=== PATIENT | male | born 1985 | race African-American/Black ===

== ENCOUNTER 2016-09-11 05:10 | Inpatient (IN) | payer OTHER ==
[2016-09-11] VITALS (13 sets, daily range): BP systolic 94–131; BP diastolic 50–58; PULSE 49–78; RESP 14–21; TEMP 93.4–98.1; O2SAT 97–100
[~2016-09-11] VITALS: Ht 162.6 cm; Wt 58.1 kg
[~2016-09-11 05:10] MED LIST: CYCL-36 PO; IBUP-238 PO
[2016-09-11 05:33] LABS: I-STAT POTASSIUM 3.4 MMOL/L (3.5-4.9)
[2016-09-11 05:34] LABS: AUTOMATED NEUTROPHIL # 2.1 TH/MM3 (1.8-7.7); BASOPHIL % 0.4 % (0.0-2.0); EOSINOPHIL % 0.9 % (0.0-4.0); HEMATOCRIT 40.5 % (39.0-51.0); HEMO FLAGS DIFF FINAL; LYMPH % 35.8 % (9.0-44.0); LYMPHOCYTE # 1.4 TH/MM3 (1.0-4.8); MEAN CELL VOLUME 84.4 FL (80.0-100.0); MEAN CORPUSCULAR HGB CONC 33.2 % (32.0-36.0); MONO % 7.6 % (0.0-8.0); NEUT % 55.3 % (16.0-70.0); PLATELET COUNT 190 TH/MM3 (150-450); RED CELL DISTRIBUTION WIDTH 13.3 % (11.6-17.2); WHITE BLOOD COUNT 3.9 TH/MM3 (4.0-11.0)
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
[2016-09-11] MEDS ORDERED: IOHEXOL 350 MG/ML 10 ML VIAL (for RAD DIAG) IV ONE (05:47)
[2016-09-11 05:49] LABS: APTT (PATIENT) 27.4 SEC (24.3-30.1); INTERNATIONAL NORMALIZED RATIO 1.1 RATIO; PROTHROMBIN TIME - PATIENT 11.8 SEC (9.8-11.6)
[2016-09-11] MEDS ORDERED: SODIUM CHLOR 0.9% 1000 ML INJ 1,000 ML IV SCH (05:55)
[2016-09-11] MEDS ORDERED: Post-op Orders (for Pharmacy) MISC XX ONE (06:00)
[2016-09-11] MEDS ORDERED: SODIUM CHLORIDE 0.9% FLUSH 5 ML FLUSH IVF PRN ×2 (06:00→15:30)
[2016-09-11] MEDS ORDERED: ONDANSETRON HCL 4 MG/2 ML VIAL IV PRN ×2 (06:00→15:30)
[2016-09-11] MEDS ORDERED: NALOXONE HCL 0.4 MG/ML AMP IV PRN (06:00)
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
[2016-09-11 06:32] LABS: AMPHETAMINE, URINE NEG (NEG); BARBITURATES, URINE NEG (NEG); COCAINE, URINE POS (NEG)
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
[2016-09-11] MEDS: PANTOPRAZOLE SODIUM 40 MG VIAL IV SCH (06:48)
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
[2016-09-11] MEDS ORDERED: EPINEPHrine HCL (1:10,000) 1 MG/10 ML SYRINGE ONE ×2 (07:15→09:09)
[2016-09-11] MEDS ORDERED: LIDOCAINE HCL 2% 100 MG/5 ML SYRINGE ONE ×2 (07:15→09:09)
[2016-09-11] MEDS ORDERED: ATROPINE SULFATE 1 MG/10 ML SYRINGE ONE ×2 (07:15→09:09)
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
[2016-09-11] MEDS ORDERED: SODIUM CHLORIDE 0.9% FLUSH 5 ML FLUSH IVF SCH (09:00)
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
[2016-09-11] MEDS ORDERED: THROMBIN (TOPICAL) 5,000 UNIT VIAL ONE ×2 (09:40→13:13)
[2016-09-11] MEDS ORDERED: ceFAZolin 2 GM PREMIX 50 ML ONE (09:40)
[2016-09-11] MEDS ORDERED: GELFOAM SIZE 100 ONE (09:41)
[2016-09-11] MEDS ORDERED: GENTAMICIN SULFATE 80 MG/2 ML VIAL ONE (09:41)
[2016-09-11] MEDS ORDERED: DEXAMETHASONE SOD PHOS 20 MG/5 ML VIAL ONE (09:41)
[2016-09-11] MEDS ORDERED: VANCOMYCIN HCL 1000 MG VIAL ONE (09:41)
[2016-09-11] MEDS ORDERED: SODIUM CHLOR 0.9% 250 ML INJ 250 ML ONE ×2 (09:42→10:54)
[2016-09-11] MEDS ORDERED: SODIUM CHLOR 0.9% 1000 ML INJ 1,000 ML IV ONE (10:00)
[2016-09-11] MEDS ORDERED: FAMOTIDINE 20 MG/2 ML VIAL ONE (11:01)
[2016-09-11] MEDS ORDERED: KETAMINE HCL 500 MG/5 ML VIAL ONE (11:11)
[2016-09-11] MEDS ORDERED: MIDAZOLAM HCL 2 MG/2 ML VIAL ONE (11:13)
[2016-09-11] MEDS ORDERED: METOCLOPRAMIDE HCL 10 MG/2 ML VIAL ONE (11:13)
[2016-09-11] MEDS ORDERED: fentaNYL CITRATE 250 MCG/5 ML AMP ONE (11:20)
[2016-09-11] MEDS ORDERED: ARTIFICIAL TEARS OPTH OINT 3.5 APPLIC/3.5 GM TUBO ONE (11:20)
[2016-09-11] MEDS ORDERED: PROPOFOL 200 MG/20 ML AMP IV ONE (12:00)
[2016-09-11] MEDS ORDERED: PHENYLEPHRINE HCL 10 MG/ML VIAL IV ONE (12:00)
[2016-09-11] MEDS ORDERED: PHENYLEPH/NS 1000 MCG/10 ML SYR IV ONE (12:00)
[2016-09-11] MEDS ORDERED: SODIUM CHLOR 0.9% 250 ML INJ 250 ML IV ONE (12:00)
[2016-09-11] MEDS ORDERED: SODIUM CHLORID 0.9% 500 ML INJ 500 ML IV ONE (12:00)
[2016-09-11] MEDS ORDERED: ONDANSETRON HCL 4 MG/2 ML VIAL IV PUSH ONE (12:00)
[2016-09-11] MEDS ORDERED: LACTATED RINGER'S 1000 ML INJ 1,000 ML IV ONE (12:00)
[2016-09-11] MEDS ORDERED: GELATIN POWDER 1 GM PACKET ONE (13:13)
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
[2016-09-11] MEDS ORDERED: DO NOT ADM ANY ANTICOAGULANT DRUGS XX PRN (15:10)
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
[2016-09-11] MEDS ORDERED: MENTHOL LOZENGE SUCK-ON PRN (15:30)
[2016-09-11] MEDS ORDERED: BISACODYL 10 MG SUPP PR PRN (15:30)
[2016-09-11] MEDS ORDERED: PROPOFOL 1000 MG/100 ML INJ 100 ML ONE (15:40)
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
[2016-09-11] MEDS: DEXAMETHASONE SOD PHOS 4 MG/ML VIAL IV SCH ×2 (17:07→18:05)
[2016-09-11] MEDS: MORPHINE SULFATE 4 MG/ML INJ IV PUSH PRN (17:07)
--- NOTE | 2016-09-11 17:16 | RADRPT ---
EXAM DATE/TIME: 09/11/2016 16:58 [facility] COMPARISON: CHEST SINGLE AP, September 11, 2016, 5:04. INDICATIONS : Post intubation. Trauma patient with cervical spine fractures. MEDICAL HISTORY : Unobtainable. SURGICAL HISTORY : Unobtainable. ENCOUNTER: Initial ACUITY: 1 day PAIN SCORE: Non-responsive. LOCATION: Bilateral chest FINDINGS: A single view of the chest demonstrates the lungs to be symmetrically aerated without evidence of mas s, infiltrate or effusion. The cardiomediastinal contours are unremarkable. Osseous structures are intact. There is overlying artifact from a halo traction device. An endotracheal tube is in place wit h the tip at the level of thoracic inlet approximately 5 cm above the torsten. CONCLUSION: 1. Interval intubation. 2. No acute cardiopulmonary disease. Samson Pleitez MD on September 11, 2016 at 17:13 Board Certified Radiologist. This report was verified electronically.
[2016-09-11] MEDS ORDERED: LIDOCAINE HCL 1% 50 ML VIAL ONE (17:45)
[2016-09-11] MEDS ORDERED: LIDOCAINE HCL 1% 20 ML VIAL INFIL PRN (17:45)
[2016-09-11] MEDS ORDERED: TERBUTALINE INJ 1 MG/ML AMP SQ PRN (17:45)
[2016-09-11] MEDS: NS + KCL 20 MEQ INJ 1,000 ML IV SCH (17:51)
[2016-09-11] MEDS: DOPamine INJ PREMIX 500 ML IV SCH (17:52)
[2016-09-11] MEDS ORDERED: ATROPINE SULFATE 1 MG/ML VIAL ONE (18:00)
[2016-09-11] MEDS: fentaNYL DRIP 250 ML IV SCH (18:03)
[2016-09-11] MEDS: PROPOFOL 1000 MG/100 ML IV SCH (18:05)
[2016-09-11] MEDS ORDERED: ATROPINE SULFATE 1 MG/ML VIAL IV PUSH PRN (18:15)
[2016-09-11] MEDS ORDERED: ceFAZolin 2 GM PREMIX 50 ML IV SCH (20:00)
[2016-09-11] MEDS: SODIUM CHLORIDE 0.9% FLUSH 5 ML FLUSH IVF SCH (20:39)
[2016-09-11] MEDS: DOCUSATE SODIUM 50 MG/SENNA 8.6 MG TAB PO SCH (20:39)
[2016-09-11] MEDS: MAGNESIUM HYDROXIDE SUSP 30 ML CUP PO SCH (20:39)
--- NOTE | 2016-09-11 20:58 | RADRPT ---
EXAM DATE/TIME: 09/11/2016 14:49 [facility] COMPARISON: CT CERVICAL SPINE W/O CONTRAST, September 11, 2016, 5:25. MRI CERVICAL SPINE W/O CONTRAST, August 262016, 7:42. INDICATIONS : C5 corpectomy with fusion C4 to C6 and screw and plate, CODE STATU: Full code. MEDICAL HISTORY : Trauma. SURGICAL HISTORY : None. ENCOUNTER: Initial ACUITY: 2 days PAIN SCORE: Non-responsive. LOCATION: Cervical spine. FINDINGS: There is an anterior cervical fusion plate extending from C4 through C6. There is a me tallic strut seen between the C4 and C6 vertebral bodies following corpectomy of the C5 vertebral bod y. The hardware appears well placed. CONCLUSION: Status post stabilization as described above Lawrence Alamo MD on September 11, 2016 at 19:35 Board Certified Radiologist. This report was verified electronically.
[2016-09-11] MEDS ORDERED: DOCUSATE SODIUM 100 MG CAP PO SCH (21:00)
[2016-09-11] MEDS: METOCLOPRAMIDE HCL 10 MG/2 ML VIAL IV PUSH SCH (21:12)
[2016-09-12] VITALS (16 sets, daily range): BP systolic 120–137; BP diastolic 45–64; PULSE 49–73; RESP 13–25; TEMP 98.4–99.5; O2SAT 100
[2016-09-12] MEDS: PROPOFOL 1000 MG/100 ML IV SCH ×2 (01:22→08:38)
[2016-09-12 04:06] LABS: BLOOD GAS BASE EXCESS -0.4 mmol/L (-2-2); BLOOD GAS CARBOXYHEMOGLOBIN 0.8 % (0-4); BLOOD GAS HCO3 23 mmol/L (22-26); BLOOD GAS O2 HGB SATURATION 98 % (90-100); BLOOD GAS OXYGEN CONTENT 18.3 Vol % (12.0-20.0); BLOOD GAS PCO2 36 mmHg (38-42); BLOOD GAS PO2 357 mmHg (61-120); BLOOD GAS TOTAL HGB 12.6 G/DL (12.0-16.0); TEMP CORR TO 98.6
[2016-09-12 04:07] LABS: CRITICAL VALUE NO; DRAW SITE ART LINE; FIO2 80 %; OXYGEN DEVICE VENTILATOR; STAT NO; VENT SETTINGS PRVC/AC
[2016-09-12 05:11] LABS: AUTOMATED NEUTROPHIL # 11.4 TH/MM3 (1.8-7.7); BASOPHIL % 0.3 % (0.0-2.0); HEMATOCRIT 38.4 % (39.0-51.0); HEMO FLAGS DIFF FINAL; LYMPH % 10.1 % (9.0-44.0); LYMPHOCYTE # 1.4 TH/MM3 (1.0-4.8); MEAN CELL VOLUME 85.4 FL (80.0-100.0); MEAN CORPUSCULAR HEMOGLOBIN 27.7 PG (27.0-34.0); MEAN CORPUSCULAR HGB CONC 32.5 % (32.0-36.0); MONO % 6.7 % (0.0-8.0); NEUT % 82.9 % (16.0-70.0); PLATELET COUNT 195 TH/MM3 (150-450); RED BLOOD COUNT 4.49 MIL/MM3 (4.50-5.90); RED CELL DISTRIBUTION WIDTH 13.7 % (11.6-17.2); WHITE BLOOD COUNT 13.8 TH/MM3 (4.0-11.0)
[2016-09-12 05:38] LABS: ANION GAP 9 MEQ/L (5-15); AST (GOT) 20 U/L (15-37); BICARBONATE 25.4 MEQ/L (21.0-32.0); BLOOD UREA NITROGEN 10 MG/DL (7-18); CHLORIDE 108 MEQ/L (98-107); GLOMERULAR FILTRATION RATE 123 ML/MIN (>89); POTASSIUM 3.7 MEQ/L (3.5-5.1); SODIUM (NA) 142 MEQ/L (136-145)
[2016-09-12 05:42] LABS: ALKALINE PHOSPHATASE 55 U/L (45-117); ALT (GPT) 18 U/L (12-78); TOTAL BILIRUBIN ADULT 0.4 MG/DL (0.2-1.0)
[2016-09-12] MEDS: NS + KCL 20 MEQ INJ 1,000 ML IV SCH ×2 (05:50→16:16)
[2016-09-12] MEDS: PANTOPRAZOLE SODIUM 40 MG VIAL IV SCH (05:50)
[2016-09-12] MEDS: METOCLOPRAMIDE HCL 10 MG/2 ML VIAL IV PUSH SCH ×3 (05:50→22:00)
[2016-09-12] MEDS: DEXAMETHASONE SOD PHOS 4 MG/ML VIAL IV SCH ×4 (05:50→23:47)
--- NOTE | 2016-09-12 06:27 | RADRPT ---
EXAM DATE/TIME: 09/12/2016 04:31 [facility] COMPARISON: SPINE CERVICAL LTD (AP&LAT), September 11, 2016, 14:49. CHEST SINGLE AP, September 11, 2016, 16:58. M RI CERVICAL SPINE W/O CONTRAST, September 11, 2016, 7:42. INDICATIONS : Shortness of breath. MEDICAL HISTORY : Unobtainable. SURGICAL HISTORY : Unobtainable. ENCOUNTER: Subsequent ACUITY: 2 days PAIN SCORE: Non-responsive. LOCATION: Bilateral chest FINDINGS: A single view of the chest demonstrates the lungs to be symmetrically aerated without evidence of mas s, infiltrate or effusion. The cardiomediastinal contours are unremarkable. Osseous structures are intact. CONCLUSION: 1. No acute cardiopulmonary disease. Agustin Bhatia MD on September 12, 2016 at 6:24 Board Certified Radiologist. This report was verified electronically.
[2016-09-12] MEDS: fentaNYL DRIP 250 ML IV SCH (08:38)
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
[2016-09-12] MEDS: SODIUM CHLORIDE 0.9% FLUSH 5 ML FLUSH IVF SCH ×2 (08:39→20:30)
[2016-09-12] MEDS: BISACODYL 10 MG SUPP RECTAL SCH (09:00)
[2016-09-12] MEDS: DOCUSATE SODIUM 50 MG/SENNA 8.6 MG TAB PO SCH ×2 (09:00→20:30)
[2016-09-12] MEDS ORDERED: PANTOPRAZOLE SOD 40 MG DELAYED RELEASE TAB PO SCH (09:00)
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
[2016-09-12] MEDS ORDERED: RESP: RACEPINEPHRINE 2.25% 0.5 ML NEB NEB PRN (10:00)
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
--- NOTE | 2016-09-12 15:11 | EKG ---
Date Performed: 09/11/2016 Time Performed: 10:01:00 PTAGE: 31 years EKG: Sinus arrhythmia. Vertical QRS axis ST change compatible with early repolarization Tracing probably within normal limits for age Abnormal ECG NO PREVIOUS TRACING DOCTOR: Tera Rocha Interpretating Date/Time 09/12/2016 15:10:23
[2016-09-12] MEDS: DOPamine INJ PREMIX 500 ML IV SCH (16:13)
[2016-09-12] MEDS: MAGNESIUM HYDROXIDE SUSP 30 ML CUP PO SCH (20:30)
[2016-09-13] VITALS (14 sets, daily range): BP systolic 98–152; BP diastolic 42–71; PULSE 57–90; RESP 10–24; TEMP 97.5–100.2; O2SAT 99–100
[2016-09-13] MEDS: MORPHINE SULFATE 4 MG/ML INJ IV PUSH PRN ×6 (01:31→20:45)
[2016-09-13 04:52] LABS: AUTOMATED NEUTROPHIL # 16.3 TH/MM3 (1.8-7.7); BASOPHIL # 0.1 TH/MM3 (0-0.2); BASOPHIL % 0.3 % (0.0-2.0); HEMATOCRIT 38.6 % (39.0-51.0); HEMO FLAGS DIFF FINAL; LYMPHOCYTE # 0.4 TH/MM3 (1.0-4.8); MEAN CELL VOLUME 85.1 FL (80.0-100.0); MEAN CORPUSCULAR HGB CONC 32.9 % (32.0-36.0); MONO % 5.3 % (0.0-8.0); NEUT % 92.4 % (16.0-70.0); PLATELET COUNT 165 TH/MM3 (150-450); RED BLOOD COUNT 4.54 MIL/MM3 (4.50-5.90); RED CELL DISTRIBUTION WIDTH 13.5 % (11.6-17.2); WHITE BLOOD COUNT 17.6 TH/MM3 (4.0-11.0)
[2016-09-13 05:31] LABS: ALKALINE PHOSPHATASE 55 U/L (45-117); ALT (GPT) 33 U/L (12-78); ANION GAP 8 MEQ/L (5-15); AST (GOT) 98 U/L (15-37); BICARBONATE 27.3 MEQ/L (21.0-32.0); BLOOD UREA NITROGEN 13 MG/DL (7-18); CHLORIDE 106 MEQ/L (98-107); GLOMERULAR FILTRATION RATE 148 ML/MIN (>89); MAGNESIUM 2.1 MG/DL (1.5-2.5); POTASSIUM 4.2 MEQ/L (3.5-5.1); SODIUM (NA) 141 MEQ/L (136-145); TOTAL BILIRUBIN ADULT 0.8 MG/DL (0.2-1.0)
[2016-09-13] MEDS: PANTOPRAZOLE SODIUM 40 MG VIAL IV SCH (05:37)
[2016-09-13] MEDS: DEXAMETHASONE SOD PHOS 4 MG/ML VIAL IV SCH ×4 (05:37→23:57)
[2016-09-13] MEDS: METOCLOPRAMIDE HCL 10 MG/2 ML VIAL IV PUSH SCH ×3 (05:37→22:00)
[2016-09-13] MEDS: RESP: ALBUTEROL 2.5 MG/IPRATROPIUM 0.5 MG NEB (PRN) NEB (05:51)
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
[2016-09-13] MEDS: BISACODYL 10 MG SUPP RECTAL SCH (08:48)
[2016-09-13] MEDS: SODIUM CHLORIDE 0.9% FLUSH 5 ML FLUSH IVF SCH ×2 (08:49→21:00)
[2016-09-13] MEDS: DOCUSATE SODIUM 50 MG/SENNA 8.6 MG TAB PO SCH ×2 (09:00→21:00)
[2016-09-13] MEDS: fentaNYL DRIP 250 ML IV SCH (09:00)
[2016-09-13] MEDS: NS + KCL 20 MEQ INJ 1,000 ML IV SCH (09:01)
[2016-09-13] MEDS ORDERED: POTASSIUM CHLOR 20 MEQ PREMIX 100 ML IV PRN ×2 (09:30)
[2016-09-13] MEDS ORDERED: POTASSIUM PHOSPHATE MONOBASIC 500 MG TAB PO/TUBE PRN (09:30)
[2016-09-13] MEDS ORDERED: POTASSIUM PHOSPHATE MONOBASIC 500 MG TAB PO PRN (09:30)
[2016-09-13] MEDS ORDERED: SODIUM PHOSPHATE INJ 30 MMOL in SODIUM CHLOR 0.9% 250 ML INJ 240 ML IV PRN (09:30)
[2016-09-13] MEDS ORDERED: MAGNESIUM SULFATE INJ 2 GM in SODIUM CHLORIDE 0.9% INJ 96 ML IV PRN (09:30)
[2016-09-13] MEDS ORDERED: POTASSIUM CL 40 MEQ/30 ML LIQ UDC PO/TUBE PRN ×2 (09:30)
[2016-09-13] MEDS ORDERED: MAGNESIUM OXIDE 400 MG TAB PO PRN (09:30)
[2016-09-13] MEDS ORDERED: POTASSIUM CHLOR 40 MEQ PREMIX 100 ML IV PRN ×2 (09:30)
[2016-09-13] MEDS ORDERED: POTASSIUM PHOSPHATE INJ 30 MMOL in SODIUM CHLOR 0.9% 250 ML INJ 250 ML IV PRN (09:30)
[2016-09-13] MEDS ORDERED: MAGNESIUM SULFATE INJ 4 GM in SODIUM CHLORIDE 0.9% INJ 92 ML IV PRN (09:30)
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
[2016-09-13] MEDS: MAGNESIUM HYDROXIDE SUSP 30 ML CUP PO SCH (21:00)
[2016-09-14] VITALS (14 sets, daily range): BP systolic 106–154; BP diastolic 67–80; PULSE 51–70; RESP 11–21; TEMP 98.2–100.4; O2SAT 100
[2016-09-14] MEDS: NS + KCL 20 MEQ INJ 1,000 ML IV SCH ×2 (01:12→15:30)
[2016-09-14] MEDS: MORPHINE SULFATE 4 MG/ML INJ IV PUSH PRN ×3 (02:50→18:52)
[2016-09-14 04:57] LABS: AUTOMATED NEUTROPHIL # 11.1 TH/MM3 (1.8-7.7); HEMO FLAGS DIFF FINAL; LYMPH % 5.4 % (9.0-44.0); LYMPHOCYTE # 0.7 TH/MM3 (1.0-4.8); MEAN CELL VOLUME 84.2 FL (80.0-100.0); MEAN CORPUSCULAR HEMOGLOBIN 28.3 PG (27.0-34.0); MEAN CORPUSCULAR HGB CONC 33.7 % (32.0-36.0); MONO % 3.5 % (0.0-8.0); NEUT % 91.1 % (16.0-70.0); PLATELET COUNT 161 TH/MM3 (150-450); RED BLOOD COUNT 4.51 MIL/MM3 (4.50-5.90); RED CELL DISTRIBUTION WIDTH 13.5 % (11.6-17.2); WHITE BLOOD COUNT 12.2 TH/MM3 (4.0-11.0)
[2016-09-14 05:20] LABS: ALT (GPT) 34 U/L (12-78); ANION GAP 8 MEQ/L (5-15); AST (GOT) 69 U/L (15-37); BICARBONATE 26.3 MEQ/L (21.0-32.0); BLOOD UREA NITROGEN 16 MG/DL (7-18); CHLORIDE 104 MEQ/L (98-107); GLOMERULAR FILTRATION RATE 172 ML/MIN (>89); MAGNESIUM 2.1 MG/DL (1.5-2.5); POTASSIUM 4.1 MEQ/L (3.5-5.1); SODIUM (NA) 138 MEQ/L (136-145)
[2016-09-14 05:22] LABS: ALKALINE PHOSPHATASE 54 U/L (45-117); TOTAL BILIRUBIN ADULT 0.5 MG/DL (0.2-1.0)
[2016-09-14] MEDS: DEXAMETHASONE SOD PHOS 4 MG/ML VIAL IV SCH ×3 (05:33→18:00)
[2016-09-14] MEDS: PANTOPRAZOLE SODIUM 40 MG VIAL IV SCH (05:33)
[2016-09-14] MEDS: METOCLOPRAMIDE HCL 10 MG/2 ML VIAL IV PUSH SCH ×3 (05:33→21:06)
[2016-09-14] MEDS ORDERED: fentaNYL CITRATE 250 MCG/5 ML AMP ONE (06:51)
[2016-09-14] MEDS ORDERED: MIDAZOLAM HCL 2 MG/2 ML VIAL ONE (06:51)
[2016-09-14] MEDS ORDERED: FAMOTIDINE 20 MG/2 ML VIAL ONE (06:51)
[2016-09-14] MEDS ORDERED: ACETAMINOPHEN 1000 MG/100 ML VIAL IV ONE (06:51)
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
[2016-09-14] MEDS: DOPamine INJ PREMIX 500 ML IV SCH (08:02)
[2016-09-14] MEDS: BISACODYL 10 MG SUPP RECTAL SCH (08:02)
[2016-09-14] MEDS: SODIUM CHLORIDE 0.9% FLUSH 5 ML FLUSH IVF SCH ×2 (08:03→20:21)
[2016-09-14] MEDS: DOCUSATE SODIUM 50 MG/SENNA 8.6 MG TAB PO SCH ×2 (09:00→20:21)
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
[2016-09-14] MEDS ORDERED: ATROPINE SULFATE 1 MG/10 ML SYRINGE ONE (17:09)
[2016-09-14] MEDS ORDERED: EPINEPHrine HCL (1:10,000) 1 MG/10 ML SYRINGE ONE (17:09)
[2016-09-14] MEDS ORDERED: LIDOCAINE HCL 2% 100 MG/5 ML SYRINGE ONE (17:10)
--- NOTE | 2016-09-14 18:42 | RADRPT ---
EXAM DATE/TIME: 09/14/2016 17:46 [facility] COMPARISON: CT CERVICAL SPINE W/O CONTRAST, September 11, 2016, 5:25. INDICATIONS : Evaluate fracture post operative. RADIATION DOSE: 25.45 CTDIvol (mGy) MEDICAL HISTORY : C spine fracture SURGICAL HISTORY : surgery for fracture ENCOUNTER: Subsequent ACUITY: 4 - 6 days PAIN SCALE: 5/10 LOCATION: neck TECHNIQUE: Volumetric scanning of the cervical spine was performed. Multiplanar reconstructions in the sagittal, coronal and oblique axial planes were performed. Using automated exposure control and adjustment o f the mA and/or kV according to patient size, radiation dose was kept as low as reasonably achievable to obtain optimal diagnostic quality images. FINDINGS: In the interim, a C5 corpectomy and C4/C5, C5/C6 discectomy has taken place. There is anterior and in terbody instrumentation. Alignment is normal. No epidural hematoma or fluid collection. No evidence o f foraminal or spinal stenosis. Bilateral C5 laminar fractures are again noted without significant displacement. CONCLUSION: Discectomy/corpectomy from C4 through C6, normally aligned and without evidence of an acute complicat ion. Previously seen spinal stenosis has been alleviated. Lawrence Spivey MD on September 14, 2016 at 18:35 Board Certified Radiologist. This report was verified electronically.
[2016-09-14] MEDS: MAGNESIUM HYDROXIDE SUSP 30 ML CUP PO SCH (20:21)
[2016-09-15] VITALS (11 sets, daily range): BP systolic 111–155; BP diastolic 54–85; PULSE 51–82; RESP 16–22; TEMP 97.2–99; O2SAT 99–100
[2016-09-15] MEDS: DEXAMETHASONE SOD PHOS 4 MG/ML VIAL IV SCH ×5 (00:35→22:36)
[2016-09-15] MEDS: MORPHINE SULFATE 4 MG/ML INJ IV PUSH PRN ×5 (00:36→22:35)
[2016-09-15 04:30] LABS: HEMATOCRIT 37.8 % (39.0-51.0); MEAN CELL VOLUME 83.8 FL (80.0-100.0); MEAN CORPUSCULAR HEMOGLOBIN 27.7 PG (27.0-34.0); MEAN CORPUSCULAR HGB CONC 33.1 % (32.0-36.0); PLATELET COUNT 180 TH/MM3 (150-450); RED BLOOD COUNT 4.51 MIL/MM3 (4.50-5.90); RED CELL DISTRIBUTION WIDTH 13.4 % (11.6-17.2); REVIEW FLAG FINAL; WHITE BLOOD COUNT 12.3 TH/MM3 (4.0-11.0)
[2016-09-15 04:53] LABS: BICARBONATE 25.2 MEQ/L (21.0-32.0); POTASSIUM 4.2 MEQ/L (3.5-5.1)
[2016-09-15] MEDS: NS + KCL 20 MEQ INJ 1,000 ML IV SCH ×2 (04:53→20:06)
[2016-09-15] MEDS: METOCLOPRAMIDE HCL 10 MG/2 ML VIAL IV PUSH SCH (05:24)
[2016-09-15] MEDS: PANTOPRAZOLE SODIUM 40 MG VIAL IV SCH (05:24)
[2016-09-15] MEDS: BISACODYL 10 MG SUPP RECTAL SCH (09:00)
[2016-09-15] MEDS: DOCUSATE SODIUM 50 MG/SENNA 8.6 MG TAB PO SCH ×2 (09:00→21:00)
[2016-09-15] MEDS: SODIUM CHLORIDE 0.9% FLUSH 5 ML FLUSH IVF SCH ×2 (09:00→21:00)
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
[2016-09-15] MEDS: SERTRALINE HCL 50 MG TAB PO SCH (11:00)
--- NOTE | 2016-09-15 12:18 | HHI.PR ---
Neuropsych Emotional Emotional: Moderate: Emotional, Anxious/Fearful, Depressed/Sad Progress Notes/Response to Tx Contents of Sessions: Adjustment Time with Patient: 15 minutes Premorbid psychological status Premorbid Cognitive, Emotional and Behavioral Status: [Tenuous / Stable / Unstable / Deferred / Unable to Assess] The patient has [] years of education and a [solid / sporadic] work history prior to this injury. The patient has [ no / prior] psychiatric difficulties, as described above. Substance abuse history includes []. Behavioral Reactions of Patient and Family/Support System: [Tenuous / Stable / Unstable / Deferred / Unable to Assess] The patients family is experiencing ongoing issues of adjustment given the nature of the injury, and this aspect of recovery will require ongoing monitoring. Emotional/Behavioral Status of Patient and Family/Support System: [Tenuous / Stable / Unstable / Deferred / Unable to Assess] Pertinent issues, if appropriate to this patients clinical care, are described in detail above. Maximizing acute care outcome It is recommended that the patient be monitored for emergent behavioral impulsivity as the medical condition evolves. This patients neuropathological challenges may limit their rehabilitation potential going forward, and these challenges will require specialized therapeutic skills to maximize outcome. Additionally, the patients family is experiencing ongoing issues of adjustment given the traumatic nature of the injury, and they [will need / may benefit] from ongoing psychological assistance. Anticipated Problems Ongoing areas of concern will include behavioral impulsivity, lack of insight and judgment, which is expected to improve with time and treatment. Presently , the patient [is / is not] following greater than []-step commands. Treatment Plan This clinician will continue to follow with you throughout the course of this patients rehabilitation treatment, and I will be available to meet with the patients family/support system to facilitate their understanding and the ongoing care of their family member. The goals of neuropsychological intervention shall be both educational and supportive to the family/support system as is deemed clinically appropriate. Additionally, I would recommend a referral to Dr. Ac for ongoing patient and family adjustment issues if they are coming to [place]. Impression This patient sustained a spinal cord injury with expected paralysis, extent of which to be determined. There is evidence of an underlying depressive disorder in reaction to the severity of his injury. Diagnosis: (1) Major depressive disorder Status: Acute Progress Note Narrative Ongoing follow-up of patient both within context of daily trauma rounding and bedside. Discussed recovery issues with significant other, who was bedside. Patient is complaining of mood difficulties and problems with sleep. I provided information concerning recovery of functioning and processes to be expected in his treatment. I will continue to follow with you. Problem Qualifiers (1) Major depressive disorder: Basilio Barber PhD Sep 15, 2016 12:17 pm
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
[2016-09-15] MEDS: MAGNESIUM HYDROXIDE SUSP 30 ML CUP PO SCH ×2 (21:00→22:34)
[2016-09-16] VITALS (11 sets, daily range): BP systolic 110–135; BP diastolic 5–76; PULSE 60–76; RESP 16–28; TEMP 96.7–100.1; O2SAT 91–100
[2016-09-16] MEDS: MORPHINE SULFATE 4 MG/ML INJ IV PUSH PRN ×3 (01:36→17:21)
[2016-09-16] MEDS: DEXAMETHASONE SOD PHOS 4 MG/ML VIAL IV SCH ×3 (06:17→21:51)
[2016-09-16] MEDS: ACETAMINOPHEN/HYDROcodone 325 MG/10 MG TAB PO PRN (06:17)
[2016-09-16] MEDS: SODIUM CHLORIDE 0.9% FLUSH 5 ML FLUSH IVF SCH ×2 (09:36→23:05)
[2016-09-16] MEDS: SERTRALINE HCL 50 MG TAB PO SCH (09:37)
[2016-09-16] MEDS: FAMOTIDINE 20 MG TAB PO SCH ×2 (09:37→21:00)
[2016-09-16] MEDS: BISACODYL 10 MG SUPP RECTAL SCH (09:37)
[2016-09-16] MEDS: DOCUSATE SODIUM 50 MG/SENNA 8.6 MG TAB PO SCH ×2 (09:37→21:00)
[2016-09-16] MEDS: NS + KCL 20 MEQ INJ 1,000 ML IV SCH ×2 (09:38→21:52)
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
--- NOTE | 2016-09-16 15:08 | HHI.PR ---
Subjective Subjective Notes Being evaluated by ST during visit. Pain controlled. Awaiting reposition of halo position by ortho techs Objective Vitals/I&O Vital Signs Date Time Temp Pulse Resp B/P Pulse Ox O2 Delivery O2 Flow Rate FiO2 09/16/16 12:21 18 09/16/16 12:00 99.0 62 122/63 93 09/14/16 19:45 21 09/13/16 09:49 Nasal Cannula 2.00 Labs Laboratory Tests Test 09/12/16 09/14/16 09/14/16 09/15/16 03:56 03:31 12:15 03:06 Blood Gas Puncture Site ART LINE Blood Gas Patient Temperature 98.6 Blood Gas HCO3 23 mmol/L Blood Gas Base Excess -0.4 mmol/L Blood Gas Oxygen Saturation 98 % Arterial Blood pH 7.43 Arterial Blood Partial 36 mmHg Pressure CO2 Arterial Blood Partial 357 mmHg Pressure O2 Arterial Blood Oxygen Content 18.3 Vol % Arterial Blood 0.8 % Carboxyhemoglobin Arterial Blood Methemoglobin 1.0 % Blood Gas Hemoglobin 12.6 G/DL Oxygen Delivery Device VENTILATOR Blood Gas Ventilator Setting PRVC/AC Blood Gas Inspired Oxygen 80 % Neutrophils (%) (Auto) 91.1 % Lymphocytes (%) (Auto) 5.4 % Monocytes (%) (Auto) 3.5 % Eosinophils (%) (Auto) 0.0 % Basophils (%) (Auto) 0.0 % Neutrophils # (Auto) 11.1 TH/MM3 Lymphocytes # (Auto) 0.7 TH/MM3 Monocytes # (Auto) 0.4 TH/MM3 Eosinophils # (Auto) 0.0 TH/MM3 Basophils # (Auto) 0.0 TH/MM3 CBC Comment DIFF FINAL Differential Comment Phosphorus Level 2.3 MG/DL Magnesium Level 2.1 MG/DL Total Bilirubin 0.5 MG/DL Aspartate Amino Transf 69 U/L (AST/SGOT) Alanine Aminotransferase 34 U/L (ALT/SGPT) Alkaline Phosphatase 54 U/L Total Protein 6.5 GM/DL Albumin 2.9 GM/DL Nasal Screen MRSA (PCR) NEGATIVE White Blood Count 12.3 TH/MM3 Red Blood Count 4.51 MIL/MM3 Hemoglobin 12.5 GM/DL Hematocrit 37.8 % Mean Corpuscular Volume 83.8 FL Mean Corpuscular Hemoglobin 27.7 PG Mean Corpuscular Hemoglobin 33.1 % Concent Red Cell Distribution Width 13.4 % Platelet Count 180 TH/MM3 Mean Platelet Volume 8.3 FL Sodium Level 137 MEQ/L Potassium Level 4.2 MEQ/L Chloride Level 104 MEQ/L Carbon Dioxide Level 25.2 MEQ/L Anion Gap 8 MEQ/L Blood Urea Nitrogen 17 MG/DL Creatinine 0.61 MG/DL Estimat Glomerular Filtration 188 ML/MIN Rate Random Glucose 103 MG/DL Calcium Level 8.6 MG/DL Radiology Last Impressions Cervical Spine CT 09/14/16 0000 Signed Impressions: Service Date/Time: Wednesday, September 14, 2016 17:46 - CONCLUSION: Discectomy/corpectomy from C4 through C6, normally aligned and without evidence of an acute complication. Previously seen spinal stenosis has been alleviated. Lawrence Spivey MD Chest X-Ray 09/12/16 0600 Signed Impressions: Service Date/Time: Monday, September 12, 2016 04:31 - CONCLUSION: 1. No acute cardiopulmonary disease. Agustin Bhatia MD Head CT 09/11/16 0525 Signed Impressions: Service Date/Time: Sunday, September 11, 2016 05:25 - CONCLUSION: 1. No evidence of acute intracranial pathology. No masses are identified. 1. Agustin Bhatia MD Chest CT 09/11/1614 Signed Impressions: Service Date/Time: Sunday, September 11, 2016 05:31 - CONCLUSION: No evidence of acute thoracic abnormality. No masses are identified. Agustin Bhatia MD Abdomen/Pelvis CT 09/11/1614 Signed Impressions: Service Date/Time: Sunday, September 11, 2016 05:31 - CONCLUSION: 1. No evidence of acute abdominal or pelvic process. No masses are identified. Agustin Bhatia MD Pelvis X-Ray 09/11/16 0000 Signed Impressions: Service Date/Time: Sunday, September 11, 2016 05:04 - CONCLUSION: 1. There is no evidence of acute fracture. Agustin Bhatia MD Cervical Spine X-Ray 09/11/16 0000 Signed Impressions: Service Date/Time: Sunday, September 11, 2016 14:49 - CONCLUSION: Status post stabilization as described above Lawrence Alamo MD Cervical Spine MRI 09/11/16 0000 Signed Impressions: Service Date/Time: Sunday, September 11, 2016 07:42 - CONCLUSION: Bony impingement on the cord at the C5 level. Abel Brumfield MD FACR Narrative Exam GENERAL: 31 year old frail looking male lying in bed. SKIN: Warm and dry. HEAD: Normocephalic. Halo in place, pins clean. ENT: No nasal bleeding or discharge. Mucous membranes pink and moist. NECK: Trachea midline. No JVD. CARDIOVASCULAR: Regular rate and rhythm. RESPIRATORY: No accessory muscle use. Lungs clear to auscultation. Breath sounds equal bilaterally. GASTROINTESTINAL: Abdomen soft, non-tender, nondistended. + BS. MUSCULOSKELETAL: Extremities without cyanosis, or edema. Gross motor function BUE, BLE flaccid. NEUROLOGICAL: Awake and alert. Normal speech. A/P Assessment and Plan INJURIES: C5 fx - anterior/inferior aspect vertebral body with small avulsion fx on RIGHT w/ body protrusion into spinal canal (w/ spinal canal stenosis) C5-C6 epidural hematoma 09/11: C5 corpectomy with C4-C6 arthrodesis and halo placement. Diet: Pureed, honey thick. ST evaluating daily Pulm: IS, encouraged patient use Pain: Mehoopany, Morphine, Flexeril (Zoloft) Activity: BR. PT and OT evaluating. GI: Protonix IV Bowel: Valerie-colace. MOM. Bisacodyl OK daily. LBM 09/14 DVT: SCD's Decadron dose decreased to 4mg BID Dr Keene has tentative plan to complete posterior fusion on Wednesday. Plan of care discussed with patient and girlfriend at bedside. Case management consulted for discharge planning. Attending Statement The exam, history, and the medical decision-making described in the above note were completed with the assistance of the mid-level provider. I reviewed and agree with the findings presented. I attest that I had a [id number] encounter with the patient on the same day, and personally performed and documented my assessment and findings in the medical record. Sharan Roe Sep 16, 2016 15:08 Araceli Peacock MD Sep 19, 2016 16:38
--- NOTE | 2016-09-16 17:57 | RADRPT ---
EXAM DATE/TIME: 09/16/2016 17:18 [facility] COMPARISON: CHEST SINGLE AP, September 12, 2016, 4:31. INDICATIONS : Shortness of breath, decreased oxygen saturation MEDICAL HISTORY : None. SURGICAL HISTORY : None. ENCOUNTER: Initial ACUITY: 1 day PAIN SCORE: Non-responsive. LOCATION: Bilateral chest FINDINGS: 2 portable frontal views of the chest show halo device generating some limitations to the study. A ne w left lower lobe infiltrate is seen. Right lung is clear. No effusions. Heart is normal in size. CONCLUSION: New left lower lobe infiltrate. Del Hatfield Jr., MD on September 16, 2016 at 17:52 Board Certified Radiologist. This report was verified electronically.
[2016-09-16] MEDS: ALPRAZolam 0.5 MG TAB PO PRN (18:16)
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
--- NOTE | 2016-09-16 21:27 | RADRPT ---
EXAM DATE/TIME: 09/16/2016 21:16 [facility] COMPARISON: CHEST SINGLE AP, September 16, 2016, 17:18. INDICATIONS : Short of breath. MEDICAL HISTORY : None. SURGICAL HISTORY : None. ENCOUNTER: Subsequent ACUITY: 1 week PAIN SCORE: 0/10 LOCATION: Bilateral chest FINDINGS: A single view of the chest demonstrates the lungs to be symmetrically aerated without evidence of mas s, infiltrate or effusion. The cardiomediastinal contours are unremarkable.Patient remains in a halo . CONCLUSION: No definite acute cardiopulmonary disease demonstrated. No significant reproducible infiltrates seen of the left base. Lawrence Spivey MD on September 16, 2016 at 21:24 Board Certified Radiologist. This report was verified electronically.
[2016-09-16] MEDS: RESP: ALBUTEROL 2.5 MG/IPRATROPIUM 0.5 MG NEB (SCH) NEB (21:39)
[2016-09-16] MEDS ORDERED: PROPOFOL 1000 MG/100 ML INJ 100 ML ONE (22:07)
[2016-09-16] MEDS ORDERED: MIDAZOLAM HCL 5 MG/ML VIAL (1 ML) ONE ×2 (22:32→22:38)
[2016-09-16] MEDS ORDERED: MIDAZOLAM HCL 5 MG/ML VIAL (1 ML) IV ONE (23:00)
[2016-09-16] MEDS ORDERED: MIDAZOLAM HCL 2 MG/2 ML VIAL IV PUSH ONE (23:00)
[2016-09-16] MEDS: PROPOFOL 1000 MG/100 ML INJ 100 ML IV SCH (23:08)
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
--- NOTE | 2016-09-16 23:48 | RADRPT ---
EXAM DATE/TIME: 09/16/2016 23:17 [facility] COMPARISON: CHEST SINGLE AP, September 16, 2016, 21:16. INDICATIONS : E-T and orogastric tube placement. MEDICAL HISTORY : None. SURGICAL HISTORY : None. ENCOUNTER: Subsequent ACUITY: 1 week PAIN SCORE: Non-responsive. LOCATION: Bilateral chest FINDINGS: The ET tube and NG tube are well placed. The heart size is normal. The lungs are grossly clear. The p atient is in a halo. CONCLUSION: ET tube and NG tube are well placed. Lawrence Alamo MD on September 16, 2016 at 23:44 Board Certified Radiologist. This report was verified electronically.
[2016-09-17] VITALS (17 sets, daily range): BP systolic 99–116; BP diastolic 54–58; PULSE 52–65; RESP 16–18; TEMP 96.8–99.5; O2SAT 99–100
[2016-09-17] MEDS: fentaNYL DRIP 250 ML IV SCH ×2 (00:42→15:00)
--- NOTE | 2016-09-17 00:57 | PD.PROCEDR ---
Procedure Note Procedure Bronchoscopy The bronchoscope was advanced through the ETT into torsten, which was sharp. Then advanced into the left main stem and each segment, subsegement in the left upper lingula and lower lobe was visualized. There was mild tracheobronchitis with mild friability throughout. There was modest amounts of white secretion. There were no other findings including evidence of mass, anatomic distortions, or hemorrhage. The right upper lobe anatomy showed some segmental distortion with dilation and irregularities both at the apical region as well as in the subsegments of the anteroapical and posterior segments. No specific masses or other lesions were identified throughout the tracheobronchial tree on the right. There was mild tracheal bronchitis with friability. Upon coughing, there was punctate hemorrhage. The bronchoscope was then advanced through the bronchus intermedius and the right middle lobe and right lower lobe. These again had no other anatomic lesions identified. The bronchoscope was then wedged in the right middle lobe and bronchoalveolar samples were obtained. The bronchoscope was withdrawn and the area was suctioned clear. The bronchoscope was then advanced into the apical segment of the right upper lobe and the bronchioalveolar lavage again performed. Samples were taken and the bronchoscope was removed suctioned the area clear. The bronchoscope was then withdrawn. The patient tolerated the procedure well without evidence of desaturation or complications. Juaquin Lopez MD Sep 17, 2016 00:57
[2016-09-17 01:42] LABS: BLOOD GAS BASE EXCESS 0.8 mmol/L (-2-2); BLOOD GAS CARBOXYHEMOGLOBIN 0.9 % (0-4); BLOOD GAS HCO3 25 mmol/L (22-26); BLOOD GAS METHEMOGLOBIN 0.8 % (0-2); BLOOD GAS O2 HGB SATURATION 98 % (90-100); BLOOD GAS OXYGEN CONTENT 17.3 Vol % (12.0-20.0); BLOOD GAS PCO2 40 mmHg (38-42); BLOOD GAS PO2 258 mmHg (61-120); BLOOD GAS TOTAL HGB 12.1 G/DL (12.0-16.0); CRITICAL VALUE NO; FIO2 100 %; OXYGEN DEVICE VENTILATOR; TEMP CORR TO 98.6; VENT SETTINGS AC/16/450/PEEP5
[2016-09-17 01:43] LABS: DRAW SITE RT RADIAL; NUMBER OF ARTERIAL PUNCTURES 1; STAT NO; ULNAR PULSE PRESENT
[2016-09-17] MEDS: PROPOFOL 1000 MG/100 ML INJ 100 ML IV SCH ×3 (02:33→12:35)
[2016-09-17 04:47] LABS: AUTOMATED NEUTROPHIL # 9.2 TH/MM3 (1.8-7.7); BASOPHIL % 0.1 % (0.0-2.0); HEMATOCRIT 35.1 % (39.0-51.0); HEMO FLAGS DIFF FINAL; LYMPH % 4.7 % (9.0-44.0); LYMPHOCYTE # 0.5 TH/MM3 (1.0-4.8); MEAN CELL VOLUME 84.4 FL (80.0-100.0); MEAN CORPUSCULAR HEMOGLOBIN 28.2 PG (27.0-34.0); MEAN CORPUSCULAR HGB CONC 33.4 % (32.0-36.0); MONO % 8.4 % (0.0-8.0); NEUT % 86.8 % (16.0-70.0); PLATELET COUNT 173 TH/MM3 (150-450); RED BLOOD COUNT 4.16 MIL/MM3 (4.50-5.90); RED CELL DISTRIBUTION WIDTH 13.1 % (11.6-17.2); WHITE BLOOD COUNT 10.6 TH/MM3 (4.0-11.0)
[2016-09-17] MEDS: RESP: ALBUTEROL 2.5 MG/IPRATROPIUM 0.5 MG NEB (SCH) NEB ×4 (04:50→21:05)
[2016-09-17 05:07] LABS: ALKALINE PHOSPHATASE 51 U/L (45-117); ALT (GPT) 50 U/L (12-78); ANION GAP 7 MEQ/L (5-15); AST (GOT) 59 U/L (15-37); BICARBONATE 26.8 MEQ/L (21.0-32.0); BLOOD UREA NITROGEN 19 MG/DL (7-18); CHLORIDE 101 MEQ/L (98-107); GLOMERULAR FILTRATION RATE 212 ML/MIN (>89); MAGNESIUM 2.1 MG/DL (1.5-2.5); POTASSIUM 4.4 MEQ/L (3.5-5.1); SODIUM (NA) 135 MEQ/L (136-145); TOTAL BILIRUBIN ADULT 0.5 MG/DL (0.2-1.0)
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
--- NOTE | 2016-09-17 06:28 | RADRPT ---
EXAM DATE/TIME: 09/17/2016 05:19 [facility] COMPARISON: CHEST SINGLE AP, September 16, 2016, 23:17. INDICATIONS : Shortness of breath MEDICAL HISTORY : None. SURGICAL HISTORY : None. ENCOUNTER: Initial ACUITY: 1 week PAIN SCORE: Non-responsive. LOCATION: Bilateral chest FINDINGS: ET tube and NG tube are well placed. The heart size is normal. There is increased density at the left base. The right lung is clear. The patient is in a halo. CONCLUSION: Left lower lung atelectasis or consolidation. Lawrence Alamo MD on September 17, 2016 at 6:26 Board Certified Radiologist. This report was verified electronically.
[2016-09-17] MEDS: ENOXAPARIN SODIUM 40 MG/0.4 ML SYRINGE SQ SCH (09:03)
[2016-09-17] MEDS: BISACODYL 10 MG SUPP RECTAL SCH (09:03)
[2016-09-17] MEDS: DOCUSATE SODIUM 50 MG/SENNA 8.6 MG TAB PO SCH ×2 (09:06→21:04)
[2016-09-17] MEDS: FAMOTIDINE 20 MG TAB PO SCH ×2 (09:06→21:04)
[2016-09-17] MEDS: DEXAMETHASONE SOD PHOS 4 MG/ML VIAL IV SCH ×2 (09:07→21:04)
[2016-09-17] MEDS: SERTRALINE HCL 50 MG TAB PO SCH (09:07)
[2016-09-17] MEDS: SODIUM CHLORIDE 0.9% FLUSH 5 ML FLUSH IVF SCH ×2 (09:08→21:00)
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
--- NOTE | 2016-09-17 12:11 | HHI.PR ---
Neuropsych Progress Notes/Response to Tx Time with Patient: 15 minutes Premorbid psychological status Premorbid Cognitive, Emotional and Behavioral Status: Tenuous. The patient has premorbid coping issues, as well as issues with substance abuse and prior arrests. Behavioral Reactions of Patient and Family/Support System: Tenuous. The patients family is experiencing ongoing issues of adjustment given the nature of the injury, and this aspect of recovery will require ongoing monitoring. Emotional/Behavioral Status of Patient and Family/Support System: Tenuous. Pertinent issues, if appropriate to this patients clinical care, are described in detail above. Maximizing acute care outcome It is recommended that the patient be monitored for emergent depression issues and coping difficulties. This patients neuropathological challenges may limit their rehabilitation potential going forward, and these challenges will require specialized therapeutic skills to maximize outcome. Anticipated Problems Ongoing areas of concern will include depressive affect, behavioral impulsivity , and limitations of insight and judgment, which is expected to improve with time and treatment. Treatment Plan This clinician will continue to follow with you throughout the course of this patients rehabilitation treatment, and I will be available to meet with the patients family/support system to facilitate their understanding and the ongoing care of their family member. The goals of neuropsychological intervention shall be both educational and supportive to the family/support system as is deemed clinically appropriate. Impression This patient sustained a spinal cord injury with expected paralysis, extent of which to be determined. There is evidence of an underlying depressive disorder in reaction to the severity of his injury. Diagnosis: (1) Major depressive disorder Status: Acute Progress Note Narrative Ongoing follow-up of patient who was seen during trauma rounds. This patient is now back in ISC due to choking episode. He is to undergo a cervical spine level stabilization tomorrow. Patient was intubated and somewhat sedated, and unable to communicate his wishes. I will continue to follow with you. Problem Qualifiers (1) Major depressive disorder: Basilio Barber PhD Sep 17, 2016 12:11 pm
[2016-09-17] MEDS: NS + KCL 20 MEQ INJ 1,000 ML IV SCH (12:52)
[2016-09-17] MEDS: MAGNESIUM HYDROXIDE SUSP 30 ML CUP PO SCH (21:04)
[2016-09-18] VITALS (19 sets, daily range): BP systolic 109–131; BP diastolic 56–62; PULSE 53–81; RESP 13–17; TEMP 97.3–101.9; O2SAT 97–100
[2016-09-18] MEDS: PROPOFOL 1000 MG/100 ML INJ 100 ML IV SCH ×2 (01:17→07:04)
[2016-09-18] MEDS: fentaNYL DRIP 250 ML IV SCH ×2 (01:25→15:43)
[2016-09-18] MEDS: NS + KCL 20 MEQ INJ 1,000 ML IV SCH ×2 (01:27→18:25)
[2016-09-18] MEDS: RESP: ALBUTEROL 2.5 MG/IPRATROPIUM 0.5 MG NEB (SCH) NEB ×3 (03:16→20:43)
--- NOTE | 2016-09-18 04:16 | RADRPT ---
EXAM DATE/TIME: 09/18/2016 03:44 [facility] COMPARISON: CHEST SINGLE AP, September 17, 2016, 5:19. INDICATIONS : Shortness of breath. MEDICAL HISTORY : None. SURGICAL HISTORY : None. ENCOUNTER: Subsequent ACUITY: 1 week PAIN SCORE: Non-responsive. LOCATION: Bilateral chest FINDINGS: External fixation hardware, endotracheal tube, enteric tube and EKG leads are again seen. There is im proved aeration of the left lower lobe with patchy consolidation remaining. CONCLUSION: Improved aeration left lower lobe. Lang Cruz MD on September 18, 2016 at 4:14 Board Certified Radiologist. This report was verified electronically.
[2016-09-18 04:31] LABS: AUTOMATED NEUTROPHIL # 10.7 TH/MM3 (1.8-7.7); BASOPHIL % 0.1 % (0.0-2.0); EOSINOPHIL % 0.1 % (0.0-4.0); HEMATOCRIT 35.3 % (39.0-51.0); HEMO FLAGS DIFF FINAL; LYMPH % 5.5 % (9.0-44.0); LYMPHOCYTE # 0.7 TH/MM3 (1.0-4.8); MEAN CORPUSCULAR HEMOGLOBIN 27.8 PG (27.0-34.0); MEAN CORPUSCULAR HGB CONC 33.2 % (32.0-36.0); MONO % 6.1 % (0.0-8.0); NEUT % 88.2 % (16.0-70.0); PLATELET COUNT 181 TH/MM3 (150-450); RED BLOOD COUNT 4.21 MIL/MM3 (4.50-5.90); RED CELL DISTRIBUTION WIDTH 13.4 % (11.6-17.2); WHITE BLOOD COUNT 12.1 TH/MM3 (4.0-11.0)
[2016-09-18 04:56] LABS: ANION GAP 8 MEQ/L (5-15); AST (GOT) 36 U/L (15-37); BICARBONATE 29.6 MEQ/L (21.0-32.0); BLOOD UREA NITROGEN 20 MG/DL (7-18); CHLORIDE 97 MEQ/L (98-107); GLOMERULAR FILTRATION RATE 221 ML/MIN (>89); MAGNESIUM 2.2 MG/DL (1.5-2.5); POTASSIUM 4.5 MEQ/L (3.5-5.1); SODIUM (NA) 135 MEQ/L (136-145)
[2016-09-18 04:59] LABS: ALKALINE PHOSPHATASE 61 U/L (45-117); ALT (GPT) 39 U/L (12-78); TOTAL BILIRUBIN ADULT 0.4 MG/DL (0.2-1.0)
[2016-09-18 05:24] LABS: BLOOD GAS BASE EXCESS 6.3 mmol/L (-2-2); BLOOD GAS CARBOXYHEMOGLOBIN 1.1 % (0-4); BLOOD GAS HCO3 30 mmol/L (22-26); BLOOD GAS METHEMOGLOBIN 0.8 % (0-2); BLOOD GAS O2 HGB SATURATION 96 % (90-100); BLOOD GAS OXYGEN CONTENT 16.4 Vol % (12.0-20.0); BLOOD GAS PCO2 44 mmHg (38-42); BLOOD GAS PO2 114 mmHg (61-120); CRITICAL VALUE NO; DRAW SITE RT RADIAL; FIO2 40 %; NUMBER OF ARTERIAL PUNCTURES 1; OXYGEN DEVICE VENTILATOR; STAT NO; TEMP CORR TO 98.6; ULNAR PULSE PRESENT; VENT SETTINGS AC/16/450/PEEP5/40%
[2016-09-18] MEDS: SODIUM CHLORIDE 0.9% FLUSH 5 ML FLUSH IVF SCH ×2 (08:56→20:31)
[2016-09-18] MEDS: DEXAMETHASONE SOD PHOS 4 MG/ML VIAL IV SCH ×2 (08:56→20:31)
[2016-09-18] MEDS: ENOXAPARIN SODIUM 40 MG/0.4 ML SYRINGE SQ SCH (08:56)
[2016-09-18] MEDS: BISACODYL 10 MG SUPP RECTAL SCH (08:56)
[2016-09-18] MEDS: FAMOTIDINE 20 MG TAB PO SCH ×2 (08:56→20:31)
[2016-09-18] MEDS: DOCUSATE SODIUM 50 MG/SENNA 8.6 MG TAB PO SCH ×2 (08:56→20:30)
[2016-09-18] MEDS: SERTRALINE HCL 50 MG TAB PO SCH (08:56)
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
--- NOTE | 2016-09-18 10:48 | HHI.PR ---
Neuropsych Progress Notes/Response to Tx Contents of Sessions: Adjustment Time with Patient: 15 minutes Premorbid psychological status Premorbid Cognitive, Emotional and Behavioral Status: Tenuous. The patient has premorbid coping issues, as well as issues with substance abuse and prior arrests. Behavioral Reactions of Patient and Family/Support System: Tenuous. The patients family is experiencing ongoing issues of adjustment given the nature of the injury, and this aspect of recovery will require ongoing monitoring. Emotional/Behavioral Status of Patient and Family/Support System: Tenuous. Pertinent issues, if appropriate to this patients clinical care, are described in detail above. Maximizing acute care outcome It is recommended that the patient be monitored for emergent depression issues and coping difficulties. This patients neuropathological challenges may limit their rehabilitation potential going forward, and these challenges will require specialized therapeutic skills to maximize outcome. Anticipated Problems Ongoing areas of concern will include depressive affect, behavioral impulsivity , and limitations of insight and judgment, which is expected to improve with time and treatment. Treatment Plan This clinician will continue to follow with you throughout the course of this patients rehabilitation treatment, and I will be available to meet with the patients family/support system to facilitate their understanding and the ongoing care of their family member. The goals of neuropsychological intervention shall be both educational and supportive to the family/support system as is deemed clinically appropriate. Impression This patient sustained a spinal cord injury with expected paralysis, extent of which to be determined. There is evidence of an underlying depressive disorder in reaction to the severity of his injury. Diagnosis: (1) Major depressive disorder Status: Acute Progress Note Narrative Ongoing follow-up with patient who was seen bedside. Brief discussion of patient's neurobehavioral status with his . The patient was awake but sedated, appears dysphoric, which is expected given his awareness and understanding of his likely neurological impairment from his spinal cord injury. I will continue to follow with you for psycho supportive care. Problem Qualifiers (1) Major depressive disorder: Basilio Barber PhD Sep 18, 2016 10:48 am
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
--- NOTE | 2016-09-18 14:37 | RADRPT ---
EXAM DATE/TIME: 09/18/2016 14:16 [facility] COMPARISON: No previous studies available for comparison. INDICATIONS : Post Halo adjustment. MEDICAL HISTORY : None. SURGICAL HISTORY : None. ENCOUNTER: Subsequent ACUITY: 1 week PAIN SCORE: Non-responsive. LOCATION: Left Lateral c-spine. FINDINGS: A single lateral view of the cervical spine was performed. Status post surgery and fusion of the cerv ical spine from C4-C6. The hardware is grossly intact. There is good alignment of the cervical spine and fusion. No focal soft tissue swelling.. CONCLUSION: Good alignment of the cervical spine and fusion from C4-C6. Georges Lr MD on September 18, 2016 at 14:35 Board Certified Radiologist. This report was verified electronically.
[2016-09-18] MEDS: cefTRIAXone INJ 1,000 MG in SODIUM CHLORIDE 0.9% INJ 100 ML IV SCH (15:00)
[2016-09-18] MEDS ORDERED: PROPOFOL 200 MG/20 ML AMP IV ONE (15:10)
[2016-09-18] MEDS ORDERED: ceFAZolin INJ 1,000 MG VIAL IV ONE (15:13)
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
[2016-09-18] MEDS: MAGNESIUM HYDROXIDE SUSP 30 ML CUP PO SCH (20:30)
[2016-09-18] MEDS: ACETAMINOPHEN 325 MG TAB PO PRN (20:41)
[2016-09-19] VITALS (17 sets, daily range): BP systolic 124–136; BP diastolic 56–84; PULSE 65–88; RESP 16–20; TEMP 98–102; O2SAT 96–100
[2016-09-19] MEDS: RESP: ALBUTEROL 2.5 MG/IPRATROPIUM 0.5 MG NEB (SCH) NEB ×4 (03:31→20:17)
[2016-09-19 04:31] LABS: AUTOMATED NEUTROPHIL # 15.9 TH/MM3 (1.8-7.7); HEMO FLAGS DIFF FINAL; LYMPH % 3.8 % (9.0-44.0); LYMPHOCYTE # 0.7 TH/MM3 (1.0-4.8); MEAN CELL VOLUME 83.6 FL (80.0-100.0); MEAN CORPUSCULAR HEMOGLOBIN 28.2 PG (27.0-34.0); MEAN CORPUSCULAR HGB CONC 33.7 % (32.0-36.0); MONO % 3.5 % (0.0-8.0); NEUT % 92.7 % (16.0-70.0); PLATELET COUNT 204 TH/MM3 (150-450); RED BLOOD COUNT 3.94 MIL/MM3 (4.50-5.90); RED CELL DISTRIBUTION WIDTH 13.3 % (11.6-17.2); WHITE BLOOD COUNT 17.1 TH/MM3 (4.0-11.0)
[2016-09-19 04:57] LABS: ALKALINE PHOSPHATASE 76 U/L (45-117); ALT (GPT) 30 U/L (12-78); ANION GAP 6 MEQ/L (5-15); AST (GOT) 27 U/L (15-37); BICARBONATE 28.9 MEQ/L (21.0-32.0); BLOOD UREA NITROGEN 19 MG/DL (7-18); CHLORIDE 99 MEQ/L (98-107); GLOMERULAR FILTRATION RATE 203 ML/MIN (>89); MAGNESIUM 2.6 MG/DL (1.5-2.5); POTASSIUM 4.7 MEQ/L (3.5-5.1); SODIUM (NA) 134 MEQ/L (136-145); TOTAL BILIRUBIN ADULT 0.3 MG/DL (0.2-1.0)
[2016-09-19 05:02] LABS: BLOOD GAS BASE EXCESS 2.7 mmol/L (-2-2); BLOOD GAS CARBOXYHEMOGLOBIN 0.9 % (0-4); BLOOD GAS HCO3 27 mmol/L (22-26); BLOOD GAS METHEMOGLOBIN 0.7 % (0-2); BLOOD GAS O2 HGB SATURATION 97 % (90-100); BLOOD GAS PCO2 45 mmHg (38-42); BLOOD GAS PO2 123 mmHg (61-120); BLOOD GAS TOTAL HGB 12.4 G/DL (12.0-16.0); CRITICAL VALUE NO; DRAW SITE RT RADIAL; FIO2 40 %; NUMBER OF ARTERIAL PUNCTURES 1; OXYGEN DEVICE VENTILATOR; STAT NO; TEMP CORR TO 98.6; ULNAR PULSE PRESENT; VENT SETTINGS AC/12/450/+5
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
[2016-09-19] MEDS: NS + KCL 20 MEQ INJ 1,000 ML IV SCH (07:21)
[2016-09-19] MEDS: ENOXAPARIN SODIUM 40 MG/0.4 ML SYRINGE SQ SCH (08:58)
[2016-09-19] MEDS: DOCUSATE SODIUM 50 MG/SENNA 8.6 MG TAB PO SCH ×2 (08:58→20:16)
[2016-09-19] MEDS: BENEPROTEIN POWDER 1 PACK G-TUBE SCH ×3 (08:58→18:00)
[2016-09-19] MEDS: FAMOTIDINE 20 MG TAB PO SCH ×2 (08:59→20:16)
[2016-09-19] MEDS: DEXAMETHASONE SOD PHOS 4 MG/ML VIAL IV SCH ×2 (08:59→20:17)
[2016-09-19] MEDS: SERTRALINE HCL 50 MG TAB PO SCH (08:59)
[2016-09-19] MEDS: SODIUM CHLORIDE 0.9% FLUSH 5 ML FLUSH IVF SCH ×2 (08:59→20:18)
[2016-09-19] MEDS: BISACODYL 10 MG SUPP RECTAL SCH (08:59)
[2016-09-19] MEDS ORDERED: POTASSIUM PHOSPHATE MONOBASIC 500 MG TAB PO/TUBE PRN (09:30)
[2016-09-19] MEDS ORDERED: POTASSIUM CHLOR 40 MEQ PREMIX 100 ML IV PRN ×2 (09:30)
[2016-09-19] MEDS ORDERED: POTASSIUM PHOSPHATE INJ 30 MMOL in SODIUM CHLOR 0.9% 250 ML INJ 250 ML IV PRN (09:30)
[2016-09-19] MEDS ORDERED: SODIUM PHOSPHATE INJ 30 MMOL in SODIUM CHLOR 0.9% 250 ML INJ 240 ML IV PRN (09:30)
[2016-09-19] MEDS ORDERED: POTASSIUM CHLOR 20 MEQ PREMIX 100 ML IV PRN ×2 (09:30)
[2016-09-19] MEDS ORDERED: MAGNESIUM SULFATE INJ 4 GM in SODIUM CHLORIDE 0.9% INJ 92 ML IV PRN (09:30)
[2016-09-19] MEDS ORDERED: MAGNESIUM SULFATE INJ 2 GM in SODIUM CHLORIDE 0.9% INJ 96 ML IV PRN (09:30)
[2016-09-19] MEDS ORDERED: POTASSIUM CL 40 MEQ/30 ML LIQ UDC PO/TUBE PRN ×2 (09:30)
[2016-09-19] MEDS ORDERED: MAGNESIUM OXIDE 400 MG TAB PO PRN (09:30)
[2016-09-19] MEDS: fentaNYL DRIP 250 ML IV SCH (11:07)
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
[2016-09-19] MEDS: ACETAMINOPHEN 325 MG TAB PO PRN (13:01)
[2016-09-19] MEDS: cefTRIAXone INJ 1,000 MG in SODIUM CHLORIDE 0.9% INJ 100 ML IV SCH (13:02)
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
[2016-09-19] MEDS: LACTULOSE SYRUP 20 GM/30 ML CUP PO SCH (13:15)
[2016-09-19 13:31] LABS: BACTERIA, URINE RARE /hpf; BLOOD, URINE SMALL (NEG); COMMENT (UR) CATH-CULTURE IND; CULTURE IF INDICATED CATH CULTURE IND; GLUCOSE,URINE TRACE mg/dL (NEG); KETONE, URINE NEG (NEG); MUCUS URINE FEW /lpf (OCC); NITRITE,URINE NEG (NEG); URINE COLOR YELLOW (YELLW/STRAW)
[2016-09-19] MEDS ORDERED: ACETAMINOPHEN 1000 MG/100 ML VIAL IV PRN (18:45)
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
[2016-09-19] MEDS: CHLORHEXIDINE 0.12% (ORAL KIT) 15 ML CUP MT SCH (20:00)
[2016-09-19] MEDS: CYCLOBENZAPRINE HCL 10 MG TAB PO PRN (20:16)
[2016-09-19] MEDS: ACETAMINOPHEN/HYDROcodone 325 MG/10 MG TAB PO PRN (20:17)
[2016-09-19] MEDS: MAGNESIUM HYDROXIDE SUSP 30 ML CUP PO SCH (20:17)
[2016-09-20] VITALS (14 sets, daily range): BP systolic 135–147; BP diastolic 66–81; PULSE 70–104; RESP 16–28; TEMP 98.8–102; O2SAT 96–100
[2016-09-20] MEDS: RESP: ALBUTEROL 2.5 MG/IPRATROPIUM 0.5 MG NEB (SCH) NEB ×3 (03:48→16:07)
[2016-09-20] MEDS: CYCLOBENZAPRINE HCL 10 MG TAB PO PRN ×2 (04:27→23:43)
[2016-09-20 05:50] LABS: AUTOMATED NEUTROPHIL # 17.3 TH/MM3 (1.8-7.7); BASOPHIL % 0.1 % (0.0-2.0); HEMATOCRIT 32.9 % (39.0-51.0); HEMO FLAGS DIFF FINAL; LYMPH % 3.3 % (9.0-44.0); LYMPHOCYTE # 0.6 TH/MM3 (1.0-4.8); MEAN CELL VOLUME 83.2 FL (80.0-100.0); MEAN CORPUSCULAR HEMOGLOBIN 27.8 PG (27.0-34.0); MEAN CORPUSCULAR HGB CONC 33.4 % (32.0-36.0); MONO % 4.2 % (0.0-8.0); NEUT % 92.4 % (16.0-70.0); PLATELET COUNT 256 TH/MM3 (150-450); RED BLOOD COUNT 3.95 MIL/MM3 (4.50-5.90); RED CELL DISTRIBUTION WIDTH 13.5 % (11.6-17.2); WHITE BLOOD COUNT 18.7 TH/MM3 (4.0-11.0)
[2016-09-20 05:56] LABS: BICARBONATE 28.2 MEQ/L (21.0-32.0); POTASSIUM 4.5 MEQ/L (3.5-5.1)
[2016-09-20] MEDS: BENEPROTEIN POWDER 1 PACK G-TUBE SCH ×3 (09:00→18:00)
[2016-09-20] MEDS: DEXAMETHASONE SOD PHOS 4 MG/ML VIAL IV SCH ×2 (09:16→20:29)
[2016-09-20] MEDS: BISACODYL 10 MG SUPP RECTAL SCH (09:17)
[2016-09-20] MEDS: SERTRALINE HCL 50 MG TAB PO SCH (09:17)
[2016-09-20] MEDS: ENOXAPARIN SODIUM 40 MG/0.4 ML SYRINGE SQ SCH (09:17)
[2016-09-20] MEDS: LACTULOSE SYRUP 20 GM/30 ML CUP PO SCH (09:17)
[2016-09-20] MEDS: SODIUM CHLORIDE 0.9% FLUSH 5 ML FLUSH IVF SCH ×2 (09:18→20:29)
[2016-09-20] MEDS: CHLORHEXIDINE 0.12% (ORAL KIT) 15 ML CUP MT SCH ×2 (09:19→19:47)
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
[2016-09-20] MEDS: fentaNYL DRIP 250 ML IV SCH (10:39)
[2016-09-20] MEDS: ACETAMINOPHEN/HYDROcodone 325 MG/10 MG TAB PO PRN ×4 (10:40→23:43)
[2016-09-20] MEDS: FAMOTIDINE 20 MG TAB PO SCH ×2 (10:40→20:29)
[2016-09-20] MEDS: DOCUSATE SODIUM 50 MG/SENNA 8.6 MG TAB PO SCH ×2 (10:40→20:29)
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
[2016-09-20] MEDS ORDERED: Vancomycin Consult Pharmacy 1 EA OTHER SCH (11:30)
[2016-09-20] MEDS ORDERED: VANCOMYCIN INJ 1,000 MG in SODIUM CHLOR 0.9% 250 ML INJ 250 ML IV SCH (11:30)
[2016-09-20] MEDS: PIPERACIL-TAZO 3.375 GM PREMIX 50 ML IV SCH ×2 (13:41→19:47)
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
[2016-09-20] MEDS: VANCOMYCIN INJ 1,250 MG in SODIUM CHLOR 0.9% 250 ML INJ 250 ML IV SCH ×2 (13:44→21:58)
[2016-09-20] MEDS: MORPHINE SULFATE 4 MG/ML INJ IV PUSH PRN (15:37)
[2016-09-20] MEDS: MAGNESIUM HYDROXIDE SUSP 30 ML CUP PO SCH (20:29)
[2016-09-20] MEDS: RESP: ALBUTEROL 2.5 MG/IPRATROPIUM 0.5 MG NEB (PRN) NEB (20:42)
[2016-09-21] VITALS (14 sets, daily range): BP systolic 123–138; BP diastolic 61–85; PULSE 72–98; RESP 17–28; TEMP 97.9–100.8; O2SAT 96–100
[2016-09-21] MEDS: PIPERACIL-TAZO 3.375 GM PREMIX 50 ML IV SCH ×3 (03:06→19:42)
[2016-09-21] MEDS: RESP: ALBUTEROL 2.5 MG/IPRATROPIUM 0.5 MG NEB (SCH) NEB ×4 (03:45→20:33)
[2016-09-21 04:37] LABS: AUTOMATED NEUTROPHIL # 16.5 TH/MM3 (1.8-7.7); BASOPHIL % 0.1 % (0.0-2.0); HEMATOCRIT 33.1 % (39.0-51.0); HEMO FLAGS DIFF FINAL; LYMPH % 5.1 % (9.0-44.0); MEAN CELL VOLUME 83.6 FL (80.0-100.0); MEAN CORPUSCULAR HEMOGLOBIN 27.3 PG (27.0-34.0); MEAN CORPUSCULAR HGB CONC 32.7 % (32.0-36.0); MONO % 7.6 % (0.0-8.0); NEUT % 87.2 % (16.0-70.0); PLATELET COUNT 287 TH/MM3 (150-450); RED BLOOD COUNT 3.96 MIL/MM3 (4.50-5.90); RED CELL DISTRIBUTION WIDTH 13.2 % (11.6-17.2)
[2016-09-21 04:58] LABS: ALKALINE PHOSPHATASE 124 U/L (45-117); ALT (GPT) 293 U/L (12-78); ANION GAP 10 MEQ/L (5-15); AST (GOT) 130 U/L (15-37); BICARBONATE 29.2 MEQ/L (21.0-32.0); BLOOD UREA NITROGEN 17 MG/DL (7-18); CHLORIDE 97 MEQ/L (98-107); GLOMERULAR FILTRATION RATE 178 ML/MIN (>89); POTASSIUM 4.5 MEQ/L (3.5-5.1); SODIUM (NA) 136 MEQ/L (136-145); TOTAL BILIRUBIN ADULT 0.3 MG/DL (0.2-1.0)
[2016-09-21] MEDS: ACETAMINOPHEN/HYDROcodone 325 MG/10 MG TAB PO PRN (05:03)
[2016-09-21] MEDS: VANCOMYCIN INJ 1,250 MG in SODIUM CHLOR 0.9% 250 ML INJ 250 ML IV SCH (05:04)
[2016-09-21] MEDS ORDERED: diphenhydrAMINE HCL 50 MG/ML VIAL IV PUSH PRN (07:45)
--- NOTE | 2016-09-21 08:40 | RADRPT ---
EXAM DATE/TIME: 09/21/2016 08:12 [place] COMPARISON: No previous studies available for comparison. INDICATIONS : Abdomen distention. MEDICAL HISTORY : None. SURGICAL HISTORY : None. ENCOUNTER: Initial ACUITY: 1 week PAIN SCORE: 0/10 LOCATION: Abdomen. FINDINGS: Supine view of the abdomen was performed. Percutaneous gastrostomy tube. Gaseous distention of multi ple bowel loops seen. The abdominal bowel gas pattern is normal. No abnormal masses, calcifications, or organomegaly is seen. The osseous structures are unremarkable. CONCLUSION: 1. Gaseous distention of multiple bowel loops. No definite obstruction. 2. Percutaneous gastrostomy tube. Austin Kc MD on September 21, 2016 at 8:37 Board Certified Radiologist. This report was verified electronically.
[2016-09-21] MEDS: BENEPROTEIN POWDER 1 PACK G-TUBE SCH ×3 (09:00→18:00)
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
[2016-09-21] MEDS: DEXAMETHASONE SOD PHOS 4 MG/ML VIAL IV SCH ×2 (11:06→21:25)
[2016-09-21] MEDS: SODIUM CHLORIDE 0.9% FLUSH 5 ML FLUSH IVF SCH ×2 (11:06→21:26)
[2016-09-21] MEDS: FAMOTIDINE 20 MG TAB PO SCH ×2 (11:06→21:25)
[2016-09-21] MEDS: DOCUSATE SODIUM 50 MG/SENNA 8.6 MG TAB PO SCH ×2 (11:06→21:25)
[2016-09-21] MEDS: LACTULOSE SYRUP 20 GM/30 ML CUP PO SCH (11:06)
[2016-09-21] MEDS: BISACODYL 10 MG SUPP RECTAL SCH (11:06)
[2016-09-21] MEDS: ENOXAPARIN SODIUM 40 MG/0.4 ML SYRINGE SQ SCH (11:07)
[2016-09-21] MEDS: MORPHINE SULFATE 4 MG/ML INJ IV PUSH PRN ×2 (11:08→14:12)
[2016-09-21] MEDS: SERTRALINE HCL 50 MG TAB PO SCH (11:11)
[2016-09-21] MEDS: SODIUM CHLOR 0.9% 1000 ML INJ 1,000 ML IV SCH (11:11)
[2016-09-21] MEDS ORDERED: PHARMACY ORDERED LAB XX ONE (12:45)
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
[2016-09-21] MEDS ORDERED: VANCOMYCIN 1,000 MG/NS 250 ML IV SCH ×2 (17:00)
[2016-09-21] MEDS: fentaNYL 75 MCG/HR PATCH TD SCH (17:49)
[2016-09-21] MEDS: METHYLNALTREXONE BROMIDE 12 MG/0.6 ML VIAL SQ SCH (18:00)
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
[2016-09-21] MEDS: MAGNESIUM HYDROXIDE SUSP 30 ML CUP PO SCH (21:25)
--- NOTE | 2016-09-21 23:10 | RADRPT ---
EXAM DATE/TIME: 09/21/2016 21:49 [facility] COMPARISON: No previous studies available for comparison. INDICATIONS : Abnormal labs. MEDICAL HISTORY : Neck and back pain. Incontinence. Paresthesia. SURGICAL HISTORY : Peg tube placement. ENCOUNTER: Initial ACUITY: 1 day PAIN SCORE: Nonresponsive. LOCATION: Right upper quadrant MEASUREMENTS: LIVER: 17.0 cm length COMMON DUCT: 7 mm RIGHT KIDNEY: 10.4 x 5.0 x 5.2 cm FINDINGS: LIVER: Normal echotexture without focal lesion or ductal dilatation. Portal vein is patent COMMON DUCT: No intraluminal mass or stone visualized. GALLBLADDER: Contains no stones, demonstrates no wall thickening or pericholecystic fluid. PANCREAS: The visualized portions are within normal limits. RIGHT KIDNEY: No evidence of hydronephrosis, stone, or mass. CONCLUSION: Unremarkable evaluation. No evidence of cholelithiasis or obstructive biliary disease. Ted Burch MD on September 21, 2016 at 23:07 Board Certified Radiologist. This report was verified electronically.
[2016-09-22] VITALS (14 sets, daily range): BP systolic 117–131; BP diastolic 55–82; PULSE 64–100; RESP 19–30; TEMP 98.8–101.2; O2SAT 94–100
[2016-09-22] MEDS: VANCOMYCIN 1,000 MG/NS 250 ML IV SCH ×6 (01:03→12:39)
[2016-09-22] MEDS: RESP: ALBUTEROL 2.5 MG/IPRATROPIUM 0.5 MG NEB (SCH) NEB ×4 (03:08→20:19)
[2016-09-22] MEDS: PIPERACIL-TAZO 3.375 GM PREMIX 50 ML IV SCH ×3 (03:50→20:53)
[2016-09-22] MEDS: SODIUM CHLOR 0.9% 1000 ML INJ 1,000 ML IV SCH ×2 (03:50→18:10)
[2016-09-22 04:43] LABS: BASOPHIL # 0.1 TH/MM3 (0-0.2); BASOPHIL % 0.5 % (0.0-2.0); EOSINOPHIL % 0.1 % (0.0-4.0); HEMATOCRIT 33.2 % (39.0-51.0); HEMO FLAGS DIFF FINAL; LYMPH % 5.5 % (9.0-44.0); MEAN CELL VOLUME 83.2 FL (80.0-100.0); MEAN CORPUSCULAR HEMOGLOBIN 27.4 PG (27.0-34.0); MEAN CORPUSCULAR HGB CONC 32.9 % (32.0-36.0); MONO % 8.3 % (0.0-8.0); NEUT % 85.6 % (16.0-70.0); PLATELET COUNT 299 TH/MM3 (150-450); RED CELL DISTRIBUTION WIDTH 13.3 % (11.6-17.2); WHITE BLOOD COUNT 17.5 TH/MM3 (4.0-11.0)
[2016-09-22 05:12] LABS: ALT (GPT) 217 U/L (12-78); ANION GAP 9 MEQ/L (5-15); AST (GOT) 57 U/L (15-37); BICARBONATE 28.7 MEQ/L (21.0-32.0); BLOOD UREA NITROGEN 22 MG/DL (7-18); CHLORIDE 97 MEQ/L (98-107); GLOMERULAR FILTRATION RATE 163 ML/MIN (>89); POTASSIUM 4.5 MEQ/L (3.5-5.1); SODIUM (NA) 135 MEQ/L (136-145)
[2016-09-22 05:15] LABS: ALKALINE PHOSPHATASE 118 U/L (45-117); TOTAL BILIRUBIN ADULT 0.5 MG/DL (0.2-1.0)
[2016-09-22] MEDS: BISACODYL 10 MG SUPP RECTAL SCH (08:12)
[2016-09-22] MEDS: DOCUSATE SODIUM 50 MG/SENNA 8.6 MG TAB PO SCH ×2 (08:12→21:01)
[2016-09-22] MEDS: LACTULOSE SYRUP 20 GM/30 ML CUP PO SCH (08:12)
[2016-09-22] MEDS: BENEPROTEIN POWDER 1 PACK G-TUBE SCH ×3 (08:12→16:43)
[2016-09-22] MEDS: SODIUM CHLORIDE 0.9% FLUSH 5 ML FLUSH IVF SCH ×2 (08:13→21:00)
[2016-09-22] MEDS: METHYLNALTREXONE BROMIDE 12 MG/0.6 ML VIAL SQ SCH (08:13)
[2016-09-22] MEDS: FAMOTIDINE 20 MG TAB PO SCH ×2 (09:33→21:00)
[2016-09-22] MEDS: ENOXAPARIN SODIUM 40 MG/0.4 ML SYRINGE SQ SCH (09:33)
[2016-09-22] MEDS: DEXAMETHASONE SOD PHOS 4 MG/ML VIAL IV SCH ×2 (09:33→21:00)
[2016-09-22] MEDS: SERTRALINE HCL 50 MG TAB PO SCH (09:34)
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
[2016-09-22] MEDS ORDERED: PHARMACY ORDERED LAB XX ONE ×2 (11:45→23:45)
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
[2016-09-22] MEDS ORDERED: METHYLNALTREXONE BROMIDE 12 MG/0.6 ML VIAL SQ ONE (16:00)
[2016-09-22] MEDS: VANCOMYCIN INJ 1,250 MG in SODIUM CHLOR 0.9% 250 ML INJ 250 ML IV SCH (18:09)
[2016-09-22] MEDS: MAGNESIUM HYDROXIDE SUSP 30 ML CUP PO SCH (21:01)
[2016-09-23] VITALS (10 sets, daily range): BP systolic 116–127; BP diastolic 59–71; PULSE 65–87; RESP 18–33; TEMP 97.9–102.3; O2SAT 94–100
[2016-09-23] MEDS: VANCOMYCIN INJ 1,250 MG in SODIUM CHLOR 0.9% 250 ML INJ 250 ML IV SCH ×4 (00:11→16:50)
[2016-09-23] MEDS ORDERED: ACETAMINOPHEN 325 MG TAB PO PRN ×2 (01:15→10:15)
[2016-09-23] MEDS: RESP: ALBUTEROL 2.5 MG/IPRATROPIUM 0.5 MG NEB (SCH) NEB ×4 (03:33→20:58)
[2016-09-23] MEDS: PIPERACIL-TAZO 3.375 GM PREMIX 50 ML IV SCH (04:38)
[2016-09-23 04:51] LABS: AUTOMATED NEUTROPHIL # 14.5 TH/MM3 (1.8-7.7); BASOPHIL % 0.2 % (0.0-2.0); HEMATOCRIT 31.5 % (39.0-51.0); HEMO FLAGS DIFF FINAL; LYMPH % 5.9 % (9.0-44.0); MEAN CELL VOLUME 82.7 FL (80.0-100.0); MEAN CORPUSCULAR HEMOGLOBIN 27.4 PG (27.0-34.0); MEAN CORPUSCULAR HGB CONC 33.2 % (32.0-36.0); MONO % 7.8 % (0.0-8.0); NEUT % 86.1 % (16.0-70.0); PLATELET COUNT 307 TH/MM3 (150-450); RED BLOOD COUNT 3.81 MIL/MM3 (4.50-5.90); RED CELL DISTRIBUTION WIDTH 13.4 % (11.6-17.2); WHITE BLOOD COUNT 16.8 TH/MM3 (4.0-11.0)
[2016-09-23 05:10] LABS: ALKALINE PHOSPHATASE 126 U/L (45-117); ALT (GPT) 153 U/L (12-78); ANION GAP 8 MEQ/L (5-15); AST (GOT) 41 U/L (15-37); BICARBONATE 28.8 MEQ/L (21.0-32.0); BLOOD UREA NITROGEN 20 MG/DL (7-18); CHLORIDE 96 MEQ/L (98-107); GLOMERULAR FILTRATION RATE 163 ML/MIN (>89); POTASSIUM 4.6 MEQ/L (3.5-5.1); SODIUM (NA) 133 MEQ/L (136-145); TOTAL BILIRUBIN ADULT 0.5 MG/DL (0.2-1.0)
[2016-09-23] MEDS ORDERED: EPINEPHrine HCL (1:10,000) 1 MG/10 ML SYRINGE ONE (07:32)
[2016-09-23] MEDS ORDERED: LIDOCAINE HCL 2% 100 MG/5 ML SYRINGE ONE (07:33)
[2016-09-23] MEDS ORDERED: ceFAZolin 2 GM PREMIX 50 ML ONE (07:33)
[2016-09-23] MEDS ORDERED: ATROPINE SULFATE 1 MG/10 ML SYRINGE ONE (07:33)
[2016-09-23] MEDS ORDERED: THROMBIN (TOPICAL) 5,000 UNIT VIAL ONE (07:33)
[2016-09-23] MEDS ORDERED: VANCOMYCIN HCL 1000 MG VIAL ONE (07:33)
[2016-09-23] MEDS ORDERED: GENTAMICIN SULFATE 80 MG/2 ML VIAL ONE (07:34)
[2016-09-23] MEDS ORDERED: SODIUM CHLOR 0.9% 250 ML INJ 250 ML ONE (07:34)
[2016-09-23] MEDS ORDERED: GELFOAM SIZE 100 ONE (07:34)
[2016-09-23] MEDS ORDERED: FAMOTIDINE 20 MG/2 ML VIAL ONE (08:34)
[2016-09-23] MEDS ORDERED: fentaNYL CITRATE 250 MCG/5 ML AMP ONE ×2 (08:34→13:32)
[2016-09-23] MEDS ORDERED: ARTIFICIAL TEARS OPTH OINT 3.5 APPLIC/3.5 GM TUBO ONE (08:34)
[2016-09-23] MEDS ORDERED: MIDAZOLAM HCL 2 MG/2 ML VIAL ONE (08:34)
[2016-09-23] MEDS: FAMOTIDINE 20 MG TAB PO SCH ×2 (08:57→20:08)
[2016-09-23] MEDS: DEXAMETHASONE SOD PHOS 4 MG/ML VIAL IV SCH ×2 (08:57→20:07)
[2016-09-23] MEDS: DOCUSATE SODIUM 50 MG/SENNA 8.6 MG TAB PO SCH ×2 (08:57→20:08)
[2016-09-23] MEDS: LACTULOSE SYRUP 20 GM/30 ML CUP PO SCH (08:57)
[2016-09-23] MEDS: SODIUM CHLORIDE 0.9% FLUSH 5 ML FLUSH IVF SCH ×2 (08:57→20:28)
[2016-09-23] MEDS: BENEPROTEIN POWDER 1 PACK G-TUBE SCH ×3 (08:57→16:52)
[2016-09-23] MEDS: SERTRALINE HCL 50 MG TAB PO SCH (08:58)
[2016-09-23] MEDS: BISACODYL 10 MG SUPP RECTAL SCH (08:58)
[2016-09-23] MEDS: ENOXAPARIN SODIUM 40 MG/0.4 ML SYRINGE SQ SCH (08:58)
[2016-09-23] MEDS ORDERED: ONDANSETRON HCL 4 MG/2 ML VIAL IV PRN (10:15)
[2016-09-23] MEDS ORDERED: SODIUM CHLORIDE 0.9% FLUSH 5 ML FLUSH IVF PRN (10:15)
[2016-09-23] MEDS ORDERED: MENTHOL LOZENGE SUCK-ON PRN (10:15)
[2016-09-23] MEDS ORDERED: MORPHINE SULFATE 4 MG/ML INJ IV PUSH PRN (10:15)
[2016-09-23] MEDS ORDERED: BISACODYL 10 MG SUPP PR PRN (10:15)
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
[2016-09-23] MEDS ORDERED: ceFAZolin INJ 1,000 MG VIAL IV ONE (10:23)
[2016-09-23] MEDS ORDERED: PHENYLEPH/NS 1000 MCG/10 ML SYR IV ONE (10:26)
[2016-09-23] MEDS ORDERED: PROPOFOL 200 MG/20 ML AMP IV ONE (10:26)
[2016-09-23] MEDS ORDERED: ONDANSETRON HCL 4 MG/2 ML VIAL IV PUSH ONE (10:26)
[2016-09-23] MEDS ORDERED: ePHEDrine/NS 25 MG/5 ML SYR IV ONE (10:26)
[2016-09-23] MEDS ORDERED: LACTATED RINGER'S 1000 ML INJ 2,000 ML IV ONE (10:26)
[2016-09-23] MEDS ORDERED: PHARMACY ORDERED LAB XX ONE (11:45)
[2016-09-23] MEDS: SODIUM CHLOR 0.9% 1000 ML INJ 1,000 ML IV SCH (12:00)
[2016-09-23] MEDS ORDERED: DO NOT ADM ANY ANTICOAGULANT DRUGS XX PRN (13:45)
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
[2016-09-23] MEDS ORDERED: *morphine SULFATE 8 MG/ML PERIprocedure ONLY ONE (14:08)
[2016-09-23] MEDS: NS + KCL 20 MEQ INJ 1,000 ML IV SCH (14:10)
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
[2016-09-23] MEDS: FLUCONAZOLE 400 MG PREMIX BAG 200 ML IV SCH (15:04)
[2016-09-23 15:40] LABS: BLOOD, URINE SMALL (NEG); GLUCOSE,URINE NEG (NEG); KETONE, URINE NEG (NEG); MUCUS URINE FEW /lpf (OCC); NITRITE,URINE NEG (NEG); PH, URINE 6.5 (5.0-8.5); URINE COLOR LIGHT-YELLOW (YELLW/STRAW)
[2016-09-23 15:45] LABS: COMMENT (UR) CATH-CULTURE IND; CULTURE IF INDICATED CATH CULTURE IND
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
[2016-09-23] MEDS: CEFEPIME INJ 2,000 MG in SODIUM CHLORIDE 0.9% INJ 100 ML IV SCH (16:43)
[2016-09-23] MEDS: MORPHINE SULFATE 4 MG/ML INJ IV PUSH PRN (18:10)
[2016-09-23] MEDS: ceFAZolin 2 GM PREMIX 50 ML IV SCH (20:09)
[2016-09-23] MEDS: CYCLOBENZAPRINE HCL 10 MG TAB PO PRN (20:28)
[2016-09-23] MEDS: MAGNESIUM HYDROXIDE SUSP 30 ML CUP PO SCH (21:00)
[2016-09-23] MEDS ORDERED: DOCUSATE SODIUM 100 MG CAP PO SCH (21:00)
[2016-09-24] VITALS (12 sets, daily range): BP systolic 116–137; BP diastolic 60–76; PULSE 72–98; RESP 16–25; TEMP 99.4–102.3; O2SAT 96–100
[2016-09-24] MEDS: VANCOMYCIN INJ 1,250 MG in SODIUM CHLOR 0.9% 250 ML INJ 250 ML IV SCH ×2 (00:22→05:38)
[2016-09-24] MEDS: NS + KCL 20 MEQ INJ 1,000 ML IV SCH ×3 (00:23→22:26)
[2016-09-24] MEDS: MORPHINE SULFATE 4 MG/ML INJ IV PUSH PRN ×3 (00:23→08:33)
--- NOTE | 2016-09-24 03:29 | RADRPT ---
EXAM DATE/TIME: 09/24/2016 02:53 [facility] COMPARISON: CHEST SINGLE AP, September 21, 2016, 19:34. INDICATIONS : Short of breath. MEDICAL HISTORY : Cervical fracture. SURGICAL HISTORY : Cervical halo. ENCOUNTER: Subsequent ACUITY: 2 weeks PAIN SCORE: Non-responsive. LOCATION: Bilateral chest FINDINGS: A single view of the chest demonstrates mild basilar airspace disease. No significant effusion. No pn eumothorax. Halo apparatus noted. No significant change from September 21. CONCLUSION: 1. Mild basilar airspace disease. Scar Earl MD on September 24, 2016 at 3:25 Board Certified Radiologist. This report was verified electronically.
[2016-09-24] MEDS: RESP: ALBUTEROL 2.5 MG/IPRATROPIUM 0.5 MG NEB (SCH) NEB ×4 (03:38→19:38)
[2016-09-24] MEDS: CEFEPIME INJ 2,000 MG in SODIUM CHLORIDE 0.9% INJ 100 ML IV SCH ×2 (04:06→15:23)
[2016-09-24] MEDS: ceFAZolin 2 GM PREMIX 50 ML IV SCH ×2 (04:06→12:00)
[2016-09-24 04:49] LABS: AUTOMATED NEUTROPHIL # 12.1 TH/MM3 (1.8-7.7); BASOPHIL % 0.1 % (0.0-2.0); HEMATOCRIT 30.2 % (39.0-51.0); HEMO FLAGS DIFF FINAL; LYMPH % 5.6 % (9.0-44.0); LYMPHOCYTE # 0.8 TH/MM3 (1.0-4.8); MEAN CELL VOLUME 83.7 FL (80.0-100.0); MEAN CORPUSCULAR HEMOGLOBIN 28.9 PG (27.0-34.0); MEAN CORPUSCULAR HGB CONC 34.5 % (32.0-36.0); MONO % 4.6 % (0.0-8.0); NEUT % 89.7 % (16.0-70.0); PLATELET COUNT 311 TH/MM3 (150-450); WHITE BLOOD COUNT 13.5 TH/MM3 (4.0-11.0)
[2016-09-24 05:15] LABS: ALKALINE PHOSPHATASE 122 U/L (45-117); ALT (GPT) 133 U/L (12-78); ANION GAP 10 MEQ/L (5-15); AST (GOT) 56 U/L (15-37); BICARBONATE 25.1 MEQ/L (21.0-32.0); BLOOD UREA NITROGEN 17 MG/DL (7-18); CHLORIDE 97 MEQ/L (98-107); GLOMERULAR FILTRATION RATE 192 ML/MIN (>89); MAGNESIUM 2.2 MG/DL (1.5-2.5); POTASSIUM 4.6 MEQ/L (3.5-5.1); SODIUM (NA) 132 MEQ/L (136-145); TOTAL BILIRUBIN ADULT 0.3 MG/DL (0.2-1.0)
[2016-09-24] MEDS: CYCLOBENZAPRINE HCL 10 MG TAB PO PRN ×2 (05:37→15:23)
[2016-09-24] MEDS: DOCUSATE SODIUM 50 MG/SENNA 8.6 MG TAB PO SCH ×2 (09:00→22:13)
[2016-09-24] MEDS: BISACODYL 10 MG SUPP RECTAL SCH (09:00)
[2016-09-24] MEDS: LACTULOSE SYRUP 20 GM/30 ML CUP PO SCH (09:00)
[2016-09-24] MEDS ORDERED: PANTOPRAZOLE SOD 40 MG DELAYED RELEASE TAB PO SCH (09:00)
[2016-09-24] MEDS: SERTRALINE HCL 50 MG TAB PO SCH (09:49)
[2016-09-24] MEDS: FAMOTIDINE 20 MG TAB PO SCH ×2 (09:49→22:13)
[2016-09-24] MEDS: ENOXAPARIN SODIUM 40 MG/0.4 ML SYRINGE SQ SCH (09:50)
[2016-09-24] MEDS: DEXAMETHASONE SOD PHOS 4 MG/ML VIAL IV SCH ×2 (09:50→22:13)
[2016-09-24] MEDS: SODIUM CHLORIDE 0.9% FLUSH 5 ML FLUSH IVF SCH ×2 (09:51→22:13)
[2016-09-24] MEDS: BENEPROTEIN POWDER 1 PACK G-TUBE SCH ×3 (09:51→17:20)
[2016-09-24] MEDS ORDERED: diphenhydrAMINE HCL 50 MG CAP PO PRN (10:00)
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
[2016-09-24] MEDS: POTASSIUM PHOSPHATE MONOBASIC 500 MG TAB PO PRN ×2 (13:43→17:24)
[2016-09-24] MEDS: FLUCONAZOLE 400 MG PREMIX BAG 200 ML IV SCH (14:27)
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
[2016-09-24] MEDS ORDERED: REMOVE OLD PATCH T-DERMAL SCH (17:00)
[2016-09-24] MEDS: fentaNYL 75 MCG/HR PATCH TD SCH (17:21)
[2016-09-24] MEDS: MAGNESIUM HYDROXIDE SUSP 30 ML CUP PO SCH (22:12)
[2016-09-24] MEDS: ACETAMINOPHEN/HYDROcodone 325 MG/10 MG TAB PO PRN (22:25)
[2016-09-25] VITALS (9 sets, daily range): BP systolic 121–138; BP diastolic 61–84; PULSE 72–95; RESP 15–20; TEMP 98.6–100; O2SAT 94–100
[2016-09-25] MEDS: RESP: ALBUTEROL 2.5 MG/IPRATROPIUM 0.5 MG NEB (SCH) NEB ×3 (04:07→16:10)
[2016-09-25] MEDS: CEFEPIME INJ 2,000 MG in SODIUM CHLORIDE 0.9% INJ 100 ML IV SCH (04:40)
[2016-09-25] MEDS ORDERED: PHARMACY ORDERED LAB XX ONE (05:45)
[2016-09-25] MEDS: BENEPROTEIN POWDER 1 PACK G-TUBE SCH ×3 (09:00→18:00)
[2016-09-25] MEDS: DOCUSATE SODIUM 50 MG/SENNA 8.6 MG TAB PO SCH ×2 (09:00→21:00)
[2016-09-25] MEDS: LACTULOSE SYRUP 20 GM/30 ML CUP PO SCH (09:00)
[2016-09-25] MEDS: BISACODYL 10 MG SUPP RECTAL SCH (09:00)
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
[2016-09-25] MEDS: LEVOFLOXACIN 750 MG TAB PO SCH (09:31)
[2016-09-25] MEDS: SERTRALINE HCL 50 MG TAB PO SCH (09:31)
[2016-09-25] MEDS: FAMOTIDINE 20 MG TAB PO SCH ×2 (09:31→23:31)
[2016-09-25] MEDS: CYCLOBENZAPRINE HCL 10 MG TAB PO PRN (09:31)
[2016-09-25] MEDS: SODIUM CHLORIDE 0.9% FLUSH 5 ML FLUSH IVF SCH ×2 (09:32→23:40)
[2016-09-25] MEDS: ENOXAPARIN SODIUM 40 MG/0.4 ML SYRINGE SQ SCH (09:32)
[2016-09-25] MEDS: DEXAMETHASONE SOD PHOS 4 MG/ML VIAL IV SCH ×2 (09:32→23:31)
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
[2016-09-25] MEDS: NS + KCL 20 MEQ INJ 1,000 ML IV SCH ×2 (13:03→18:21)
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
[2016-09-25] MEDS: MAGNESIUM HYDROXIDE SUSP 30 ML CUP PO SCH (21:00)
[2016-09-25] MEDS: ACETAMINOPHEN/HYDROcodone 325 MG/10 MG TAB PO PRN (23:30)
[2016-09-25] MEDS: traZODone HCL 50 MG TAB PO SCH (23:31)
[2016-09-26] VITALS (11 sets, daily range): BP systolic 110–137; BP diastolic 55–85; PULSE 73–95; RESP 16–22; TEMP 96.2–99; O2SAT 96–100
[2016-09-26] MEDS: RESP: ALBUTEROL 2.5 MG/IPRATROPIUM 0.5 MG NEB (PRN) NEB ×2 (05:48→19:35)
[2016-09-26] MEDS: CYCLOBENZAPRINE HCL 10 MG TAB PO PRN (06:34)
[2016-09-26] MEDS: ACETAMINOPHEN/HYDROcodone 325 MG/10 MG TAB PO PRN (06:35)
[2016-09-26 07:57] LABS: AUTOMATED NEUTROPHIL # 13.2 TH/MM3 (1.8-7.7); BASOPHIL % 0.2 % (0.0-2.0); HEMATOCRIT 27.8 % (39.0-51.0); HEMO FLAGS DIFF FINAL; LYMPHOCYTE # 0.7 TH/MM3 (1.0-4.8); MEAN CELL VOLUME 82.9 FL (80.0-100.0); MEAN CORPUSCULAR HEMOGLOBIN 27.6 PG (27.0-34.0); MEAN CORPUSCULAR HGB CONC 33.3 % (32.0-36.0); MONO % 3.5 % (0.0-8.0); NEUT % 91.3 % (16.0-70.0); PLATELET COUNT 368 TH/MM3 (150-450); RED BLOOD COUNT 3.36 MIL/MM3 (4.50-5.90); RED CELL DISTRIBUTION WIDTH 13.2 % (11.6-17.2); WHITE BLOOD COUNT 14.5 TH/MM3 (4.0-11.0)
[2016-09-26 08:23] LABS: ANION GAP 8 MEQ/L (5-15); AST (GOT) 194 U/L (15-37); BICARBONATE 26.7 MEQ/L (21.0-32.0); BLOOD UREA NITROGEN 16 MG/DL (7-18); CHLORIDE 97 MEQ/L (98-107); GLOMERULAR FILTRATION RATE 289 ML/MIN (>89); MAGNESIUM 1.9 MG/DL (1.5-2.5); POTASSIUM 4.5 MEQ/L (3.5-5.1); SODIUM (NA) 132 MEQ/L (136-145)
[2016-09-26 08:25] LABS: ALKALINE PHOSPHATASE 137 U/L (45-117); ALT (GPT) 503 U/L (12-78); TOTAL BILIRUBIN ADULT 0.3 MG/DL (0.2-1.0)
[2016-09-26] MEDS: SODIUM CHLORIDE 0.9% FLUSH 5 ML FLUSH IVF SCH ×2 (09:00→21:50)
[2016-09-26] MEDS: BISACODYL 10 MG SUPP RECTAL SCH (09:00)
[2016-09-26] MEDS: BENEPROTEIN POWDER 1 PACK G-TUBE SCH ×3 (09:00→18:00)
[2016-09-26] MEDS: LEVOFLOXACIN 750 MG TAB PO SCH (09:34)
[2016-09-26] MEDS: DEXAMETHASONE SOD PHOS 4 MG/ML VIAL IV SCH ×2 (09:34→21:50)
[2016-09-26] MEDS: DOCUSATE SODIUM 50 MG/SENNA 8.6 MG TAB PO SCH ×2 (09:34→21:00)
[2016-09-26] MEDS: FAMOTIDINE 20 MG TAB PO SCH ×2 (09:34→21:51)
[2016-09-26] MEDS: ENOXAPARIN SODIUM 40 MG/0.4 ML SYRINGE SQ SCH (09:35)
[2016-09-26] MEDS: SERTRALINE HCL 50 MG TAB PO SCH (09:35)
[2016-09-26] MEDS: NS + KCL 20 MEQ INJ 1,000 ML IV SCH ×2 (09:52→21:52)
[2016-09-26] MEDS: LACTULOSE SYRUP 20 GM/30 ML CUP PO SCH (09:53)
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
[2016-09-26] MEDS: ALPRAZolam 0.5 MG TAB PO PRN (14:06)
[2016-09-26 15:03] LABS: BLOOD GAS BASE EXCESS 2.5 mmol/L (-2-2); BLOOD GAS CARBOXYHEMOGLOBIN 1.1 % (0-4); BLOOD GAS HCO3 28 mmol/L (22-26); BLOOD GAS METHEMOGLOBIN 0.6 % (0-2); BLOOD GAS O2 HGB SATURATION 87 % (90-100); BLOOD GAS OXYGEN CONTENT 11.9 Vol % (12.0-20.0); BLOOD GAS PCO2 56 mmHg (38-42); BLOOD GAS PO2 65 mmHg (61-120); BLOOD GAS TOTAL HGB 9.6 G/DL (12.0-16.0); CRITICAL VALUE YES; TEMP CORR TO 98.6
[2016-09-26 15:04] LABS: DRAW SITE LT RADIAL; FIO2 100 %; LITER FLOW 15 L/M; NUMBER OF ARTERIAL PUNCTURES 1; STAT YES; ULNAR PULSE PRESENT
--- NOTE | 2016-09-26 15:37 | RADRPT ---
EXAM DATE/TIME: 09/26/2016 15:16 [facility] COMPARISON: CHEST SINGLE AP, September 24, 2016, 2:53. INDICATIONS : Short of breath. Low sats. MEDICAL HISTORY : None. SURGICAL HISTORY : None. ENCOUNTER: Subsequent ACUITY: 4 - 6 days PAIN SCORE: 6/10 LOCATION: Bilateral chest FINDINGS: External fixation hardware is noted overlying the chest. No significant consolidation or effusion jania ntified. Heart size normal. Osseous structures are intact. CONCLUSION: No definite consolidation. Lang Cruz MD on September 26, 2016 at 15:35 Board Certified Radiologist. This report was verified electronically.
[2016-09-26] MEDS: traZODone HCL 50 MG TAB PO SCH (21:50)
[2016-09-26] MEDS: MAGNESIUM HYDROXIDE SUSP 30 ML CUP PO SCH (21:51)
[2016-09-27] VITALS (9 sets, daily range): BP systolic 111–125; BP diastolic 58–77; PULSE 62–103; RESP 16–30; TEMP 98.7–99; O2SAT 95–100
[2016-09-27] MEDS: RESP: ALBUTEROL 2.5 MG/IPRATROPIUM 0.5 MG NEB (PRN) NEB (00:44)
[2016-09-27] MEDS: RESP: ALBUTEROL 2.5 MG/IPRATROPIUM 0.5 MG NEB (SCH) NEB ×4 (03:54→21:27)
[2016-09-27] MEDS: ALPRAZolam 0.5 MG TAB PO PRN ×2 (04:06→21:10)
[2016-09-27] MEDS: CYCLOBENZAPRINE HCL 10 MG TAB PO PRN (04:06)
[2016-09-27] MEDS: ACETAMINOPHEN/HYDROcodone 325 MG/10 MG TAB PO PRN ×2 (04:06→23:41)
[2016-09-27] MEDS: BISACODYL 10 MG SUPP RECTAL SCH (09:37)
[2016-09-27] MEDS: FAMOTIDINE 20 MG TAB PO SCH ×2 (09:37→21:09)
[2016-09-27] MEDS: DOCUSATE SODIUM 50 MG/SENNA 8.6 MG TAB PO SCH ×2 (09:37→21:09)
[2016-09-27] MEDS: ENOXAPARIN SODIUM 40 MG/0.4 ML SYRINGE SQ SCH (09:37)
[2016-09-27] MEDS: SERTRALINE HCL 50 MG TAB PO SCH (09:37)
[2016-09-27] MEDS: LACTULOSE SYRUP 20 GM/30 ML CUP PO SCH (09:37)
[2016-09-27] MEDS: LEVOFLOXACIN 750 MG TAB PO SCH (09:37)
[2016-09-27] MEDS: BENEPROTEIN POWDER 1 PACK G-TUBE SCH ×3 (09:38→17:23)
[2016-09-27] MEDS: DEXAMETHASONE SOD PHOS 4 MG/ML VIAL IV SCH ×2 (09:38→21:08)
[2016-09-27] MEDS: SODIUM CHLORIDE 0.9% FLUSH 5 ML FLUSH IVF SCH ×2 (09:38→21:09)
[2016-09-27] MEDS: NS + KCL 20 MEQ INJ 1,000 ML IV SCH (11:50)
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
[2016-09-27] MEDS: traZODone HCL 50 MG TAB PO SCH (21:08)
[2016-09-27] MEDS: MAGNESIUM HYDROXIDE SUSP 30 ML CUP PO SCH (21:09)
[2016-09-28] VITALS (8 sets, daily range): BP systolic 100–126; BP diastolic 56–72; PULSE 75–98; RESP 14–28; TEMP 98.4–98.8; O2SAT 92–100
[2016-09-28] MEDS: ACETAMINOPHEN/HYDROcodone 325 MG/10 MG TAB PO PRN ×2 (04:01→09:12)
[2016-09-28] MEDS: RESP: ALBUTEROL 2.5 MG/IPRATROPIUM 0.5 MG NEB (SCH) NEB ×4 (04:11→20:03)
--- NOTE | 2016-09-28 04:17 | RADRPT ---
EXAM DATE/TIME: 09/28/2016 02:59 [facility] COMPARISON: CHEST SINGLE AP, September 26, 2016, 15:16. INDICATIONS : Shortness of breath. MEDICAL HISTORY : None. SURGICAL HISTORY : None. ENCOUNTER: Subsequent ACUITY: 2 weeks PAIN SCORE: 0/10 LOCATION: Bilateral chest FINDINGS: Anatomic detail is limited due to be extensive metallic hardware from the patient's halo overlying th e chest. Visualized portions of the lungs remain clear, however. Heart size is normal.. CONCLUSION: Limited exam with no identifiable infiltrate. Hugo Mariee MD on September 28, 2016 at 4:14 Board Certified Radiologist. This report was verified electronically.
[2016-09-28 04:23] LABS: AUTOMATED NEUTROPHIL # 11.1 TH/MM3 (1.8-7.7); BASOPHIL % 0.1 % (0.0-2.0); EOSINOPHIL % 0.1 % (0.0-4.0); HEMATOCRIT 28.7 % (39.0-51.0); HEMO FLAGS DIFF FINAL; LYMPH % 7.9 % (9.0-44.0); MEAN CELL VOLUME 82.4 FL (80.0-100.0); MEAN CORPUSCULAR HEMOGLOBIN 27.8 PG (27.0-34.0); MEAN CORPUSCULAR HGB CONC 33.8 % (32.0-36.0); MONO % 4.6 % (0.0-8.0); NEUT % 87.3 % (16.0-70.0); PLATELET COUNT 480 TH/MM3 (150-450); RED BLOOD COUNT 3.48 MIL/MM3 (4.50-5.90); RED CELL DISTRIBUTION WIDTH 13.3 % (11.6-17.2); WHITE BLOOD COUNT 12.7 TH/MM3 (4.0-11.0)
[2016-09-28 04:41] LABS: MAGNESIUM 2.1 MG/DL (1.5-2.5)
[2016-09-28] MEDS: SODIUM CHLORIDE 0.9% FLUSH 5 ML FLUSH IVF SCH ×2 (09:00→20:37)
[2016-09-28] MEDS: BENEPROTEIN POWDER 1 PACK G-TUBE SCH ×3 (09:00→17:49)
[2016-09-28] MEDS: BISACODYL 10 MG SUPP RECTAL SCH (09:00)
[2016-09-28] MEDS: SERTRALINE HCL 50 MG TAB PO SCH (09:12)
[2016-09-28] MEDS: ENOXAPARIN SODIUM 40 MG/0.4 ML SYRINGE SQ SCH (09:12)
[2016-09-28] MEDS: DOCUSATE SODIUM 50 MG/SENNA 8.6 MG TAB PO SCH ×2 (09:12→20:36)
[2016-09-28] MEDS: LACTULOSE SYRUP 20 GM/30 ML CUP PO SCH (09:12)
[2016-09-28] MEDS: LEVOFLOXACIN 750 MG TAB PO SCH (09:12)
[2016-09-28] MEDS: FAMOTIDINE 20 MG TAB PO SCH ×2 (09:12→20:37)
[2016-09-28] MEDS: DEXAMETHASONE SOD PHOS 4 MG/ML VIAL IV SCH (09:13)
--- NOTE | 2016-09-28 10:28 | RADRPT ---
EXAM DATE/TIME: 09/28/2016 00:00 [facility] COMPARISON: No previous studies available for comparison. INDICATIONS : Dysphagia, evaluate aspiration FLUORO TIME: 1.8 minutes IMAGE COUNT: 0 CONTRAST: Dose as prescribed by speech pathologist. MEDICAL HISTORY : C-spine fracture SURGICAL HISTORY : anterior and posterior cervical fusion ENCOUNTER: Subsequent ACUITY: 3 weeks PAIN SCORE: 0/10 LOCATION: Bilateral throat FINDINGS: A modified barium swallow was performed with speech pathology. Patient was given a variety of liquids to swallow. No aspiration or laryngeal penetration occurred with thin liquids or with thicker consistencies. For a full detailed report, see report by the speech pathologist. CONCLUSION: No aspiration occurred. Lawrence Perez MD on September 28, 2016 at 10:25 Board Certified Radiologist. This report was verified electronically.
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
[2016-09-28] MEDS ORDERED: fentaNYL 75 MCG/HR PATCH TD SCH (12:00)
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
[2016-09-28] MEDS: ALPRAZolam 0.5 MG TAB PO PRN (15:00)
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
[2016-09-28] MEDS ORDERED: ZOLO50TA PO (17:09)
[2016-09-28] MEDS ORDERED: DEXA4TAB PO (17:09)
[2016-09-28] MEDS ORDERED: FENT75T TD (17:09)
[2016-09-28] MEDS ORDERED: TRAZ50TA12 PO (17:09)
[2016-09-28] MEDS ORDERED: LACT10SO PO (17:09)
[2016-09-28] MEDS ORDERED: ENOX40P SQ (17:09)
[2016-09-28] MEDS ORDERED: BISA10R RECTAL (17:09)
[2016-09-28] MEDS ORDERED: SENN1TAB PO (17:09)
[2016-09-28] MEDS ORDERED: PROT6POW G-TUBE (17:09)
[2016-09-28] MEDS ORDERED: HALLLOZ2 SUCK-ON (17:09)
[2016-09-28] MEDS ORDERED: DIPH50CA PO (17:09)
[2016-09-28] MEDS ORDERED: CYCL1TAB29 PO (17:09)
[2016-09-28] MEDS ORDERED: ALPR.5 PO (17:09)
[2016-09-28] MEDS ORDERED: LEVA750T PO (17:10)
--- NOTE | 2016-09-28 17:41 | RADRPT ---
EXAM DATE/TIME: 09/28/2016 16:41 [facility] COMPARISON: CT ABDOMEN & PELVIS W CONTRAST, September 11, 2016, 5:31. CT THORAX W CONTRAST, September 11, 2016, 5: 31. CHEST SINGLE AP, September 28, 2016, 2:59. INDICATIONS : Shortness of breath. MEDICAL HISTORY : None. SURGICAL HISTORY : None. ENCOUNTER: Subsequent ACUITY: 2 weeks PAIN SCORE: Non-responsive. LOCATION: Bilateral chest FINDINGS: Portable AP view of the chest demonstrates a normal size cardiac silhouette. Halo device is present a nd partially obscures the lungs. There is atelectasis versus consolidation in the lung bases bilatera lly. No pneumothorax is identified. There is slight blunting of the right costophrenic sulcus. Bones and soft tissues demonstrate no acute finding. CONCLUSION: Mild atelectasis versus consolidation at the lung bases. There is a possible small right pleural effu ciaran. Lawrence Perez MD on September 28, 2016 at 17:38 Board Certified Radiologist. This report was verified electronically.
[2016-09-28 17:54] LABS: BLOOD GAS BASE EXCESS 2.1 mmol/L (-2-2); BLOOD GAS CARBOXYHEMOGLOBIN 1.1 % (0-4); BLOOD GAS HCO3 27 mmol/L (22-26); BLOOD GAS METHEMOGLOBIN 0.6 % (0-2); BLOOD GAS O2 HGB SATURATION 97 % (90-100); BLOOD GAS PCO2 47 mmHg (38-42); BLOOD GAS PO2 120 mmHg (61-120); BLOOD GAS TOTAL HGB 10.1 G/DL (12.0-16.0); TEMP CORR TO 98.6
[2016-09-28 17:55] LABS: CRITICAL VALUE NO; DRAW SITE RT RADIAL; LITER FLOW 15 L/M; NUMBER OF ARTERIAL PUNCTURES 1; OXYGEN DEVICE PRB; STAT YES; ULNAR PULSE PRESENT
[2016-09-28] MEDS: LORazepam 0.5 MG TAB PO PRN (18:47)
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
[2016-09-28] MEDS: traZODone HCL 50 MG TAB PO SCH (20:36)
[2016-09-28] MEDS: MAGNESIUM HYDROXIDE SUSP 30 ML CUP PO SCH (20:37)
[2016-09-29] VITALS (11 sets, daily range): BP systolic 103–106; BP diastolic 53–60; PULSE 72–96; RESP 20–28; TEMP 98.4–98.7; O2SAT 96–100
[2016-09-29] MEDS: LORazepam 0.5 MG TAB PO PRN ×2 (03:16→20:04)
[2016-09-29] MEDS: RESP: ALBUTEROL 2.5 MG/IPRATROPIUM 0.5 MG NEB (SCH) NEB ×6 (04:14→19:34)
[2016-09-29] MEDS: SODIUM CHLORIDE 0.9% FLUSH 5 ML FLUSH IVF SCH ×2 (09:00→20:29)
[2016-09-29] MEDS: BENEPROTEIN POWDER 1 PACK G-TUBE SCH ×3 (09:00→18:00)
[2016-09-29] MEDS: BISACODYL 10 MG SUPP RECTAL SCH (09:20)
[2016-09-29] MEDS: DEXAMETHASONE 4 MG TAB PO SCH (09:20)
[2016-09-29] MEDS: SERTRALINE HCL 50 MG TAB PO SCH (09:20)
[2016-09-29] MEDS: DOCUSATE SODIUM 50 MG/SENNA 8.6 MG TAB PO SCH ×2 (09:20→20:29)
[2016-09-29] MEDS: ENOXAPARIN SODIUM 40 MG/0.4 ML SYRINGE SQ SCH (09:21)
[2016-09-29] MEDS: LEVOFLOXACIN 750 MG TAB PO SCH (09:21)
[2016-09-29] MEDS: LACTULOSE SYRUP 20 GM/30 ML CUP PO SCH (09:21)
[2016-09-29] MEDS: FAMOTIDINE 20 MG TAB PO SCH ×2 (09:21→20:29)
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
[2016-09-29] MEDS: CYCLOBENZAPRINE HCL 10 MG TAB PO PRN (20:05)
[2016-09-29] MEDS: traZODone HCL 50 MG TAB PO SCH (20:29)
[2016-09-29] MEDS: MAGNESIUM HYDROXIDE SUSP 30 ML CUP PO SCH (20:30)
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
[2016-09-30] VITALS: BP 109/69; PULSE 107; RESP 28; TEMP 98.7; O2SAT 92
[2016-09-30 01:27] VITALS: O2SAT 94
[2016-09-30] MEDS: RESP: ALBUTEROL 2.5 MG/IPRATROPIUM 0.5 MG NEB (SCH) NEB ×2 (01:38→11:40)
[2016-09-30] MEDS: LORazepam 0.5 MG TAB PO PRN (03:59)
[2016-09-30 04:00] VITALS: BP 114/65; PULSE 95; RESP 24; TEMP 100; O2SAT 98
--- NOTE | 2016-09-30 04:45 | RADRPT ---
EXAM DATE/TIME: 09/30/2016 03:42 [facility] COMPARISON: CHEST SINGLE AP, September 28, 2016, 16:41. INDICATIONS : Shortness of breath. MEDICAL HISTORY : None. SURGICAL HISTORY : None. ENCOUNTER: Subsequent ACUITY: 2 weeks PAIN SCORE: Non-responsive. LOCATION: Bilateral chest FINDINGS: A single view of the chest demonstrates brackets from the patient's halo partially obscuring the lung s. Lungs are otherwise clear. Heart size is normal. Osseous structures are intact. CONCLUSION: No acute infiltrate.. Hugo Mariee MD on September 30, 2016 at 4:41 Board Certified Radiologist. This report was verified electronically.
[2016-09-30 05:31] LABS: AUTOMATED NEUTROPHIL # 5.3 TH/MM3 (1.8-7.7); BASOPHIL % 0.4 % (0.0-2.0); EOSINOPHIL % 0.7 % (0.0-4.0); HEMATOCRIT 28.1 % (39.0-51.0); HEMO FLAGS DIFF FINAL; LYMPH % 21.2 % (9.0-44.0); LYMPHOCYTE # 1.6 TH/MM3 (1.0-4.8); MEAN CELL VOLUME 83.3 FL (80.0-100.0); MEAN CORPUSCULAR HGB CONC 33.7 % (32.0-36.0); NEUT % 70.7 % (16.0-70.0); PLATELET COUNT 433 TH/MM3 (150-450); RED BLOOD COUNT 3.37 MIL/MM3 (4.50-5.90); RED CELL DISTRIBUTION WIDTH 13.4 % (11.6-17.2); WHITE BLOOD COUNT 7.5 TH/MM3 (4.0-11.0)
[2016-09-30 05:46] LABS: POTASSIUM 3.8 MEQ/L (3.5-5.1)
[2016-09-30 08:00] VITALS: BP 113/60; PULSE 107; PULSE 99; RESP 31; TEMP 100.2; O2SAT 95
[2016-09-30] MEDS: BENEPROTEIN POWDER 1 PACK G-TUBE SCH (09:00)
[2016-09-30] MEDS: SODIUM CHLORIDE 0.9% FLUSH 5 ML FLUSH IVF SCH (09:00)
[2016-09-30] MEDS: DOCUSATE SODIUM 50 MG/SENNA 8.6 MG TAB PO SCH (09:14)
[2016-09-30] MEDS: SERTRALINE HCL 50 MG TAB PO SCH (09:14)
[2016-09-30] MEDS: BISACODYL 10 MG SUPP RECTAL SCH (09:14)
[2016-09-30] MEDS: FAMOTIDINE 20 MG TAB PO SCH (09:14)
[2016-09-30] MEDS: DEXAMETHASONE 4 MG TAB PO SCH (09:14)
[2016-09-30] MEDS: LACTULOSE SYRUP 20 GM/30 ML CUP PO SCH (09:14)
[2016-09-30] MEDS: LEVOFLOXACIN 750 MG TAB PO SCH (09:14)
[2016-09-30] MEDS: ALPRAZolam 0.5 MG TAB PO PRN (09:15)
[2016-09-30] MEDS: ENOXAPARIN SODIUM 40 MG/0.4 ML SYRINGE SQ SCH (09:15)
[2016-09-30] MEDS ORDERED: MILKSUS PO (09:19)
[2016-09-30] MEDS ORDERED: FAMO20TA2 PO (09:19)
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
[2016-09-30 11:53] VITALS: O2SAT 97
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
[2016-10-01] MEDS ORDERED: REMOVE OLD DURAGESIC (FENTANYL) PATCH TD SCH (12:00)
[2016-10-15] MEDS ORDERED: [UNRECOGNIZED DRUG - SUPPLY] (11:46)
[2016-10-15] MEDS ORDERED: COMMODE PAIL WI1 MIS (11:46)
[2016-10-15] MEDS ORDERED: HOSP BED1 (11:46)
[2016-10-15] MEDS ORDERED: [UNRECOGNIZED DRUG - SUPPLY] (11:46)
[2016-10-22] MEDS ORDERED: [UNRECOGNIZED DRUG - SUPPLY] (11:02)
[2016-10-22] MEDS ORDERED: [UNRECOGNIZED DRUG - OTHER] (11:02)
[2016-10-23] MEDS ORDERED: ZOLO50TA PO (14:27)
[2016-10-23] MEDS ORDERED: AQUAOIN2 TOP (14:27)
[2016-10-23] MEDS ORDERED: MIDO5TAB PO (14:27)
[2016-10-23] MEDS ORDERED: OXYB5TAB10 PO (14:27)
[2016-10-23] MEDS ORDERED: COLL30T TOP (14:27)
[2016-10-23] MEDS ORDERED: DEXA0.5T PO (14:27)
[2016-10-23] MEDS ORDERED: VANC1000P IV (14:27)
[2016-10-23] MEDS ORDERED: ONDA4TAB7 PO (14:27)
[2016-10-23] MEDS ORDERED: LEVO1INJ3 IV (14:32)
[2017-01-22] MEDS ORDERED: roho cushion (16:18)
== END 2016-09-30 12:21 | DRG 453 ==
LOC: NEPI 05:10 → NEDA 05:48 → MERGE 05:48 → EDBD 05:48 → N03A 05:55 → N05B 09-15 22:14 → N03B 09-16 20:39 → N05A 09-25 17:50 → N03A 09-26 16:46
PROVIDERS: ADMIT Surgery; ATTEND Surgery
PROC: 0RB30ZZ Excision of Cervical Vertebral Disc, Open Approach (ICD-10-PCS; 2016-09-11)
PROC: 2W60X0Z Traction of Head using Traction Apparatus (ICD-10-PCS; 2016-09-11)
PROC: 0RG10A0 Fusion of Cervical Vertebral Joint with Interbody Fusion Device, Anterior Approach, Anterior Column, Open Approach (ICD-10-PCS; principal; 2016-09-11 11:22)
PROC: 0BJ08ZZ Inspection of Tracheobronchial Tree, Via Natural or Artificial Opening Endoscopic (ICD-10-PCS; 2016-09-16)
PROC: 0BH17EZ Insertion of Endotracheal Airway into Trachea, Via Natural or Artificial Opening (ICD-10-PCS; 2016-09-16)
PROC: 5A1945Z Respiratory Ventilation, 24-96 Consecutive Hours (ICD-10-PCS; 2016-09-16)
PROC: 0DH63UZ Insertion of Feeding Device into Stomach, Percutaneous Approach (ICD-10-PCS; 2016-09-18)
PROC: 0DJ08ZZ Inspection of Upper Intestinal Tract, Via Natural or Artificial Opening Endoscopic (ICD-10-PCS; 2016-09-18)
PROC: 0RG2071 Fusion of 2 or more Cervical Vertebral Joints with Autologous Tissue Substitute, Posterior Approach, Posterior Column, Open Approach (ICD-10-PCS; 2016-09-23)
PROC: 0QB20ZZ Excision of Right Pelvic Bone, Open Approach (ICD-10-PCS; 2016-09-23)
DX: S12.400A Unspecified displaced fracture of fifth cervical vertebra, initial encounter for closed fracture (principal); G82.54 Quadriplegia, C5-C7 incomplete; R57.9 Shock, unspecified; J96.01 Acute respiratory failure with hypoxia; J69.0 Pneumonitis due to inhalation of food and vomit; A41.9 Sepsis, unspecified organism; J15.6 Pneumonia due to other Gram-negative bacteria; K56.7 Ileus, unspecified; N48.30 Priapism, unspecified; N39.0 Urinary tract infection, site not specified; R13.10 Dysphagia, unspecified; S14.0XXA Concussion and edema of cervical spinal cord, initial encounter; R00.1 Bradycardia, unspecified; K29.70 Gastritis, unspecified, without bleeding; S13.4XXA Sprain of ligaments of cervical spine, initial encounter; J98.6 Disorders of diaphragm; L98.419 Non-pressure chronic ulcer of buttock with unspecified severity; B96.20 Unspecified Escherichia coli [E. coli] as the cause of diseases classified elsewhere; V89.2XXA Person injured in unspecified motor-vehicle accident, traffic, initial encounter; F12.90 Cannabis use, unspecified, uncomplicated; F14.90 Cocaine use, unspecified, uncomplicated; F17.210 Nicotine dependence, cigarettes, uncomplicated; F32.9 Major depressive disorder, single episode, unspecified; F41.9 Anxiety disorder, unspecified
CPT/HCPCS: 31500; 31624; 36600; 70450; 71010; 71260; 72020; 72040; 72125; 72141; 72170; 74000; 74177; 74230; 76000; 76705; 80048; 80053; 80074; 80202; 80307; 80320; 81001; 82435; 82565; 82805; 82947; 83735; 84100; 84132; 84295; 84520; 85025; 85027; 85610; 85730; 86850; 86900; 86901; 87040; 87071; 87077; 87086; 87186; 87641; 88305; 88312; 93005; 94002; 94003; 94150; 94640; 94664; 94667; 94668; 99291; C1713; C9113; G0390; J0131; J0171; J0461; J0690; J0692; J0696; J1100; J1200; J1265; J1450; J1580; J1650; J2212; J2250; J2270; J2370; J2405; J2543; J2765; J3010; J3370; J3480; J7030; J7040; J7050; J7120; J8540; L0150; L0172; L0810; Q9967

== ENCOUNTER 2016-10-23 16:04 | Inpatient (IN) | payer OTHER ==
[~2016-10-23] VITALS: Ht 162.6 cm; Wt 64.0 kg
[~2016-10-23 16:04] MED LIST changes: +ALPR.5 PO; +AQUAOIN2 TOP; +BISA10R RECTAL; +COLL30T TOP; +COMMODE PAIL WI1 MIS; +CYCL1TAB29 PO; +DEXA0.5T PO; +DEXA4TAB PO; +DIPH50CA PO; +ENOX40P SQ; +FAMO20TA2 PO; +FENT75T TD; +HALLLOZ2 SUCK-ON; +HOSP BED1; +LACT10SO PO; +LEVA750T PO; +LEVO1INJ3 IV; +MIDO5TAB PO; +MILKSUS PO; +ONDA4TAB7 PO; +OXYB5TAB10 PO; +PROT6POW G-TUBE; +SENN1TAB PO; +TRAZ50TA12 PO; +VANC1000P IV; +ZOLO50TA PO; +[UNRECOGNIZED DRUG - OTHER]; +[UNRECOGNIZED DRUG - SUPPLY]; +[UNRECOGNIZED DRUG - SUPPLY]; +[UNRECOGNIZED DRUG - SUPPLY]
[2016-10-23 17:02] VITALS: BP 125/66; PULSE 96; RESP 20; TEMP 98.9; O2SAT 96
[2016-10-23 20:00] VITALS: BP 127/75; PULSE 112; RESP 14; TEMP 98.7; O2SAT 96
[2016-10-23] MEDS: ACETAMINOPHEN/HYDROcodone 325 MG/10 MG TAB PO PRN (20:19)
[2016-10-24] VITALS: BP 129/76; PULSE 111; PULSE 129; RESP 18; TEMP 98.1; O2SAT 96
[2016-10-24] MEDS: REMOVE OLD PATCH T-DERMAL SCH (01:23)
[2016-10-24] MEDS: ACETAMINOPHEN/HYDROcodone 325 MG/5 MG TAB PO PRN ×2 (01:23→14:13)
[2016-10-24] MEDS ORDERED: CYCLOBENZAPRINE HCL 10 MG TAB PO ONE (02:15)
[2016-10-24] MEDS: fentaNYL 75 MCG/HR PATCH T-DERMAL SCH (02:37)
[2016-10-24 07:28] LABS: BICARBONATE 26.5 MEQ/L (21.0-32.0)
[2016-10-24 07:29] LABS: AUTOMATED NEUTROPHIL # 6.5 TH/MM3 (1.8-7.7); BASOPHIL % 0.4 % (0.0-2.0); EOSINOPHIL # 0.1 TH/MM3 (0-0.4); EOSINOPHIL % 1.1 % (0.0-4.0); HEMATOCRIT 34.4 % (39.0-51.0); HEMO FLAGS DIFF FINAL; LYMPH % 20.3 % (9.0-44.0); LYMPHOCYTE # 1.9 TH/MM3 (1.0-4.8); MEAN CELL VOLUME 82.1 FL (80.0-100.0); MEAN CORPUSCULAR HEMOGLOBIN 27.4 PG (27.0-34.0); MEAN CORPUSCULAR HGB CONC 33.3 % (32.0-36.0); MONO % 10.2 % (0.0-8.0); PLATELET COUNT 259 TH/MM3 (150-450); RED BLOOD COUNT 4.19 MIL/MM3 (4.50-5.90); RED CELL DISTRIBUTION WIDTH 14.3 % (11.6-17.2); WHITE BLOOD COUNT 9.6 TH/MM3 (4.0-11.0)
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
[2016-10-24] MEDS ORDERED: ONDANSETRON HCL 4 MG/2 ML VIAL IV PUSH PRN (08:45)
[2016-10-24] MEDS ORDERED: Vancomycin Consult Pharmacy 1 EA OTHER SCH (08:45)
[2016-10-24] MEDS: SODIUM CHLOR 0.9% 1000 ML INJ 1,000 ML IV SCH ×2 (08:45→19:03)
[2016-10-24] MEDS ORDERED: MENTHOL LOZENGE BUCCAL PRN (08:45)
[2016-10-24] MEDS ORDERED: ACETAMINOPHEN 325 MG TAB PO PRN (08:45)
[2016-10-24] MEDS ORDERED: VANCOMYCIN 1,000 MG/NS 250 ML IV ONE ×2 (09:00)
[2016-10-24] MEDS: BENEPROTEIN POWDER 1 PACK G-TUBE SCH ×3 (09:00→17:45)
[2016-10-24] MEDS ORDERED: PILL SPLITTER OTHER PRN (09:00)
[2016-10-24 09:12] VITALS: BP 94/52; PULSE 81; RESP 16; TEMP 97.1; O2SAT 96
[2016-10-24] MEDS ORDERED: fentaNYL 75 MCG/HR PATCH T-DERMAL SCH (10:00)
[2016-10-24] MEDS: ACETAMINOPHEN/HYDROcodone 325 MG/10 MG TAB PO PRN ×3 (10:07→23:29)
[2016-10-24] MEDS: SERTRALINE HCL 50 MG TAB PO SCH (10:18)
[2016-10-24] MEDS: LEVOFLOXACIN 500 MG PREMIX INJ 100 ML IV SCH (10:18)
[2016-10-24] MEDS: ENOXAPARIN SODIUM 40 MG/0.4 ML SYRINGE SQ SCH (10:21)
[2016-10-24] MEDS: DOCUSATE SODIUM 50 MG/SENNA 8.6 MG TAB PO SCH ×2 (10:21→22:00)
[2016-10-24] MEDS: OXYBUTYNIN CHLORIDE 5 MG TAB PO SCH ×2 (10:21→22:00)
[2016-10-24] MEDS: FAMOTIDINE 20 MG TAB PO SCH ×2 (10:21→22:00)
[2016-10-24] MEDS: MIDODRINE 5 MG TAB PO SCH ×3 (10:22→19:04)
[2016-10-24] MEDS: BISACODYL 10 MG SUPP RECTAL SCH (10:22)
[2016-10-24] MEDS: LACTULOSE SYRUP 20 GM/30 ML CUP PO SCH (10:22)
[2016-10-24 12:28] VITALS: O2SAT 97
[2016-10-24] MEDS: DEXAMETHASONE 0.5 MG TAB PO SCH (12:36)
[2016-10-24] MEDS: AQUAPHOR OINT 50 APPLIC/50 GM TUBE TOPICAL SCH ×2 (12:36→22:02)
[2016-10-24 13:34] VITALS: BP 104/58; PULSE 103; RESP 16; TEMP 96.8; O2SAT 98
[2016-10-24] MEDS: COLLAGENASE OINT 30 GM TUBE TOPICAL SCH (16:07)
[2016-10-24 17:55] VITALS: BP 88/44; PULSE 87; RESP 16; TEMP 96.9; O2SAT 98
[2016-10-24] MEDS: VANCOMYCIN 1,000 MG/NS 250 ML IV SCH ×2 (19:04)
[2016-10-24] MEDS: CYCLOBENZAPRINE HCL 10 MG TAB PO PRN (19:05)
[2016-10-24 20:00] VITALS: BP 127/72; PULSE 76; RESP 18; TEMP 97.3; O2SAT 99
[2016-10-24] MEDS: MAGNESIUM HYDROXIDE SUSP 30 ML CUP PO SCH (22:00)
[2016-10-24] MEDS: traZODone HCL 50 MG TAB PO SCH (22:01)
[2016-10-24] MEDS: ALPRAZolam 0.5 MG TAB PO PRN (23:29)
[2016-10-25] VITALS: BP 121/67; PULSE 84; RESP 18; TEMP 97.3; O2SAT 99
[2016-10-25] MEDS: VANCOMYCIN 1,000 MG/NS 250 ML IV SCH ×4 (01:33→11:59)
[2016-10-25] MEDS: CYCLOBENZAPRINE HCL 10 MG TAB PO PRN ×2 (03:47→20:38)
[2016-10-25] MEDS: ACETAMINOPHEN/HYDROcodone 325 MG/10 MG TAB PO PRN ×5 (03:48→23:23)
[2016-10-25] MEDS ORDERED: PHARMACY ORDERED LAB ONE (08:45)
[2016-10-25 08:49] VITALS: BP 92/51; PULSE 100; RESP 17; TEMP 95.8; O2SAT 97
[2016-10-25] MEDS: OXYBUTYNIN CHLORIDE 5 MG TAB PO SCH ×2 (08:49→20:37)
[2016-10-25] MEDS: DEXAMETHASONE 0.5 MG TAB PO SCH (08:49)
[2016-10-25] MEDS: FAMOTIDINE 20 MG TAB PO SCH ×2 (08:49→20:37)
[2016-10-25] MEDS: LACTULOSE SYRUP 20 GM/30 ML CUP PO SCH (08:49)
[2016-10-25] MEDS: SERTRALINE HCL 50 MG TAB PO SCH (08:50)
[2016-10-25] MEDS: DOCUSATE SODIUM 50 MG/SENNA 8.6 MG TAB PO SCH ×2 (08:50→20:38)
[2016-10-25] MEDS: MIDODRINE 5 MG TAB PO SCH ×3 (08:51→18:05)
[2016-10-25] MEDS: BISACODYL 10 MG SUPP RECTAL SCH (08:52)
[2016-10-25] MEDS: BENEPROTEIN POWDER 1 PACK G-TUBE SCH ×3 (08:52→18:00)
[2016-10-25] MEDS: LEVOFLOXACIN 500 MG PREMIX INJ 100 ML IV SCH (08:52)
[2016-10-25] MEDS: ENOXAPARIN SODIUM 40 MG/0.4 ML SYRINGE SQ SCH (08:54)
[2016-10-25] MEDS: AQUAPHOR OINT 50 APPLIC/50 GM TUBE TOPICAL SCH ×2 (10:30→20:38)
[2016-10-25] MEDS: COLLAGENASE OINT 30 GM TUBE TOPICAL SCH (10:30)
--- NOTE | 2016-10-25 10:39 | HHI.PR ---
Subjective Remarks remains afebrile. pain seems to be fairly controlled. no new complaints. d/w the RN. Objective Vitals Vital Signs Date Time Temp Pulse Resp B/P Pulse Ox O2 Delivery O2 Flow Rate FiO2 10/25/16 08:49 95.8 100 17 92/51 97 10/25/16 04:48 18 10/25/16 00:00 97.3 84 18 121/67 99 10/24/16 20:00 97.3 76 18 127/72 99 10/24/16 17:55 96.9 87 16 88/44 98 10/24/16 13:34 96.8 103 16 104/58 98 10/24/16 12:28 97 I/O 10/24/16 10/24/16 10/24/16 10/25/16 10/25/16 10/25/16 07:00 15:00 23:00 07:00 15:00 23:00 Intake Total 240 ml 240 ml Output Total 800 ml 500 ml 1000 ml Balance -800 ml -260 ml -760 ml Intake Oral 240 ml 240 ml Output Urine Total 800 ml 500 ml 1000 ml # Bowel Movements 1 Result Diagram: 10/24/16 0643 10/24/16 0643 Objective Remarks GENERAL: This is a well-nourished, well-developed patient, in no apparent distress.Halo in place. CARDIOVASCULAR: Regular rate and regular rhythm without murmurs, gallops, or rubs. RESPIRATORY: Clear to auscultation. Breath sounds equal bilaterally. No wheezes , rales, or rhonchi. GASTROINTESTINAL: Abdomen soft, non-tender, nondistended. Normal, active bowel sounds MUSCULOSKELETAL: Extremities without clubbing, cyanosis, or edema. NEURO: Alert & Oriented x4 to person, place, time, situation. Procedures none Medications and IVs Current Medications Fentanyl (Duragesic 75 Mcg Patch.72 Hr) 1 patch Q3D T-DERMAL Last administered on 10/24/16 02:37; Start 10/23/16 at 20:00 Acetaminophen/ Hydrocodone Bitart ([place] 10-325 Mg) 1 tab Q4H PRN PO PAIN 3-5 Last administered on 10/25/16 08:51; Start 10/23/16 at 20:00 Acetaminophen/ Hydrocodone Bitart ([place] 5-325 Mg) 1 tab Q4H PRN PO PAIN 6-10 Last administered on 10/24/16 14:13; Start 10/23/16 at 20:00 Miscellaneous Information 1 Q72H T-DERMAL Last administered on 10/24/16 01:23; Start 10/23/16 at 20:00 Cyclobenzaprine HCl (Flexeril) 10 mg ONCE ONCE PO Last administered on 02:35; Start 10/24/16 at 02:15; Stop 10/24/16 at 02:16; Status DC Alprazolam (Xanax) 0.5 mg TID PRN PO ANXIETY Last administered on 10/24/16 23: 29; Start 10/24/16 at 08:45 Bisacodyl (Dulcolax Supp) 10 mg DAILY RECTAL Last administered on 10/25/16 08: 52; Start 10/24/16 at 09:00 Collagenase (Santyl Oint) 1 applic DAILY TOPICAL Last administered on 10/24/16 16:07; Start 10/24/16 at 09:00 Cyclobenzaprine HCl (Flexeril) 10 mg Q8H PRN PO MUSCLE SPASM Last administered on 10/25/16 03:47; Start 10/24/16 at 08:45 Dexamethasone (Decadron) 1 mg DAILY PO Last administered on 10/25/16 08:49; Start 10/24/16 at 09:00 Emollient Ointment (Aquaphor Oint) 1 applic Q12HR TOPICAL Last administered on 10/24/16 22:02; Start 10/24/16 at 09:00 Enoxaparin Sodium (Lovenox Inj) 40 mg Q24H SQ Last administered on 10/25/16 08: 54; Start 10/24/16 at 09:00 Famotidine (Pepcid) 20 mg BID PO Last administered on 10/25/16 08:49; Start 10/24/16 at 09:00 Fentanyl (Duragesic 75 Mcg Patch.72 Hr) 1 patch Q3D T-DERMAL ; Start 10/24/16 at 10:00; Stop 10/24/16 at 10:00; Status DC Lactulose (Lactulose Liq) 30 ml DAILY PO Last administered on 10/25/16 08:49; Start 10/24/16 at 09:00 Magnesium Hydroxide (Milk Of Magnesia Liq) 30 ml HS PO Last administered on 10/24 22:00; Start 10/24/16 at 21:00 Menthol ([place] Sushila) 1 lozenge UNSCH PRN BUCCAL SORE THROAT; Start 10/24/16 at 08 :45 Midodrine (Proamatine) 5 mg TID PO Last administered on 10/25/16 08:51; Start 10/24/16 at 09:00 Oxybutynin Chloride (Ditropan) 5 mg Q12HR PO Last administered on 10/25/16 08: 49; Start 10/24/16 at 09:00 Protein (Beneprotein Powder) 1 pack TID G-TUBE ; Start 10/24/16 at 09:00 Senna/Docusate Sodium (Valerie-Colace) 2 tab BID PO Last administered on 10/25/16 08:50; Start 10/24/16 at 09:00 Sertraline HCl (Zoloft) 75 mg DAILY PO Last administered on 10/25/16 08:50; Start 10/24/16 at 09:00 Trazodone HCl 50 mg 50 mg HS PO Last administered on 10/24/16 22:01; Start 10/24 at 21:00 Levofloxacin/ Dextrose 100 ml @ 100 mls/hr Q24H IV Last administered on 08:52; Start 10/24/16 at 09:00 Pharmacy Profile Note (Vancomycin Consult Pharmacy) 0 ml @ 0 mls/hr UNSCH OTHER ; Start 10/24/16 at 08:45 Ondansetron HCl (Zofran Inj) 4 mg Q8HR PRN IV PUSH NAUSEA; Start 10/24/16 at 08: 45 Acetaminophen (Tylenol) 650 mg Q4H PRN PO FEVER; Start 10/24/16 at 08:45 Miscellaneous Information 1 1 Q3D T-DERMAL ; Start 10/27/16 at 10:00; Stop at 10:00; Status DC Sodium Chloride (NS 1000 ml Inj) 1,000 ml @ 75 mls/hr [id number] IV Last administered on 10/24/16 19:03; Start 10/24/16 at 08:45 Miscellaneous 1 ea 1 ea UNSCH PRN OTHER SEE LABEL COMMENTS; Start 10/24/16 at 09 :00 Vancomycin HCl 1000 mg/Sodium Chloride 250 ml @ 250 mls/hr ONCE ONCE IV Last administered on 10/24/16 12:35; Start 10/24/16 at 09:00; Stop 10/24/16 at 09:59; Status DC Vancomycin HCl/ Sodium Chloride (Vancomycin Inj/ NS 250 ml Inj) 250 ml @ 250 mls/hr Q8H IV Last administered on 10/25/16 01:33; Start 10/24/16 at 17:00 Miscellaneous Information SPECIFIC LAB TO BE DRAWN:VANCO CONSULT DATE TO... ONCE ONCE .XX Last administered on 10/25/16 08:53; Start 10/25/16 at 08:45; Stop 10/25/16 at 08:46; Status DC A/P Assessment and Plan A/P -SIRS wound culture with normal skin juliana UC with mixed gram positive juliana one bottle of blood culture positive for gram positive cocci - likely contamination continue with the IV antibiotics till cultures finalized Stage IV pressure ulcers Air mattress status post debridement 10/22/16. 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 - patient also on Decadron taper - No antihypertensives at this time - continue to monitor - Monitor BP trend. Spinal CORD injury cervical region Cervical spinal fracture Paraplegia Impaired mobility and activities of daily living continue pain control continue PT/OT Neurogenic bladder - Freeman catheter in place - Followed by urology- placement of Freeman catheter prior to DC, Freeman will need to be changes once a month - Patient will also need to follow up with urology as an outpatient for Freeman care changes and possible suprapubic cath in the future Protein calorie malnutrition- PEG DC'd 10/15/16 by GI continue with protein supplementation Depression continue Zoloft and trazodone Constipation continue bowel regimen DVT prophylaxis with lovenox Discharge Planning case management for dc planning. Suresh Mejia MD Oct 25, 2016 10:39
[2016-10-25 12:57] VITALS: BP 100/55; PULSE 98; RESP 16; TEMP 96; O2SAT 98
[2016-10-25] MEDS: SODIUM CHLOR 0.9% 1000 ML INJ 1,000 ML IV SCH ×2 (14:04→23:24)
[2016-10-25 18:04] VITALS: BP 130/69; PULSE 100; RESP 18; TEMP 97; O2SAT 100
[2016-10-25] MEDS: BACITRACIN TOP OINT 15 GM TUBE TOPICAL SCH (18:05)
[2016-10-25 18:06] VITALS: O2SAT 99
[2016-10-25 20:33] VITALS: BP 136/77; PULSE 89; RESP 20; TEMP 97.9; O2SAT 98
[2016-10-25] MEDS: traZODone HCL 50 MG TAB PO SCH (20:37)
[2016-10-25] MEDS: VANCOMYCIN INJ 1,200 MG in SODIUM CHLOR 0.9% 250 ML INJ 250 ML IV SCH (20:37)
[2016-10-25] MEDS: ALPRAZolam 0.5 MG TAB PO PRN (20:37)
[2016-10-25] MEDS: MAGNESIUM HYDROXIDE SUSP 30 ML CUP PO SCH (20:38)
[2016-10-26] VITALS: BP 138/82; PULSE 80; RESP 20; TEMP 97.3; O2SAT 99
[2016-10-26] MEDS: VANCOMYCIN INJ 1,200 MG in SODIUM CHLOR 0.9% 250 ML INJ 250 ML IV SCH (03:24)
[2016-10-26 04:55] VITALS: BP 118/83; PULSE 81; RESP 20; TEMP 97; O2SAT 100
[2016-10-26] MEDS: ACETAMINOPHEN/HYDROcodone 325 MG/10 MG TAB PO PRN ×4 (04:57→22:46)
[2016-10-26 08:00] VITALS: BP 116/72; PULSE 86; RESP 17; TEMP 98; O2SAT 98
[2016-10-26] MEDS: LACTULOSE SYRUP 20 GM/30 ML CUP PO SCH (08:51)
[2016-10-26] MEDS: DOCUSATE SODIUM 50 MG/SENNA 8.6 MG TAB PO SCH ×2 (08:51→22:45)
[2016-10-26] MEDS: OXYBUTYNIN CHLORIDE 5 MG TAB PO SCH ×2 (08:51→22:44)
[2016-10-26] MEDS: FAMOTIDINE 20 MG TAB PO SCH ×2 (08:51→22:45)
[2016-10-26] MEDS: BISACODYL 10 MG SUPP RECTAL SCH (08:52)
[2016-10-26] MEDS: SERTRALINE HCL 50 MG TAB PO SCH (08:52)
[2016-10-26] MEDS: ENOXAPARIN SODIUM 40 MG/0.4 ML SYRINGE SQ SCH (08:53)
[2016-10-26] MEDS: DEXAMETHASONE 0.5 MG TAB PO SCH (08:53)
[2016-10-26] MEDS: MIDODRINE 5 MG TAB PO SCH ×3 (08:53→18:46)
[2016-10-26] MEDS: BENEPROTEIN POWDER 1 PACK G-TUBE SCH ×3 (09:00→18:00)
[2016-10-26] MEDS: COLLAGENASE OINT 30 GM TUBE TOPICAL SCH (09:00)
[2016-10-26] MEDS: LEVOFLOXACIN 500 MG PREMIX INJ 100 ML IV SCH (09:16)
[2016-10-26] MEDS: CYCLOBENZAPRINE HCL 10 MG TAB PO PRN ×2 (09:25→22:43)
[2016-10-26] MEDS: AQUAPHOR OINT 50 APPLIC/50 GM TUBE TOPICAL SCH (09:28)
--- NOTE | 2016-10-26 09:51 | HHI.PR ---
Subjective Remarks resting comfortably with no distress. pain is fairly controlled. no fever. d/w the RN and no acute issues over night. Objective Vitals Vital Signs Date Time Temp Pulse Resp B/P Pulse Ox O2 Delivery O2 Flow Rate FiO2 10/26/16 08:00 98.0 86 17 116/72 98 10/26/16 04:55 97.0 81 20 118/83 100 10/26/16 00:23 18 10/26/16 00:00 97.3 80 20 138/82 99 10/25/16 20:33 97.9 89 20 136/77 98 10/25/16 18:06 99 21 10/25/16 18:04 97.0 100 18 130/69 100 10/25/16 12:57 96.0 98 16 100/55 98 I/O 10/25/16 10/25/16 10/25/16 10/26/16 10/26/16 10/26/16 07:00 15:00 23:00 07:00 15:00 23:00 Intake Total 368 ml 240 ml 1794 ml Output Total 300 ml 1500 ml 400 ml Balance 68 ml -1260 ml 1394 ml Intake Oral 240 ml IV Total 368 ml 1794 ml Output Urine Total 300 ml 1500 ml 400 ml Result Diagram: 10/24/16 0643 10/24/16 0643 Objective Remarks GENERAL: This is a well-nourished, well-developed patient, in no apparent distress.Halo in place. CARDIOVASCULAR: Regular rate and regular rhythm without murmurs, gallops, or rubs. RESPIRATORY: Clear to auscultation. Breath sounds equal bilaterally. No wheezes , rales, or rhonchi. GASTROINTESTINAL: Abdomen soft, non-tender, nondistended. Normal, active bowel sounds MUSCULOSKELETAL: Extremities without clubbing, cyanosis, or edema. NEURO: Alert & Oriented x4 to person, place, time, situation. Procedures none Medications and IVs Current Medications Fentanyl (Duragesic 75 Mcg Patch.72 Hr) 1 patch Q3D T-DERMAL Last administered on 10/24/16 02:37; Start 10/23/16 at 20:00 Acetaminophen/ Hydrocodone Bitart ([place] 10-325 Mg) 1 tab Q4H PRN PO PAIN 3-5 Last administered on 10/26/16 04:57; Start 10/23/16 at 20:00 Acetaminophen/ Hydrocodone Bitart ([place] 5-325 Mg) 1 tab Q4H PRN PO PAIN 6-10 Last administered on 10/24/16 14:13; Start 10/23/16 at 20:00 Miscellaneous Information 1 Q72H T-DERMAL Last administered on 10/24/16 01:23; Start 10/23/16 at 20:00 Cyclobenzaprine HCl (Flexeril) 10 mg ONCE ONCE PO Last administered on 02:35; Start 10/24/16 at 02:15; Stop 10/24/16 at 02:16; Status DC Alprazolam (Xanax) 0.5 mg TID PRN PO ANXIETY Last administered on 10/25/16 20: 37; Start 10/24/16 at 08:45 Bisacodyl (Dulcolax Supp) 10 mg DAILY RECTAL Last administered on 10/26/16 08: 52; Start 10/24/16 at 09:00 Collagenase (Santyl Oint) 1 applic DAILY TOPICAL Last administered on 10/25/16 10:30; Start 10/24/16 at 09:00 Cyclobenzaprine HCl (Flexeril) 10 mg Q8H PRN PO MUSCLE SPASM Last administered on 10/26/16 09:25; Start 10/24/16 at 08:45 Dexamethasone (Decadron) 1 mg DAILY PO Last administered on 10/26/16 08:53; Start 10/24/16 at 09:00 Emollient Ointment (Aquaphor Oint) 1 applic Q12HR TOPICAL Last administered on 10/26/16 09:28; Start 10/24/16 at 09:00 Enoxaparin Sodium (Lovenox Inj) 40 mg Q24H SQ Last administered on 10/26/16 08: 53; Start 10/24/16 at 09:00 Famotidine (Pepcid) 20 mg BID PO Last administered on 10/26/16 08:51; Start 10/24/16 at 09:00 Fentanyl (Duragesic 75 Mcg Patch.72 Hr) 1 patch Q3D T-DERMAL ; Start 10/24/16 at 10:00; Stop 10/24/16 at 10:00; Status DC Lactulose (Lactulose Liq) 30 ml DAILY PO Last administered on 10/26/16 08:51; Start 10/24/16 at 09:00 Magnesium Hydroxide (Milk Of Magnesia Liq) 30 ml HS PO Last administered on 10/25 20:38; Start 10/24/16 at 21:00 Menthol ([place] Sushila) 1 lozenge UNSCH PRN BUCCAL SORE THROAT; Start 10/24/16 at 08 :45 Midodrine (Proamatine) 5 mg TID PO Last administered on 10/26/16 08:53; Start 10/24/16 at 09:00 Oxybutynin Chloride (Ditropan) 5 mg Q12HR PO Last administered on 10/26/16 08: 51; Start 10/24/16 at 09:00 Protein (Beneprotein Powder) 1 pack TID G-TUBE ; Start 10/24/16 at 09:00 Senna/Docusate Sodium ([place]erie-Colace) 2 tab BID PO Last administered on 10/26/16 08:51; Start 10/24/16 at 09:00 Sertraline HCl (Zoloft) 75 mg DAILY PO Last administered on 10/26/16 08:52; Start 10/24/16 at 09:00 Trazodone HCl 50 mg 50 mg HS PO Last administered on 10/25/16 20:37; Start 10/24 at 21:00 Levofloxacin/ Dextrose 100 ml @ 100 mls/hr Q24H IV Last administered on 09:16; Start 10/24/16 at 09:00 Pharmacy Profile Note (Vancomycin Consult Pharmacy) 0 ml @ 0 mls/hr UNSCH OTHER ; Start 10/24/16 at 08:45 Ondansetron HCl (Zofran Inj) 4 mg Q8HR PRN IV PUSH NAUSEA; Start 10/24/16 at 08: 45 Acetaminophen (Tylenol) 650 mg Q4H PRN PO FEVER; Start 10/24/16 at 08:45 Miscellaneous Information 1 1 Q3D T-DERMAL ; Start 10/27/16 at 10:00; Stop at 10:00; Status DC Sodium Chloride (NS 1000 ml Inj) 1,000 ml @ 75 mls/hr [id number] IV Last administered on 10/25/16 23:24; Start 10/24/16 at 08:45 Miscellaneous 1 ea 1 ea UNSCH PRN OTHER SEE LABEL COMMENTS; Start 10/24/16 at 09 :00 Vancomycin HCl 1000 mg/Sodium Chloride 250 ml @ 250 mls/hr ONCE ONCE IV Last administered on 10/24/16 12:35; Start 10/24/16 at 09:00; Stop 10/24/16 at 09:59; Status DC Vancomycin HCl/ Sodium Chloride (Vancomycin Inj/ NS 250 ml Inj) 250 ml @ 250 mls/hr Q8H IV Last administered on 10/25/16 11:59; Start 10/24/16 at 17:00; Stop 10/25/16 at 14:00; Status DC Miscellaneous Information SPECIFIC LAB TO BE DRAWN:VANCO CONSULT DATE TO... ONCE ONCE .XX Last administered on 10/25/16 08:53; Start 10/25/16 at 08:45; Stop 10/25/16 at 08:46; Status DC Vancomycin HCl/ Sodium Chloride (Vancomycin Inj/ NS 250 ml Inj) 262 ml @ 250 mls/hr Q8H IV Last administered on 10/26/16 03:24; Start 10/25/16 at 20:00 Miscellaneous Information SPECIFIC LAB TO BE DRAWN:VANCOMY... ONCE ONCE .XX ; Start 10/26/16 at 20:45; Stop 10/26/16 at 20:46 Bacitracin (Baciguent Oint) 1 applic Q12HR TOPICAL Last administered on 18:05; Start 10/25/16 at 21:00 A/P Assessment and Plan A/P -SIRS- remains afebrile wound culture with normal skin juliana UC with mixed gram positive juliana one bottle of blood culture positive for staph epidermidis - likely contamination stop antibiotics Stage IV pressure ulcers Air mattress status post debridement 10/22/16. 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 history Orthostatic hypotension- - Midodrine 5 mg TID- would like to taper off if possible. - patient also on Decadron taper - No antihypertensives at this time - continue to monitor - Monitor BP trend. Spinal CORD injury cervical region Cervical spinal fracture Paraplegia Impaired mobility and activities of daily living continue pain control continue PT/OT Neurogenic bladder - Freeman catheter in place - Followed by urology- placement of Freeman catheter prior to DC, Freeman will need to be changes once a month - Patient will also need to follow up with urology as an outpatient for Freeman care changes and possible suprapubic cath in the future Protein calorie malnutrition- PEG DC'd 10/15/16 by GI continue with protein supplementation Depression continue Zoloft and trazodone Constipation continue bowel regimen DVT prophylaxis with lovenox Discharge Planning patient was transferred from [place]. d/w the case management today for discharge planning. Suresh Mejia MD Oct 26, 2016 09:51
[2016-10-26 12:00] VITALS: BP 124/80; PULSE 84; RESP 19; TEMP 98.3; O2SAT 100
[2016-10-26] MEDS: BACITRACIN TOP OINT 15 GM TUBE TOPICAL SCH (13:37)
--- NOTE | 2016-10-26 13:58 | PD.PLAS.PN ---
Subjective Remarks Patient is lying comfortably in bed. Objective Vital Signs Date Time Temp Pulse Resp B/P Pulse Ox O2 Delivery O2 Flow Rate FiO2 10/26/16 12:00 98.3 84 19 124/80 100 10/26/16 08:00 98.0 86 17 116/72 98 10/26/16 04:55 97.0 81 20 118/83 100 10/26/16 00:23 18 10/26/16 00:00 97.3 80 20 138/82 99 10/25/16 20:33 97.9 89 20 136/77 98 10/25/16 18:06 99 21 10/25/16 18:04 97.0 100 18 130/69 100 I/O 10/25/16 10/25/16 10/25/16 10/26/16 10/26/16 10/26/16 07:00 15:00 23:00 07:00 15:00 23:00 Intake Total 368 ml 240 ml 1794 ml Output Total 300 ml 1500 ml 400 ml Balance 68 ml -1260 ml 1394 ml Intake Oral 240 ml IV Total 368 ml 1794 ml Output Urine Total 300 ml 1500 ml 400 ml Result Diagram: 10/24/16 0643 10/24/16 0643 Exam Findings Wound is progressing well. Wound bed with significantly less necrotic tissue. See WOCN notes for measurements. Serous drainage, no odor. No evidence of infection. Assessment and Plan Diagnosis: (1) Stage II pressure ulcer Plan: WOCN was present for exam. After discussion, we decided that best course of action for this patient would be a combination of Santyl and Wound Vac. This is discussed with the patient as well as RN. Vac is ordered. Continue with prior Santyl orders. GREG betadine wet to dry. Demetra Tian Oct 26, 2016 13:58
[2016-10-26] MEDS: SODIUM CHLOR 0.9% 1000 ML INJ 1,000 ML IV SCH (14:05)
[2016-10-26 16:00] VITALS: BP 122/62; PULSE 72; RESP 17; TEMP 97; O2SAT 95
[2016-10-26 20:00] VITALS: BP 123/72; PULSE 83; RESP 20; TEMP 99.7; O2SAT 100
[2016-10-26] MEDS: REMOVE OLD PATCH T-DERMAL SCH (20:00)
[2016-10-26] MEDS ORDERED: PHARMACY ORDERED LAB ONE (20:45)
[2016-10-26] MEDS: traZODone HCL 50 MG TAB PO SCH (22:44)
[2016-10-26] MEDS: ALPRAZolam 0.5 MG TAB PO PRN (22:44)
[2016-10-26] MEDS: MAGNESIUM HYDROXIDE SUSP 30 ML CUP PO SCH (22:47)
[2016-10-26] MEDS: fentaNYL 75 MCG/HR PATCH T-DERMAL SCH (23:00)
[2016-10-27] VITALS: BP 127/88; PULSE 101; RESP 20; TEMP 99.4; O2SAT 97
[2016-10-27] MEDS: AQUAPHOR OINT 50 APPLIC/50 GM TUBE TOPICAL SCH ×3 (00:52→21:00)
[2016-10-27] MEDS: BACITRACIN TOP OINT 15 GM TUBE TOPICAL SCH ×3 (00:53→21:00)
[2016-10-27] MEDS: SODIUM CHLOR 0.9% 1000 ML INJ 1,000 ML IV SCH ×2 (03:25→16:45)
[2016-10-27 04:00] VITALS: BP 112/70; PULSE 91; RESP 20; TEMP 98.2; O2SAT 100
[2016-10-27] MEDS: CYCLOBENZAPRINE HCL 10 MG TAB PO PRN ×2 (06:43→22:23)
[2016-10-27] MEDS: ACETAMINOPHEN/HYDROcodone 325 MG/10 MG TAB PO PRN ×2 (06:43→19:51)
[2016-10-27 08:00] VITALS: BP 121/61; PULSE 88; RESP 20; TEMP 97.8; O2SAT 100
[2016-10-27] MEDS: COLLAGENASE OINT 30 GM TUBE TOPICAL SCH (09:00)
[2016-10-27] MEDS: BENEPROTEIN POWDER 1 PACK G-TUBE SCH ×3 (09:00→18:00)
[2016-10-27] MEDS: MIDODRINE 5 MG TAB PO SCH ×3 (09:00→19:52)
[2016-10-27] MEDS: OXYBUTYNIN CHLORIDE 5 MG TAB PO SCH ×2 (09:14→22:23)
[2016-10-27] MEDS: DEXAMETHASONE 0.5 MG TAB PO SCH (09:14)
[2016-10-27] MEDS: LACTULOSE SYRUP 20 GM/30 ML CUP PO SCH (09:14)
[2016-10-27] MEDS: ENOXAPARIN SODIUM 40 MG/0.4 ML SYRINGE SQ SCH (09:14)
[2016-10-27] MEDS: BISACODYL 10 MG SUPP RECTAL SCH (09:15)
[2016-10-27] MEDS: FAMOTIDINE 20 MG TAB PO SCH ×2 (09:15→22:23)
[2016-10-27] MEDS: DOCUSATE SODIUM 50 MG/SENNA 8.6 MG TAB PO SCH ×2 (09:15→22:23)
[2016-10-27] MEDS: SERTRALINE HCL 50 MG TAB PO SCH (09:15)
[2016-10-27] MEDS ORDERED: REMOVE OLD DURAGESIC (FENTANYL) PATCH T-DERMAL SCH (10:00)
[2016-10-27 12:19] VITALS: BP 129/84; PULSE 71; RESP 20; TEMP 96.3; O2SAT 100
--- NOTE | 2016-10-27 17:09 | HHI.PR ---
Progress Notes/Response to Tx Progress Note Narrative Patient processed thoughts and feelings regarding upcoming discharge. Provided support and encouragement. Carlee Ac PhD Oct 27, 2016 17:09
--- NOTE | 2016-10-27 18:07 | HHI.PR ---
Subjective Remarks Follow-up for stage IV decubitus ulcer. Patient is currently doing well. No fever or chills. Tolerating diet well. Objective Vitals Vital Signs Date Time Temp Pulse Resp B/P Pulse Ox O2 Delivery O2 Flow Rate FiO2 10/27/16 12:19 96.3 71 20 129/84 100 10/27/16 08:00 97.8 88 20 121/61 100 10/27/16 04:00 98.2 91 20 112/70 100 10/27/16 00:00 99.4 101 20 127/88 97 10/26/16 20:00 99.7 83 20 123/72 100 I/O 10/26/16 10/26/16 10/26/16 10/27/16 10/27/16 10/27/16 07:00 15:00 23:00 07:00 15:00 23:00 Intake Total 1794 ml 700 ml 250 ml Output Total 400 ml 1700 ml 1200 ml Balance 1394 ml -1000 ml -950 ml Intake Oral 700 ml 250 ml IV Total 1794 ml Output Urine Total 400 ml 1700 ml 1200 ml # Bowel Movements 2 Result Diagram: 10/24/16 0643 10/24/16 0643 Objective Remarks GENERAL: Alert, oriented 3, NAD. SKIN: Warm and dry. HEAD: Normocephalic. EYES: No scleral icterus. No injection or drainage. NECK: Supple, trachea midline. No JVD or lymphadenopathy. CARDIOVASCULAR: Regular rate and rhythm without murmurs, gallops, or rubs. RESPIRATORY: Breath sounds equal bilaterally. No accessory muscle use. GASTROINTESTINAL: Abdomen soft, non-tender, nondistended. MUSCULOSKELETAL: No cyanosis, or edema. BACK: Nontender without obvious deformity. No CVA tenderness. Procedures none A/P Problem List: (1) Sepsis ICD Code: A41.9 Status: Acute (2) UTI (urinary tract infection) ICD Code: N39.0 Status: Acute Assessment and Plan SIRS- remains afebrile wound culture with normal skin juliana UC with mixed gram positive juliana one bottle of blood culture positive for staph epidermidis - likely contamination Stage IV pressure ulcers Air mattress status post debridement 10/22/16. 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 - patient also on Decadron taper. We can likely discontinue Spinal CORD injury cervical region Cervical spinal fracture Paraplegia Impaired mobility and activities of daily living continue pain control continue PT/OT Neurogenic bladder - Freeman catheter in place - Followed by urology- placement of Freeman catheter prior to DC, Freeman will need to be changes once a month - Patient will also need to follow up with urology as an outpatient for Freeman care changes and possible suprapubic cath in the future Protein calorie malnutrition PEG DC'd 10/15/16 by GI continue with protein supplementation Depression continue Zoloft and trazodone Constipation continue bowel regimen DVT prophylaxis with lovenox Discharge plan: Will discuss with CM on 10/28/2016 regarding potential discharge options. Problem Qualifiers (1) Sepsis: Qualified Code: A41.9 - Sepsis, due to unspecified organism (2) UTI (urinary tract infection): Robinson Carlson DO Oct 27, 2016 18:07 (2) UTI (urinary tract infection): Robinson Carlson DO Oct 27, 2016 6:07 pm
[2016-10-27 20:32] VITALS: BP 137/67; PULSE 90; RESP 17; TEMP 97.2; O2SAT 97
[2016-10-27] MEDS: MAGNESIUM HYDROXIDE SUSP 30 ML CUP PO SCH (22:23)
[2016-10-27] MEDS: traZODone HCL 50 MG TAB PO SCH (22:23)
[2016-10-28 01:13] VITALS: BP 117/61; PULSE 83; RESP 17; TEMP 97.2; O2SAT 99
[2016-10-28] MEDS: ACETAMINOPHEN/HYDROcodone 325 MG/10 MG TAB PO PRN ×3 (04:25→23:42)
[2016-10-28] MEDS: CYCLOBENZAPRINE HCL 10 MG TAB PO PRN ×2 (04:25→23:42)
[2016-10-28] MEDS: SODIUM CHLOR 0.9% 1000 ML INJ 1,000 ML IV SCH ×2 (05:39→19:25)
[2016-10-28 05:56] VITALS: BP 96/50; PULSE 107; RESP 17; TEMP 96.7; O2SAT 99
[2016-10-28 08:00] VITALS: BP 110/65; PULSE 88; RESP 18; TEMP 98.9; O2SAT 100
[2016-10-28] MEDS: BENEPROTEIN POWDER 1 PACK G-TUBE SCH ×3 (09:00→14:18)
[2016-10-28] MEDS: COLLAGENASE OINT 30 GM TUBE TOPICAL SCH (09:00)
[2016-10-28] MEDS: BACITRACIN TOP OINT 15 GM TUBE TOPICAL SCH ×2 (09:00→20:18)
[2016-10-28] MEDS: AQUAPHOR OINT 50 APPLIC/50 GM TUBE TOPICAL SCH ×2 (09:00→20:17)
[2016-10-28] MEDS: LACTULOSE SYRUP 20 GM/30 ML CUP PO SCH (09:29)
[2016-10-28] MEDS: MIDODRINE 5 MG TAB PO SCH ×3 (09:30→18:27)
[2016-10-28] MEDS: SERTRALINE HCL 50 MG TAB PO SCH (09:30)
[2016-10-28] MEDS: FAMOTIDINE 20 MG TAB PO SCH ×2 (09:30→20:11)
[2016-10-28] MEDS: DEXAMETHASONE 0.5 MG TAB PO SCH (09:30)
[2016-10-28] MEDS: OXYBUTYNIN CHLORIDE 5 MG TAB PO SCH ×2 (09:30→20:11)
[2016-10-28] MEDS: DOCUSATE SODIUM 50 MG/SENNA 8.6 MG TAB PO SCH ×2 (09:30→20:11)
[2016-10-28] MEDS: BISACODYL 10 MG SUPP RECTAL SCH (09:30)
[2016-10-28] MEDS: ENOXAPARIN SODIUM 40 MG/0.4 ML SYRINGE SQ SCH (09:31)
[2016-10-28 12:00] VITALS: BP 115/72; PULSE 76; RESP 20; TEMP 98.2; O2SAT 95
[2016-10-28] MEDS: traZODone HCL 50 MG TAB PO SCH (20:11)
[2016-10-28] MEDS: MAGNESIUM HYDROXIDE SUSP 30 ML CUP PO SCH (20:11)
--- NOTE | 2016-10-28 22:37 | HHI.PR ---
Subjective Remarks Follow-up for stage IV decubitus ulcer. Patient has no acute concerns. He wants to go home. However, arrangement of home health that can provide wound vac support is not possible per case management. Objective Vitals Vital Signs Date Time Temp Pulse Resp B/P Pulse Ox O2 Delivery O2 Flow Rate FiO2 10/28/16 12:00 98.2 76 20 115/72 95 10/28/16 08:00 98.9 88 18 110/65 100 10/28/16 05:56 96.7 107 17 96/50 99 10/28/16 01:13 97.2 83 17 117/61 99 I/O 10/27/16 10/27/16 10/27/16 10/28/16 10/28/16 10/28/16 07:00 15:00 23:00 07:00 15:00 23:00 Intake Total 810 ml 360 ml 500 ml Output Total 2100 ml 1650 ml 1600 ml Balance -1290 ml -1290 ml -1100 ml Intake Oral 810 ml 360 ml 500 ml Output Urine Total 2100 ml 1650 ml 1600 ml # Bowel Movements 2 1 Result Diagram: 10/24/16 0643 10/24/16 0643 Objective Remarks GENERAL: Alert, oriented 3, NAD. SKIN: Warm and dry. HEAD: Normocephalic. EYES: No scleral icterus. No injection or drainage. NECK: Supple, trachea midline. No JVD or lymphadenopathy. CARDIOVASCULAR: Regular rate and rhythm without murmurs, gallops, or rubs. RESPIRATORY: Breath sounds equal bilaterally. No accessory muscle use. GASTROINTESTINAL: Abdomen soft, non-tender, nondistended. MUSCULOSKELETAL: No cyanosis, or edema. BACK: Nontender without obvious deformity. No CVA tenderness. Procedures none A/P Problem List: (1) Sepsis ICD Code: A41.9 Status: Acute (2) UTI (urinary tract infection) ICD Code: N39.0 Status: Acute Assessment and Plan SIRS- remains afebrile wound culture with normal skin juliana UC with mixed gram positive juliana one bottle of blood culture positive for staph epidermidis - likely contamination Stage IV pressure ulcers Air mattress status post debridement 10/22/16. 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 - patient also on Decadron taper. We can likely discontinue Spinal CORD injury cervical region Cervical spinal fracture Paraplegia Impaired mobility and activities of daily living continue pain control continue PT/OT Neurogenic bladder - Freeman catheter in place - Followed by urology- placement of Freeman catheter prior to DC, Freeman will need to be changes once a month - Patient will also need to follow up with urology as an outpatient for Freeman care changes and possible suprapubic cath in the future Protein calorie malnutrition PEG DC'd 10/15/16 by GI continue with protein supplementation Depression continue Zoloft and trazodone Constipation continue bowel regimen DVT prophylaxis with lovenox Discharge plan: Medicaid pending. Patient needs Wound vac support and this cannot be arranged at this point per CM. Problem Qualifiers (1) Sepsis: Qualified Code: A41.9 - Sepsis, due to unspecified organism (2) UTI (urinary tract infection): Robinson Carlson DO Oct 28, 2016 22:36
[2016-10-28] MEDS: ALPRAZolam 0.5 MG TAB PO PRN (23:44)
[2016-10-29 01:45] VITALS: BP 120/67; PULSE 75; RESP 19; TEMP 98.8; O2SAT 96
[2016-10-29] MEDS: ACETAMINOPHEN/HYDROcodone 325 MG/10 MG TAB PO PRN ×4 (06:40→23:26)
[2016-10-29 06:45] VITALS: BP 125/72; PULSE 80; RESP 19; TEMP 98.4; O2SAT 97
[2016-10-29] MEDS: BENEPROTEIN POWDER 1 PACK G-TUBE SCH ×3 (09:00→18:00)
[2016-10-29] MEDS: COLLAGENASE OINT 30 GM TUBE TOPICAL SCH (09:00)
[2016-10-29] MEDS: SODIUM CHLOR 0.9% 1000 ML INJ 1,000 ML IV SCH ×2 (09:32→22:05)
[2016-10-29] MEDS: OXYBUTYNIN CHLORIDE 5 MG TAB PO SCH ×2 (09:32→20:47)
[2016-10-29] MEDS: DEXAMETHASONE 0.5 MG TAB PO SCH (09:33)
[2016-10-29] MEDS: SERTRALINE HCL 50 MG TAB PO SCH (09:33)
[2016-10-29] MEDS: DOCUSATE SODIUM 50 MG/SENNA 8.6 MG TAB PO SCH ×2 (09:33→20:47)
[2016-10-29] MEDS: MIDODRINE 5 MG TAB PO SCH ×3 (09:33→18:04)
[2016-10-29] MEDS: FAMOTIDINE 20 MG TAB PO SCH ×2 (09:33→20:47)
[2016-10-29] MEDS: LACTULOSE SYRUP 20 GM/30 ML CUP PO SCH (09:34)
[2016-10-29] MEDS: BISACODYL 10 MG SUPP RECTAL SCH (09:34)
[2016-10-29] MEDS: ENOXAPARIN SODIUM 40 MG/0.4 ML SYRINGE SQ SCH (09:34)
[2016-10-29 12:00] VITALS: BP 91/54; PULSE 117; RESP 20; TEMP 96.8; O2SAT 100
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
[2016-10-29 16:00] VITALS: BP 103/70; PULSE 102; RESP 20; TEMP 96.7; O2SAT 97
[2016-10-29] MEDS: CYCLOBENZAPRINE HCL 10 MG TAB PO PRN (16:22)
[2016-10-29] MEDS: BACITRACIN TOP OINT 15 GM TUBE TOPICAL SCH ×2 (18:08→21:00)
[2016-10-29] MEDS: AQUAPHOR OINT 50 APPLIC/50 GM TUBE TOPICAL SCH ×2 (18:09→21:00)
[2016-10-29 20:00] VITALS: BP 117/75; PULSE 116; RESP 18; TEMP 97.3; O2SAT 99
[2016-10-29] MEDS: REMOVE OLD PATCH T-DERMAL SCH (20:00)
[2016-10-29] MEDS: traZODone HCL 50 MG TAB PO SCH (20:47)
[2016-10-29] MEDS: MAGNESIUM HYDROXIDE SUSP 30 ML CUP PO SCH (20:47)
[2016-10-29] MEDS: fentaNYL 75 MCG/HR PATCH T-DERMAL SCH (20:49)
[2016-10-30] VITALS: BP 127/72; PULSE 115; RESP 18; TEMP 99.5; O2SAT 96
[2016-10-30] MEDS: CYCLOBENZAPRINE HCL 10 MG TAB PO PRN ×2 (05:22→20:58)
[2016-10-30] MEDS: ACETAMINOPHEN/HYDROcodone 325 MG/10 MG TAB PO PRN ×3 (05:23→20:57)
[2016-10-30 08:00] VITALS: BP 89/55; PULSE 96; RESP 18; TEMP 97.4; O2SAT 100
[2016-10-30] MEDS: BENEPROTEIN POWDER 1 PACK G-TUBE SCH ×3 (09:00→17:44)
[2016-10-30] MEDS: BISACODYL 10 MG SUPP RECTAL SCH (10:46)
[2016-10-30] MEDS: LACTULOSE SYRUP 20 GM/30 ML CUP PO SCH (10:46)
[2016-10-30] MEDS: FAMOTIDINE 20 MG TAB PO SCH ×2 (10:47→20:58)
[2016-10-30] MEDS: MIDODRINE 5 MG TAB PO SCH ×3 (10:47→17:44)
[2016-10-30] MEDS: OXYBUTYNIN CHLORIDE 5 MG TAB PO SCH ×2 (10:47→20:58)
[2016-10-30] MEDS: DEXAMETHASONE 0.5 MG TAB PO SCH (10:47)
[2016-10-30] MEDS: DOCUSATE SODIUM 50 MG/SENNA 8.6 MG TAB PO SCH ×2 (10:47→20:58)
[2016-10-30] MEDS: SERTRALINE HCL 50 MG TAB PO SCH (10:48)
[2016-10-30] MEDS: ENOXAPARIN SODIUM 40 MG/0.4 ML SYRINGE SQ SCH (10:48)
[2016-10-30] MEDS: COLLAGENASE OINT 30 GM TUBE TOPICAL SCH (10:49)
[2016-10-30] MEDS: AQUAPHOR OINT 50 APPLIC/50 GM TUBE TOPICAL SCH ×2 (10:49→20:58)
[2016-10-30] MEDS: BACITRACIN TOP OINT 15 GM TUBE TOPICAL SCH ×2 (10:49→20:58)
[2016-10-30 12:00] VITALS: PULSE 121; RESP 18; O2SAT 94
[2016-10-30 12:53] VITALS: BP 105/55
[2016-10-30 16:00] VITALS: BP 106/62; PULSE 69; RESP 20; TEMP 98.2; O2SAT 95
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
[2016-10-30 20:00] VITALS: BP 106/55; PULSE 110; RESP 18; TEMP 97.9; O2SAT 99
[2016-10-30] MEDS: MAGNESIUM HYDROXIDE SUSP 30 ML CUP PO SCH (20:58)
[2016-10-30] MEDS: traZODone HCL 50 MG TAB PO SCH (20:58)
[2016-10-30] MEDS: ALPRAZolam 0.5 MG TAB PO PRN (23:33)
[2016-10-31] VITALS: BP 112/56; PULSE 82; RESP 18; TEMP 95.7; O2SAT 96
[2016-10-31] MEDS: ACETAMINOPHEN/HYDROcodone 325 MG/10 MG TAB PO PRN ×5 (03:20→21:40)
[2016-10-31 08:00] VITALS: BP 109/69; PULSE 111; RESP 18; TEMP 98.8; O2SAT 96
[2016-10-31] MEDS: AQUAPHOR OINT 50 APPLIC/50 GM TUBE TOPICAL SCH ×2 (09:00→21:00)
[2016-10-31] MEDS: BENEPROTEIN POWDER 1 PACK G-TUBE SCH ×3 (09:00→17:51)
[2016-10-31] MEDS: BISACODYL 10 MG SUPP RECTAL SCH (09:00)
[2016-10-31] MEDS: BACITRACIN TOP OINT 15 GM TUBE TOPICAL SCH ×2 (09:00→21:00)
[2016-10-31] MEDS: DOCUSATE SODIUM 50 MG/SENNA 8.6 MG TAB PO SCH ×2 (09:29→21:40)
[2016-10-31] MEDS: LACTULOSE SYRUP 20 GM/30 ML CUP PO SCH (09:29)
[2016-10-31] MEDS: ENOXAPARIN SODIUM 40 MG/0.4 ML SYRINGE SQ SCH (09:29)
[2016-10-31] MEDS: SERTRALINE HCL 50 MG TAB PO SCH (09:30)
[2016-10-31] MEDS: FAMOTIDINE 20 MG TAB PO SCH ×2 (09:30→21:40)
[2016-10-31] MEDS: MIDODRINE 5 MG TAB PO SCH ×3 (09:30→17:51)
[2016-10-31] MEDS: OXYBUTYNIN CHLORIDE 5 MG TAB PO SCH ×2 (09:30→21:40)
[2016-10-31] MEDS: DEXAMETHASONE 0.5 MG TAB PO SCH (09:30)
[2016-10-31] MEDS: COLLAGENASE OINT 30 GM TUBE TOPICAL SCH (09:31)
[2016-10-31 12:00] VITALS: BP 119/82; PULSE 108; RESP 18; TEMP 97.7; O2SAT 97
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
[2016-10-31 16:00] VITALS: BP 77/45; PULSE 123; RESP 18; TEMP 98.4; O2SAT 99
[2016-10-31] MEDS: CYCLOBENZAPRINE HCL 10 MG TAB PO PRN (18:00)
[2016-10-31 20:00] VITALS: BP 138/92; PULSE 93; RESP 18; TEMP 98.2; O2SAT 97
[2016-10-31] MEDS: MAGNESIUM HYDROXIDE SUSP 30 ML CUP PO SCH (21:00)
[2016-10-31] MEDS: traZODone HCL 50 MG TAB PO SCH (21:00)
[2016-11-01] VITALS: BP 120/79; PULSE 77; RESP 18; TEMP 97.9; O2SAT 96
[2016-11-01] MEDS: ALPRAZolam 0.5 MG TAB PO PRN ×2 (00:18→22:51)
[2016-11-01] MEDS: ACETAMINOPHEN/HYDROcodone 325 MG/10 MG TAB PO PRN ×5 (03:13→22:50)
[2016-11-01] MEDS: CYCLOBENZAPRINE HCL 10 MG TAB PO PRN ×3 (03:13→22:50)
[2016-11-01 04:00] VITALS: BP 124/84; PULSE 82; RESP 18; TEMP 97.5; O2SAT 97
[2016-11-01 08:00] VITALS: BP 118/66; PULSE 84; RESP 18; TEMP 95.8; O2SAT 99
[2016-11-01] MEDS: LACTULOSE SYRUP 20 GM/30 ML CUP PO SCH (08:46)
[2016-11-01] MEDS: DEXAMETHASONE 0.5 MG TAB PO SCH (08:46)
[2016-11-01] MEDS: BISACODYL 10 MG SUPP RECTAL SCH (08:47)
[2016-11-01] MEDS: OXYBUTYNIN CHLORIDE 5 MG TAB PO SCH ×2 (08:47→22:51)
[2016-11-01] MEDS: DOCUSATE SODIUM 50 MG/SENNA 8.6 MG TAB PO SCH ×2 (08:47→23:06)
[2016-11-01] MEDS: FAMOTIDINE 20 MG TAB PO SCH ×2 (08:47→22:51)
[2016-11-01] MEDS: MIDODRINE 5 MG TAB PO SCH ×3 (08:47→18:42)
[2016-11-01] MEDS: ENOXAPARIN SODIUM 40 MG/0.4 ML SYRINGE SQ SCH (08:48)
[2016-11-01] MEDS: BENEPROTEIN POWDER 1 PACK G-TUBE SCH ×3 (08:48→18:00)
[2016-11-01] MEDS: SERTRALINE HCL 50 MG TAB PO SCH (08:48)
[2016-11-01] MEDS: AQUAPHOR OINT 50 APPLIC/50 GM TUBE TOPICAL SCH ×2 (08:49→23:06)
[2016-11-01] MEDS: BACITRACIN TOP OINT 15 GM TUBE TOPICAL SCH ×2 (08:49→23:07)
[2016-11-01] MEDS: COLLAGENASE OINT 30 GM TUBE TOPICAL SCH (08:49)
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
[2016-11-01] MEDS ORDERED: diphenhydrAMINE HCL 25 MG CAP PO PRN (11:15)
[2016-11-01 12:00] VITALS: BP 104/55; PULSE 96; RESP 20; TEMP 96.9; O2SAT 98
[2016-11-01 16:00] VITALS: BP 109/60; PULSE 90; RESP 20; TEMP 97; O2SAT 97
[2016-11-01] MEDS: MAGNESIUM HYDROXIDE SUSP 30 ML CUP PO SCH (21:00)
[2016-11-01 21:02] VITALS: BP 116/64; PULSE 110; RESP 18; TEMP 98.5; O2SAT 99
[2016-11-01] MEDS: traZODone HCL 50 MG TAB PO SCH (22:51)
[2016-11-01] MEDS: REMOVE OLD PATCH T-DERMAL SCH (22:53)
[2016-11-01] MEDS: fentaNYL 75 MCG/HR PATCH T-DERMAL SCH (22:53)
[2016-11-02 04:00] VITALS: BP 124/58; PULSE 95; RESP 20; TEMP 97; O2SAT 94
[2016-11-02] MEDS: ACETAMINOPHEN/HYDROcodone 325 MG/10 MG TAB PO PRN ×4 (04:22→20:56)
[2016-11-02 08:30] VITALS: BP 114/70; PULSE 96; RESP 16; TEMP 96.7; O2SAT 97
[2016-11-02] MEDS: BENEPROTEIN POWDER 1 PACK G-TUBE SCH ×3 (09:00→16:30)
[2016-11-02] MEDS: COLLAGENASE OINT 30 GM TUBE TOPICAL SCH (09:00)
[2016-11-02] MEDS: LACTULOSE SYRUP 20 GM/30 ML CUP PO SCH (09:26)
[2016-11-02] MEDS: SERTRALINE HCL 50 MG TAB PO SCH (09:26)
[2016-11-02] MEDS: OXYBUTYNIN CHLORIDE 5 MG TAB PO SCH ×2 (09:26→20:55)
[2016-11-02] MEDS: DOCUSATE SODIUM 50 MG/SENNA 8.6 MG TAB PO SCH ×2 (09:27→20:56)
[2016-11-02] MEDS: DEXAMETHASONE 0.5 MG TAB PO SCH (09:27)
[2016-11-02] MEDS: MIDODRINE 5 MG TAB PO SCH ×3 (09:27→17:12)
[2016-11-02] MEDS: FAMOTIDINE 20 MG TAB PO SCH ×2 (09:27→20:56)
[2016-11-02] MEDS: ENOXAPARIN SODIUM 40 MG/0.4 ML SYRINGE SQ SCH (09:27)
[2016-11-02] MEDS: BACITRACIN TOP OINT 15 GM TUBE TOPICAL SCH ×2 (09:29→20:59)
[2016-11-02] MEDS: AQUAPHOR OINT 50 APPLIC/50 GM TUBE TOPICAL SCH ×2 (09:29→20:59)
[2016-11-02] MEDS: BISACODYL 10 MG SUPP RECTAL SCH (09:32)
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
[2016-11-02 11:30] VITALS: BP 136/72; PULSE 102; RESP 16; TEMP 96.8; O2SAT 98
[2016-11-02 16:32] VITALS: BP 123/70; PULSE 105; RESP 20; TEMP 97.2; O2SAT 99
[2016-11-02 20:00] VITALS: BP 123/71; PULSE 93; RESP 18; TEMP 96.3; O2SAT 97
[2016-11-02] MEDS: MAGNESIUM HYDROXIDE SUSP 30 ML CUP PO SCH (20:57)
[2016-11-02] MEDS: ALPRAZolam 0.5 MG TAB PO PRN (23:32)
[2016-11-02] MEDS: traZODone HCL 50 MG TAB PO SCH (23:32)
[2016-11-03] VITALS (7 sets, daily range): BP systolic 100–148; BP diastolic 64–89; PULSE 77–123; RESP 16–20; TEMP 96.5–98.5; O2SAT 97–100
[2016-11-03] MEDS: ACETAMINOPHEN/HYDROcodone 325 MG/10 MG TAB PO PRN ×5 (05:04→20:47)
[2016-11-03] MEDS: DOCUSATE SODIUM 50 MG/SENNA 8.6 MG TAB PO SCH ×2 (08:00→20:46)
[2016-11-03] MEDS: LACTULOSE SYRUP 20 GM/30 ML CUP PO SCH (08:00)
[2016-11-03] MEDS: SERTRALINE HCL 50 MG TAB PO SCH (08:00)
[2016-11-03] MEDS: BISACODYL 10 MG SUPP RECTAL SCH (08:00)
[2016-11-03] MEDS: ENOXAPARIN SODIUM 40 MG/0.4 ML SYRINGE SQ SCH (08:00)
[2016-11-03] MEDS: DEXAMETHASONE 0.5 MG TAB PO SCH (08:00)
[2016-11-03] MEDS: MIDODRINE 5 MG TAB PO SCH ×3 (08:01→17:28)
[2016-11-03] MEDS: BENEPROTEIN POWDER 1 PACK G-TUBE SCH ×3 (08:01→17:26)
[2016-11-03] MEDS: FAMOTIDINE 20 MG TAB PO SCH ×2 (08:01→20:46)
[2016-11-03] MEDS: OXYBUTYNIN CHLORIDE 5 MG TAB PO SCH ×2 (08:01→20:46)
[2016-11-03] MEDS: COLLAGENASE OINT 30 GM TUBE TOPICAL SCH (08:02)
[2016-11-03] MEDS: AQUAPHOR OINT 50 APPLIC/50 GM TUBE TOPICAL SCH ×2 (08:02→21:50)
[2016-11-03] MEDS: BACITRACIN TOP OINT 15 GM TUBE TOPICAL SCH ×2 (08:02→21:50)
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
[2016-11-03] MEDS: traZODone HCL 50 MG TAB PO SCH (20:46)
[2016-11-03] MEDS: CYCLOBENZAPRINE HCL 10 MG TAB PO PRN (20:47)
[2016-11-04 04:20] VITALS: BP 96/63; PULSE 106; RESP 16; TEMP 97.4; O2SAT 100
[2016-11-04] MEDS: ACETAMINOPHEN/HYDROcodone 325 MG/10 MG TAB PO PRN ×4 (06:12→22:14)
[2016-11-04 07:10] VITALS: BP 107/67; PULSE 67; RESP 19; TEMP 96; O2SAT 100
[2016-11-04] MEDS ORDERED: MAGNESIUM HYDROXIDE SUSP 30 ML CUP PO PRN (09:00)
[2016-11-04] MEDS: MIDODRINE 5 MG TAB PO SCH ×3 (09:48→18:27)
[2016-11-04] MEDS: POLYETHYLENE GLYCOL 17 GM PKG PO SCH (09:48)
[2016-11-04] MEDS: DEXAMETHASONE 0.5 MG TAB PO SCH (09:49)
[2016-11-04] MEDS: ENOXAPARIN SODIUM 40 MG/0.4 ML SYRINGE SQ SCH (09:50)
[2016-11-04] MEDS: SERTRALINE HCL 50 MG TAB PO SCH (09:50)
[2016-11-04] MEDS: BISACODYL 10 MG SUPP RECTAL SCH (09:50)
[2016-11-04] MEDS: FAMOTIDINE 20 MG TAB PO SCH ×2 (09:51→20:21)
[2016-11-04] MEDS: OXYBUTYNIN CHLORIDE 5 MG TAB PO SCH ×2 (09:51→20:21)
[2016-11-04] MEDS: CYCLOBENZAPRINE HCL 10 MG TAB PO PRN ×2 (09:51→18:36)
[2016-11-04] MEDS: DOCUSATE SODIUM 50 MG/SENNA 8.6 MG TAB PO SCH ×2 (09:51→20:21)
[2016-11-04] MEDS: LACTULOSE SYRUP 20 GM/30 ML CUP PO SCH (09:51)
[2016-11-04] MEDS: BENEPROTEIN POWDER 1 PACK G-TUBE SCH ×3 (09:51→18:00)
[2016-11-04] MEDS: AQUAPHOR OINT 50 APPLIC/50 GM TUBE TOPICAL SCH ×2 (11:54→20:23)
[2016-11-04] MEDS: BACITRACIN TOP OINT 15 GM TUBE TOPICAL SCH ×2 (11:54→21:00)
[2016-11-04] MEDS: COLLAGENASE OINT 30 GM TUBE TOPICAL SCH (11:54)
[2016-11-04] MEDS ORDERED: IBUP800T23 PO (13:46)
[2016-11-04] MEDS ORDERED: CYCL1TAB29 PO (13:46)
[2016-11-04 15:00] VITALS: BP 116/66; PULSE 115; RESP 19; TEMP 97.7; O2SAT 100
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
--- NOTE | 2016-11-04 15:51 | HHI.FF ---
Face to Face Verification Diagnosis: (1) Stage II pressure ulcer of buttock (2) Spinal cord injury, cervical region Home Health Nursing Order: Signs/symptoms of disease process Medication education-adverse effect Wound care and dressing changes Nursing assessment with vital signs I have seen patient Anthony Chowdhury on 11/04/16. My clinical findings support the need for the requested home health care services because: Ltd mobility - disease progression Patient has SOB Deconditioned w/ increased weakness Limited ability to care for self Need for psychosocial assistance Impaired cognition/judgement High risk of falls Infection w/ risk of complications I certify that my clinical findings support that this patient is homebound because: Unsteady gait/balance Unsafe to leave home unassisted Need for psychosocial assistance Unable to use public transportation Robinson Carlson DO Nov 04, 2016 3:50 pm
[2016-11-04] MEDS: REMOVE OLD PATCH T-DERMAL SCH (20:00)
[2016-11-04] MEDS: traZODone HCL 50 MG TAB PO SCH (20:21)
[2016-11-04] MEDS: fentaNYL 75 MCG/HR PATCH T-DERMAL SCH (20:22)
[2016-11-04 20:45] VITALS: BP 116/70; PULSE 96; RESP 17; TEMP 97.1; O2SAT 99
[2016-11-04] MEDS: ALPRAZolam 0.5 MG TAB PO PRN (23:35)
[2016-11-05] VITALS: BP 115/75; PULSE 95; RESP 18; TEMP 98.1; O2SAT 98
[2016-11-05] MEDS: ACETAMINOPHEN/HYDROcodone 325 MG/10 MG TAB PO PRN ×3 (03:49→14:18)
[2016-11-05] MEDS: CYCLOBENZAPRINE HCL 10 MG TAB PO PRN (03:49)
[2016-11-05 07:42] VITALS: BP 93/50; PULSE 93; RESP 18; TEMP 97.3; O2SAT 98
[2016-11-05] MEDS: COLLAGENASE OINT 30 GM TUBE TOPICAL SCH (09:00)
[2016-11-05] MEDS: BENEPROTEIN POWDER 1 PACK G-TUBE SCH ×2 (09:00→13:00)
[2016-11-05] MEDS: DEXAMETHASONE 0.5 MG TAB PO SCH (09:16)
[2016-11-05] MEDS: LACTULOSE SYRUP 20 GM/30 ML CUP PO SCH (09:17)
[2016-11-05] MEDS: ENOXAPARIN SODIUM 40 MG/0.4 ML SYRINGE SQ SCH (09:17)
[2016-11-05] MEDS: OXYBUTYNIN CHLORIDE 5 MG TAB PO SCH (09:18)
[2016-11-05] MEDS: FAMOTIDINE 20 MG TAB PO SCH (09:18)
[2016-11-05] MEDS: MIDODRINE 5 MG TAB PO SCH ×3 (09:18→14:18)
[2016-11-05] MEDS: SERTRALINE HCL 50 MG TAB PO SCH (09:18)
[2016-11-05] MEDS: DOCUSATE SODIUM 50 MG/SENNA 8.6 MG TAB PO SCH (09:19)
[2016-11-05] MEDS: POLYETHYLENE GLYCOL 17 GM PKG PO SCH (09:19)
[2016-11-05] MEDS: BISACODYL 10 MG SUPP RECTAL SCH (09:19)
[2016-11-05] MEDS: BACITRACIN TOP OINT 15 GM TUBE TOPICAL SCH (09:34)
[2016-11-05] MEDS: AQUAPHOR OINT 50 APPLIC/50 GM TUBE TOPICAL SCH (09:37)
[2016-11-05] MEDS ORDERED: TRAZ50TA12 PO (11:12)
[2016-11-05] MEDS ORDERED: FENT75T TD (11:12)
[2016-11-05] MEDS ORDERED: HYDR-3583 PO (11:12)
[2016-11-05] MEDS ORDERED: COLL30T TOP (11:12)
[2016-11-05] MEDS ORDERED: CYCL1TAB29 PO (11:12)
[2016-11-05] MEDS ORDERED: OXYB5TAB10 PO (11:12)
[2016-11-05] MEDS ORDERED: ZOLO50TA PO (11:12)
[2016-11-05] MEDS ORDERED: DEXA0.5T PO (11:12)
[2016-11-05] MEDS ORDERED: ALPR.5 PO (11:12)
[2016-11-05] MEDS ORDERED: MIDO5TAB PO (11:12)
[2016-11-05 11:56] VITALS: BP 157/90; PULSE 97; RESP 18; TEMP 96.8; O2SAT 92
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
[2016-11-05 16:09] VITALS: BP 113/76; PULSE 132; RESP 18; TEMP 97.2; O2SAT 97
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
[2017-01-22] MEDS ORDERED: roho cushion (16:18)
== END 2016-11-05 18:57 | disposition home health service (06) | DRG 871 ==
LOC: N05B 16:04 → MERGE 16:04 → N05A 11-03 14:49
PROVIDERS: ADMIT Hospitalist; ATTEND Hospitalist
DX: A41.9 Sepsis, unspecified organism (principal); L89.154 Pressure ulcer of sacral region, stage 4; E46 Unspecified protein-calorie malnutrition; G82.20 Paraplegia, unspecified; N39.0 Urinary tract infection, site not specified; Z87.828 Personal history of other (healed) physical injury and trauma; Z98.1 Arthrodesis status; N31.9 Neuromuscular dysfunction of bladder, unspecified; I95.1 Orthostatic hypotension; R26.9 Unspecified abnormalities of gait and mobility; Z68.24 Body mass index [BMI] 24.0-24.9, adult; F32.9 Major depressive disorder, single episode, unspecified; K59.00 Constipation, unspecified
CPT/HCPCS: 80048; 80202; 85025; J1650; J1956; J3370; J7030; J7050; J8540

== ENCOUNTER 2016-11-18 16:21 | Inpatient (IN) | payer OTHER ==
[~2016-11-18] VITALS: Ht 162.6 cm; Wt 63.4 kg
[~2016-11-18 16:21] MED LIST changes: -AQUAOIN2 TOP; -BISA10R RECTAL; -CYCL-36 PO; -DEXA4TAB PO; -DIPH50CA PO; -ENOX40P SQ; -FAMO20TA2 PO; -HALLLOZ2 SUCK-ON; +HYDR-3583 PO; -IBUP-238 PO; -LACT10SO PO; -LEVA750T PO; -LEVO1INJ3 IV; -MILKSUS PO; -ONDA4TAB7 PO; +PIPERACIL-TAZO 4.5 GM PREMIX 100 ML IV SCH; -PROT6POW G-TUBE; -SENN1TAB PO; -VANC1000P IV
[2016-11-18 16:45] VITALS: BP 102/62; PULSE 138; RESP 16; TEMP 100.6; O2SAT 97
[2016-11-18] MEDS ORDERED: SODIUM CHLOR 0.9% 1000 ML INJ 1,000 ML IV ONE ×2 (16:45→17:00)
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
[2016-11-18 17:25] LABS: AUTOMATED NEUTROPHIL # 6.1 TH/MM3 (1.8-7.7); BASOPHIL % 0.2 % (0.0-2.0); EOSINOPHIL # 0.1 TH/MM3 (0-0.4); EOSINOPHIL % 1.3 % (0.0-4.0); HEMATOCRIT 37.2 % (39.0-51.0); HEMO FLAGS DIFF FINAL; LYMPH % 21.9 % (9.0-44.0); LYMPHOCYTE # 1.9 TH/MM3 (1.0-4.8); MEAN CORPUSCULAR HEMOGLOBIN 26.5 PG (27.0-34.0); MEAN CORPUSCULAR HGB CONC 33.2 % (32.0-36.0); MONO % 8.5 % (0.0-8.0); NEUT % 68.1 % (16.0-70.0); PLATELET COUNT 337 TH/MM3 (150-450); RED BLOOD COUNT 4.65 MIL/MM3 (4.50-5.90); RED CELL DISTRIBUTION WIDTH 14.6 % (11.6-17.2); WHITE BLOOD COUNT 8.9 TH/MM3 (4.0-11.0)
--- NOTE | 2016-11-18 17:34 | RADRPT ---
EXAM DATE/TIME: 11/18/2016 17:14 [place] COMPARISON: No previous studies available for comparison. INDICATIONS : Fever. MEDICAL HISTORY : None. SURGICAL HISTORY : Halo. ENCOUNTER: Initial ACUITY: 1 day PAIN SCORE: 0/10 LOCATION: Bilateral chest FINDINGS: A single view of the chest demonstrates the lungs to be symmetrically aerated without evidence of mas s, infiltrate or effusion. The cardiomediastinal contours are unremarkable. Osseous structures are intact. There is overlying artifact from a halo traction device securing portions of the upper lobes. There are overlying electrocardiogram leads. CONCLUSION: No acute disease. There is no evidence of pneumonia. Samson Pleitez MD on November 18, 2016 at 17:32 Board Certified Radiologist. This report was verified electronically.
[2016-11-18 17:38] LABS: BLOOD, URINE SMALL (NEG); GLUCOSE,URINE NEG (NEG); KETONE, URINE NEG (NEG); NITRITE,URINE NEG (NEG); URINE COLOR YELLOW (YELLW/STRAW)
[2016-11-18 17:39] LABS: BACTERIA, URINE MANY /hpf; SQUAMOUS EPITHELIAL CELL URINE 6 /hpf (0-5)
[2016-11-18 17:40] LABS: COMMENT (UR) CATH-CULTURE IND; CULTURE IF INDICATED CATH CULTURE IND
[2016-11-18 17:45] LABS: ALT (GPT) 42 U/L (12-78); ANION GAP 9 MEQ/L (5-15); AST (GOT) 36 U/L (15-37); BICARBONATE 25.6 MEQ/L (21.0-32.0); BLOOD UREA NITROGEN 17 MG/DL (7-18); CHLORIDE 103 MEQ/L (98-107); GLOMERULAR FILTRATION RATE 188 ML/MIN (>89); MAGNESIUM 1.8 MG/DL (1.5-2.5); POTASSIUM 4.1 MEQ/L (3.5-5.1); SODIUM (NA) 138 MEQ/L (136-145)
[2016-11-18] MEDS ORDERED: PIPERACIL-TAZO 4.5 GM PREMIX 100 ML IV ONE (17:45)
[2016-11-18] MEDS ORDERED: VANCOMYCIN INJ 1,000 MG in SODIUM CHLOR 0.9% 250 ML INJ 250 ML IV ONE (17:45)
[2016-11-18 17:47] LABS: ALKALINE PHOSPHATASE 104 U/L (45-117); TOTAL BILIRUBIN ADULT 0.3 MG/DL (0.2-1.0)
[2016-11-18 17:56] VITALS: BP 108/64; PULSE 129; RESP 18; TEMP 98.4; O2SAT 98
--- NOTE | 2016-11-18 18:17 | PD ---
Data Data Last Documented VS Vital Signs Date Time Temp Pulse Resp B/P Pulse Ox O2 Delivery O2 Flow Rate FiO2 11/18/16 17:56 98.4 129 18 108/64 98 Room Air 11/18/16 17:56 2 Orders Complete Blood Count With Diff (11/18/16 16:42) Comprehensive Metabolic Panel (11/18/16 16:42) Lactic Acid Sepsis Protocol (11/18/16 16:42) Magnesium (Mg) (11/18/16 16:42) Urinalysis - C+S If Indicated (11/18/16 16:42) Blood Culture (11/18/16 16:42) Wound Culture And Gram Stain (11/18/16 16:42) Chest, Single Ap (11/18/16 16:42) Blood Glucose (11/18/16 16:42) Ecg Monitoring (11/18/16 16:42) Iv Access Insert/Monitor (11/18/16 16:42) Oximetry (11/18/16 16:42) Oxygen Administration (11/18/16 16:42) Urinary Catheter Insert/Apply (11/18/16 16:42) Sodium Chlor 0.9% 1000 Ml Inj (Ns 1000 M (11/18/16 16:45) Sodium Chlor 0.9% 1000 Ml Inj (Ns 1000 M (11/18/16 17:00) Urine Culture (11/18/16 17:00) Vancomycin Inj (Vancomycin Inj) (11/18/16 17:45) Piperacil-Tazo 4.5 Gm Premix (Zosyn 4.5 (11/18/16 17:45) Labs Laboratory Tests Test 11/18/16 11/18/16 16:45 17:00 White Blood Count 8.9 TH/MM3 Red Blood Count 4.65 MIL/MM3 Hemoglobin 12.3 GM/DL Hematocrit 37.2 % Mean Corpuscular Volume 80.0 FL Mean Corpuscular Hemoglobin 26.5 PG Mean Corpuscular Hemoglobin 33.2 % Concent Red Cell Distribution Width 14.6 % Platelet Count 337 TH/MM3 Mean Platelet Volume 7.1 FL Neutrophils (%) (Auto) 68.1 % Lymphocytes (%) (Auto) 21.9 % Monocytes (%) (Auto) 8.5 % Eosinophils (%) (Auto) 1.3 % Basophils (%) (Auto) 0.2 % Neutrophils # (Auto) 6.1 TH/MM3 Lymphocytes # (Auto) 1.9 TH/MM3 Monocytes # (Auto) 0.8 TH/MM3 Eosinophils # (Auto) 0.1 TH/MM3 Basophils # (Auto) 0.0 TH/MM3 CBC Comment DIFF FINAL Differential Comment Sodium Level 138 MEQ/L Potassium Level 4.1 MEQ/L Chloride Level 103 MEQ/L Carbon Dioxide Level 25.6 MEQ/L Anion Gap 9 MEQ/L Blood Urea Nitrogen 17 MG/DL Creatinine 0.61 MG/DL Estimat Glomerular Filtration 188 ML/MIN Rate Random Glucose 87 MG/DL Lactic Acid Level 1.6 mmol/L Calcium Level 9.4 MG/DL Magnesium Level 1.8 MG/DL Total Bilirubin 0.3 MG/DL Aspartate Amino Transf 36 U/L (AST/SGOT) Alanine Aminotransferase 42 U/L (ALT/SGPT) Alkaline Phosphatase 104 U/L Total Protein 7.5 GM/DL Albumin 3.2 GM/DL Urine Color YELLOW Urine Turbidity CLOUDY Urine pH 6.0 Urine Specific [place] 1.027 Urine Protein TRACE mg/dL Urine Glucose (UA) NEG mg/dL Urine Ketones NEG mg/dL Urine Occult Blood SMALL Urine Nitrite NEG Urine Bilirubin NEG Urine Urobilinogen LESS THAN 2.0 MG/DL Urine Leukocyte Esterase LARGE Urine WBC 8 /hpf Urine Squamous Epithelial 6 /hpf Cells Urine Bacteria MANY /hpf Microscopic Urinalysis Comment CATH-CULTURE IND MDM Supervised Visit with DELL: Yes Narrative Course The history, exam, and medical decision-making in the associated midlevel provider note were completed with my assistance. I reviewed and agree with the findings presented. I attest that I had a [id number] encounter with the patient on the same day, and personally performed and documented my assessment and findings in the medical record. *My assessment and Findings: This is a 31-year-old male who is a quadriplegic who presents to the emergency department with fever of 100.6 and tachycardia to the 130s consistent with sepsis. He has a wound VAC on a decubitus ulcer, has an indwelling Freeman catheter, and has drainage around his halo pin site concerning for infection. Patient was upfront covered with broad-spectrum antibiotics and given 2 L of IV fluid. Labs are reassuring. He does have a mild urinary tract infection. His Freeman catheter was changed. Patient will be admitted for continued antibiotics and neurology consultation for concern for possible underlying osteomyelitis of the halo pin site. Deanna Aguirre MD Nov 18, 2016 18:16
[2016-11-18] MEDS ORDERED: ONDANSETRON HCL 4 MG/2 ML VIAL IVP PRN (19:00)
[2016-11-18] MEDS ORDERED: SODIUM CHLORIDE 0.9% FLUSH 10 ML FLUSH IV FLUSH PRN (19:00)
[2016-11-18] MEDS ORDERED: Vancomycin Consult Pharmacy 1 EA OTHER SCH (19:00)
[2016-11-18] MEDS ORDERED: ACETAMINOPHEN 325 MG TAB PO PRN (19:00)
[2016-11-18 19:05] VITALS: BP 108/59; PULSE 111; RESP 22; O2SAT 100
[2016-11-18] MEDS ORDERED: HYDR-3535 PO (19:29)
[2016-11-18] MEDS ORDERED: OXYB5TAB10 PO ×2 (19:29→20:13)
[2016-11-18] MEDS ORDERED: CYCL1TAB29 PO ×2 (19:29→20:13)
[2016-11-18] MEDS ORDERED: SERT25TA83 PO (19:29)
[2016-11-18] MEDS ORDERED: MIDO5TAB PO (19:29)
[2016-11-18] MEDS ORDERED: DEXA1TAB PO (19:29)
[2016-11-18] MEDS ORDERED: ALPR0.5T3 PO (19:29)
[2016-11-18] MEDS ORDERED: TRAZ50TA12 PO (19:29)
[2016-11-18] MEDS: SODIUM CHLOR 0.9% 1000 ML INJ 1,000 ML IV SCH (19:52)
[2016-11-18 20:00] VITALS: BP 123/64; PULSE 98; RESP 18; TEMP 98.2; O2SAT 99
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
--- NOTE | 2016-11-18 20:49 | RADRPT ---
EXAM DATE/TIME: 11/18/2016 19:18 [place] COMPARISON: No previous studies available for comparison. INDICATIONS : Evaluate neck post op. RADIATION DOSE: 32.23 CTDIvol (mGy) MEDICAL HISTORY : C4-C6 compression fracture 09/11/16. SURGICAL HISTORY : C4-C6 fusion. ENCOUNTER: Initial ACUITY: 1 day PAIN SCALE: 0/10 LOCATION: neck TECHNIQUE: Volumetric scanning of the cervical spine was performed. Multiplanar reconstructions in the sagittal, coronal and oblique axial planes were performed. Using automated exposure control and adjustment o f the mA and/or kV according to patient size, radiation dose was kept as low as reasonably achievable to obtain optimal diagnostic quality images. FINDINGS: Study is obtained with the patient in a halo. Surgical changes of recent discectomy/corpectomy from C 4-C7 with interbody, anterior and posterior instrumentation noted. Alignment is normal. No evidence o f foraminal or spinal stenosis in the fused region. There is bone graft material around the posterior elements from C3-C7. Minimally displaced fractures are seen of the left lamina of C4 and C5. Lowermost lateral mass screw on the right appears to extend into the right C6/C7 facet joint space, s eries 200 image 13. The middle screw on the right is close to the joint space. CONCLUSION: C4-C6 discectomy/corpectomy/fusion procedure as above. Normal alignment. No evidence of stenosis. Non displaced left laminar fractures of C4 and C5. Lawrence Spivey MD on November 18, 2016 at 20:41 Board Certified Radiologist. This report was verified electronically.
[2016-11-18 20:54] VITALS: BP 101/68
[2016-11-18] MEDS ORDERED: FENT75DI T-DERMAL (20:57)
[2016-11-18] MEDS: SODIUM CHLORIDE 0.9% FLUSH 10 ML FLUSH IV FLUSH SCH (21:00)
[2016-11-19] VITALS: BP 126/56; PULSE 89; RESP 18; TEMP 98.6; O2SAT 99
[2016-11-19] MEDS: ALPRAZolam 0.5 MG TAB PO PRN (00:51)
[2016-11-19] MEDS: HEPARIN SODIUM - SQ 10,000 UNITS/ML VIAL SQ SCH ×4 (00:51→22:00)
[2016-11-19] MEDS: CYCLOBENZAPRINE HCL 10 MG TAB PO PRN ×2 (00:52→10:57)
[2016-11-19] MEDS: ACETAMINOPHEN/HYDROcodone 325 MG/10 MG TAB PO PRN ×6 (00:52→23:00)
[2016-11-19] MEDS: traZODone HCL 50 MG TAB PO PRN (00:52)
[2016-11-19] MEDS: OXYBUTYNIN CHLORIDE 5 MG TAB PO SCH ×3 (00:52→22:49)
[2016-11-19] MEDS: fentaNYL 75 MCG/HR PATCH T-DERMAL SCH (01:04)
[2016-11-19] MEDS: PIPERACIL-TAZO 4.5 GM PREMIX 100 ML IV SCH ×3 (01:28→18:05)
[2016-11-19] MEDS: VANCOMYCIN INJ 1,000 MG in SODIUM CHLOR 0.9% 250 ML INJ 250 ML IV SCH ×3 (03:35→22:49)
[2016-11-19 04:00] VITALS: BP 131/80; PULSE 78; RESP 18; TEMP 98.1; O2SAT 96
[2016-11-19] MEDS: SODIUM CHLOR 0.9% 1000 ML INJ 1,000 ML IV SCH ×2 (05:15→17:10)
[2016-11-19 07:50] LABS: ALKALINE PHOSPHATASE 80 U/L (45-117); ALT (GPT) 33 U/L (12-78); ANION GAP 9 MEQ/L (5-15); AST (GOT) 39 U/L (15-37); BICARBONATE 26.1 MEQ/L (21.0-32.0); BLOOD UREA NITROGEN 9 MG/DL (7-18); CHLORIDE 104 MEQ/L (98-107); GLOMERULAR FILTRATION RATE 298 ML/MIN (>89); POTASSIUM 3.8 MEQ/L (3.5-5.1); SODIUM (NA) 139 MEQ/L (136-145); TOTAL BILIRUBIN ADULT 0.3 MG/DL (0.2-1.0)
[2016-11-19 08:46] VITALS: BP 113/74; PULSE 105; RESP 20; TEMP 97.9; O2SAT 100
[2016-11-19] MEDS ORDERED: SERTRALINE HCL 50 MG TAB PO SCH (09:00)
[2016-11-19] MEDS ORDERED: PILL SPLITTER OTHER PRN (09:00)
[2016-11-19] MEDS: MIDODRINE 5 MG TAB PO SCH ×3 (09:05→18:05)
[2016-11-19] MEDS: SODIUM CHLORIDE 0.9% FLUSH 10 ML FLUSH IV FLUSH SCH ×2 (09:17→21:00)
[2016-11-19 12:15] VITALS: BP 129/77; PULSE 77; RESP 20; TEMP 95.4; O2SAT 100
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
[2016-11-19] MEDS: clonazePAM 0.5 MG TAB PO SCH ×2 (16:35→22:49)
[2016-11-19 17:22] VITALS: BP 134/80; PULSE 91; RESP 20; TEMP 97.2; O2SAT 99
[2016-11-19] MEDS ORDERED: PHARMACY ORDERED LAB ONE (19:45)
[2016-11-19 20:00] VITALS: BP 161/92; PULSE 81; RESP 18; TEMP 97.8; O2SAT 100
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
[2016-11-19] MEDS: FLUCONAZOLE 100 MG TAB PO SCH (20:45)
[2016-11-19] MEDS: traZODone HCL 100 MG TAB PO SCH (22:49)
[2016-11-20] VITALS (8 sets, daily range): BP systolic 121–147; BP diastolic 69–103; PULSE 98–126; RESP 16–18; TEMP 97.7–99.1; O2SAT 91–100
[2016-11-20] MEDS: PIPERACIL-TAZO 4.5 GM PREMIX 100 ML IV SCH ×3 (02:35→17:57)
[2016-11-20] MEDS: SODIUM CHLOR 0.9% 1000 ML INJ 1,000 ML IV SCH ×3 (02:35→21:28)
[2016-11-20] MEDS: ALPRAZolam 0.5 MG TAB PO PRN ×2 (05:39→14:05)
[2016-11-20] MEDS: HEPARIN SODIUM - SQ 10,000 UNITS/ML VIAL SQ SCH ×3 (05:42→21:31)
[2016-11-20] MEDS: VANCOMYCIN INJ 1,000 MG in SODIUM CHLOR 0.9% 250 ML INJ 250 ML IV SCH (06:06)
[2016-11-20 07:49] LABS: AUTOMATED NEUTROPHIL # 2.9 TH/MM3 (1.8-7.7); BASOPHIL % 0.3 % (0.0-2.0); EOSINOPHIL # 0.1 TH/MM3 (0-0.4); EOSINOPHIL % 2.1 % (0.0-4.0); HEMATOCRIT 33.2 % (39.0-51.0); HEMO FLAGS DIFF FINAL; LYMPH % 36.6 % (9.0-44.0); LYMPHOCYTE # 2.1 TH/MM3 (1.0-4.8); MEAN CELL VOLUME 79.8 FL (80.0-100.0); MEAN CORPUSCULAR HEMOGLOBIN 26.5 PG (27.0-34.0); MEAN CORPUSCULAR HGB CONC 33.2 % (32.0-36.0); MONO % 9.6 % (0.0-8.0); NEUT % 51.4 % (16.0-70.0); PLATELET COUNT 284 TH/MM3 (150-450); RED BLOOD COUNT 4.16 MIL/MM3 (4.50-5.90); RED CELL DISTRIBUTION WIDTH 14.2 % (11.6-17.2); WHITE BLOOD COUNT 5.7 TH/MM3 (4.0-11.0)
[2016-11-20 08:11] LABS: ALKALINE PHOSPHATASE 89 U/L (45-117); ALT (GPT) 33 U/L (12-78); ANION GAP 8 MEQ/L (5-15); AST (GOT) 31 U/L (15-37); BICARBONATE 28.5 MEQ/L (21.0-32.0); BLOOD UREA NITROGEN 7 MG/DL (7-18); CHLORIDE 103 MEQ/L (98-107); GLOMERULAR FILTRATION RATE 208 ML/MIN (>89); MAGNESIUM 1.9 MG/DL (1.5-2.5); POTASSIUM 3.7 MEQ/L (3.5-5.1); SODIUM (NA) 139 MEQ/L (136-145); TOTAL BILIRUBIN ADULT 0.2 MG/DL (0.2-1.0)
[2016-11-20] MEDS: clonazePAM 0.5 MG TAB PO SCH ×2 (08:47→21:29)
[2016-11-20] MEDS: SERTRALINE HCL 100 MG TAB PO SCH (08:47)
[2016-11-20] MEDS: FLUCONAZOLE 100 MG TAB PO SCH (08:47)
[2016-11-20] MEDS: ACETAMINOPHEN/HYDROcodone 325 MG/10 MG TAB PO PRN ×3 (08:47→21:29)
[2016-11-20] MEDS: OXYBUTYNIN CHLORIDE 5 MG TAB PO SCH ×2 (08:47→21:29)
[2016-11-20] MEDS: MIDODRINE 5 MG TAB PO SCH ×3 (08:47→17:57)
[2016-11-20] MEDS: SODIUM CHLORIDE 0.9% FLUSH 10 ML FLUSH IV FLUSH SCH ×2 (08:49→21:30)
[2016-11-20] MEDS ORDERED: VANCOMYCIN INJ 1,000 MG in SODIUM CHLOR 0.9% 250 ML INJ 250 ML IV SCH (14:00)
[2016-11-20] MEDS ORDERED: BISACODYL 10 MG SUPP RECTAL ONE (15:00)
[2016-11-20] MEDS: LACTULOSE SYRUP 20 GM/30 ML CUP PO SCH (16:14)
[2016-11-20] MEDS: diphenhydrAMINE HCL 25 MG CAP PO PRN (16:15)
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
[2016-11-20] MEDS: traZODone HCL 100 MG TAB PO SCH (21:30)
[2016-11-21] VITALS (7 sets, daily range): BP systolic 108–133; BP diastolic 66–85; PULSE 98–135; RESP 18–19; TEMP 97.1–99.5; O2SAT 93–100
[2016-11-21] MEDS: PIPERACIL-TAZO 4.5 GM PREMIX 100 ML IV SCH ×2 (02:22→09:06)
[2016-11-21] MEDS: ACETAMINOPHEN/HYDROcodone 325 MG/10 MG TAB PO PRN ×3 (05:28→18:02)
[2016-11-21] MEDS: HEPARIN SODIUM - SQ 10,000 UNITS/ML VIAL SQ SCH ×3 (05:29→21:35)
[2016-11-21] MEDS ORDERED: PHARMACY ORDERED LAB ONE (05:45)
[2016-11-21] MEDS: diphenhydrAMINE HCL 25 MG CAP PO PRN ×2 (09:06→18:02)
[2016-11-21] MEDS: OXYBUTYNIN CHLORIDE 5 MG TAB PO SCH ×2 (09:07→21:35)
[2016-11-21] MEDS: MIDODRINE 5 MG TAB PO SCH ×3 (09:07→18:02)
[2016-11-21] MEDS: clonazePAM 0.5 MG TAB PO SCH ×2 (09:07→21:35)
[2016-11-21] MEDS: ALPRAZolam 0.5 MG TAB PO PRN ×2 (09:07→21:35)
[2016-11-21] MEDS: SERTRALINE HCL 100 MG TAB PO SCH (09:07)
[2016-11-21] MEDS: LACTULOSE SYRUP 20 GM/30 ML CUP PO SCH (09:07)
[2016-11-21] MEDS: SODIUM CHLORIDE 0.9% FLUSH 10 ML FLUSH IV FLUSH SCH ×2 (09:08→21:35)
[2016-11-21] MEDS: FLUCONAZOLE 100 MG TAB PO SCH (09:08)
[2016-11-21] MEDS: SODIUM CHLOR 0.9% 1000 ML INJ 1,000 ML IV SCH (09:08)
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
[2016-11-21] MEDS ORDERED: LACT10SO PO (15:11)
[2016-11-21] MEDS ORDERED: FLUC100T2 PO (15:11)
[2016-11-21] MEDS ORDERED: TRAZ50TA12 PO (15:11)
--- NOTE | 2016-11-21 15:12 | HHI.DCPOC ---
Discharge Care Plan Diagnosis: (1) Adjustment disorder with mixed anxiety and depressed mood (2) Infection at site of external fixator pin (3) Sacral wound (4) UTI (urinary tract infection) (5) Sepsis (6) C5 spinal cord injury (7) Impaired mobility and activities of daily living (8) Stage II pressure ulcer of buttock (9) Spinal cord injury, cervical region Goals to Promote Your Health * To prevent worsening of your condition and complications * To maintain your health at the optimal level Directions to Meet Your Goals Take your medications as prescribed Follow your dietary instruction Follow activity as directed Keep your appointments as scheduled Take your immunizations and boosters as scheduled If your symptoms worsen call your PCP, if no PCP go to Urgent Care Center or Emergency Room Smoking is Dangerous to Your Health. Avoid second hand smoke Call the 24-hour hour crisis hotline for domestic abuse at Jhonathan Cody MD Nov 21, 2016 15:12
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
[2016-11-21] MEDS ORDERED: CIPR750T2 PO (18:27)
[2016-11-21] MEDS ORDERED: CIPROFLOXACIN 400 MG PREMIX 200 ML IV SCH (18:30)
[2016-11-21] MEDS ORDERED: cefTRIAXone INJ 1,000 MG in SODIUM CHLORIDE 0.9% INJ 100 ML IV SCH (20:00)
[2016-11-21] MEDS: traZODone HCL 100 MG TAB PO SCH (21:35)
[2016-11-21] MEDS: REMOVE OLD DURAGESIC (FENTANYL) PATCH T-DERMAL SCH (21:35)
[2016-11-21] MEDS: fentaNYL 75 MCG/HR PATCH T-DERMAL SCH (23:10)
[2016-11-22] VITALS (8 sets, daily range): BP systolic 105–150; BP diastolic 58–168; PULSE 74–117; RESP 18; TEMP 95.9–97.4; O2SAT 95–100
[2016-11-22] MEDS: ACETAMINOPHEN/HYDROcodone 325 MG/10 MG TAB PO PRN ×5 (00:07→22:37)
[2016-11-22] MEDS: diphenhydrAMINE HCL 25 MG CAP PO PRN ×2 (02:01→23:03)
[2016-11-22] MEDS: CYCLOBENZAPRINE HCL 10 MG TAB PO PRN ×2 (04:31→18:24)
[2016-11-22] MEDS: HEPARIN SODIUM - SQ 10,000 UNITS/ML VIAL SQ SCH ×3 (04:32→22:37)
[2016-11-22] MEDS: clonazePAM 0.5 MG TAB PO SCH ×2 (09:43→22:38)
[2016-11-22] MEDS: LACTULOSE SYRUP 20 GM/30 ML CUP PO SCH (09:43)
[2016-11-22] MEDS: OXYBUTYNIN CHLORIDE 5 MG TAB PO SCH ×2 (09:46→22:37)
[2016-11-22] MEDS: MIDODRINE 5 MG TAB PO SCH ×3 (09:47→18:25)
[2016-11-22] MEDS: FLUCONAZOLE 100 MG TAB PO SCH (09:47)
[2016-11-22] MEDS: SERTRALINE HCL 100 MG TAB PO SCH (09:47)
[2016-11-22] MEDS: SODIUM CHLORIDE 0.9% FLUSH 10 ML FLUSH IV FLUSH SCH ×2 (09:49→22:38)
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
[2016-11-22] MEDS: cefTRIAXone INJ 2,000 MG in SODIUM CHLORIDE 0.9% INJ 100 ML IV SCH (22:36)
[2016-11-22] MEDS: traZODone HCL 100 MG TAB PO SCH (22:37)
[2016-11-22] MEDS: ALPRAZolam 0.5 MG TAB PO PRN (23:03)
[2016-11-23] VITALS (7 sets, daily range): BP systolic 103–130; BP diastolic 59–71; PULSE 85–123; RESP 16–20; TEMP 96.5–99.9; O2SAT 97–100
[2016-11-23] MEDS: ACETAMINOPHEN/HYDROcodone 325 MG/10 MG TAB PO PRN ×4 (05:19→21:08)
[2016-11-23] MEDS: CYCLOBENZAPRINE HCL 10 MG TAB PO PRN ×2 (05:19→21:09)
[2016-11-23] MEDS: HEPARIN SODIUM - SQ 10,000 UNITS/ML VIAL SQ SCH ×3 (05:23→21:09)
[2016-11-23] MEDS: BISACODYL 10 MG SUPP RECTAL SCH (08:59)
[2016-11-23] MEDS: LACTULOSE SYRUP 20 GM/30 ML CUP PO SCH (08:59)
[2016-11-23] MEDS: OXYBUTYNIN CHLORIDE 5 MG TAB PO SCH ×2 (09:00→21:09)
[2016-11-23] MEDS: clonazePAM 0.5 MG TAB PO SCH ×2 (09:00→21:09)
[2016-11-23] MEDS: MIDODRINE 5 MG TAB PO SCH ×3 (09:00→17:22)
[2016-11-23] MEDS: FLUCONAZOLE 100 MG TAB PO SCH (09:00)
[2016-11-23] MEDS: ALPRAZolam 0.5 MG TAB PO PRN (09:00)
[2016-11-23] MEDS: SERTRALINE HCL 100 MG TAB PO SCH (09:00)
[2016-11-23] MEDS: SODIUM CHLORIDE 0.9% FLUSH 10 ML FLUSH IV FLUSH SCH ×2 (09:01→21:00)
[2016-11-23] MEDS: diphenhydrAMINE HCL 25 MG CAP PO PRN (10:48)
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
[2016-11-23 12:03] LABS: AUTOMATED NEUTROPHIL # 3.8 TH/MM3 (1.8-7.7); BASOPHIL % 0.4 % (0.0-2.0); EOSINOPHIL # 0.2 TH/MM3 (0-0.4); EOSINOPHIL % 3.6 % (0.0-4.0); HEMATOCRIT 39.8 % (39.0-51.0); LYMPH % 30.8 % (9.0-44.0); LYMPHOCYTE # 2.1 TH/MM3 (1.0-4.8); MEAN CELL VOLUME 80.9 FL (80.0-100.0); MEAN CORPUSCULAR HEMOGLOBIN 25.6 PG (27.0-34.0); MEAN CORPUSCULAR HGB CONC 31.7 % (32.0-36.0); MONO % 8.5 % (0.0-8.0); NEUT % 56.7 % (16.0-70.0); PLATELET COUNT 300 TH/MM3 (150-450); RED BLOOD COUNT 4.92 MIL/MM3 (4.50-5.90); RED CELL DISTRIBUTION WIDTH 14.4 % (11.6-17.2); WHITE BLOOD COUNT 6.7 TH/MM3 (4.0-11.0)
[2016-11-23 12:05] LABS: HEMO FLAGS AUTO DIFF
[2016-11-23 12:49] LABS: SCAN/DIFF AUTO DIFF CONFIRMED
[2016-11-23] MEDS: traZODone HCL 100 MG TAB PO SCH (21:09)
[2016-11-23] MEDS: cefTRIAXone INJ 2,000 MG in SODIUM CHLORIDE 0.9% INJ 100 ML IV SCH (21:10)
[2016-11-24] MEDS: ALPRAZolam 0.5 MG TAB PO PRN ×2 (00:20→23:12)
[2016-11-24 00:30] VITALS: BP 125/75; PULSE 110; RESP 18; TEMP 99.7; O2SAT 100
[2016-11-24] MEDS: ACETAMINOPHEN/HYDROcodone 325 MG/10 MG TAB PO PRN ×4 (02:36→20:46)
[2016-11-24 05:20] VITALS: BP 120/65; PULSE 125; RESP 19; TEMP 97.6; O2SAT 100
[2016-11-24] MEDS: CYCLOBENZAPRINE HCL 10 MG TAB PO PRN ×2 (05:50→23:12)
[2016-11-24] MEDS: HEPARIN SODIUM - SQ 10,000 UNITS/ML VIAL SQ SCH ×3 (05:50→22:53)
[2016-11-24 08:00] VITALS: BP 110/70; PULSE 122; RESP 16; TEMP 99.6; O2SAT 99
[2016-11-24] MEDS: diphenhydrAMINE HCL 25 MG CAP PO PRN (08:16)
[2016-11-24] MEDS: SERTRALINE HCL 100 MG TAB PO SCH (08:16)
[2016-11-24] MEDS: FLUCONAZOLE 100 MG TAB PO SCH (08:16)
[2016-11-24] MEDS: LACTULOSE SYRUP 20 GM/30 ML CUP PO SCH (08:16)
[2016-11-24] MEDS: MIDODRINE 5 MG TAB PO SCH ×3 (08:16→17:51)
[2016-11-24] MEDS: BISACODYL 10 MG SUPP RECTAL SCH (08:16)
[2016-11-24] MEDS: clonazePAM 0.5 MG TAB PO SCH ×2 (08:17→20:46)
[2016-11-24] MEDS: OXYBUTYNIN CHLORIDE 5 MG TAB PO SCH ×2 (08:17→20:46)
[2016-11-24] MEDS: SODIUM CHLORIDE 0.9% FLUSH 10 ML FLUSH IV FLUSH SCH ×2 (08:18→20:38)
[2016-11-24 12:00] VITALS: BP 126/73; PULSE 111; RESP 16; TEMP 96.6; O2SAT 97
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
[2016-11-24 16:00] VITALS: BP 115/73; PULSE 122; RESP 17; TEMP 99.1; O2SAT 100
[2016-11-24 20:00] VITALS: BP 94/58; PULSE 128; RESP 18; TEMP 99.9; O2SAT 99
[2016-11-24] MEDS: cefTRIAXone INJ 2,000 MG in SODIUM CHLORIDE 0.9% INJ 100 ML IV SCH (20:37)
[2016-11-24] MEDS: traZODone HCL 100 MG TAB PO SCH (20:46)
[2016-11-24] MEDS: REMOVE OLD DURAGESIC (FENTANYL) PATCH T-DERMAL SCH (22:00)
[2016-11-24] MEDS: fentaNYL 75 MCG/HR PATCH T-DERMAL SCH (22:53)
[2016-11-25] VITALS: BP 114/72; PULSE 130; RESP 18; TEMP 99.9; O2SAT 100
[2016-11-25] MEDS: HEPARIN SODIUM - SQ 10,000 UNITS/ML VIAL SQ SCH ×3 (06:31→20:56)
[2016-11-25 08:20] VITALS: PULSE 122
[2016-11-25 08:36] VITALS: BP 97/57; PULSE 115; RESP 18; TEMP 98.9; O2SAT 98
[2016-11-25] MEDS: SODIUM CHLORIDE 0.9% FLUSH 10 ML FLUSH IV FLUSH SCH ×2 (09:27→20:57)
[2016-11-25] MEDS: clonazePAM 0.5 MG TAB PO SCH ×2 (09:28→20:56)
[2016-11-25] MEDS: OXYBUTYNIN CHLORIDE 5 MG TAB PO SCH ×2 (09:28→20:56)
[2016-11-25] MEDS: MIDODRINE 5 MG TAB PO SCH ×3 (09:28→18:30)
[2016-11-25] MEDS: FLUCONAZOLE 100 MG TAB PO SCH (09:28)
[2016-11-25] MEDS: SERTRALINE HCL 100 MG TAB PO SCH (09:28)
[2016-11-25] MEDS: LACTULOSE SYRUP 20 GM/30 ML CUP PO SCH (09:28)
[2016-11-25] MEDS: BISACODYL 10 MG SUPP RECTAL SCH (09:28)
[2016-11-25 12:34] VITALS: BP 111/74; PULSE 102; RESP 18; TEMP 97.2; O2SAT 99
[2016-11-25] MEDS: ACETAMINOPHEN/HYDROcodone 325 MG/10 MG TAB PO PRN ×2 (13:38→22:34)
[2016-11-25 16:19] VITALS: BP 112/80; PULSE 121; RESP 19; TEMP 98.7; O2SAT 99
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
[2016-11-25 20:00] VITALS: BP 109/66; PULSE 109; PULSE 140; RESP 18; TEMP 99.4; O2SAT 98
[2016-11-25] MEDS: traZODone HCL 100 MG TAB PO SCH (20:56)
[2016-11-25] MEDS: cefTRIAXone INJ 2,000 MG in SODIUM CHLORIDE 0.9% INJ 100 ML IV SCH (20:57)
[2016-11-25] MEDS: CYCLOBENZAPRINE HCL 10 MG TAB PO PRN (22:34)
[2016-11-26] VITALS (8 sets, daily range): BP systolic 103–117; BP diastolic 59–76; PULSE 100–130; RESP 14–20; TEMP 97.8–100.4; O2SAT 95–100
[2016-11-26 01:14] LABS: AUTOMATED NEUTROPHIL # 4.4 TH/MM3 (1.8-7.7); BASOPHIL # 0.2 TH/MM3 (0-0.2); EOSINOPHIL # 0.2 TH/MM3 (0-0.4); EOSINOPHIL % 2.9 % (0.0-4.0); HEMATOCRIT 36.1 % (39.0-51.0); LYMPH % 26.9 % (9.0-44.0); MEAN CELL VOLUME 78.2 FL (80.0-100.0); MEAN CORPUSCULAR HEMOGLOBIN 26.6 PG (27.0-34.0); MEAN CORPUSCULAR HGB CONC 34.1 % (32.0-36.0); MONO % 8.7 % (0.0-8.0); NEUT % 59.5 % (16.0-70.0); PLATELET COUNT 274 TH/MM3 (150-450); RED BLOOD COUNT 4.61 MIL/MM3 (4.50-5.90); RED CELL DISTRIBUTION WIDTH 14.4 % (11.6-17.2); WHITE BLOOD COUNT 7.4 TH/MM3 (4.0-11.0)
[2016-11-26 01:17] LABS: HEMO FLAGS AUTO DIFF
[2016-11-26 01:40] LABS: BICARBONATE 29.3 MEQ/L (21.0-32.0); MAGNESIUM 1.7 MG/DL (1.5-2.5); POTASSIUM 3.8 MEQ/L (3.5-5.1)
[2016-11-26 02:07] LABS: BANDS 1 % (0-6); EOSINOPHILS 1 % (0-4); NEUTROPHIL # MANUAL DIFF 4.1 TH/MM3 (1.8-7.7); POLYS (SEG NEUTROPHILS) 55 % (16-70); WBC DIFF SAMPLE 100
[2016-11-26 02:08] LABS: PLATELET ESTIMATE SMEAR NORMAL (NORMAL); PLATELET MORPHOLOGY NORMAL (NORMAL); SCAN/DIFF FINAL DIFF MANUAL
[2016-11-26] MEDS: ACETAMINOPHEN/HYDROcodone 325 MG/10 MG TAB PO PRN ×4 (02:42→21:01)
[2016-11-26] MEDS ORDERED: SODIUM CHLOR 0.9% 1000 ML INJ 1,000 ML IV ONE (02:45)
[2016-11-26] MEDS: HEPARIN SODIUM - SQ 10,000 UNITS/ML VIAL SQ SCH ×3 (05:44→21:00)
[2016-11-26] MEDS: SERTRALINE HCL 100 MG TAB PO SCH (09:00)
[2016-11-26] MEDS: clonazePAM 0.5 MG TAB PO SCH ×2 (10:21→21:00)
[2016-11-26] MEDS: ALPRAZolam 0.5 MG TAB PO PRN ×2 (10:21→22:51)
[2016-11-26] MEDS: FLUCONAZOLE 100 MG TAB PO SCH (10:21)
[2016-11-26] MEDS: LACTULOSE SYRUP 20 GM/30 ML CUP PO SCH (10:21)
[2016-11-26] MEDS: OXYBUTYNIN CHLORIDE 5 MG TAB PO SCH ×2 (10:21→21:00)
[2016-11-26] MEDS: MIDODRINE 5 MG TAB PO SCH ×3 (10:22→17:26)
[2016-11-26] MEDS: SODIUM CHLORIDE 0.9% FLUSH 10 ML FLUSH IV FLUSH SCH ×2 (10:22→21:00)
[2016-11-26] MEDS: BISACODYL 10 MG SUPP RECTAL SCH (10:22)
[2016-11-26] MEDS: CYCLOBENZAPRINE HCL 10 MG TAB PO PRN ×2 (10:32→22:51)
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
--- NOTE | 2016-11-26 17:29 | EKG ---
Date Performed: 11/26/2016 Time Performed: 00:31:38 PTAGE: 31 years EKG: Sinus tachycardia Rightward axis Possible left ventricular hypertrophy Extensive T wave josefa nges may be due to hypertrophy and/or ischemia Abnormal ECG Compared to prior study of 05/27/03, the rate is faster. Nonspecific T-wave changes are now present. PREVIOUS TRACING on 05/27/03. DOCTOR: Agustin Palafox Interpretating Date/Time 11/26/2016 17:30:34
[2016-11-26] MEDS: cefTRIAXone INJ 2,000 MG in SODIUM CHLORIDE 0.9% INJ 100 ML IV SCH (20:59)
[2016-11-26] MEDS: traZODone HCL 100 MG TAB PO SCH (21:00)
[2016-11-27] VITALS (8 sets, daily range): BP systolic 96–125; BP diastolic 56–81; PULSE 91–116; RESP 16–18; TEMP 97.4–98.3; O2SAT 98–100
[2016-11-27] MEDS: ACETAMINOPHEN/HYDROcodone 325 MG/10 MG TAB PO PRN ×5 (01:12→22:46)
[2016-11-27] MEDS: HEPARIN SODIUM - SQ 10,000 UNITS/ML VIAL SQ SCH ×3 (05:21→21:37)
[2016-11-27] MEDS: clonazePAM 0.5 MG TAB PO SCH ×2 (09:13→21:37)
[2016-11-27] MEDS: BISACODYL 10 MG SUPP RECTAL SCH (09:14)
[2016-11-27] MEDS: LACTULOSE SYRUP 20 GM/30 ML CUP PO SCH (09:14)
[2016-11-27] MEDS: SERTRALINE HCL 100 MG TAB PO SCH (09:14)
[2016-11-27] MEDS: FLUCONAZOLE 100 MG TAB PO SCH (09:14)
[2016-11-27] MEDS: MIDODRINE 5 MG TAB PO SCH ×3 (09:14→17:22)
[2016-11-27] MEDS: OXYBUTYNIN CHLORIDE 5 MG TAB PO SCH ×2 (09:14→21:37)
[2016-11-27] MEDS: SODIUM CHLORIDE 0.9% FLUSH 10 ML FLUSH IV FLUSH SCH ×2 (09:15→21:43)
[2016-11-27] MEDS: CYCLOBENZAPRINE HCL 10 MG TAB PO PRN ×3 (09:22→22:45)
[2016-11-27] MEDS: diphenhydrAMINE HCL 25 MG CAP PO PRN ×3 (11:42→22:45)
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
[2016-11-27] MEDS: cefTRIAXone INJ 2,000 MG in SODIUM CHLORIDE 0.9% INJ 100 ML IV SCH (21:36)
[2016-11-27] MEDS: fentaNYL 75 MCG/HR PATCH T-DERMAL SCH (21:40)
[2016-11-27] MEDS: traZODone HCL 100 MG TAB PO SCH (21:41)
[2016-11-27] MEDS: REMOVE OLD DURAGESIC (FENTANYL) PATCH T-DERMAL SCH (21:49)
[2016-11-27] MEDS: ALPRAZolam 0.5 MG TAB PO PRN (22:45)
[2016-11-28] VITALS (7 sets, daily range): BP systolic 108–136; BP diastolic 17–90; PULSE 96–120; RESP 16–18; TEMP 98–99.3; O2SAT 98–100
[2016-11-28] MEDS: HEPARIN SODIUM - SQ 10,000 UNITS/ML VIAL SQ SCH ×3 (04:22→21:15)
[2016-11-28] MEDS: ACETAMINOPHEN/HYDROcodone 325 MG/10 MG TAB PO PRN ×4 (04:22→21:15)
[2016-11-28] MEDS: CYCLOBENZAPRINE HCL 10 MG TAB PO PRN ×2 (06:27→13:44)
[2016-11-28] MEDS: SODIUM CHLORIDE 0.9% FLUSH 10 ML FLUSH IV FLUSH SCH ×2 (09:00→21:16)
[2016-11-28] MEDS: clonazePAM 0.5 MG TAB PO SCH ×2 (09:59→21:15)
[2016-11-28] MEDS: SERTRALINE HCL 100 MG TAB PO SCH (09:59)
[2016-11-28] MEDS: FLUCONAZOLE 100 MG TAB PO SCH (09:59)
[2016-11-28] MEDS: OXYBUTYNIN CHLORIDE 5 MG TAB PO SCH ×2 (09:59→21:15)
[2016-11-28] MEDS: LACTULOSE SYRUP 20 GM/30 ML CUP PO SCH (09:59)
[2016-11-28] MEDS: BISACODYL 10 MG SUPP RECTAL SCH (09:59)
[2016-11-28] MEDS: MIDODRINE 5 MG TAB PO SCH ×3 (09:59→17:33)
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
[2016-11-28] MEDS: traZODone HCL 100 MG TAB PO SCH (21:15)
[2016-11-28] MEDS: cefTRIAXone INJ 2,000 MG in SODIUM CHLORIDE 0.9% INJ 100 ML IV SCH (21:16)
[2016-11-29] VITALS (8 sets, daily range): BP systolic 114–140; BP diastolic 58–81; PULSE 86–111; RESP 16–20; TEMP 96.3–97.6; O2SAT 95–99
[2016-11-29] MEDS: ACETAMINOPHEN/HYDROcodone 325 MG/10 MG TAB PO PRN ×3 (03:49→17:30)
[2016-11-29] MEDS: HEPARIN SODIUM - SQ 10,000 UNITS/ML VIAL SQ SCH ×2 (05:24→13:01)
[2016-11-29] MEDS: SODIUM CHLORIDE 0.9% FLUSH 10 ML FLUSH IV FLUSH SCH (09:00)
[2016-11-29] MEDS: MIDODRINE 5 MG TAB PO SCH ×3 (10:24→17:02)
[2016-11-29] MEDS: clonazePAM 0.5 MG TAB PO SCH ×2 (10:24→21:00)
[2016-11-29] MEDS: SERTRALINE HCL 100 MG TAB PO SCH (10:24)
[2016-11-29] MEDS: FLUCONAZOLE 100 MG TAB PO SCH (10:24)
[2016-11-29] MEDS: OXYBUTYNIN CHLORIDE 5 MG TAB PO SCH (10:25)
[2016-11-29] MEDS: LACTULOSE SYRUP 20 GM/30 ML CUP PO SCH (10:25)
[2016-11-29] MEDS: BISACODYL 10 MG SUPP RECTAL SCH (10:25)
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
[2016-11-29] MEDS: CYCLOBENZAPRINE HCL 10 MG TAB PO PRN (19:47)
[2016-11-30] VITALS (8 sets, daily range): BP systolic 101–126; BP diastolic 59–76; PULSE 87–116; RESP 18–20; TEMP 95.5–98.1; O2SAT 97–100
[2016-11-30] MEDS: cefTRIAXone INJ 2,000 MG in SODIUM CHLORIDE 0.9% INJ 100 ML IV SCH (00:21)
[2016-11-30] MEDS: traZODone HCL 100 MG TAB PO SCH ×2 (00:21→21:53)
[2016-11-30] MEDS: OXYBUTYNIN CHLORIDE 5 MG TAB PO SCH ×3 (00:21→21:53)
[2016-11-30] MEDS: HEPARIN SODIUM - SQ 10,000 UNITS/ML VIAL SQ SCH ×4 (00:21→21:56)
[2016-11-30] MEDS: SODIUM CHLORIDE 0.9% FLUSH 10 ML FLUSH IV FLUSH SCH ×3 (00:22→21:54)
[2016-11-30] MEDS: ALPRAZolam 1 MG TAB PO PRN ×3 (00:29→18:46)
[2016-11-30] MEDS: ACETAMINOPHEN/HYDROcodone 325 MG/10 MG TAB PO PRN ×5 (00:32→22:06)
[2016-11-30] MEDS: CYCLOBENZAPRINE HCL 10 MG TAB PO PRN ×2 (06:22→16:24)
[2016-11-30] MEDS: MIDODRINE 5 MG TAB PO SCH ×3 (08:43→18:31)
[2016-11-30] MEDS: clonazePAM 0.5 MG TAB PO SCH (08:43)
[2016-11-30] MEDS: FLUCONAZOLE 100 MG TAB PO SCH (08:43)
[2016-11-30] MEDS: SERTRALINE HCL 100 MG TAB PO SCH (08:43)
[2016-11-30] MEDS: LACTULOSE SYRUP 20 GM/30 ML CUP PO SCH (08:43)
[2016-11-30] MEDS: BISACODYL 10 MG SUPP RECTAL SCH (08:43)
[2016-11-30] MEDS: diphenhydrAMINE HCL 25 MG CAP PO PRN (11:44)
[2016-11-30] MEDS ORDERED: DIPH25CA PO (13:27)
[2016-11-30] MEDS ORDERED: ACET325T PO (13:27)
[2016-11-30] MEDS ORDERED: HYDR-3535 PO (13:27)
[2016-11-30] MEDS ORDERED: XANA1TAB2 PO (13:27)
[2016-11-30] MEDS ORDERED: FENT75DI T-DERMAL (13:27)
[2016-11-30] MEDS ORDERED: BISA10R RECTAL (13:27)
[2016-11-30] MEDS ORDERED: ZOLO100T PO (13:27)
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
[2016-11-30] MEDS ORDERED: FLUC100T2 PO (13:33)
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
[2016-11-30] MEDS: REMOVE OLD DURAGESIC (FENTANYL) PATCH T-DERMAL SCH (22:00)
[2016-11-30] MEDS: fentaNYL 75 MCG/HR PATCH T-DERMAL SCH (22:02)
[2016-12-01] VITALS (7 sets, daily range): BP systolic 97–124; BP diastolic 54–80; PULSE 96–126; RESP 18–20; TEMP 95.5–97.9; O2SAT 96–100
[2016-12-01] MEDS: HEPARIN SODIUM - SQ 10,000 UNITS/ML VIAL SQ SCH ×3 (06:04→22:31)
[2016-12-01] MEDS: MIDODRINE 5 MG TAB PO SCH ×3 (08:19→17:26)
[2016-12-01] MEDS: CYCLOBENZAPRINE HCL 10 MG TAB PO PRN ×2 (08:20→22:31)
[2016-12-01] MEDS: FLUCONAZOLE 100 MG TAB PO SCH (08:20)
[2016-12-01] MEDS: BISACODYL 10 MG SUPP RECTAL SCH (08:20)
[2016-12-01] MEDS: SERTRALINE HCL 100 MG TAB PO SCH (08:20)
[2016-12-01] MEDS: OXYBUTYNIN CHLORIDE 5 MG TAB PO SCH ×2 (08:20→20:03)
[2016-12-01] MEDS: ACETAMINOPHEN/HYDROcodone 325 MG/10 MG TAB PO PRN ×3 (08:20→20:03)
[2016-12-01] MEDS: LACTULOSE SYRUP 20 GM/30 ML CUP PO SCH (08:20)
[2016-12-01] MEDS: SODIUM CHLORIDE 0.9% FLUSH 10 ML FLUSH IV FLUSH SCH ×2 (08:20→22:30)
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
[2016-12-01] MEDS: ALPRAZolam 1 MG TAB PO PRN (13:24)
[2016-12-01] MEDS: traZODone HCL 100 MG TAB PO SCH (20:05)
[2016-12-02] VITALS (7 sets, daily range): BP systolic 96–143; BP diastolic 57–83; PULSE 111–126; RESP 18–20; TEMP 95.9–99.5; O2SAT 94–100
[2016-12-02] MEDS: ACETAMINOPHEN/HYDROcodone 325 MG/10 MG TAB PO PRN ×3 (03:31→19:40)
[2016-12-02] MEDS: ALPRAZolam 1 MG TAB PO PRN ×2 (03:36→20:54)
[2016-12-02] MEDS: HEPARIN SODIUM - SQ 10,000 UNITS/ML VIAL SQ SCH ×3 (06:15→20:47)
[2016-12-02] MEDS: SODIUM CHLORIDE 0.9% FLUSH 10 ML FLUSH IV FLUSH SCH ×2 (09:00→20:47)
[2016-12-02] MEDS: BISACODYL 10 MG SUPP RECTAL SCH (09:36)
[2016-12-02] MEDS: OXYBUTYNIN CHLORIDE 5 MG TAB PO SCH ×2 (09:36→20:46)
[2016-12-02] MEDS: FLUCONAZOLE 100 MG TAB PO SCH (09:36)
[2016-12-02] MEDS: MIDODRINE 5 MG TAB PO SCH ×3 (09:36→19:31)
[2016-12-02] MEDS: LACTULOSE SYRUP 20 GM/30 ML CUP PO SCH (09:36)
[2016-12-02] MEDS: SERTRALINE HCL 100 MG TAB PO SCH (09:36)
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
[2016-12-02] MEDS: traZODone HCL 100 MG TAB PO SCH (20:46)
[2016-12-03] VITALS (8 sets, daily range): BP systolic 103–130; BP diastolic 62–87; PULSE 95–131; RESP 19–28; TEMP 96.9–98.7; O2SAT 98–100
[2016-12-03] MEDS: HEPARIN SODIUM - SQ 10,000 UNITS/ML VIAL SQ SCH ×3 (06:08→22:36)
[2016-12-03] MEDS: OXYBUTYNIN CHLORIDE 5 MG TAB PO SCH ×2 (08:49→22:34)
[2016-12-03] MEDS: SERTRALINE HCL 100 MG TAB PO SCH (08:49)
[2016-12-03] MEDS: BISACODYL 10 MG SUPP RECTAL SCH (08:49)
[2016-12-03] MEDS: MIDODRINE 5 MG TAB PO SCH ×3 (08:49→18:27)
[2016-12-03] MEDS: FLUCONAZOLE 100 MG TAB PO SCH (08:49)
[2016-12-03] MEDS: SODIUM CHLORIDE 0.9% FLUSH 10 ML FLUSH IV FLUSH SCH ×2 (09:00→21:00)
[2016-12-03] MEDS: LACTULOSE SYRUP 20 GM/30 ML CUP PO SCH (09:00)
[2016-12-03] MEDS: ACETAMINOPHEN/HYDROcodone 325 MG/10 MG TAB PO PRN ×3 (12:56→22:34)
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
[2016-12-03] MEDS: REMOVE OLD DURAGESIC (FENTANYL) PATCH T-DERMAL SCH (22:00)
[2016-12-03] MEDS: ALPRAZolam 1 MG TAB PO PRN (22:34)
[2016-12-03] MEDS: fentaNYL 75 MCG/HR PATCH T-DERMAL SCH (22:34)
[2016-12-03] MEDS: traZODone HCL 100 MG TAB PO SCH (22:34)
[2016-12-04] MEDS: ACETAMINOPHEN/HYDROcodone 325 MG/10 MG TAB PO PRN ×4 (03:04→21:38)
[2016-12-04] MEDS: HEPARIN SODIUM - SQ 10,000 UNITS/ML VIAL SQ SCH ×3 (06:00→21:38)
[2016-12-04 08:45] VITALS: BP 111/70; PULSE 104; RESP 20; TEMP 96.7; O2SAT 100
[2016-12-04] MEDS: SERTRALINE HCL 100 MG TAB PO SCH (09:42)
[2016-12-04] MEDS: MIDODRINE 5 MG TAB PO SCH ×3 (09:43→18:18)
[2016-12-04] MEDS: LACTULOSE SYRUP 20 GM/30 ML CUP PO SCH (09:43)
[2016-12-04] MEDS: SODIUM CHLORIDE 0.9% FLUSH 10 ML FLUSH IV FLUSH SCH ×2 (09:43→21:00)
[2016-12-04] MEDS: BISACODYL 10 MG SUPP RECTAL SCH (09:43)
[2016-12-04] MEDS: OXYBUTYNIN CHLORIDE 5 MG TAB PO SCH ×2 (09:43→21:37)
[2016-12-04 12:00] VITALS: BP 112/69; PULSE 113; RESP 20; TEMP 96.9; O2SAT 98
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
[2016-12-04 13:40] VITALS: PULSE 106
[2016-12-04 16:00] VITALS: BP 100/59; PULSE 99; RESP 20; TEMP 96.8; O2SAT 99
[2016-12-04] MEDS: CYCLOBENZAPRINE HCL 10 MG TAB PO PRN (18:19)
[2016-12-04 19:00] VITALS: PULSE 81
[2016-12-04 20:00] VITALS: BP 120/74; PULSE 93; RESP 20; TEMP 96.5; O2SAT 97
[2016-12-04] MEDS: traZODone HCL 100 MG TAB PO SCH (21:38)
[2016-12-04] MEDS: ALPRAZolam 1 MG TAB PO PRN (21:38)
[2016-12-05] VITALS (7 sets, daily range): BP systolic 95–114; BP diastolic 62–77; PULSE 82–128; RESP 18–20; TEMP 96.1–99.2; O2SAT 96–100
[2016-12-05] MEDS: HEPARIN SODIUM - SQ 10,000 UNITS/ML VIAL SQ SCH ×2 (05:17→14:07)
[2016-12-05] MEDS: LACTULOSE SYRUP 20 GM/30 ML CUP PO SCH (09:20)
[2016-12-05] MEDS: MIDODRINE 5 MG TAB PO SCH ×3 (09:20→17:46)
[2016-12-05] MEDS: OXYBUTYNIN CHLORIDE 5 MG TAB PO SCH (09:20)
[2016-12-05] MEDS: SODIUM CHLORIDE 0.9% FLUSH 10 ML FLUSH IV FLUSH SCH ×2 (09:21→21:00)
[2016-12-05] MEDS: SERTRALINE HCL 100 MG TAB PO SCH (09:21)
[2016-12-05] MEDS: BISACODYL 10 MG SUPP RECTAL SCH (09:21)
[2016-12-05] MEDS: ACETAMINOPHEN/HYDROcodone 325 MG/10 MG TAB PO PRN ×2 (10:25→17:46)
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
[2016-12-05] MEDS: CYCLOBENZAPRINE HCL 10 MG TAB PO PRN (17:46)
[2016-12-06] MEDS: OXYBUTYNIN CHLORIDE 5 MG TAB PO SCH ×3 (00:02→22:29)
[2016-12-06] MEDS: traZODone HCL 100 MG TAB PO SCH ×2 (00:02→22:29)
[2016-12-06] MEDS: traZODone HCL 50 MG TAB PO PRN (00:02)
[2016-12-06] MEDS: HEPARIN SODIUM - SQ 10,000 UNITS/ML VIAL SQ SCH ×4 (00:03→22:30)
[2016-12-06] MEDS: ACETAMINOPHEN/HYDROcodone 325 MG/10 MG TAB PO PRN ×3 (00:03→17:59)
[2016-12-06] MEDS: ALPRAZolam 1 MG TAB PO PRN (00:04)
[2016-12-06 00:46] VITALS: BP 115/84; PULSE 95; RESP 16; TEMP 98.4; O2SAT 100
[2016-12-06 05:33] VITALS: BP 101/61; PULSE 97; RESP 18; TEMP 97.4; O2SAT 100
[2016-12-06 08:00] VITALS: BP 104/66; PULSE 90; RESP 18; TEMP 96.9; O2SAT 98
[2016-12-06] MEDS: SODIUM CHLORIDE 0.9% FLUSH 10 ML FLUSH IV FLUSH SCH ×2 (09:00→21:00)
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
[2016-12-06] MEDS: MIDODRINE 5 MG TAB PO SCH ×3 (10:25→17:40)
[2016-12-06] MEDS: LACTULOSE SYRUP 20 GM/30 ML CUP PO SCH (10:25)
[2016-12-06] MEDS: SERTRALINE HCL 100 MG TAB PO SCH (10:25)
[2016-12-06] MEDS: BISACODYL 10 MG SUPP RECTAL SCH (10:25)
[2016-12-06 12:24] VITALS: BP 176/96; PULSE 66; RESP 18; TEMP 97; O2SAT 100
[2016-12-06 16:00] VITALS: BP 110/72; PULSE 88; RESP 18; TEMP 97; O2SAT 99
[2016-12-06 20:00] VITALS: BP 123/81; PULSE 94; RESP 18; TEMP 95.8; O2SAT 93
[2016-12-06] MEDS: REMOVE OLD DURAGESIC (FENTANYL) PATCH T-DERMAL SCH (22:00)
[2016-12-06] MEDS: fentaNYL 75 MCG/HR PATCH T-DERMAL SCH (22:30)
[2016-12-07] VITALS (7 sets, daily range): BP systolic 97–145; BP diastolic 57–90; PULSE 71–124; RESP 18–20; TEMP 95.7–98.3; O2SAT 96–100
[2016-12-07] MEDS: HEPARIN SODIUM - SQ 10,000 UNITS/ML VIAL SQ SCH ×3 (05:26→22:17)
[2016-12-07] MEDS: ACETAMINOPHEN/HYDROcodone 325 MG/10 MG TAB PO PRN ×2 (06:45→22:16)
[2016-12-07] MEDS: SODIUM CHLORIDE 0.9% FLUSH 10 ML FLUSH IV FLUSH SCH ×2 (09:00→21:00)
[2016-12-07] MEDS: LACTULOSE SYRUP 20 GM/30 ML CUP PO SCH (10:23)
[2016-12-07] MEDS: OXYBUTYNIN CHLORIDE 5 MG TAB PO SCH ×2 (10:23→22:17)
[2016-12-07] MEDS: MIDODRINE 5 MG TAB PO SCH ×3 (10:24→18:00)
[2016-12-07] MEDS: SERTRALINE HCL 100 MG TAB PO SCH (10:24)
[2016-12-07] MEDS: BISACODYL 10 MG SUPP RECTAL SCH (10:24)
[2016-12-07] MEDS: diphenhydrAMINE HCL 25 MG CAP PO PRN (11:26)
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
[2016-12-07] MEDS: traZODone HCL 100 MG TAB PO SCH (22:17)
[2016-12-08] VITALS (7 sets, daily range): BP systolic 103–153; BP diastolic 58–83; PULSE 91–106; RESP 16–21; TEMP 95.2–99; O2SAT 93–98
[2016-12-08] MEDS: HEPARIN SODIUM - SQ 10,000 UNITS/ML VIAL SQ SCH ×3 (06:13→21:48)
[2016-12-08] MEDS: ALPRAZolam 1 MG TAB PO PRN (06:13)
[2016-12-08] MEDS: MIDODRINE 5 MG TAB PO SCH ×3 (09:17→17:32)
[2016-12-08] MEDS: SERTRALINE HCL 100 MG TAB PO SCH (09:17)
[2016-12-08] MEDS: OXYBUTYNIN CHLORIDE 5 MG TAB PO SCH ×2 (09:17→21:48)
[2016-12-08] MEDS: LACTULOSE SYRUP 20 GM/30 ML CUP PO SCH (09:17)
[2016-12-08] MEDS: BISACODYL 10 MG SUPP RECTAL SCH (09:17)
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
--- NOTE | 2016-12-08 13:06 | RADRPT ---
EXAM DATE/TIME: 12/08/2016 12:41 [place] COMPARISON: CHEST SINGLE AP, November 18, 2016, 17:14. INDICATIONS : Cough. MEDICAL HISTORY : None. SURGICAL HISTORY : None. ENCOUNTER: Subsequent ACUITY: 1 day PAIN SCORE: 0/10 LOCATION: Bilateral chest FINDINGS: A single view of the chest demonstrates the lungs to be symmetrically aerated without evidence of mas s, infiltrate or effusion. The cardiomediastinal contours are unremarkable. Osseous structures are intact. CONCLUSION: Normal examination. Del Hatfield Jr., MD on December 08, 2016 at 13:02 Board Certified Radiologist. This report was verified electronically.
[2016-12-08] MEDS: ACETAMINOPHEN/HYDROcodone 325 MG/10 MG TAB PO PRN ×2 (14:39→19:38)
[2016-12-08] MEDS: diphenhydrAMINE HCL 25 MG CAP PO PRN ×2 (17:33→21:50)
[2016-12-08] MEDS: SODIUM CHLORIDE 0.9% FLUSH 10 ML FLUSH IV FLUSH SCH (21:00)
[2016-12-08] MEDS: traZODone HCL 100 MG TAB PO SCH (21:48)
[2016-12-09 00:42] VITALS: BP 117/64; PULSE 100; RESP 16; TEMP 98.1; O2SAT 99
[2016-12-09 05:36] VITALS: BP 120/70; PULSE 116; RESP 16; TEMP 99; O2SAT 99
[2016-12-09] MEDS: HEPARIN SODIUM - SQ 10,000 UNITS/ML VIAL SQ SCH ×3 (06:00→20:44)
[2016-12-09 08:00] VITALS: BP 122/72; PULSE 96; RESP 18; TEMP 98.3; O2SAT 95
[2016-12-09] MEDS: SERTRALINE HCL 100 MG TAB PO SCH (08:47)
[2016-12-09] MEDS: LACTULOSE SYRUP 20 GM/30 ML CUP PO SCH (08:47)
[2016-12-09] MEDS: MIDODRINE 5 MG TAB PO SCH ×3 (08:47→18:10)
[2016-12-09] MEDS: OXYBUTYNIN CHLORIDE 5 MG TAB PO SCH ×2 (08:48→20:43)
[2016-12-09] MEDS: BISACODYL 10 MG SUPP RECTAL SCH (08:48)
[2016-12-09] MEDS: ACETAMINOPHEN/HYDROcodone 325 MG/10 MG TAB PO PRN ×4 (08:48→23:16)
[2016-12-09] MEDS: SODIUM CHLORIDE 0.9% FLUSH 10 ML FLUSH IV FLUSH SCH ×2 (08:48→20:46)
[2016-12-09 09:09] LABS: BASOPHIL % 0.5 % (0.0-2.0); EOSINOPHIL # 0.2 TH/MM3 (0-0.4); EOSINOPHIL % 2.5 % (0.0-4.0); HEMATOCRIT 35.9 % (39.0-51.0); HEMO FLAGS DIFF FINAL; LYMPHOCYTE # 1.1 TH/MM3 (1.0-4.8); MEAN CELL VOLUME 79.4 FL (80.0-100.0); MEAN CORPUSCULAR HEMOGLOBIN 25.6 PG (27.0-34.0); MEAN CORPUSCULAR HGB CONC 32.3 % (32.0-36.0); MONO % 10.5 % (0.0-8.0); NEUT % 70.5 % (16.0-70.0); PLATELET COUNT 345 TH/MM3 (150-450); RED BLOOD COUNT 4.52 MIL/MM3 (4.50-5.90); RED CELL DISTRIBUTION WIDTH 14.5 % (11.6-17.2)
[2016-12-09 09:38] LABS: ALKALINE PHOSPHATASE 101 U/L (45-117); ALT (GPT) 35 U/L (12-78); ANION GAP 9 MEQ/L (5-15); AST (GOT) 17 U/L (15-37); BICARBONATE 29.8 MEQ/L (21.0-32.0); BLOOD UREA NITROGEN 14 MG/DL (7-18); CHLORIDE 98 MEQ/L (98-107); GLOMERULAR FILTRATION RATE 188 ML/MIN (>89); POTASSIUM 3.9 MEQ/L (3.5-5.1); SODIUM (NA) 137 MEQ/L (136-145); TOTAL BILIRUBIN ADULT 0.2 MG/DL (0.2-1.0)
[2016-12-09] MEDS: diphenhydrAMINE HCL 25 MG CAP PO PRN ×2 (10:12→20:43)
[2016-12-09 12:00] VITALS: BP 129/72; PULSE 106; RESP 19; TEMP 99.5; O2SAT 98
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
[2016-12-09 16:00] VITALS: BP 110/70; PULSE 116; RESP 18; TEMP 100.3; O2SAT 98
[2016-12-09 20:00] VITALS: BP 125/67; PULSE 119; RESP 20; TEMP 98.6; O2SAT 96
[2016-12-09] MEDS: traZODone HCL 100 MG TAB PO SCH (20:44)
[2016-12-09] MEDS: REMOVE OLD DURAGESIC (FENTANYL) PATCH T-DERMAL SCH (20:46)
[2016-12-09] MEDS: fentaNYL 75 MCG/HR PATCH T-DERMAL SCH (20:46)
[2016-12-10] VITALS: BP 106/59; PULSE 97; RESP 18; TEMP 96.7; O2SAT 99
[2016-12-10] MEDS: CYCLOBENZAPRINE HCL 10 MG TAB PO PRN (03:01)
[2016-12-10] MEDS: ACETAMINOPHEN/HYDROcodone 325 MG/10 MG TAB PO PRN ×3 (03:02→20:34)
[2016-12-10 05:00] VITALS: BP 108/65; PULSE 101; RESP 18; TEMP 98.3; O2SAT 99
[2016-12-10] MEDS: HEPARIN SODIUM - SQ 10,000 UNITS/ML VIAL SQ SCH ×3 (05:07→21:28)
[2016-12-10 08:00] VITALS: BP 105/67; PULSE 92; RESP 20; TEMP 97.7; O2SAT 100
[2016-12-10] MEDS: SERTRALINE HCL 100 MG TAB PO SCH (09:23)
[2016-12-10] MEDS: MIDODRINE 5 MG TAB PO SCH ×3 (09:23→18:00)
[2016-12-10] MEDS: BISACODYL 10 MG SUPP RECTAL SCH (09:23)
[2016-12-10] MEDS: LACTULOSE SYRUP 20 GM/30 ML CUP PO SCH (09:23)
[2016-12-10] MEDS: OXYBUTYNIN CHLORIDE 5 MG TAB PO SCH ×2 (09:23→20:29)
[2016-12-10] MEDS: SODIUM CHLORIDE 0.9% FLUSH 10 ML FLUSH IV FLUSH SCH ×2 (09:24→20:28)
[2016-12-10 09:39] VITALS: PULSE 111
[2016-12-10 12:00] VITALS: BP 104/57; PULSE 115; RESP 19; TEMP 97.3; O2SAT 98
[2016-12-10] MEDS: diphenhydrAMINE HCL 25 MG CAP PO PRN ×2 (14:53→20:28)
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
[2016-12-10 20:00] VITALS: BP 106/74; PULSE 122; RESP 14; TEMP 99; O2SAT 99
[2016-12-10] MEDS: traZODone HCL 100 MG TAB PO SCH (20:29)
[2016-12-11] VITALS: BP 113/74; PULSE 111; RESP 16; TEMP 100.1; O2SAT 98
[2016-12-11] MEDS: ALPRAZolam 1 MG TAB PO PRN ×2 (00:27→09:28)
[2016-12-11 06:00] VITALS: BP 109/69; PULSE 122; RESP 16; TEMP 99.6; O2SAT 99
[2016-12-11] MEDS: HEPARIN SODIUM - SQ 10,000 UNITS/ML VIAL SQ SCH ×3 (06:07→21:06)
[2016-12-11 08:00] VITALS: BP 106/72; PULSE 122; RESP 18; TEMP 98.9; O2SAT 99
[2016-12-11 08:57] LABS: AUTOMATED NEUTROPHIL # 6.7 TH/MM3 (1.8-7.7); BASOPHIL # 0.3 TH/MM3 (0-0.2); BASOPHIL % 2.8 % (0.0-2.0); EOSINOPHIL # 0.2 TH/MM3 (0-0.4); EOSINOPHIL % 1.8 % (0.0-4.0); HEMATOCRIT 33.6 % (39.0-51.0); HEMO FLAGS DIFF FINAL; LYMPHOCYTE # 2.3 TH/MM3 (1.0-4.8); MEAN CELL VOLUME 78.7 FL (80.0-100.0); MEAN CORPUSCULAR HEMOGLOBIN 26.1 PG (27.0-34.0); MEAN CORPUSCULAR HGB CONC 33.2 % (32.0-36.0); MONO % 9.6 % (0.0-8.0); NEUT % 63.8 % (16.0-70.0); PLATELET COUNT 353 TH/MM3 (150-450); RED BLOOD COUNT 4.27 MIL/MM3 (4.50-5.90); RED CELL DISTRIBUTION WIDTH 13.6 % (11.6-17.2); WHITE BLOOD COUNT 10.5 TH/MM3 (4.0-11.0)
[2016-12-11] MEDS: SODIUM CHLORIDE 0.9% FLUSH 10 ML FLUSH IV FLUSH SCH ×2 (09:00→09:29)
[2016-12-11 09:05] LABS: POTASSIUM 3.7 MEQ/L (3.5-5.1)
[2016-12-11 09:08] LABS: BICARBONATE 28.4 MEQ/L (21.0-32.0)
[2016-12-11] MEDS: MIDODRINE 5 MG TAB PO SCH ×3 (09:28→18:37)
[2016-12-11] MEDS: LACTULOSE SYRUP 20 GM/30 ML CUP PO SCH (09:28)
[2016-12-11] MEDS: SERTRALINE HCL 100 MG TAB PO SCH (09:29)
[2016-12-11] MEDS: ACETAMINOPHEN/HYDROcodone 325 MG/10 MG TAB PO PRN ×3 (09:29→21:07)
[2016-12-11] MEDS: BISACODYL 10 MG SUPP RECTAL SCH (09:29)
[2016-12-11] MEDS: OXYBUTYNIN CHLORIDE 5 MG TAB PO SCH ×2 (09:29→21:07)
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
[2016-12-11 12:00] VITALS: BP 126/92; PULSE 86; RESP 20; TEMP 97.5; O2SAT 100
[2016-12-11 16:00] VITALS: BP 135/77; PULSE 103; RESP 18; TEMP 97.7; O2SAT 100
[2016-12-11 20:00] VITALS: BP 113/89; PULSE 70; RESP 16; TEMP 97.6; O2SAT 100
[2016-12-11] MEDS: traZODone HCL 100 MG TAB PO SCH (21:07)
[2016-12-12] VITALS: BP 119/68; PULSE 104; RESP 18; TEMP 97.9; O2SAT 97
[2016-12-12 04:00] VITALS: BP 128/86; PULSE 100; RESP 16; TEMP 99.3; O2SAT 98
[2016-12-12] MEDS: HEPARIN SODIUM - SQ 10,000 UNITS/ML VIAL SQ SCH ×3 (05:46→22:10)
[2016-12-12] MEDS: ACETAMINOPHEN/HYDROcodone 325 MG/10 MG TAB PO PRN ×5 (06:23→22:11)
[2016-12-12 08:00] VITALS: BP 160/99; PULSE 69; RESP 19; TEMP 99.1; O2SAT 97
[2016-12-12] MEDS: LACTULOSE SYRUP 20 GM/30 ML CUP PO SCH (09:17)
[2016-12-12] MEDS: OXYBUTYNIN CHLORIDE 5 MG TAB PO SCH ×2 (09:17→22:10)
[2016-12-12] MEDS: SERTRALINE HCL 100 MG TAB PO SCH (09:17)
[2016-12-12] MEDS: BISACODYL 10 MG SUPP RECTAL SCH (09:17)
[2016-12-12] MEDS: MIDODRINE 5 MG TAB PO SCH ×3 (09:17→17:59)
[2016-12-12] MEDS ORDERED: cloNIDine HCL 0.1 MG TAB PO PRN (10:30)
[2016-12-12 12:00] VITALS: BP 107/73; PULSE 82; RESP 18; TEMP 97.6; O2SAT 100
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
[2016-12-12] MEDS: diphenhydrAMINE HCL 25 MG CAP PO PRN ×2 (13:32→22:10)
[2016-12-12 16:00] VITALS: BP 112/68; PULSE 117; RESP 20; TEMP 97.6; O2SAT 100
[2016-12-12 20:57] VITALS: BP 131/83; PULSE 94; RESP 22; TEMP 98.7; O2SAT 98
[2016-12-12] MEDS: REMOVE OLD DURAGESIC (FENTANYL) PATCH T-DERMAL SCH (22:00)
[2016-12-12] MEDS: traZODone HCL 100 MG TAB PO SCH (22:11)
[2016-12-12] MEDS: fentaNYL 75 MCG/HR PATCH T-DERMAL SCH (22:12)
[2016-12-12] MEDS: ALPRAZolam 1 MG TAB PO PRN (22:21)
[2016-12-13 00:21] VITALS: BP 85/58; PULSE 86; RESP 16; TEMP 97.9; O2SAT 100
[2016-12-13] MEDS: HEPARIN SODIUM - SQ 10,000 UNITS/ML VIAL SQ SCH ×3 (06:20→22:30)
[2016-12-13 08:00] VITALS: BP 120/94; PULSE 72; RESP 18; TEMP 97.6; O2SAT 99
[2016-12-13] MEDS: LACTULOSE SYRUP 20 GM/30 ML CUP PO SCH (08:51)
[2016-12-13] MEDS: SERTRALINE HCL 100 MG TAB PO SCH (08:51)
[2016-12-13] MEDS: MIDODRINE 5 MG TAB PO SCH ×3 (08:52→16:58)
[2016-12-13] MEDS: ACETAMINOPHEN/HYDROcodone 325 MG/10 MG TAB PO PRN ×2 (08:52→19:51)
[2016-12-13] MEDS: OXYBUTYNIN CHLORIDE 5 MG TAB PO SCH ×2 (08:52→19:51)
[2016-12-13] MEDS: BISACODYL 10 MG SUPP RECTAL SCH (08:52)
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
[2016-12-13] MEDS: diphenhydrAMINE HCL 25 MG CAP PO PRN ×3 (11:48→19:58)
[2016-12-13 12:00] VITALS: BP 118/79; PULSE 89; RESP 17; TEMP 97.4; O2SAT 97
[2016-12-13 17:01] VITALS: BP 128/87; PULSE 104; RESP 19; TEMP 97.5; O2SAT 95
[2016-12-13] MEDS: traZODone HCL 100 MG TAB PO SCH (19:51)
[2016-12-13 20:00] VITALS: BP 159/102; PULSE 84; RESP 21; TEMP 98.5; O2SAT 100
[2016-12-13] MEDS: ALPRAZolam 1 MG TAB PO PRN (22:30)
[2016-12-14] VITALS: BP 95/58; PULSE 92; RESP 21; TEMP 96; O2SAT 100
[2016-12-14] MEDS: diphenhydrAMINE HCL 25 MG CAP PO PRN (03:59)
[2016-12-14] MEDS: ACETAMINOPHEN/HYDROcodone 325 MG/10 MG TAB PO PRN ×4 (03:59→21:08)
[2016-12-14] MEDS: HEPARIN SODIUM - SQ 10,000 UNITS/ML VIAL SQ SCH ×3 (06:15→21:03)
[2016-12-14 08:00] VITALS: BP 140/91; PULSE 81; RESP 18; TEMP 97.3; O2SAT 96
[2016-12-14] MEDS: MIDODRINE 5 MG TAB PO SCH ×3 (09:00→18:40)
[2016-12-14] MEDS: OXYBUTYNIN CHLORIDE 5 MG TAB PO SCH ×2 (09:59→21:02)
[2016-12-14] MEDS: LACTULOSE SYRUP 20 GM/30 ML CUP PO SCH (09:59)
[2016-12-14] MEDS: BISACODYL 10 MG SUPP RECTAL SCH (10:00)
[2016-12-14] MEDS: SERTRALINE HCL 100 MG TAB PO SCH (10:00)
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
[2016-12-14 14:03] VITALS: BP 84/59; PULSE 88; RESP 16; O2SAT 99
[2016-12-14 18:35] VITALS: BP 97/67; PULSE 85; RESP 18; TEMP 97; O2SAT 100
[2016-12-14 20:00] VITALS: BP 100/65; PULSE 86; RESP 18; TEMP 97.2; O2SAT 100
[2016-12-14] MEDS: traZODone HCL 100 MG TAB PO SCH (21:03)
[2016-12-14] MEDS: ALPRAZolam 1 MG TAB PO PRN (21:08)
[2016-12-15] VITALS: RESP 18
[2016-12-15 04:00] VITALS: BP 89/53; PULSE 70; RESP 18; TEMP 97.6; O2SAT 97
[2016-12-15] MEDS: ACETAMINOPHEN/HYDROcodone 325 MG/10 MG TAB PO PRN ×2 (06:08→21:29)
[2016-12-15] MEDS: HEPARIN SODIUM - SQ 10,000 UNITS/ML VIAL SQ SCH ×3 (06:08→21:30)
[2016-12-15 08:00] VITALS: BP 104/67; PULSE 72; RESP 16; TEMP 97.2; O2SAT 100
[2016-12-15] MEDS: BISACODYL 10 MG SUPP RECTAL SCH (08:25)
[2016-12-15] MEDS: SERTRALINE HCL 100 MG TAB PO SCH (08:25)
[2016-12-15] MEDS: LACTULOSE SYRUP 20 GM/30 ML CUP PO SCH (08:25)
[2016-12-15] MEDS: MIDODRINE 5 MG TAB PO SCH ×3 (08:25→17:31)
[2016-12-15] MEDS: diphenhydrAMINE HCL 25 MG CAP PO PRN ×2 (08:25→21:29)
[2016-12-15] MEDS: OXYBUTYNIN CHLORIDE 5 MG TAB PO SCH ×2 (08:25→21:29)
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
[2016-12-15 12:00] VITALS: BP 101/65; PULSE 83; RESP 17; TEMP 96.7; O2SAT 100
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
[2016-12-15] MEDS ORDERED: HYDR-3535 PO (14:13)
[2016-12-15] MEDS ORDERED: XANA1TAB2 PO (14:14)
[2016-12-15 16:00] VITALS: BP 123/73; PULSE 81; RESP 20; TEMP 98.3; O2SAT 98
[2016-12-15] MEDS: ALPRAZolam 1 MG TAB PO PRN (18:20)
[2016-12-15 20:00] VITALS: BP 128/77; PULSE 88; RESP 20; TEMP 96.9; O2SAT 99
[2016-12-15] MEDS: traZODone HCL 100 MG TAB PO SCH (21:29)
[2016-12-15] MEDS: REMOVE OLD DURAGESIC (FENTANYL) PATCH T-DERMAL SCH (21:32)
[2016-12-15] MEDS: fentaNYL 75 MCG/HR PATCH T-DERMAL SCH (21:33)
[2016-12-16] VITALS: BP 112/72; PULSE 72; RESP 16; TEMP 96.1; O2SAT 100
[2016-12-16 04:00] VITALS: BP 95/66; PULSE 75; RESP 16; TEMP 95.5; O2SAT 100
[2016-12-16] MEDS: ACETAMINOPHEN/HYDROcodone 325 MG/10 MG TAB PO PRN ×3 (06:32→21:49)
[2016-12-16] MEDS: HEPARIN SODIUM - SQ 10,000 UNITS/ML VIAL SQ SCH ×3 (06:32→20:22)
[2016-12-16] MEDS: diphenhydrAMINE HCL 25 MG CAP PO PRN (06:33)
[2016-12-16 08:23] VITALS: BP 95/61; PULSE 81; RESP 18; TEMP 96.4; O2SAT 99
[2016-12-16] MEDS: MIDODRINE 5 MG TAB PO SCH ×3 (08:39→17:48)
[2016-12-16] MEDS: SERTRALINE HCL 100 MG TAB PO SCH (08:39)
[2016-12-16] MEDS: BISACODYL 10 MG SUPP RECTAL SCH (08:39)
[2016-12-16] MEDS: OXYBUTYNIN CHLORIDE 5 MG TAB PO SCH ×2 (08:39→20:22)
[2016-12-16] MEDS: LACTULOSE SYRUP 20 GM/30 ML CUP PO SCH (08:39)
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
[2016-12-16 12:26] VITALS: BP 137/68; PULSE 71; RESP 18; TEMP 96.7; O2SAT 99
[2016-12-16 16:08] VITALS: BP 134/66; PULSE 73; RESP 18; TEMP 96.7; O2SAT 99
[2016-12-16 20:00] VITALS: BP 116/80; PULSE 85; RESP 16; TEMP 97; O2SAT 99
[2016-12-16] MEDS: traZODone HCL 100 MG TAB PO SCH (20:22)
[2016-12-16] MEDS: ALPRAZolam 1 MG TAB PO PRN (20:23)
[2016-12-17] VITALS: BP_SYST 88; BP_SYST 90; BP_DIAS 45; BP_DIAS 62; PULSE 75; RESP 14; TEMP 95.6; O2SAT 100
[2016-12-17] MEDS: ACETAMINOPHEN/HYDROcodone 325 MG/10 MG TAB PO PRN (03:38)
[2016-12-17 04:00] VITALS: BP 101/57; PULSE 73; RESP 16; TEMP 96; O2SAT 100
[2016-12-17] MEDS: HEPARIN SODIUM - SQ 10,000 UNITS/ML VIAL SQ SCH ×2 (06:15→14:11)
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
[2016-12-17 10:26] VITALS: BP 108/68; PULSE 69; RESP 14; TEMP 97.5; O2SAT 99
[2016-12-17] MEDS: BISACODYL 10 MG SUPP RECTAL SCH (10:30)
[2016-12-17] MEDS: OXYBUTYNIN CHLORIDE 5 MG TAB PO SCH (10:30)
[2016-12-17] MEDS: LACTULOSE SYRUP 20 GM/30 ML CUP PO SCH (10:30)
[2016-12-17] MEDS: MIDODRINE 5 MG TAB PO SCH ×2 (10:30→14:11)
[2016-12-17] MEDS: SERTRALINE HCL 100 MG TAB PO SCH (10:30)
[2017-01-22] MEDS ORDERED: roho cushion (16:18)
== END 2016-12-17 17:02 | DRG 559 ==
LOC: NEPC 16:21 → MERGE 18:33 → NEDA 18:33 → N05B 21:12 → UNDODISIN 12-10 15:44 → PH5A 12-10 17:36
PROVIDERS: ADMIT Hospitalist; ATTEND Hospitalist
PROC: 2W50X0Z Removal of Traction Apparatus on Head (ICD-10-PCS; principal; 2016-11-18)
DX: T84.7XXA Infection and inflammatory reaction due to other internal orthopedic prosthetic devices, implants and grafts, initial encounter (principal); A41.59 Other Gram-negative sepsis; A41.01 Sepsis due to Methicillin susceptible Staphylococcus aureus; A41.9 Sepsis, unspecified organism; G82.54 Quadriplegia, C5-C7 incomplete; L89.154 Pressure ulcer of sacral region, stage 4; B37.7 Candidal sepsis; K59.2 Neurogenic bowel, not elsewhere classified; E44.1 Mild protein-calorie malnutrition; N30.00 Acute cystitis without hematuria; I10 Essential (primary) hypertension; N31.9 Neuromuscular dysfunction of bladder, unspecified; G47.01 Insomnia due to medical condition; K59.00 Constipation, unspecified; F12.90 Cannabis use, unspecified, uncomplicated; F43.23 Adjustment disorder with mixed anxiety and depressed mood; V89.2XXS Person injured in unspecified motor-vehicle accident, traffic, sequela; Y79.1 Therapeutic (nonsurgical) and rehabilitative orthopedic devices associated with adverse incidents; Z68.24 Body mass index [BMI] 24.0-24.9, adult; Z86.14 Personal history of Methicillin resistant Staphylococcus aureus infection; Z98.1 Arthrodesis status
CPT/HCPCS: 51702; 71010; 72125; 76937; 80048; 80053; 80202; 81001; 83605; 83735; 84100; 84443; 85007; 85025; 85027; 86403; 87040; 87070; 87077; 87086; 87147; 87186; 87205; 93005; 96365; 96375; J0696; J1644; J2405; J2543; J3370; J7030; J7050; L0172

== ENCOUNTER 2017-01-18 17:52 | Emergency (ER) | payer OTHER ==
[~2017-01-18 17:52] MED LIST changes: +ACET325T PO; -ALPR.5 PO; +BISA10R RECTAL; -COLL30T TOP; -DEXA0.5T PO; +DIPH25CA PO; +FENT75DI T-DERMAL; -FENT75T TD; +HYDR-3535 PO; -HYDR-3583 PO; +LACT10SO PO; -PIPERACIL-TAZO 4.5 GM PREMIX 100 ML IV SCH; +XANA1TAB2 PO; +ZOLO100T PO; -ZOLO50TA PO
[2017-01-18 17:55] VITALS: BP 130/90; PULSE 94; RESP 24; O2SAT 99
[2017-01-22] MEDS ORDERED: roho cushion (16:18)
== END 2017-01-18 21:25 | disposition left against medical advice (07) ==
LOC: NED 17:52
DX: R69 Illness, unspecified (principal); Z53.21 Procedure and treatment not carried out due to patient leaving prior to being seen by health care provider
CPT/HCPCS: 99281

== ENCOUNTER 2017-01-23 20:41 | Inpatient (IN) | payer OTHER ==
[~2017-01-23] VITALS: Ht 162.6 cm; Wt 53.0 kg
[~2017-01-23 20:41] MED LIST changes: +roho cushion
[2017-01-23 21:01] VITALS: BP 126/83; PULSE 130; RESP 15; TEMP 99.1; O2SAT 98
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
[2017-01-23] MEDS ORDERED: SODIUM CHLOR 0.9% 1000 ML INJ 1,000 ML IV ONE ×2 (21:41→23:30)
[2017-01-23] MEDS ORDERED: SODIUM CHLOR 0.9% 1000 ML INJ 800 ML IV ONE (21:41)
[2017-01-23 21:58] VITALS: TEMP 100.1
--- NOTE | 2017-01-23 22:12 | RADRPT ---
EXAM DATE/TIME: 01/23/2017 21:39 [facility] COMPARISON: CHEST SINGLE AP, December 08, 2016, 12:41. INDICATIONS : Cough MEDICAL HISTORY : Quadraparesis. Spinal cord injury SURGICAL HISTORY : Spinal surgeries ENCOUNTER: Initial ACUITY: 1 day PAIN SCORE: 0/10 LOCATION: Bilateral chest FINDINGS: A single view of the chest demonstrates the lungs to be symmetrically aerated without evidence of mas s, infiltrate or effusion. The cardiomediastinal contours are unremarkable. Osseous structures are intact. CONCLUSION: Normal examination. Lawrence Alamo MD on January 23, 2017 at 22:09 Board Certified Radiologist. This report was verified electronically.
[2017-01-23] MEDS ORDERED: PIPERACIL-TAZO 4.5 GM PREMIX 100 ML IV ONE (22:15)
[2017-01-23] MEDS ORDERED: VANCOMYCIN INJ 1,000 MG in SODIUM CHLOR 0.9% 250 ML INJ 250 ML IV ONE (22:15)
[2017-01-23 22:50] LABS: AUTOMATED NEUTROPHIL # 8.5 TH/MM3 (1.8-7.7); BASOPHIL % 0.3 % (0.0-2.0); EOSINOPHIL # 0.2 TH/MM3 (0-0.4); EOSINOPHIL % 1.3 % (0.0-4.0); HEMATOCRIT 35.7 % (39.0-51.0); HEMO FLAGS DIFF FINAL; LYMPH % 16.2 % (9.0-44.0); LYMPHOCYTE # 1.9 TH/MM3 (1.0-4.8); MEAN CELL VOLUME 77.6 FL (80.0-100.0); MEAN CORPUSCULAR HEMOGLOBIN 25.5 PG (27.0-34.0); MEAN CORPUSCULAR HGB CONC 32.8 % (32.0-36.0); MONO % 10.2 % (0.0-8.0); PLATELET COUNT 327 TH/MM3 (150-450); RED BLOOD COUNT 4.59 MIL/MM3 (4.50-5.90); RED CELL DISTRIBUTION WIDTH 15.9 % (11.6-17.2); WHITE BLOOD COUNT 11.8 TH/MM3 (4.0-11.0)
[2017-01-23 23:09] LABS: BACTERIA, URINE MOD /hpf; BLOOD, URINE MOD (NEG); GLUCOSE,URINE NEG (NEG); HYALINE CAST, URINE 2 /lpf (RARE); KETONE, URINE NEG (NEG); MUCUS URINE FEW /lpf (OCC); NITRITE,URINE NEG (NEG); URIC ACID CRYSTALS, URINE OCC /hpf; URINE COLOR YELLOW (YELLW/STRAW)
[2017-01-23 23:10] LABS: COMMENT (UR) CATH-CULTURE IND; CULTURE IF INDICATED CATH CULTURE IND
[2017-01-23 23:13] LABS: POTASSIUM 5.2 MEQ/L (3.5-5.1); TOTAL BILIRUBIN ADULT 0.3 MG/DL (0.2-1.0)
[2017-01-23 23:15] LABS: CALCIUM-PROTEIN CORRECTED 11.7 MG/DL (8.5-10.1)
[2017-01-23] MEDS ORDERED: BISACODYL 10 MG SUPP RECTAL PRN (23:45)
[2017-01-23] MEDS ORDERED: SENNOSIDES 8.6 MG TAB PO PRN (23:45)
[2017-01-23] MEDS ORDERED: ONDANSETRON HCL 4 MG/2 ML VIAL IVP PRN (23:45)
[2017-01-23] MEDS ORDERED: MORPHINE SULFATE 4 MG/ML INJ IV PRN (23:45)
[2017-01-23] MEDS ORDERED: SODIUM CHLORIDE 0.9% FLUSH 10 ML FLUSH IV FLUSH PRN (23:45)
[2017-01-23] MEDS ORDERED: MAGNESIUM HYDROXIDE SUSP 30 ML CUP PO PRN (23:45)
[2017-01-23] MEDS ORDERED: Vancomycin Consult Pharmacy 1 EA OTHER SCH (23:45)
[2017-01-23] MEDS ORDERED: LACTULOSE SYRUP 20 GM/30 ML CUP PO PRN (23:45)
[2017-01-23] MEDS ORDERED: ACETAMINOPHEN 325 MG TAB PO PRN (23:45)
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
[2017-01-24] VITALS (7 sets, daily range): BP systolic 113–131; BP diastolic 60–75; PULSE 90–122; RESP 14–19; TEMP 95.7–98; O2SAT 96–100
[2017-01-24] MEDS ORDERED: fentaNYL 75 MCG/HR PATCH T-DERMAL SCH
[2017-01-24] MEDS ORDERED: REMOVE OLD PATCH-FENTANYL T-DERMAL SCH
[2017-01-24] MEDS ORDERED: OXYB5TAB10 PO (00:17)
[2017-01-24] MEDS ORDERED: CLON.5 PO (00:17)
[2017-01-24] MEDS ORDERED: HEPA1INJ6 SQ (00:17)
[2017-01-24] MEDS ORDERED: ACET325C (00:17)
[2017-01-24] MEDS ORDERED: HYDR-3801 PO (00:17)
[2017-01-24] MEDS ORDERED: FLUC100T2 PO (00:17)
[2017-01-24] MEDS: HEPARIN SODIUM - SQ 10,000 UNITS/ML VIAL SQ SCH ×4 (00:43→23:28)
[2017-01-24] MEDS: SODIUM CHLOR 0.9% 1000 ML INJ 1,000 ML IV SCH ×3 (03:02→21:11)
[2017-01-24 07:42] LABS: AUTOMATED NEUTROPHIL # 6.1 TH/MM3 (1.8-7.7); BASOPHIL % 0.2 % (0.0-2.0); EOSINOPHIL # 0.2 TH/MM3 (0-0.4); EOSINOPHIL % 1.9 % (0.0-4.0); HEMATOCRIT 27.2 % (39.0-51.0); HEMO FLAGS DIFF FINAL; LYMPH % 20.5 % (9.0-44.0); LYMPHOCYTE # 1.9 TH/MM3 (1.0-4.8); MEAN CELL VOLUME 78.5 FL (80.0-100.0); MEAN CORPUSCULAR HEMOGLOBIN 25.7 PG (27.0-34.0); MEAN CORPUSCULAR HGB CONC 32.8 % (32.0-36.0); NEUT % 67.4 % (16.0-70.0); PLATELET COUNT 259 TH/MM3 (150-450); RED BLOOD COUNT 3.46 MIL/MM3 (4.50-5.90); RED CELL DISTRIBUTION WIDTH 15.7 % (11.6-17.2); WHITE BLOOD COUNT 9.1 TH/MM3 (4.0-11.0)
[2017-01-24 08:26] LABS: ALKALINE PHOSPHATASE 85 U/L (45-117); ALT (GPT) 29 U/L (12-78); ANION GAP 6 MEQ/L (5-15); AST (GOT) 25 U/L (15-37); BLOOD UREA NITROGEN 29 MG/DL (7-18); CHLORIDE 110 MEQ/L (98-107); GLOMERULAR FILTRATION RATE 39 ML/MIN (>89); POTASSIUM 4.4 MEQ/L (3.5-5.1); SODIUM (NA) 138 MEQ/L (136-145); TOTAL BILIRUBIN ADULT 0.4 MG/DL (0.2-1.0)
[2017-01-24 08:32] LABS: CALCIUM-PROTEIN CORRECTED 11.6 MG/DL (8.5-10.1)
[2017-01-24] MEDS: CEFEPIME INJ 2,000 MG in SODIUM CHLORIDE 0.9% INJ 100 ML IV SCH (08:56)
[2017-01-24] MEDS: clonazePAM 0.5 MG TAB PO SCH ×2 (08:57→21:08)
[2017-01-24] MEDS: OXYBUTYNIN CHLORIDE 5 MG TAB PO SCH ×2 (08:57→21:08)
[2017-01-24] MEDS: SODIUM CHLORIDE 0.9% FLUSH 10 ML FLUSH IV FLUSH SCH ×2 (08:57→21:11)
[2017-01-24] MEDS: MIDODRINE 5 MG TAB PO SCH ×3 (08:57→16:09)
[2017-01-24] MEDS: SERTRALINE HCL 100 MG TAB PO SCH (08:57)
[2017-01-24] MEDS: LACTULOSE SYRUP 20 GM/30 ML CUP PO SCH (08:58)
[2017-01-24] MEDS: DOCUSATE SODIUM 50 MG/SENNA 8.6 MG TAB PO SCH ×2 (09:00→21:08)
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
[2017-01-24] MEDS: VANCOMYCIN 1,000 MG/NS 250 ML IV SCH ×4 (11:25→23:27)
[2017-01-24] MEDS: ALPRAZolam 1 MG TAB PO PRN (19:20)
[2017-01-24] MEDS: traZODone HCL 50 MG TAB PO SCH (21:08)
[2017-01-25] VITALS (7 sets, daily range): BP systolic 118–184; BP diastolic 70–106; PULSE 61–90; RESP 16–19; TEMP 97–98.9; O2SAT 97–99
[2017-01-25] MEDS: SODIUM CHLOR 0.9% 1000 ML INJ 1,000 ML IV SCH ×3 (02:53→21:19)
[2017-01-25 06:00] LABS: AUTOMATED NEUTROPHIL # 2.6 TH/MM3 (1.8-7.7); BASOPHIL % 0.6 % (0.0-2.0); EOSINOPHIL # 0.3 TH/MM3 (0-0.4); EOSINOPHIL % 4.8 % (0.0-4.0); HEMATOCRIT 26.7 % (39.0-51.0); HEMO FLAGS DIFF FINAL; LYMPH % 39.1 % (9.0-44.0); LYMPHOCYTE # 2.2 TH/MM3 (1.0-4.8); MEAN CELL VOLUME 78.9 FL (80.0-100.0); MEAN CORPUSCULAR HEMOGLOBIN 25.9 PG (27.0-34.0); MEAN CORPUSCULAR HGB CONC 32.9 % (32.0-36.0); MONO % 8.9 % (0.0-8.0); NEUT % 46.6 % (16.0-70.0); PLATELET COUNT 262 TH/MM3 (150-450); RED BLOOD COUNT 3.38 MIL/MM3 (4.50-5.90); RED CELL DISTRIBUTION WIDTH 15.3 % (11.6-17.2); WHITE BLOOD COUNT 5.5 TH/MM3 (4.0-11.0)
[2017-01-25 07:23] LABS: BICARBONATE 21.5 MEQ/L (21.0-32.0)
[2017-01-25] MEDS: SERTRALINE HCL 100 MG TAB PO SCH (08:59)
[2017-01-25] MEDS: CEFEPIME INJ 2,000 MG in SODIUM CHLORIDE 0.9% INJ 100 ML IV SCH (08:59)
[2017-01-25] MEDS: OXYBUTYNIN CHLORIDE 5 MG TAB PO SCH ×2 (08:59→21:18)
[2017-01-25] MEDS: HEPARIN SODIUM - SQ 10,000 UNITS/ML VIAL SQ SCH ×3 (08:59→23:26)
[2017-01-25] MEDS: MIDODRINE 5 MG TAB PO SCH ×3 (08:59→17:55)
[2017-01-25] MEDS: DOCUSATE SODIUM 50 MG/SENNA 8.6 MG TAB PO SCH ×2 (09:00→21:19)
[2017-01-25] MEDS: SODIUM CHLORIDE 0.9% FLUSH 10 ML FLUSH IV FLUSH SCH ×2 (09:00→21:00)
[2017-01-25] MEDS: clonazePAM 0.5 MG TAB PO SCH ×2 (09:00→21:18)
[2017-01-25] MEDS: LACTULOSE SYRUP 20 GM/30 ML CUP PO SCH (09:03)
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
[2017-01-25] MEDS ORDERED: PHARMACY ORDERED LAB ONE (10:45)
--- NOTE | 2017-01-25 12:59 | PD.WCN.NOT ---
Wound Consult Description: "Wound Management of decubitus ulcers" per Dr Mathur Communicated with: Dr Mathur Recommendation: Remove dressing of Maxorb II and dry cover from sacrum every other day and PRN for saturation or dislodgement Cleanse with NS and gauze Apply Maxorb II to wound bed on sacrum and secure with dry cover Additional Information: Patient seen on for wound evaluation of patient known to investment underwriter from previous admission. Patient was positioned to his right side for assessment. Foam adhesive with moderate yellow/beige thick exudate noted dated 01/23/17 was removed from sacrum to reveal a stage IV pressure injury measuring 4cm x 3cm x 1cm that was cleansed with NS and gauze. Wound bed presents with ~50% beefy red muscle tissue, ~30% adipose tissue, and ~20% granulation tissue. Applied Maxorb II to sacral wound bed and covered with 4x4 and paper tape to secure. Dalila Rodriguez [facility] Jan 25, 2017 12:58
[2017-01-25] MEDS: CYCLOBENZAPRINE HCL 10 MG TAB PO PRN (14:04)
[2017-01-25] MEDS: traZODone HCL 50 MG TAB PO SCH (21:19)
[2017-01-25] MEDS: ALPRAZolam 1 MG TAB PO PRN (21:27)
[2017-01-26] VITALS: BP 111/68; PULSE 110; RESP 16; TEMP 98; O2SAT 100
[2017-01-26] MEDS: clonazePAM 0.5 MG TAB PO SCH (07:49)
[2017-01-26] MEDS: SERTRALINE HCL 100 MG TAB PO SCH (07:49)
[2017-01-26] MEDS: OXYBUTYNIN CHLORIDE 5 MG TAB PO SCH (07:49)
[2017-01-26] MEDS: CEFEPIME INJ 2,000 MG in SODIUM CHLORIDE 0.9% INJ 100 ML IV SCH (07:50)
[2017-01-26] MEDS: MIDODRINE 5 MG TAB PO SCH ×2 (07:50→12:32)
[2017-01-26] MEDS: HEPARIN SODIUM - SQ 10,000 UNITS/ML VIAL SQ SCH (07:50)
[2017-01-26] MEDS: DOCUSATE SODIUM 50 MG/SENNA 8.6 MG TAB PO SCH (07:50)
[2017-01-26] MEDS: CYCLOBENZAPRINE HCL 10 MG TAB PO PRN (07:51)
[2017-01-26] MEDS: LACTULOSE SYRUP 20 GM/30 ML CUP PO SCH (07:51)
[2017-01-26] MEDS: SODIUM CHLORIDE 0.9% FLUSH 10 ML FLUSH IV FLUSH SCH (07:51)
[2017-01-26 08:00] VITALS: BP 116/65; PULSE 115; RESP 17; TEMP 98; O2SAT 99
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
[2017-01-26] MEDS ORDERED: CIPR-9 PO (10:32)
[2017-01-26] MEDS ORDERED: LACTCHW3 CHEW (10:32)
--- NOTE | 2017-01-26 10:34 | HHI.FF ---
Face to Face Verification Diagnosis: (1) Sepsis (2) Decubitus ulcer (3) UTI (urinary tract infection) Home Health Nursing Order: Signs/symptoms of disease process Wound care and dressing changes Instructions: Remove dressing of Maxorb II and dry cover from sacrum every other day and PRN for saturation or dislodgement Cleanse with NS and gauze Apply Maxorb II to wound bed on sacrum and secure with dry cover I have seen patient Anthony Chowdhury on 01/26/17. My clinical findings support the need for the requested home health care services because: Limited ability to care for self I certify that my clinical findings support that this patient is homebound because: [id number] bed/chair Austin Mathur MD Jan 26, 2017 10:34
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
[2017-01-26 12:00] VITALS: BP 130/77; PULSE 87; RESP 19; TEMP 96.9; O2SAT 100
[2017-02-04] MEDS ORDERED: BACL10TA PO (17:27)
== END 2017-01-26 13:20 | disposition home health service (06) | DRG 871 ==
LOC: NEPD 20:41 → NEDA 23:36 → N07B 01-24 01:56
PROVIDERS: ADMIT Hospitalist; ATTEND Hospitalist
PROC: 0T2BX0Z Change Drainage Device in Bladder, External Approach (ICD-10-PCS; principal; 2017-01-23)
DX: A41.9 Sepsis, unspecified organism (principal); L89.154 Pressure ulcer of sacral region, stage 4; N17.9 Acute kidney failure, unspecified; G82.20 Paraplegia, unspecified; E86.0 Dehydration; N39.0 Urinary tract infection, site not specified; T83.098A Other mechanical complication of other urinary catheter, initial encounter; E83.52 Hypercalcemia; F41.9 Anxiety disorder, unspecified; F32.9 Major depressive disorder, single episode, unspecified; N31.9 Neuromuscular dysfunction of bladder, unspecified; Z86.14 Personal history of Methicillin resistant Staphylococcus aureus infection; N13.9 Obstructive and reflux uropathy, unspecified; R65.20 Severe sepsis without septic shock; R00.0 Tachycardia, unspecified; I95.1 Orthostatic hypotension
CPT/HCPCS: 51702; 71010; 80048; 80053; 81001; 83605; 84155; 85025; 87040; 87077; 87086; 87186; 96365; J0692; J1644; J2543; J3370; J7030; J7050

== ENCOUNTER 2017-02-15 19:15 | Emergency (ER) | payer OTHER ==
[~2017-02-15] VITALS: Ht 162.6 cm; Wt 53.0 kg
[~2017-02-15 19:15] MED LIST changes: -ACET325T PO; +BACL10TA PO; -BISA10R RECTAL; +CIPR-9 PO; +CLON.5 PO; -CYCL1TAB29 PO; -DIPH25CA PO; -HYDR-3535 PO; +LACTCHW3 CHEW; -roho cushion
[2017-02-15 19:39] VITALS: BP 105/59; PULSE 71; RESP 18; TEMP 97.9; O2SAT 100
[2017-02-15] MEDS ORDERED: HYDR-4107 PO (19:58)
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
[2017-02-15 21:33] LABS: AUTOMATED NEUTROPHIL # 2.3 TH/MM3 (1.8-7.7); BASOPHIL % 0.3 % (0.0-2.0); EOSINOPHIL # 0.1 TH/MM3 (0-0.4); EOSINOPHIL % 3.1 % (0.0-4.0); HEMATOCRIT 30.1 % (39.0-51.0); HEMO FLAGS DIFF FINAL; LYMPH % 37.9 % (9.0-44.0); LYMPHOCYTE # 1.8 TH/MM3 (1.0-4.8); MEAN CELL VOLUME 79.9 FL (80.0-100.0); MEAN CORPUSCULAR HEMOGLOBIN 26.4 PG (27.0-34.0); MONO % 8.3 % (0.0-8.0); NEUT % 50.4 % (16.0-70.0); PLATELET COUNT 300 TH/MM3 (150-450); RED BLOOD COUNT 3.76 MIL/MM3 (4.50-5.90); RED CELL DISTRIBUTION WIDTH 16.1 % (11.6-17.2); WHITE BLOOD COUNT 4.6 TH/MM3 (4.0-11.0)
[2017-02-15 21:38] LABS: BACTERIA, URINE OCC /hpf; BLOOD, URINE LARGE (NEG); GLUCOSE,URINE NEG (NEG); KETONE, URINE NEG (NEG); MUCUS URINE FEW /lpf (OCC); NITRITE,URINE NEG (NEG)
[2017-02-15 21:41] LABS: COMMENT (UR) CATH-CULTURE IND; CULTURE IF INDICATED CATH CULTURE IND; URINE COLOR LIGHT-BROWN (YELLW/STRAW)
[2017-02-15] MEDS ORDERED: CIPROFLOXACIN 400 MG PREMIX 200 ML IV ONE (21:45)
[2017-02-15] MEDS ORDERED: CIPR-9 PO (21:55)
[2017-02-15 21:56] LABS: BICARBONATE 24.8 MEQ/L (21.0-32.0); POTASSIUM 3.6 MEQ/L (3.5-5.1)
== END 2017-02-15 23:34 | disposition home or self-care (01) ==
LOC: NEPE 19:15
DX: N39.0 Urinary tract infection, site not specified (principal); T83.511A Infection and inflammatory reaction due to indwelling urethral catheter, initial encounter; G82.20 Paraplegia, unspecified; N31.9 Neuromuscular dysfunction of bladder, unspecified; N17.9 Acute kidney failure, unspecified; Z79.899 Other long term (current) drug therapy
CPT/HCPCS: 51702; 80048; 81001; 85025; 87086; 96374; 99284; J0744

== ENCOUNTER 2017-03-04 15:12 | Emergency (ER) | payer MEDICAID, OTHER ==
[~2017-03-04 15:12] MED LIST changes: -CIPR-9 PO; +HYDR-4107 PO
[2017-03-04 15:55] VITALS: BP 134/78; PULSE 74; RESP 16; TEMP 98.9; O2SAT 100
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
[2017-03-25] MEDS ORDERED: BACL10TA PO (13:56)
[2017-03-25] MEDS ORDERED: GABA100C4 PO (13:56)
[2017-03-29] MEDS ORDERED: OXYB5TAB10 PO (17:36)
[2017-04-16] MEDS ORDERED: AUGM875T3 PO (15:10)
[2017-04-16] MEDS ORDERED: BACT800T5 PO (15:10)
== END 2017-03-04 17:31 | disposition home or self-care (01) ==
LOC: NEPE 15:12
DX: T83.091A Other mechanical complication of indwelling urethral catheter, initial encounter (principal)
CPT/HCPCS: 51702

== ENCOUNTER 2017-03-10 16:15 | Emergency (ER) | payer MEDICAID ==
[~2017-03-10] VITALS: Ht 152.4 cm; Wt 55.0 kg
[~2017-03-10 16:15] MED LIST changes: -HOSP BED1; -[UNRECOGNIZED DRUG - OTHER]; -[UNRECOGNIZED DRUG - SUPPLY]; -[UNRECOGNIZED DRUG - SUPPLY]; -[UNRECOGNIZED DRUG - SUPPLY]
[2017-03-10 16:26] VITALS: BP 110/68; PULSE 83; RESP 18; TEMP 97.8; O2SAT 99
--- NOTE | 2017-03-10 16:43 | PD ---
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 Patient states that his Lauren catheter bag got caught in his wheelchair with the tube broke. He is uncertain of any injury because he cannot feel anything from his waist down. No penile discharge or bleeding. He has no other symptoms to report. PFSH Past Medical History Arthritis: No Asthma: No Autoimmune Disease: No Anxiety: No Depression: Yes Heart Rhythm Problems: No Cancer: No Cardiovascular Problems: No High Cholesterol: No Chemotherapy: No Chest Pain: No Congestive Heart Failure: No COPD: No Cerebrovascular Accident: No Diabetes: No Diminished Hearing: No Endocrine: No GERD: No Genitourinary: No Headaches: No Hiatal Hernia: No Immune Disorder: No Kidney Stones: No Musculoskeletal: Yes (incomplete quad) Neurologic: No Psychiatric: No Reproductive: No Respiratory: No Migraines: No Radiation Therapy: No Renal Failure: Yes (acute) Seizures: No Sickle Cell Disease: No Sleep Apnea: No Thyroid Disease: No Ulcer: No Past Surgical History Abdominal Surgery: No AICD: No Arteriovenous Shunt: No Cardiac Surgery: No Ear Surgery: No Endocrine Surgery: No Eye Surgery: No Genitourinary Surgery: No Gynecologic Surgery: No Insulin Pump: No Joint Replacement: No Neurologic Surgery: Yes Oral Surgery: No Pacemaker: No Thoracic Surgery: No Tonsillectomy: Yes Other Surgery: Yes Social History Alcohol Use: No Tobacco Use: Yes Substance Use: Yes (MJ) Allergies-Medications (Allergen,Severity, Reaction): Coded Allergies: *MDRO Multi-Drug Resistant Organism (Verified Adverse Reaction, Unknown, ) MRSA finger wound 08/2015 Reported Meds & Prescriptions Reported Meds & Active Scripts Active Baclofen 10 Mg Tab 10 Mg PO TID Lactinex (Lactobacillus Acidophilus) 1 Chew 1 Tab CHEW BID Xanax (Alprazolam) 1 Mg Tab 1 Mg PO Q8H PRN Zoloft (Sertraline HCl) 100 Mg Tab 100 Mg PO DAILY Fentanyl Patch 72 HR (Fentanyl) 75 Mcg/Hr Patch 75 Mcg T-DERMAL Q72H Remove old patch when new one placed. Trazodone (Trazodone HCl) 50 Mg Tab 100 Mg PO HS Lactulose Liq (Lactulose) 10 Gm/15 Ml Soln 30 Ml PO DAILY Commode With Arms (Device) 1 Mis Mis 1 Ea .ROUTE DIRECTED Reported Hydrocodone-Acetaminophen 5-300 Mg Tab 1 Tab PO Q4H PRN Klonopin (Clonazepam) 0.5 Mg Tab 0.5 Mg PO BID Ditropan (Oxybutynin Chloride) 5 Mg Tab 5 Mg PO Q12HR Midodrine 5 Mg Tab 5 Mg PO TID Review of Systems Except as stated in HPI: all other systems reviewed are Neg Physical Exam Narrative GENERAL: Well-nourished, well-developed male patient lying in the stretcher in no acute distress. SKIN: Focused skin assessment warm/dry. HEAD: Normocephalic. EYES: No scleral icterus. No injection or drainage. NECK: Supple, trachea midline. No JVD or lymphadenopathy. CARDIOVASCULAR: Regular rate and rhythm without murmurs, gallops, or rubs. RESPIRATORY: Breath sounds equal bilaterally. No accessory muscle use. GASTROINTESTINAL: Abdomen soft, non-tender, nondistended. GENITOURINARY: Circumcised. Testes descended bilaterally without evidence of rotation. No urethral discharge. Reddened and dilated meatus likely from assisted lauren catheter use. MUSCULOSKELETAL: No cyanosis, or edema. Gross motor movement BUE; flaccid BLE. BACK: Nontender without obvious deformity. No CVA tenderness. Data Data Last Documented VS Vital Signs Date Time Temp Pulse Resp B/P Pulse Ox O2 Delivery O2 Flow Rate FiO2 03/10/17 16:26 97.8 83 18 110/68 99 Orders Urinary Catheter Insert/Apply (03/10/17 16:41) [facility] Medical Decision Making Medical Screen Exam Complete: Yes Emergency Medical Condition: Yes Medical Record Reviewed: Yes Differential Diagnosis urethral trauma versus lauren catheter malfunction versus uti versus obstruction Narrative Course 31 year old male presents to the ED for evaluation after his lauren catheter tubing has broken. Lauren balloon is deflated; no obvious trauma; no bleeding. I have discussed the patient with my attending. New 16 fr lauren catheter is placed. Pt is discharged at this time. Diagnosis Primary Impression: Lauren catheter problem Qualified Code: T83.9XXA - Problem with Lauren catheter, initial encounter Additional Impression: Spinal cord injury, cervical region Qualified Code: S14.109S - Injury of cervical spinal cord, sequela Referrals: Primary Care Physician Urologist Patient Instructions: Lauren Catheter Placement and Care (ED), General Instructions Additional Instructions: Follow up with your primary care provider Return to ED with any acute worsening of symptoms Med/Other Pt SpecificInfo: No Change to Meds Disposition: 01 DISCHARGE HOME Condition: Stable Danielle Spear Mar 10, 2017 16:42
[2017-03-25] MEDS ORDERED: GABA100C4 PO (13:56)
[2017-03-25] MEDS ORDERED: BACL10TA PO (13:56)
[2017-03-29] MEDS ORDERED: OXYB5TAB10 PO (17:36)
[2017-04-16] MEDS ORDERED: AUGM875T3 PO (15:10)
[2017-04-16] MEDS ORDERED: BACT800T5 PO (15:10)
== END 2017-03-10 17:45 | disposition home or self-care (01) ==
LOC: NEPD 16:15
DX: T83.9XXA Unspecified complication of genitourinary prosthetic device, implant and graft, initial encounter (principal); G82.20 Paraplegia, unspecified
CPT/HCPCS: 51702

== ENCOUNTER 2017-03-16 20:25 | Emergency (ER) | payer MEDICAID ==
[~2017-03-16] VITALS: Ht 162.6 cm; Wt 55.0 kg
[2017-03-16 20:41] VITALS: BP 100/57; PULSE 110; RESP 17; TEMP 98.2; O2SAT 100
--- NOTE | 2017-03-16 20:52 | PD ---
HPI Chief Complaint: Headache Time Seen by Provider: 20:44 Travel History International Travel<30 days: No Contact w/Intl Traveler<30days: No Traveled to known affect area: No History of Present Illness HPI 31-year-old male with history of C5 spinal cord injury presents to emergency department for evaluation of headache and what he believes her bladder spasms. Patient states that his Freeman catheter is not draining. Patient states he first had a headache last evening. He took some pain medication and this resolved. He states he began having a headache this evening and remembers that he was told if he has a headache to listen to it because it is time and something about his body. He states he's been feeling lately he's been having vasospasm since his urinary output has been decreased. No fever or chills. No chest or tightness. No difficulty breathing. Patient has no other symptoms to report this time. PFSH Past Medical History Arthritis: No Asthma: No Autoimmune Disease: No Anxiety: No Depression: Yes Heart Rhythm Problems: No Cancer: No Cardiovascular Problems: Yes (Low BP) High Cholesterol: No Chemotherapy: No Chest Pain: No Congestive Heart Failure: No COPD: No Cerebrovascular Accident: No Diabetes: No Diminished Hearing: No Endocrine: No GERD: No Genitourinary: No Headaches: No Hiatal Hernia: No Immune Disorder: No Kidney Stones: No Musculoskeletal: Yes (incomplete quad) Neurologic: No Psychiatric: No Reproductive: No Respiratory: No Migraines: No Radiation Therapy: No Renal Failure: Yes (acute) Seizures: No Sickle Cell Disease: No Sleep Apnea: No Thyroid Disease: No Ulcer: No Tetanus Vaccination: < 5 Years Influenza Vaccination: Yes Past Surgical History Abdominal Surgery: No AICD: No Arteriovenous Shunt: No Cardiac Surgery: No Ear Surgery: No Endocrine Surgery: No Eye Surgery: No Genitourinary Surgery: No Gynecologic Surgery: No Insulin Pump: No Joint Replacement: No Neurologic Surgery: Yes Oral Surgery: No Pacemaker: No Thoracic Surgery: No Tonsillectomy: Yes Other Surgery: Yes Social History Alcohol Use: No Tobacco Use: Yes Substance Use: Yes (MJ) Allergies-Medications (Allergen,Severity, Reaction): Coded Allergies: *MDRO Multi-Drug Resistant Organism (Verified Adverse Reaction, Unknown, ) MRSA finger wound 08/2015 Reported Meds & Prescriptions Reported Meds & Active Scripts Active Cipro (Ciprofloxacin HCl) 500 Mg Tab 500 Mg PO BID 10 Days Baclofen 10 Mg Tab 10 Mg PO TID Zoloft (Sertraline HCl) 100 Mg Tab 100 Mg PO DAILY Fentanyl Patch 72 HR (Fentanyl) 75 Mcg/Hr Patch 75 Mcg T-DERMAL Q72H Remove old patch when new one placed. Trazodone (Trazodone HCl) 50 Mg Tab 100 Mg PO HS Lactulose Liq (Lactulose) 10 Gm/15 Ml Soln 30 Ml PO DAILY Commode With Arms (Device) 1 Mis Mis 1 Ea .ROUTE DIRECTED Reported Hydrocodone-Acetaminophen 5-300 Mg Tab 1 Tab PO Q4H PRN Klonopin (Clonazepam) 0.5 Mg Tab 0.5 Mg PO BID Ditropan (Oxybutynin Chloride) 5 Mg Tab 5 Mg PO Q12HR Midodrine 5 Mg Tab 5 Mg PO TID Review of Systems Except as stated in HPI: all other systems reviewed are Neg Physical Exam Narrative GENERAL: Thin male patient, in no acute distress SKIN: Focused skin assessment warm/dry. Sacral wound currently being followed by wound management. HEAD: Atraumatic. Normocephalic. EYES: Pupils equal and round. No scleral icterus. No injection or drainage. ENT: No nasal bleeding or discharge. Mucous membranes pink and moist. NECK: Trachea midline. No JVD. CARDIOVASCULAR: Regular rate and rhythm. No murmur appreciated. RESPIRATORY: No accessory muscle use. Clear to auscultation. Breath sounds equal bilaterally. GASTROINTESTINAL: Abdomen soft, non-tender, nondistended. Hepatic and splenic margins not palpable. Freeman catheter in place, extremely cloudy, evident pyuria. MUSCULOSKELETAL: No obvious deformities. No clubbing. No cyanosis. No edema. NEUROLOGICAL: Awake and alert. No obvious cranial nerve deficits. Gross motor movement bilateral upper extremities. Bilateral lower extremity paralysis Data Data Last Documented VS Vital Signs Date Time Temp Pulse Resp B/P (MAP) Pulse Ox O2 Delivery O2 Flow Rate FiO2 03/16/17 20:41 98.2 110 17 100/57 (71) 100 Orders Orders Iv Access Insert/Monitor (03/16/17 20:45) Complete Blood Count With Diff (03/16/17 20:45) Basic Metabolic Panel (Bmp) (03/16/17 20:45) Urinalysis - C+S If Indicated (03/16/17 20:45) Sodium Chlor 0.9% 1000 Ml Inj (Ns 1000 M (03/16/17 21:15) Urine Culture (03/16/17 19:05) Replace Freeman (03/16/17 22:09) Ceftriaxone Inj (Rocephin Inj) (03/16/17 22:15) Ketorolac Inj (Toradol Inj) (03/16/17 22:15) Labs Laboratory Tests Test 03/16/17 19:05 White Blood Count 5.9 TH/MM3 Red Blood Count 4.94 MIL/MM3 Hemoglobin 13.3 GM/DL Hematocrit 41.6 % Mean Corpuscular Volume 84.1 FL Mean Corpuscular Hemoglobin 27.0 PG Mean Corpuscular Hemoglobin Concent 32.0 % Red Cell Distribution Width 16.8 % Platelet Count 304 TH/MM3 Mean Platelet Volume 7.1 FL Neutrophils (%) (Auto) 48.6 % Lymphocytes (%) (Auto) 39.2 % Monocytes (%) (Auto) 10.5 % Eosinophils (%) (Auto) 1.3 % Basophils (%) (Auto) 0.4 % Neutrophils # (Auto) 2.8 TH/MM3 Lymphocytes # (Auto) 2.3 TH/MM3 Monocytes # (Auto) 0.6 TH/MM3 Eosinophils # (Auto) 0.1 TH/MM3 Basophils # (Auto) 0.0 TH/MM3 CBC Comment DIFF FINAL Differential Comment Urine Color YELLOW Urine Turbidity HAZY Urine pH 7.0 Urine Specific [place] 1.014 Urine Protein 30 mg/dL Urine Glucose (UA) NEG mg/dL Urine Ketones NEG mg/dL Urine Occult Blood MOD Urine Nitrite POS Urine Bilirubin NEG Urine Urobilinogen LESS THAN 2.0 MG/DL Urine Leukocyte Esterase LARGE Urine RBC 25 /hpf Urine WBC /hpf Urine WBC Clumps RARE Urine Calcium Oxalate Crystals RARE /hpf Urine Amorphous Sediment RARE Urine Bacteria OCC /hpf Urine Mucus FEW /lpf Microscopic Urinalysis Comment CATH-CULTURE IND Blood Urea Nitrogen 16 MG/DL Creatinine 1.04 MG/DL Random Glucose 102 MG/DL Calcium Level 9.3 MG/DL Sodium Level 139 MEQ/L Potassium Level 3.5 MEQ/L Chloride Level 104 MEQ/L Carbon Dioxide Level 26.1 MEQ/L Anion Gap 9 MEQ/L Estimat Glomerular Filtration Rate 102 ML/MIN [facility] Medical Decision Making Medical Screen Exam Complete: Yes Emergency Medical Condition: Yes Medical Record Reviewed: Yes Differential Diagnosis UTI versus urinary obstruction versus retention versus electrode abnormality versus DEBRA Narrative Course 31-year-old male presents to the emergency department for evaluation of headache and bladder spasms. Patient appears without distress. His vital signs are stable. At first patient urinary output appears minimal, after manipulation of the tubing, patient has a large amount of urinary output, greater than 1500 now. Urine is very cloudy. UA is sent. Freeman catheter is changed. Laboratory Tests Test 03/16/17 19:05 White Blood Count 5.9 TH/MM3 Red Blood Count 4.94 MIL/MM3 Hemoglobin 13.3 GM/DL Hematocrit 41.6 % Mean Corpuscular Volume 84.1 FL Mean Corpuscular Hemoglobin 27.0 PG Mean Corpuscular Hemoglobin Concent 32.0 % Red Cell Distribution Width 16.8 % Platelet Count 304 TH/MM3 Mean Platelet Volume 7.1 FL Neutrophils (%) (Auto) 48.6 % Lymphocytes (%) (Auto) 39.2 % Monocytes (%) (Auto) 10.5 % Eosinophils (%) (Auto) 1.3 % Basophils (%) (Auto) 0.4 % Neutrophils # (Auto) 2.8 TH/MM3 Lymphocytes # (Auto) 2.3 TH/MM3 Monocytes # (Auto) 0.6 TH/MM3 Eosinophils # (Auto) 0.1 TH/MM3 Basophils # (Auto) 0.0 TH/MM3 CBC Comment DIFF FINAL Differential Comment Urine Color YELLOW Urine Turbidity HAZY Urine pH 7.0 Urine Specific [place] 1.014 Urine Protein 30 mg/dL Urine Glucose (UA) NEG mg/dL Urine Ketones NEG mg/dL Urine Occult Blood MOD Urine Nitrite POS Urine Bilirubin NEG Urine Urobilinogen LESS THAN 2.0 MG/DL Urine Leukocyte Esterase LARGE Urine RBC 25 /hpf Urine WBC /hpf Urine WBC Clumps RARE Urine Calcium Oxalate Crystals RARE /hpf Urine Amorphous Sediment RARE Urine Bacteria OCC /hpf Urine Mucus FEW /lpf Microscopic Urinalysis Comment CATH-CULTURE IND Blood Urea Nitrogen 16 MG/DL Creatinine 1.04 MG/DL Random Glucose 102 MG/DL Calcium Level 9.3 MG/DL Sodium Level 139 MEQ/L Potassium Level 3.5 MEQ/L Chloride Level 104 MEQ/L Carbon Dioxide Level 26.1 MEQ/L Anion Gap 9 MEQ/L Estimat Glomerular Filtration Rate 102 ML/MIN Patient verbalizes marked improvement in his headache after urinary retention is resolved.. He states he still has mild headache. He is treated for this. I discussed the patient with my attending physician. He will be started on oral antibiotics. He is encouraged to follow-up with the urologist and his primary care provider. He agrees with this plan of care. He will return immediately with any acute worsening of symptoms. Diagnosis Primary Impression: Head ache Qualified Codes: R51 - Headache Additional Impressions: Urinary retention UTI (urinary tract infection) Qualified Codes: T83.511A - Infection and inflammatory reaction due to indwelling urethral catheter, initial encounter; N39.0 - Urinary tract infection , site not specified Referrals: Primary Care Physician Urologist Patient Instructions: Acute Headache (ED), Catheter-associated Urinary Tract Infection (ED), General Instructions Additional Instructions: Maintain adequate oral hydration Start antibiotic in the morning and take them until they are all gone Seek urology evaluation Follow-up with her primary care provider Return immediately with any acute worsening symptoms Med/Other Pt SpecificInfo: Prescription(s) given Scripts Ciprofloxacin (Cipro) 500 Mg Tab 500 MG PO BID for Infection for 10 Days, TAB 0 Refills Prov: Danielle Spear 03/16/17 Disposition: 01 DISCHARGE HOME Condition: Stable Danielle Spear Mar 16, 2017 20:52
[2017-03-16] MEDS ORDERED: SODIUM CHLOR 0.9% 1000 ML INJ 1,000 ML IV ONE (21:15)
[2017-03-16 21:39] LABS: AUTOMATED NEUTROPHIL # 2.8 TH/MM3 (1.8-7.7); BASOPHIL % 0.4 % (0.0-2.0); EOSINOPHIL # 0.1 TH/MM3 (0-0.4); EOSINOPHIL % 1.3 % (0.0-4.0); HEMATOCRIT 41.6 % (39.0-51.0); HEMO FLAGS DIFF FINAL; LYMPH % 39.2 % (9.0-44.0); LYMPHOCYTE # 2.3 TH/MM3 (1.0-4.8); MEAN CELL VOLUME 84.1 FL (80.0-100.0); MONO % 10.5 % (0.0-8.0); NEUT % 48.6 % (16.0-70.0); PLATELET COUNT 304 TH/MM3 (150-450); RED BLOOD COUNT 4.94 MIL/MM3 (4.50-5.90); RED CELL DISTRIBUTION WIDTH 16.8 % (11.6-17.2); WHITE BLOOD COUNT 5.9 TH/MM3 (4.0-11.0)
[2017-03-16 21:42] LABS: BACTERIA, URINE OCC /hpf; BLOOD, URINE MOD (NEG); CALCIUM OXALATE CRYSTALS,URINE RARE /hpf; GLUCOSE,URINE NEG (NEG); KETONE, URINE NEG (NEG); MUCUS URINE FEW /lpf (OCC); NITRITE,URINE POS (NEG); URINE COLOR YELLOW (YELLW/STRAW)
[2017-03-16 21:48] LABS: COMMENT (UR) CATH-CULTURE IND; CULTURE IF INDICATED CATH CULTURE IND
[2017-03-16 21:56] LABS: BICARBONATE 26.1 MEQ/L (21.0-32.0); POTASSIUM 3.5 MEQ/L (3.5-5.1)
[2017-03-16] MEDS ORDERED: cefTRIAXone INJ 1,000 MG in SODIUM CHLORIDE 0.9% INJ 100 ML IV ONE (22:15)
[2017-03-16] MEDS ORDERED: KETOROLAC TROMETHAMINE 30 MG/ML (IVP) VIAL IV PUSH ONE (22:15)
[2017-03-16] MEDS ORDERED: CIPR-9 PO (22:35)
[2017-03-18] MEDS ORDERED: CIPR-9 PO (12:43)
[2017-03-25] MEDS ORDERED: BACL10TA PO (13:56)
[2017-03-25] MEDS ORDERED: GABA100C4 PO (13:56)
[2017-03-29] MEDS ORDERED: OXYB5TAB10 PO (17:36)
[2017-04-16] MEDS ORDERED: BACT800T5 PO (15:10)
[2017-04-16] MEDS ORDERED: AUGM875T3 PO (15:10)
== END 2017-03-17 00:18 | disposition home or self-care (01) ==
LOC: NEPE 20:25
DX: R51 Headache (principal); T83.511A Infection and inflammatory reaction due to indwelling urethral catheter, initial encounter; N39.0 Urinary tract infection, site not specified; B96.5 Pseudomonas (aeruginosa) (mallei) (pseudomallei) as the cause of diseases classified elsewhere
CPT/HCPCS: 80048; 81001; 85025; 87077; 87086; 87186; 96374; 96375; 99284; J0696; J1885; J7030

== ENCOUNTER 2017-03-18 10:10 | Emergency (ER) | payer MEDICAID ==
[~2017-03-18] VITALS: Ht 162.6 cm; Wt 59.0 kg
[~2017-03-18 10:10] MED LIST changes: +CIPR-9 PO; -LACTCHW3 CHEW; -XANA1TAB2 PO
[2017-03-18 10:23] VITALS: BP 124/77; PULSE 88; RESP 14; TEMP 97.7; O2SAT 95
[2017-03-18 10:44] VITALS: BP 115/75; PULSE 73; RESP 18; TEMP 97.9; O2SAT 97
[2017-03-18 11:48] LABS: BACTERIA, URINE FEW /hpf; BLOOD, URINE TRACE (NEG); COMMENT (UR) CULTURE INDICATED; CULTURE IF INDICATED CULTURE INDICATED; GLUCOSE,URINE NEG (NEG); KETONE, URINE NEG (NEG); MUCUS URINE FEW /lpf (OCC); NITRITE,URINE POS (NEG); URINE COLOR LIGHT-YELLOW (YELLW/STRAW)
[2017-03-18] MEDS ORDERED: CIPR-9 PO (12:43)
--- NOTE | 2017-03-18 12:44 | PD ---
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 He complains of urinary discharge at the urethral meatus around the site of of a Freeman catheter. Leakage from the back of the Freeman catheter was also observed leading to the ER visit. The patient suffers from quadriplegia. He's had no fever. No nausea vomiting or abdominal pain. PFSH Past Medical History Arthritis: No Asthma: No Autoimmune Disease: No Anxiety: No Depression: Yes Heart Rhythm Problems: No Cancer: No Cardiovascular Problems: Yes (Low BP) High Cholesterol: No Chemotherapy: No Chest Pain: No Congestive Heart Failure: No COPD: No Cerebrovascular Accident: No Diabetes: No Diminished Hearing: No Endocrine: No Gastrointestinal Disorders: No GERD: No Genitourinary: No Headaches: No Hiatal Hernia: No Heparin Induced Thrombocytopen: No Hypertension: No Immune Disorder: No Implanted Vascular Access Dvce: No Kidney Stones: No Musculoskeletal: Yes (incomplete quad) Neurologic: No Psychiatric: No Reproductive: No Respiratory: No Migraines: No Radiation Therapy: No Renal Failure: Yes (acute) Seizures: No Sickle Cell Disease: No Sleep Apnea: No Thyroid Disease: No Ulcer: No ?: Not Past Surgical History Abdominal Surgery: No AICD: No Arteriovenous Shunt: No Cardiac Surgery: No Ear Surgery: No Endocrine Surgery: No Eye Surgery: No Genitourinary Surgery: No Gynecologic Surgery: No Insulin Pump: No Joint Replacement: No Neurologic Surgery: Yes Oral Surgery: No Pacemaker: No Thoracic Surgery: No Tonsillectomy: Yes Other Surgery: Yes Social History Alcohol Use: No Tobacco Use: Yes Substance Use: Yes (MJ weekly) Allergies-Medications (Allergen,Severity, Reaction): Coded Allergies: *MDRO Multi-Drug Resistant Organism (Verified Adverse Reaction, Unknown, ) MRSA finger wound 08/2015 Reported Meds & Prescriptions Reported Meds & Active Scripts Active Cipro (Ciprofloxacin HCl) 500 Mg Tab 500 Mg PO BID 10 Days Baclofen 10 Mg Tab 10 Mg PO TID Zoloft (Sertraline HCl) 100 Mg Tab 100 Mg PO DAILY Trazodone (Trazodone HCl) 50 Mg Tab 100 Mg PO HS Lactulose Liq (Lactulose) 10 Gm/15 Ml Soln 30 Ml PO DAILY Commode With Arms (Device) 1 Mis Mis 1 Ea .ROUTE DIRECTED Reported Hydrocodone-Acetaminophen 5-300 Mg Tab 1 Tab PO Q4H PRN Klonopin (Clonazepam) 0.5 Mg Tab 0.5 Mg PO BID Ditropan (Oxybutynin Chloride) 5 Mg Tab 5 Mg PO Q12HR Midodrine 5 Mg Tab 5 Mg PO TID Review of Systems General / Constitutional: No: Fever Physical Exam Narrative GENERAL: 31-year-old male well-nourished well-developed pleasant SKIN: Focused skin assessment warm/dry. HEAD: Atraumatic. Normocephalic. EYES: Pupils equal and round. No scleral icterus. No injection or drainage. ENT: No nasal bleeding or discharge. Mucous membranes pink and moist. NECK: Trachea midline. No JVD. CARDIOVASCULAR: Regular rate and rhythm. No murmur appreciated. RESPIRATORY: No accessory muscle use. Clear to auscultation. Breath sounds equal bilaterally. GASTROINTESTINAL: Abdomen soft, non-tender, nondistended. Hepatic and splenic margins not palpable. GENITOURINARY: There is fully catheter in place. There is a Freeman catheter bag with somewhat cloudy urine. MUSCULOSKELETAL: No obvious deformities. No clubbing. No cyanosis. No edema. NEUROLOGICAL: Awake and alert. No obvious cranial nerve deficits. Motor grossly within normal limits. Normal speech. PSYCHIATRIC: Appropriate mood and affect; insight and judgment normal. Data Data Last Documented VS Vital Signs Date Time Temp Pulse Resp B/P (MAP) Pulse Ox O2 Delivery O2 Flow Rate FiO2 03/18/17 10:49 72 18 95 Room Air 03/18/17 10:44 97.9 115/75 (88) Vital signs reviewed Orders Orders Replace Freeman (03/18/17 10:47) Urinalysis - C+S If Indicated (03/18/17 10:47) Urine Culture (03/18/17 10:58) Labs Laboratory Tests Test 03/18/17 10:58 Urine Color LIGHT-YELLOW Urine Turbidity HAZY Urine pH 7.0 Urine Specific [place] 1.011 Urine Protein NEG mg/dL Urine Glucose (UA) NEG mg/dL Urine Ketones NEG mg/dL Urine Occult Blood TRACE Urine Nitrite POS Urine Bilirubin NEG Urine Urobilinogen LESS THAN 2.0 MG/DL Urine Leukocyte Esterase LARGE Urine RBC 9 /hpf Urine WBC 32 /hpf Urine WBC Clumps RARE Urine Bacteria FEW /hpf Urine Mucus FEW /lpf Microscopic Urinalysis Comment CULTURE INDICATED MDM Medical Decision Making Medical Screen Exam Complete: Yes Emergency Medical Condition: Yes Medical Record Reviewed: Yes Differential Diagnosis UTI, Freeman obstruction, Freeman failure, complicated cystitis Narrative Course Patient has a urinary tract infection The Freemna catheter was replaced Cipro prescription. Return precautions discussed. Patient verbalized understanding. Diagnosis Primary Impression: Complicated UTI (urinary tract infection) Additional Impression: Encounter for Freeman catheter replacement Referrals: Primary Care Physician 2 days Additional Instructions: You have a choice when it comes to health care, and we are glad that you chose [facility]. Hopefully, we have met your expectations on today's visit. You are welcome to return to [facility] at any time, as we are committed to meeting the health care needs of our community. Med/Other Pt SpecificInfo: Prescription(s) given Scripts Ciprofloxacin (Cipro) 500 Mg Tab 500 MG PO BID for Infection for 10 Days, TAB 0 Refills Prov: Shaan Yeboah MD 03/18/17 Disposition: DISCHARGE HOME Condition: Stable Shaan Yeboah MD Mar 18, 2017 12:44
[2017-03-25] MEDS ORDERED: BACL10TA PO (13:56)
[2017-03-25] MEDS ORDERED: GABA100C4 PO (13:56)
[2017-03-29] MEDS ORDERED: OXYB5TAB10 PO (17:36)
[2017-04-16] MEDS ORDERED: BACT800T5 PO (15:10)
[2017-04-16] MEDS ORDERED: AUGM875T3 PO (15:10)
== END 2017-03-18 11:15 | disposition home or self-care (01) ==
LOC: NEPD 10:10
DX: N39.0 Urinary tract infection, site not specified (principal); T83.098A Other mechanical complication of other urinary catheter, initial encounter; A49.8 Other bacterial infections of unspecified site; N17.9 Acute kidney failure, unspecified; F32.9 Major depressive disorder, single episode, unspecified; G82.50 Quadriplegia, unspecified; Z79.899 Other long term (current) drug therapy; Z72.0 Tobacco use
CPT/HCPCS: 81001; 87077; 87086; 87186; 99283

== ENCOUNTER 2017-04-03 11:57 | Emergency (ER) | payer MEDICAID ==
[~2017-04-03] VITALS: Ht 162.6 cm; Wt 56.0 kg
[~2017-04-03 11:57] MED LIST changes: -COMMODE PAIL WI1 MIS; -FENT75DI T-DERMAL; +GABA100C4 PO; -TRAZ50TA12 PO
[2017-04-03 12:19] VITALS: BP 127/97; PULSE 56; RESP 12; TEMP 97.7; O2SAT 100
[2017-04-03] MEDS ORDERED: SODIUM CHLORID 0.9% 500 ML INJ 500 ML IV ONE (12:30)
[2017-04-03] MEDS ORDERED: TOPI1TAB36 PO (12:39)
[2017-04-03 13:00] LABS: AUTOMATED NEUTROPHIL # 4.1 TH/MM3 (1.8-7.7); BASOPHIL % 0.3 % (0.0-2.0); EOSINOPHIL # 0.1 TH/MM3 (0-0.4); EOSINOPHIL % 1.6 % (0.0-4.0); HEMATOCRIT 41.9 % (39.0-51.0); HEMO FLAGS DIFF FINAL; LYMPHOCYTE # 1.6 TH/MM3 (1.0-4.8); MEAN CELL VOLUME 83.9 FL (80.0-100.0); MEAN CORPUSCULAR HEMOGLOBIN 27.6 PG (27.0-34.0); MEAN CORPUSCULAR HGB CONC 32.9 % (32.0-36.0); MONO % 6.1 % (0.0-8.0); PLATELET COUNT 328 TH/MM3 (150-450); RED CELL DISTRIBUTION WIDTH 15.1 % (11.6-17.2); WHITE BLOOD COUNT 6.3 TH/MM3 (4.0-11.0)
[2017-04-03 13:17] LABS: ALT (GPT) 18 U/L (12-78)
[2017-04-03 13:20] LABS: ALKALINE PHOSPHATASE 108 U/L (45-117); TOTAL BILIRUBIN ADULT 0.3 MG/DL (0.2-1.0)
[2017-04-03 13:26] LABS: ANION GAP 8 MEQ/L (5-15); AST (GOT) 28 U/L (15-37); BICARBONATE 22.2 MEQ/L (21.0-32.0); BLOOD UREA NITROGEN 13 MG/DL (7-18); CHLORIDE 108 MEQ/L (98-107); GLOMERULAR FILTRATION RATE 175 ML/MIN (>89); POTASSIUM 4.2 MEQ/L (3.5-5.1); SODIUM (NA) 138 MEQ/L (136-145)
[2017-04-03 13:41] LABS: BACTERIA, URINE MOD /hpf; BLOOD, URINE MOD (NEG); GLUCOSE,URINE NEG (NEG); HYALINE CAST, URINE 9 /lpf (RARE); KETONE, URINE NEG (NEG); MUCUS URINE MANY /lpf (OCC); NITRITE,URINE NEG (NEG); PH, URINE 6.5 (5.0-8.5); URINE COLOR YELLOW (YELLW/STRAW)
[2017-04-03 13:42] LABS: COMMENT (UR) CATH-CULTURE IND; CULTURE IF INDICATED CATH CULTURE IND
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
[2017-04-03] MEDS ORDERED: LEVA750T9 PO (14:58)
[2017-04-16] MEDS ORDERED: AUGM875T3 PO (15:10)
[2017-04-16] MEDS ORDERED: BACT800T5 PO (15:10)
== END 2017-04-03 16:25 | disposition home or self-care (01) ==
LOC: NEPC 11:57
DX: N39.0 Urinary tract infection, site not specified (principal); R42 Dizziness and giddiness; G82.50 Quadriplegia, unspecified; F32.9 Major depressive disorder, single episode, unspecified; N17.9 Acute kidney failure, unspecified; R56.9 Unspecified convulsions; Z72.0 Tobacco use; Z79.899 Other long term (current) drug therapy
CPT/HCPCS: 51702; 80053; 81001; 85025; 87086; 96360; 99284; J7040

== ENCOUNTER → 2017-04-22 | Outpatient (CLI) | payer MEDICAID ==
[~2017-04-22] MED LIST changes: +AUGM875T3 PO; +BACT800T5 PO; -CIPR-9 PO; -CLON.5 PO; +TOPI1TAB36 PO; -ZOLO100T PO
--- NOTE | 2017-04-22 21:39 | MG ---
cc: PRASHANT ESTRADA Lab No: [id number] Date: 04/22/17 Age: 31 Sex: M Race: Hyperventilation not performed. Dizziness, white spots, history of seizures, incomplete quad. MEDICATIONS 1. Baclofen. 2. Gabapentin. 3. Hydrocodone. 4. Topamax. 5. Bactrim. DESCRIPTION The recording shows diffuse symmetric 9-10 Hz rhythm. No hemisphere asymmetries are noted. No epileptiform or seizure activity is seen. Photic stimulation was performed without any posterior driving. Hyperventilation not performed. The patient fell asleep but did not reach stage II sleep. There was one episode with jerking with his arms up ___ showed muscle artifact. There was no seizure activity associated with that. IMPRESSION Normal awake EEG. No evidence for a focal or diffuse abnormality. One arm jerking episode was seen but that did not correlate with any electroencephalographic seizure abnormality. MD ALEXANDRU Mejia/SAMMY /9:13 PM /9:32 PM
== END ==
LOC: HEEG 09:32
PROVIDERS: ATTEND Physical Medicine & Rehabilitation
DX: R56.9 Unspecified convulsions (principal)
CPT/HCPCS: 95819

== ENCOUNTER 2017-09-06 18:16 | Inpatient (IN) | payer MEDICAID ==
[~2017-09-06] VITALS: Ht 123.2 cm; Wt 54.5 kg
[~2017-09-06 18:16] MED LIST changes: -AUGM875T3 PO; -BACT800T5 PO; +CHOL1CAP34 PO; +DULC10SU3 RECTAL; -GABA100C4 PO; +HYDR-3366 PO; -HYDR-4107 PO; -MIDO5TAB PO; +NUTR1LIQ PO; -OXYB5TAB10 PO; +OXYB5TAB8 PO; +OXYBXL5 PO; -TOPI1TAB36 PO; +TOPI50TA7 PO; +XANA1TAB2 PO; +ZOLO100T PO; +[UNRECOGNIZED DRUG - SUPPLY]
[2017-09-06 18:35] VITALS: BP 188/69; PULSE 138; RESP 32; TEMP 98.6; O2SAT 92
[2017-09-06 20:16] VITALS: BP 115/70; PULSE 137; RESP 28; O2SAT 91
[2017-09-06] MEDS ORDERED: SODIUM CHLOR 0.9% 1000 ML INJ 1,000 ML IV ONE (20:20)
[2017-09-06] MEDS ORDERED: SODIUM CHLOR 0.9% 1000 ML INJ 800 ML IV ONE (20:20)
[2017-09-06 20:43] VITALS: O2SAT 96
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
[2017-09-06 21:56] LABS: AUTOMATED NEUTROPHIL # 10.2 TH/MM3 (1.8-7.7); BASOPHIL % 0.4 % (0.0-2.0); EOSINOPHIL # 0.1 TH/MM3 (0-0.4); EOSINOPHIL % 1.1 % (0.0-4.0); HEMATOCRIT 39.7 % (39.0-51.0); LYMPH % 15.9 % (9.0-44.0); LYMPHOCYTE # 2.1 TH/MM3 (1.0-4.8); MEAN CELL VOLUME 78.2 FL (80.0-100.0); MEAN CORPUSCULAR HEMOGLOBIN 25.6 PG (27.0-34.0); MEAN CORPUSCULAR HGB CONC 32.8 % (32.0-36.0); MEAN PLATELET VOLUME 7.1 FL (7.0-11.0); MONO % 5.8 % (0.0-8.0); MONOCYTE # 0.8 TH/MM3 (0-0.9); NEUT % 76.8 % (16.0-70.0); PLATELET COUNT 534 TH/MM3 (150-450); RED BLOOD COUNT 5.08 MIL/MM3 (4.50-5.90); RED CELL DISTRIBUTION WIDTH 15.7 % (11.6-17.2); WHITE BLOOD COUNT 13.3 TH/MM3 (4.0-11.0)
[2017-09-06 21:57] LABS: AMORPHOUS SEDIMENT, URINE RARE; BACTERIA, URINE FEW /hpf; BILIRUBIN, URINE NEG (NEG); BLOOD, URINE SMALL (NEG); GLUCOSE,URINE NEG (NEG); KETONE, URINE NEG (NEG); MUCUS URINE FEW /lpf (OCC); NITRITE,URINE NEG (NEG); PH, URINE 6.5 (5.0-8.5); SQUAMOUS EPITHELIAL CELL URINE <1 /hpf (0-5); URINE COLOR YELLOW (YELLW/STRAW); URINE LEUKOCYTE ESTERASE LARGE (NEG)
[2017-09-06 22:09] LABS: INTERNATIONAL NORMALIZED RATIO 1.2 RATIO; PROTHROMBIN TIME - PATIENT 11.7 SEC (9.8-11.6)
[2017-09-06 22:10] LABS: ALBUMIN 2.9 GM/DL (3.4-5.0); ALT (GPT) 57 U/L (12-78); AST (GOT) 39 U/L (15-37); BICARBONATE 24.8 MEQ/L (21.0-32.0); BLOOD UREA NITROGEN 11 MG/DL (7-18); CALCIUM 9.9 MG/DL (8.5-10.1); CHLORIDE 98 MEQ/L (98-107); CREATININE 0.54 MG/DL (0.60-1.30); GLOMERULAR FILTRATION RATE 215 ML/MIN (>89); GLUCOSE,RANDOM 74 MG/DL (74-106); SODIUM (NA) 133 MEQ/L (136-145)
[2017-09-06 22:12] LABS: ALKALINE PHOSPHATASE 124 U/L (45-117); TOTAL BILIRUBIN ADULT 0.6 MG/DL (0.2-1.0); TOTAL PROTEIN 9.2 GM/DL (6.4-8.2)
[2017-09-06] MEDS ORDERED: PIPERACIL-TAZO 3.375 GM PREMIX 50 ML IV ONE (22:45)
[2017-09-06] MEDS ORDERED: VANCOMYCIN INJ 1,750 MG in SODIUM CHLORID 0.9% 500 ML INJ 500 ML IV ONE (22:45)
[2017-09-06] MEDS ORDERED: SODIUM CHLORIDE 0.9% FLUSH 10 ML FLUSH IVF PRN (23:00)
[2017-09-06] MEDS ORDERED: methylPREDNISolone SOD SUCC 125 MG/2 ML VIAL IV PUSH ONE (23:00)
[2017-09-06] MEDS: RESP: ALBUTEROL 2.5 MG/IPRATROPIUM 0.5 MG NEB (SCH) INH (23:01)
[2017-09-06] MEDS ORDERED: NALOXONE HCL 0.4 MG/ML AMP IV PUSH PRN (23:30)
[2017-09-06] MEDS ORDERED: SODIUM CHLORIDE 0.9% FLUSH 10 ML FLUSH IV FLUSH PRN (23:30)
--- NOTE | 2017-09-06 23:48 | PD ---
Physical Exam Narrative General: The patient is a well-developed well-nourished male, with tachypnea noted. The patient's O2 saturation on 2 L nasal cannula on my arrival to the room is 82%. The patient's O2 was increased to 4 L. The patient denies having shortness of breath, he is perseverating on calling someone on the phone. Head and Neck exam: Head is normocephalic atraumatic. Eyes: EOMI, pupils are equal round and reactive to light. Nose: Midline septum with pink mucous membranes Mouth: Dentition unremarkable. Moist mucus membranes. Posterior oropharynx is not erythematous. No tonsillar hypertrophy. Uvula midline. Airway patent. Neck: No palpable lymphadenopathy. No nuchal rigidity. No thyromegaly. Cardiovascular: Sinus tachycardia in the 1 teens without murmurs, gallops, or rubs. No pulse deficit to the extremities on simultaneous auscultation and palpation of his radial artery. Lungs: Decreased breath sounds in bilateral bases worse on the right compared to the left with soft expiratory wheezes audible, retractions noted. No conversational dyspnea. Abdomen: Soft, without tenderness to palpation in all 4 quadrants of the abdomen. No guarding, rebound, or rigidity. Normal bowel sounds are audible. No tenderness on palpation of McBurney's point. Negative Fallon's sign. Extremities: No clubbing, cyanosis, or edema. 2+ pulses in all 4 extremities. Back: No costovertebral angle tenderness to palpation. Skin Exam: Deferred examination of the sacral decubitus ulcer, this was examined by Ana, the DELL. Data Data Last Documented VS Vital Signs Date Time Temp Pulse Resp B/P (MAP) Pulse Ox O2 Delivery O2 Flow Rate FiO2 09/06/17 20:43 96 Nasal Cannula 2.00 09/06/17 20:16 137 28 09/06/17 18:35 98.6 Orders Orders Sepsis Workup Initiated (09/06/17 ) Electrocardiogram (09/06/17 20:20) Complete Blood Count With Diff (09/06/17 20:20) Comprehensive Metabolic Panel (09/06/17 20:20) Lactic Acid Sepsis Protocol (09/06/17 20:20) Urinalysis - C+S If Indicated (09/06/17 20:20) Blood Culture (09/06/17 20:20) Blood Glucose (09/06/17 20:20) Ecg Monitoring (09/06/17 20:20) Iv Access Insert/Monitor (09/06/17 20:20) Oximetry (09/06/17 20:20) Oxygen Administration (09/06/17 20:20) Sodium Chlor 0.9% 1000 Ml Inj (Ns 1000 M (09/06/17 20:20) Sodium Chlor 0.9% 1000 Ml Inj (Ns 1000 M (09/06/17 20:20) Sepsis Workup Initiated (09/06/17 20:20) Act Partial Throm Time (Ptt) (09/06/17 20:20) Prothrombin Time / Inr (Pt) (09/06/17 20:20) Chest, Single Ap (09/06/17 ) Psych Screen (09/06/17 21:45) Drug Screen, Random Urine (09/06/17 21:45) Urine Culture (09/06/17 20:25) Vancomycin Inj (Vancomycin Inj) (09/06/17 22:45) Piperacil-Tazo 3.375 Gm Premix (Zosyn 3. (09/06/17 22:45) Sodium Chloride 0.9% Flush (Ns Flush) (09/06/17 23:00) Methylprednisolone So Succ Inj (Solumedr (09/06/17 23:00) Albuterol-Ipratropium Neb (Duoneb Neb) (09/06/17 23:00) Vital Signs (Adult) Q4H (09/06/17 23:16) Activity Oob With Assistance (09/06/17 23:16) Weight Tester / Telemetry .CONTINUOUS (09/06/17 23:16) Diet Heart Healthy (09/07/17 Breakfast) Sodium Chloride 0.9% Flush (Ns Flush) (09/06/17 23:30) Sodium Chloride 0.9% Flush (Ns Flush) (09/07/17 09:00) Basic Metabolic Panel (Bmp) (09/07/17 06:00) Complete Blood Count With Diff (09/07/17 06:00) Pt Request For Service (09/06/17 23:16) Naloxone Inj (Narcan Inj) (09/06/17 23:30) Admit Order (Ed Use Only) (09/06/17 23:16) Labs Laboratory Tests Test 09/06/17 20:25 09/06/17 20:30 09/06/17 22:31 Urine Color YELLOW Urine Turbidity HAZY Urine pH 6.5 Urine Specific [place] 1.017 Urine Protein 30 mg/dL Urine Glucose (UA) NEG mg/dL Urine Ketones NEG mg/dL Urine Occult Blood SMALL Urine Nitrite NEG Urine Bilirubin NEG Urine Urobilinogen 2.0 MG/DL Urine Leukocyte Esterase LARGE Urine RBC 8 /hpf Urine WBC 39 /hpf Urine Squamous Epithelial Cells <1 /hpf Urine Amorphous Sediment RARE Urine Bacteria FEW /hpf Urine Mucus FEW /lpf Microscopic Urinalysis Comment CATH-CULTURE IND White Blood Count 13.3 TH/MM3 Red Blood Count 5.08 MIL/MM3 Hemoglobin 13.0 GM/DL Hematocrit 39.7 % Mean Corpuscular Volume 78.2 FL Mean Corpuscular Hemoglobin 25.6 PG Mean Corpuscular Hemoglobin Concent 32.8 % Red Cell Distribution Width 15.7 % Platelet Count 534 TH/MM3 Mean Platelet Volume 7.1 FL Neutrophils (%) (Auto) 76.8 % Lymphocytes (%) (Auto) 15.9 % Monocytes (%) (Auto) 5.8 % Eosinophils (%) (Auto) 1.1 % Basophils (%) (Auto) 0.4 % Neutrophils # (Auto) 10.2 TH/MM3 Lymphocytes # (Auto) 2.1 TH/MM3 Monocytes # (Auto) 0.8 TH/MM3 Eosinophils # (Auto) 0.1 TH/MM3 Basophils # (Auto) 0.0 TH/MM3 CBC Comment DIFF FINAL Differential Comment Prothrombin Time 11.7 SEC Prothromb Time International Ratio 1.2 RATIO Activated Partial Thromboplast Time 35.5 SEC Blood Urea Nitrogen 11 MG/DL Creatinine 0.54 MG/DL Random Glucose 74 MG/DL Total Protein 9.2 GM/DL Albumin 2.9 GM/DL Calcium Level 9.9 MG/DL Alkaline Phosphatase 124 U/L Aspartate Amino Transf (AST/SGOT) 39 U/L Alanine Aminotransferase (ALT/SGPT) 57 U/L Total Bilirubin 0.6 MG/DL Sodium Level 133 MEQ/L Potassium Level 5.2 MEQ/L Chloride Level 98 MEQ/L Carbon Dioxide Level 24.8 MEQ/L Anion Gap 10 MEQ/L Estimat Glomerular Filtration Rate 215 ML/MIN Lactic Acid Level 1.0 mmol/L Urine Opiates Screen NEG Urine Barbiturates Screen NEG Urine Amphetamines Screen POS Urine Benzodiazepines Screen POS Urine Cocaine Screen NEG Urine Cannabinoids Screen POS MDM Medical Record Reviewed: Yes Supervised Visit with DELL: Yes Interpretation(s) Last Impressions Chest X-Ray 09/06/17 0000 Signed Impressions: Service Date/Time: Wednesday, September 06, 2017 20:46 - CONCLUSION: No acute disease. No significant change has occurred. Scar Earl MD Narrative Course I, Dr. Dorsey, have reviewed the advance practice practitioner's documentation and am in agreement, met with the patient face to face, made the diagnosis, and the medical decision making was done by me. The patient was initially evaluated by Ana, the DELL. Please see their complete history and physical. *My assessment and Findings: The patient presents with a prior history of psychiatric disorder that presents under a Collins act for suicidal ideations. The patient freely admits thoughts of harming himself. The patient additionally on evaluation is noted to be tachypneic with tachycardia. He reports that he has had a recent dry cough and train of thought. The patient has difficulty providing his history. The patient's electronic medical record was reviewed per During the course of the patient's emergency department visit, the patient's history, examination, and differential diagnosis were reviewed with the patient. The patient was placed on a procurement internship with oximetry and frequent blood pressure monitoring. The patient had IV access obtained and blood work sent for analysis. The patient had an EKG done on arrival that shows a sinus tachycardia with a short CO interval, heart rate of 117, QRS duration 82 ms, QTC [address] segment elevation. The patient's EKG has a wavy baseline due to tremulousness which could be infecting interpretation. The patient was initially provided normal saline IV fluids, covered with broad- spectrum antibiotic due to a concern for possible sepsis with his tachycardia, tachypnea, low O2 room air saturation with cough which could be suggestive of pneumonia as a source with sirs criteria positive. Due to the patient's hypoxemia on room air the patient was given supplemental oxygen. The patient was noted to be wheezing and was given duo nebs 3. The patient was also started on Solu-Medrol 125 mg IV per The patient's laboratory studies were reviewed and remarkable for a white count of 13.1, hemoglobin 13, platelets are 34 with 76.8 neutrophils, CMP is remarkable for sodium of 133, potassium 5.5.2 with slight hemolysis noted, AST 39, alk phos 124, albumin 2.2.9, PT 11.7, PTT 35.5, urine drug screen is positive for amphetamines, benzodiazepines, cannabinoids. The patient's amphetamines in a system could explain the patient's tachycardia. Urinalysis shows 30 protein small occult blood, large leukocyte esterase, 8 RBCs, WBCs 39 with few bacteria Radiology studies were reviewed and remarkable for a chest x-ray that shows no acute cardiopulmonary disease. The patient will be admitted to the medical service with a psychiatric consultation for his Collins act. The patient's results were discussed with the patient, including the plan of care. I explained that further testing and/ or monitoring is indicated based on the patient's history, examination, and/ or laboratory findings. Therefore, I recommended admission for additional evaluation. The patient expressed understanding and was agreeable with this plan. The patient was admitted to the hospital in stable condition and [facility] Diagnosis Primary Impression: Sepsis Qualified Codes: A41.9 - Sepsis, unspecified organism Additional Impression: Suicidal ideation Admitting Information Admitting Physician Requests: Admit Condition: Stable Suha Dorsey MD Sep 06, 2017 23:48
[2017-09-07] VITALS (7 sets, daily range): BP systolic 98–135; BP diastolic 59–91; PULSE 78–87; RESP 14–20; TEMP 96–98.9; O2SAT 96–100
--- NOTE | 2017-09-07 01:07 | RADRPT ---
EXAM DATE/TIME: 09/07/2017 00:51 [place] COMPARISON: CHEST SINGLE AP, September 06, 2017, 20:46. INDICATIONS : Short of breath. MEDICAL HISTORY : Quadraparesis. Spinal cord injury. SURGICAL HISTORY : Spinal surgeries. ENCOUNTER: Subsequent ACUITY: 3 days PAIN SCORE: Non-responsive. LOCATION: Bilateral chest FINDINGS: A single view of the chest demonstrates the lungs to be symmetrically aerated without evidence of mas s, infiltrate or effusion. The cardiomediastinal contours are unremarkable. Osseous structures are intact. CONCLUSION: No acute disease. Lang Cruz MD on September 07, 2017 at 1:04 Board Certified Radiologist. This report was verified electronically.
--- NOTE | 2017-09-07 04:12 | HHI.HP ---
[facility] Michael Young DO Admission Diagnosis sepsis, suicidal ideations Diagnoses: Travel History International Travel<30 Days: No Contact w/Intl Traveler <30 Da: No Traveled to Known Affected Are: No Past Family Social History Allergies: Coded Allergies: *MDRO Multi-Drug Resistant Organism (Verified Adverse Reaction, Unknown, ) MRSA finger wound 08/2015 Physical Exam Vital Signs Vital Signs Date Time Temp Pulse Resp B/P (MAP) Pulse Ox O2 Delivery O2 Flow Rate FiO2 09/07/17 02:25 96.0 83 18 124/90 (101) 96 09/06/17 20:43 96 Nasal Cannula 2.00 09/06/17 20:43 88 Room Air 09/06/17 20:16 137 28 115/70 (85) 91 09/06/17 18:35 98.6 138 32 188/69 (108) 92 Room Air Physical Exam GENERAL: This is a well-nourished, well-developed patient, in no apparent distress. SKIN: No rashes, ecchymoses or lesions. Cool and dry. HEAD: Atraumatic. Normocephalic. No temporal or scalp tenderness. EYES: Pupils equal round and reactive. Extraocular motions intact. No scleral icterus. No injection or drainage. ENT: Nose without bleeding, purulent drainage or septal hematoma. Throat without erythema, tonsillar hypertrophy or exudate. Uvula midline. Airway patent. NECK: Trachea midline. No JVD or lymphadenopathy. Supple, nontender, no meningeal signs. CARDIOVASCULAR: Regular rate and rhythm without murmurs, gallops, or rubs. RESPIRATORY: Clear to auscultation. Breath sounds equal bilaterally. No wheezes , rales, or rhonchi. GASTROINTESTINAL: Abdomen soft, non-tender, nondistended. No hepato-splenomegaly , or palpable masses. No guarding. MUSCULOSKELETAL: Extremities without clubbing, cyanosis, or edema. No joint tenderness, effusion, or edema noted. No calf tenderness. Negative Homans sign bilaterally. NEUROLOGICAL: Awake and alert. Cranial nerves II through XII intact. Motor and sensory grossly within normal limits. Five out of 5 muscle strength in all muscle groups. Normal speech. Laboratory Laboratory Tests Test 09/06/17 20:25 09/06/17 20:30 09/06/17 22:31 Urine Color YELLOW Urine Turbidity HAZY Urine pH 6.5 Urine Specific [place] 1.017 Urine Protein 30 Urine Glucose (UA) NEG Urine Ketones NEG Urine Occult Blood SMALL Urine Nitrite NEG Urine Bilirubin NEG Urine Urobilinogen 2.0 Urine Leukocyte Esterase LARGE Urine RBC 8 Urine WBC 39 Urine Squamous Epithelial Cells <1 Urine Amorphous Sediment RARE Urine Bacteria FEW Urine Mucus FEW Microscopic Urinalysis Comment CATH-CULTURE IND White Blood Count 13.3 Red Blood Count 5.08 Hemoglobin 13.0 Hematocrit 39.7 Mean Corpuscular Volume 78.2 Mean Corpuscular Hemoglobin 25.6 Mean Corpuscular Hemoglobin Concent 32.8 Red Cell Distribution Width 15.7 Platelet Count 534 Mean Platelet Volume 7.1 Neutrophils (%) (Auto) 76.8 Lymphocytes (%) (Auto) 15.9 Monocytes (%) (Auto) 5.8 Eosinophils (%) (Auto) 1.1 Basophils (%) (Auto) 0.4 Neutrophils # (Auto) 10.2 Lymphocytes # (Auto) 2.1 Monocytes # (Auto) 0.8 Eosinophils # (Auto) 0.1 Basophils # (Auto) 0.0 CBC Comment DIFF FINAL Differential Comment Prothrombin Time 11.7 Prothromb Time International Ratio 1.2 Activated Partial Thromboplast Time 35.5 Blood Urea Nitrogen 11 Creatinine 0.54 Random Glucose 74 Total Protein 9.2 Albumin 2.9 Calcium Level 9.9 Alkaline Phosphatase 124 Aspartate Amino Transf (AST/SGOT) 39 Alanine Aminotransferase (ALT/SGPT) 57 Total Bilirubin 0.6 Sodium Level 133 Potassium Level 5.2 Chloride Level 98 Carbon Dioxide Level 24.8 Anion Gap 10 Estimat Glomerular Filtration Rate 215 Lactic Acid Level 1.0 Urine Opiates Screen NEG Urine Barbiturates Screen NEG Urine Amphetamines Screen POS Urine Benzodiazepines Screen POS Urine Cocaine Screen NEG Urine Cannabinoids Screen POS Date/Time Source Procedure Growth Status 09/06/17 20:30 Blood Peripheral Aerobic Blood Culture Pending Received 09/06/17 20:30 Blood Peripheral Anaerobic Blood Culture Pending Received 09/06/17 20:25 Urine Catheterized Urine Urine Culture Pending Worksheet Result Diagram: 09/06/17202909/06/172029 Caprini VTE Risk Assessment Caprini Risk Assessment Model Point Value = 1 Point Value = 2 Point Value = 3 Point Value = 5 Age 41-60 Minor surgery BMI > 25 kg/m2 Swollen legs Varicose veins or History of unexplained or recurrent spontaneous Oral contraceptives or hormone replacement Sepsis (< 1 month) Serious lung disease, including pneumonia (< 1 month) Abnormal pulmonary function Acute myocardial infarction Congestive heart failure (< 1 month) History of inflammatory bowel disease Medical patient at bed rest Age 61-74 Arthroscopic surgery Major open surgery (> 45 min) Laparoscopic surgery (> 45 min) Malignancy Confined to bed (> 72 hours) Immobilizing plaster cast Central venous access Age >= 75 History of VTE Family history of VTE Factor V Leiden Prothrombin [id number] Lupus anticoagulant Anticardiolipin antibodies Elevated serum homocysteine Heparin-induced thrombocytopenia Other congenital or acquired thrombophilia Stroke (< 1 month) Elective arthroplasty Hip, pelvis, or leg fracture Acute spinal cord injury (< 1 month) Prophylaxis Regimen Total Risk Factor Score Risk Level Prophylaxis Regimen 0-1 Low Early ambulation 2 Moderate Order ONE of the following: *Sequential Compression Device (SCD) *Heparin 5000 units SQ BID 3-4 Higher Order ONE of the following medications: *Heparin 5000 units SQ TID *Enoxaparin/Lovenox 40 mg SQ daily (WT < 150 kg, CrCl > 30 mL/min) *Enoxaparin/Lovenox 30 mg SQ daily (WT < 150 kg, CrCl > 10-29 mL/min) *Enoxaparin/Lovenox 30 mg SQ BID (WT < 150 kg, CrCl > 30 mL/min) AND/OR *Sequential Compression Device (SCD) 5 or more Highest Order ONE of the following medications: *Heparin 5000 units SQ TID (Preferred with Epidurals) *Enoxaparin/Lovenox 40 mg SQ daily (WT < 150 kg, CrCl > 30 mL/min) *Enoxaparin/Lovenox 30 mg SQ daily (WT < 150 kg, CrCl > 10-29 mL/min) *Enoxaparin/Lovenox 30 mg SQ BID (WT < 150 kg, CrCl > 30 mL/min) AND *Sequential Compression Device (SCD) Physician Certification Order for Inpatient Services The services are ordered in accordance with Medicare regulations or non- Medicare payer requirements, as applicable. In the case of services not specified as inpatient-only, they are appropriately provided as inpatient services in accordance with the 2-midnight benchmark. days is the estimated time the patient will need to remain in the hospital, assuming treatment plan goals are met and no additional complications. Yuni Horta Sep 07, 2017 04:12
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
[2017-09-07] MEDS ORDERED: PILL SPLITTER OTHER PRN (05:00)
[2017-09-07 07:01] LABS: AUTOMATED NEUTROPHIL # 12.5 TH/MM3 (1.8-7.7); BASOPHIL % 0.1 % (0.0-2.0); HEMATOCRIT 33.9 % (39.0-51.0); HEMOGLOBIN 11.2 GM/DL (13.0-17.0); LYMPH % 3.3 % (9.0-44.0); LYMPHOCYTE # 0.4 TH/MM3 (1.0-4.8); MEAN CELL VOLUME 78.1 FL (80.0-100.0); MEAN CORPUSCULAR HEMOGLOBIN 25.9 PG (27.0-34.0); MEAN CORPUSCULAR HGB CONC 33.1 % (32.0-36.0); MEAN PLATELET VOLUME 6.9 FL (7.0-11.0); MONO % 0.7 % (0.0-8.0); MONOCYTE # 0.1 TH/MM3 (0-0.9); NEUT % 95.9 % (16.0-70.0); PLATELET COUNT 492 TH/MM3 (150-450); RED BLOOD COUNT 4.35 MIL/MM3 (4.50-5.90); RED CELL DISTRIBUTION WIDTH 15.3 % (11.6-17.2)
[2017-09-07 07:21] LABS: BICARBONATE 23.7 MEQ/L (21.0-32.0); CALCIUM 9.2 MG/DL (8.5-10.1); CREATININE 0.46 MG/DL (0.60-1.30)
[2017-09-07] MEDS: SERTRALINE HCL 100 MG TAB PO SCH (09:00)
[2017-09-07] MEDS: LEVOFLOXACIN 750 MG TAB PO SCH (10:32)
[2017-09-07] MEDS: BACLOFEN 10 MG TAB PO SCH ×3 (10:32→18:00)
[2017-09-07] MEDS: OXYBUTYNIN CHLORIDE 5 MG TAB PO SCH ×2 (10:32→21:13)
[2017-09-07] MEDS: TOPIRAMATE 25 MG TAB PO SCH (10:32)
[2017-09-07] MEDS: LACTULOSE SYRUP 20 GM/30 ML CUP PO SCH (10:32)
[2017-09-07] MEDS: SODIUM CHLORIDE 0.9% FLUSH 10 ML FLUSH IV FLUSH SCH ×2 (10:33→21:13)
[2017-09-07] MEDS: ENOXAPARIN SODIUM 40 MG/0.4 ML SYRINGE SQ SCH (11:00)
--- NOTE | 2017-09-07 11:20 | RADRPT ---
EXAM DATE/TIME: 09/06/2017 20:46 [facility] COMPARISON: CHEST SINGLE AP, January 23, 2017, 21:39. INDICATIONS : Wheezing. Cough. MEDICAL HISTORY : Quadraparesis. Spinal cord injury SURGICAL HISTORY : Spinal surgeries ENCOUNTER: Initial ACUITY: 2 days PAIN SCORE: Non-responsive. LOCATION: Bilateral chest FINDINGS: A single view of the chest demonstrates the lungs to be symmetrically aerated without evidence of mas s, infiltrate or effusion. The cardiomediastinal contours are unremarkable. Osseous structures are intact. CONCLUSION: No acute disease. No significant change has occurred. Scar Earl MD on September 06, 2017 at 21:14 Board Certified Radiologist. This report was verified electronically.
[2017-09-07] MEDS: LACTOSE REDUCED FOOD PO SCH ×2 (13:00→18:00)
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
--- NOTE | 2017-09-07 18:21 | EKG ---
Date Performed: 09/06/2017 Time Performed: 20:50:47 PTAGE: 32 years EKG: SINUS TACHYCARDIA WITH SHORT ID INTERVAL POSSIBLE LEFT ATRIAL ENLARGEMENT POSSIBLE RIGHT VE NTRICULAR HYPERTROPHY When compared to previous tracing, previously seen precordial ST-T wave changes have improved. ABNORMAL ECG PREVIOUS TRACING : 11/26/2016 00.31 DOCTOR: Nick Hsieh Interpretating Date/Time 09/07/2017 18:19:23
[2017-09-08] VITALS (7 sets, daily range): BP systolic 96–114; BP diastolic 56–69; PULSE 68–93; RESP 14–16; TEMP 97.5–98.6; O2SAT 96–100
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
[2017-09-08] MEDS: LACTOSE REDUCED FOOD PO SCH ×3 (12:08→18:00)
[2017-09-08] MEDS: SODIUM CHLORIDE 0.9% FLUSH 10 ML FLUSH IV FLUSH SCH ×2 (12:08→21:16)
[2017-09-08] MEDS: BACLOFEN 10 MG TAB PO SCH ×3 (12:09→18:00)
[2017-09-08] MEDS: TOPIRAMATE 25 MG TAB PO SCH (12:09)
[2017-09-08] MEDS: SERTRALINE HCL 100 MG TAB PO SCH (12:09)
[2017-09-08] MEDS: OXYBUTYNIN CHLORIDE 5 MG TAB PO SCH ×2 (12:10→21:16)
[2017-09-08] MEDS: LEVOFLOXACIN 750 MG TAB PO SCH (12:10)
[2017-09-08] MEDS: LACTULOSE SYRUP 20 GM/30 ML CUP PO SCH (12:10)
[2017-09-08] MEDS: ENOXAPARIN SODIUM 40 MG/0.4 ML SYRINGE SQ SCH (12:10)
[2017-09-08] MEDS ORDERED: PIPERACIL-TAZO 3.375 GM PREMIX 50 ML IV SCH (13:30)
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
[2017-09-08 15:26] LABS: AUTOMATED NEUTROPHIL # 5.2 TH/MM3 (1.8-7.7); BASOPHIL % 0.5 % (0.0-2.0); EOSINOPHIL % 0.6 % (0.0-4.0); HEMOGLOBIN 10.7 GM/DL (13.0-17.0); LYMPH % 24.5 % (9.0-44.0); LYMPHOCYTE # 1.9 TH/MM3 (1.0-4.8); MEAN CELL VOLUME 78.1 FL (80.0-100.0); MEAN CORPUSCULAR HEMOGLOBIN 26.2 PG (27.0-34.0); MEAN CORPUSCULAR HGB CONC 33.5 % (32.0-36.0); MEAN PLATELET VOLUME 6.9 FL (7.0-11.0); MONO % 7.5 % (0.0-8.0); MONOCYTE # 0.6 TH/MM3 (0-0.9); NEUT % 66.9 % (16.0-70.0); PLATELET COUNT 547 TH/MM3 (150-450); RED CELL DISTRIBUTION WIDTH 15.2 % (11.6-17.2); WHITE BLOOD COUNT 7.8 TH/MM3 (4.0-11.0)
--- NOTE | 2017-09-08 18:45 | PD.WCN.NOT ---
Neg Pressure Wound Therapy Wound Location Wound Location: Sacral wound Wound Description Length: ~6.0cm Width: ~3.5cm Depth: ~3.0cm Underminin O'clock to 12 O'clock max depth @10 O'clock ~2.0cm Wound bed appearance: 80% red tissue base 10% exposed bone 10% adipose DTI noted to 12 O'clock tissue Periwound appearance: Unremarkable Settings Suction: 125 mmHg, Continuous Intensity: Low Other Information: Bridged, Windowpaned, Mushroomed Foam type: Black Number of pieces: 1 Additonal Information Patient was seen today down in [place] by securities underwriter Elva SZYMANSKI and 2 [employer] students.Patient alert and oriented x3 permission given to perform wound care with students.Patient required min assistance to reposition to left side .Dressing removed from sacral area to expose stage 4 pressure injury with visible bone. DTI was noted to tissue @ 12 O'clock.Wound was cleansed with normal saline pat dry.Skin prep applied to periwound drape applied to periwound and to bridging area of Right anterior hip. 1 piece of black sponge applied to wound base and undermining area then bridged to anterior hip were mushroom sponge was applied under track pad. VAC applied at 125mmHg with no leaks noted.Patient tolerated wound care well and verbalized nutrition understanding to promote optimal wound healing. Brenda Barcenas [facility] Sep 08, 2017 18:45
[2017-09-08] MEDS: PIPERACIL-TAZO 4.5 GM PREMIX 100 ML IV SCH (20:00)
[2017-09-08] MEDS ORDERED: ALPRAZolam 1 MG TAB PO ONE (20:45)
[2017-09-09] MEDS: PIPERACIL-TAZO 4.5 GM PREMIX 100 ML IV SCH ×6 (01:12→20:00)
[2017-09-09 03:58] VITALS: BP 127/82; PULSE 56; RESP 16; TEMP 97.8; O2SAT 98
[2017-09-09 08:35] VITALS: BP 95/60; PULSE 73; RESP 16; TEMP 97.8; O2SAT 100
[2017-09-09] MEDS: LACTULOSE SYRUP 20 GM/30 ML CUP PO SCH ×2 (09:00→20:09)
[2017-09-09] MEDS: LACTOSE REDUCED FOOD PO SCH ×3 (09:00→18:00)
[2017-09-09 10:53] LABS: AUTOMATED NEUTROPHIL # 4.2 TH/MM3 (1.8-7.7); BASOPHIL % 0.7 % (0.0-2.0); EOSINOPHIL # 0.1 TH/MM3 (0-0.4); HEMATOCRIT 34.2 % (39.0-51.0); HEMOGLOBIN 12.2 GM/DL (13.0-17.0); LYMPH % 24.3 % (9.0-44.0); LYMPHOCYTE # 1.5 TH/MM3 (1.0-4.8); MEAN CELL VOLUME 77.3 FL (80.0-100.0); MEAN CORPUSCULAR HEMOGLOBIN 27.5 PG (27.0-34.0); MEAN CORPUSCULAR HGB CONC 35.5 % (32.0-36.0); MEAN PLATELET VOLUME 6.7 FL (7.0-11.0); MONO % 4.4 % (0.0-8.0); MONOCYTE # 0.3 TH/MM3 (0-0.9); NEUT % 69.6 % (16.0-70.0); PLATELET COUNT 580 TH/MM3 (150-450); RED BLOOD COUNT 4.43 MIL/MM3 (4.50-5.90); RED CELL DISTRIBUTION WIDTH 15.5 % (11.6-17.2)
[2017-09-09] MEDS: OXYBUTYNIN CHLORIDE 5 MG TAB PO SCH ×2 (11:07→20:08)
[2017-09-09] MEDS: BACLOFEN 10 MG TAB PO SCH ×3 (11:07→19:23)
[2017-09-09] MEDS: TOPIRAMATE 25 MG TAB PO SCH (11:08)
[2017-09-09] MEDS: SERTRALINE HCL 100 MG TAB PO SCH (11:08)
[2017-09-09] MEDS: ENOXAPARIN SODIUM 40 MG/0.4 ML SYRINGE SQ SCH (11:18)
[2017-09-09] MEDS: SODIUM CHLORIDE 0.9% FLUSH 10 ML FLUSH IV FLUSH SCH ×2 (11:18→20:09)
[2017-09-09 11:27] VITALS: BP 126/79; PULSE 66; RESP 16; TEMP 97.9; O2SAT 98
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
--- NOTE | 2017-09-09 13:03 | HHI.FF ---
Face to Face Verification Diagnosis: (1) Stage 4 decubitus ulcer (2) Sepsis (3) Paraplegia (4) Spinal cord injury, cervical region Home Health Nursing Order: Medical education Signs/symptoms of disease process Medication education-adverse effect Nursing assessment with vital signs I have seen patient Anthony Chowdhury on 09/09/17. My clinical findings support the need for the requested home health care services because: Ltd mobility - disease progression Limited ability to care for self I certify that my clinical findings support that this patient is homebound because: [id number] bed/chair Unable to use public transportation Maty Cuevas Sep 09, 2017 13:03
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
[2017-09-09] MEDS ORDERED: MULTIVITAMINS/MINERALS THERAPEUTIC TAB PO ONE (17:00)
[2017-09-09 19:54] VITALS: BP 121/80; PULSE 64; RESP 16; TEMP 98; O2SAT 98
[2017-09-09 23:25] VITALS: BP 93/57; PULSE 65; RESP 14; TEMP 98; O2SAT 98
[2017-09-10] VITALS (7 sets, daily range): BP systolic 98–110; BP diastolic 55–71; PULSE 56–114; RESP 16–18; TEMP 97.8–98.8; O2SAT 86–100
[2017-09-10] MEDS: PIPERACIL-TAZO 4.5 GM PREMIX 100 ML IV SCH ×5 (03:40→21:25)
[2017-09-10] MEDS: LACTOSE REDUCED FOOD PO SCH ×3 (09:00→17:11)
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
[2017-09-10 12:13] LABS: BACTERIA, URINE OCC /hpf; BILIRUBIN, URINE NEG (NEG); BLOOD, URINE MOD (NEG); GLUCOSE,URINE NEG (NEG); KETONE, URINE NEG (NEG); NITRITE,URINE NEG (NEG); URINE COLOR YELLOW (YELLW/STRAW); URINE LEUKOCYTE ESTERASE LARGE (NEG)
[2017-09-10] MEDS: MULTIVITAMINS/MINERALS THERAPEUTIC TAB PO SCH (12:56)
[2017-09-10] MEDS: SERTRALINE HCL 100 MG TAB PO SCH (12:56)
[2017-09-10] MEDS: OXYBUTYNIN CHLORIDE 5 MG TAB PO SCH ×2 (12:57→21:20)
[2017-09-10] MEDS: BACLOFEN 10 MG TAB PO SCH ×3 (12:58→18:00)
[2017-09-10] MEDS: SODIUM CHLORIDE 0.9% FLUSH 10 ML FLUSH IV FLUSH SCH ×2 (12:58→21:22)
[2017-09-10] MEDS: TOPIRAMATE 25 MG TAB PO SCH (12:58)
[2017-09-10] MEDS: ENOXAPARIN SODIUM 40 MG/0.4 ML SYRINGE SQ SCH (13:01)
[2017-09-10] MEDS: LACTULOSE SYRUP 20 GM/30 ML CUP PO SCH (13:01)
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
--- NOTE | 2017-09-10 19:28 | PD.WCN.NOT ---
Neg Pressure Wound Therapy Wound Location Wound Location: Sacral wound Wound Description Length: ~6.0cm Width: ~3.5cm Depth: ~3.0cm Underminin O'clock to 12 O'clock max depth @10 O'clock ~2.0cm Wound bed appearance: 80% red tissue base 10% exposed bone 10% adipose Periwound appearance: Unremarkable Settings Suction: 125 mmHg, Continuous Intensity: Low Other Information: Bridged, Windowpaned, Mushroomed Foam type: Black Number of pieces: 1 Additonal Information Patient was seen in H-pod by headline writer NESSA Anderson CDU and Joaquin SZYMANSKI CDU charge nurse.Survey Party Chief assisted NESSA Anderson with wound VAC dressing change. Patient required min assistance to reposition to left side .Dressing removed from sacral area to expose stage 4 pressure injury with visible bone.One piece of granufoam was removed from wound bed.Wound was cleansed with normal saline pat dry.Skin prep applied to periwound drape applied to periwound and to bridging area of Right anterior hip. One piece of granufoam was applied to wound base and undermining area . One long strip or granufoam was bridged to anterior hip.Applied track pad over granufoam just above R hip. VAC applied at 125mmHg with no leaks noted. Jocy Pantoja [facility] Sep 10, 2017 19:28
[2017-09-11] VITALS (7 sets, daily range): BP systolic 80–100; BP diastolic 48–63; PULSE 68–94; RESP 16–18; TEMP 96.1–98.8; O2SAT 94–99
[2017-09-11 00:02] LABS: BACTERIA, URINE RARE /hpf; BILIRUBIN, URINE NEG (NEG); BLOOD, URINE SMALL (NEG); GLUCOSE,URINE NEG (NEG); KETONE, URINE NEG (NEG); MUCUS URINE FEW /lpf (OCC); NITRITE,URINE NEG (NEG); PH, URINE 7.5 (5.0-8.5); SQUAMOUS EPITHELIAL CELL URINE <1 /hpf (0-5); URINE COLOR YELLOW (YELLW/STRAW); URINE LEUKOCYTE ESTERASE LARGE (NEG)
[2017-09-11] MEDS: PIPERACIL-TAZO 4.5 GM PREMIX 100 ML IV SCH ×4 (04:00→15:55)
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
[2017-09-11] MEDS: LACTOSE REDUCED FOOD PO SCH ×3 (09:21→19:06)
[2017-09-11] MEDS: BACLOFEN 10 MG TAB PO SCH ×3 (09:21→19:06)
[2017-09-11] MEDS: SODIUM CHLORIDE 0.9% FLUSH 10 ML FLUSH IV FLUSH SCH ×2 (09:21→21:00)
[2017-09-11] MEDS: MULTIVITAMINS/MINERALS THERAPEUTIC TAB PO SCH (09:22)
[2017-09-11] MEDS: TOPIRAMATE 25 MG TAB PO SCH (09:23)
[2017-09-11] MEDS: SERTRALINE HCL 100 MG TAB PO SCH (09:23)
[2017-09-11] MEDS: OXYBUTYNIN CHLORIDE 5 MG TAB PO SCH ×2 (09:24→21:16)
[2017-09-11] MEDS ORDERED: MEGESTROL ACETATE SUSP 400 MG/10 ML CUP PO ONE (11:00)
[2017-09-11] MEDS ORDERED: Megestrol Liq PO (11:05)
[2017-09-11] MEDS ORDERED: THERM PO (11:05)
[2017-09-11] MEDS ORDERED: ALPRAZolam 0.5 MG TAB PO PRN (11:15)
[2017-09-11] MEDS: ENOXAPARIN SODIUM 40 MG/0.4 ML SYRINGE SQ SCH (12:49)
[2017-09-11 13:17] LABS: AUTOMATED NEUTROPHIL # 3.6 TH/MM3 (1.8-7.7); BASOPHIL # 0.1 TH/MM3 (0-0.2); BASOPHIL % 0.9 % (0.0-2.0); EOSINOPHIL # 0.1 TH/MM3 (0-0.4); EOSINOPHIL % 2.1 % (0.0-4.0); HEMATOCRIT 34.4 % (39.0-51.0); HEMOGLOBIN 11.2 GM/DL (13.0-17.0); LYMPH % 26.7 % (9.0-44.0); LYMPHOCYTE # 1.5 TH/MM3 (1.0-4.8); MEAN CELL VOLUME 77.8 FL (80.0-100.0); MEAN CORPUSCULAR HEMOGLOBIN 25.4 PG (27.0-34.0); MEAN CORPUSCULAR HGB CONC 32.7 % (32.0-36.0); MEAN PLATELET VOLUME 6.8 FL (7.0-11.0); MONO % 7.1 % (0.0-8.0); MONOCYTE # 0.4 TH/MM3 (0-0.9); NEUT % 63.2 % (16.0-70.0); PLATELET COUNT 547 TH/MM3 (150-450); RED BLOOD COUNT 4.42 MIL/MM3 (4.50-5.90); RED CELL DISTRIBUTION WIDTH 15.3 % (11.6-17.2); WHITE BLOOD COUNT 5.6 TH/MM3 (4.0-11.0)
--- NOTE | 2017-09-11 14:49 | HHI.FF ---
Face to Face Verification Diagnosis: (1) Stage 4 decubitus ulcer (2) Spinal cord injury, cervical region (3) Sepsis (4) Tachycardia (5) UTI (urinary tract infection) (6) Impaired mobility and activities of daily living (7) Paraplegia Physical Therapy Order: Evaluate and Treat, Improve ambulation, Strength and gait training Occupational Therapy Order: Evaluate and Treat, Improve ADL, Gross motor coordination, Fine motor coordination Home Health Nursing Order: Medical education Signs/symptoms of disease process Wound care and dressing changes (patient has wound vac) Nursing assessment with vital signs Home Health Aide Order: To Assist In: Bathing and personal care, dough mixer and meal prep Dress Designer Order: To Evaluate: Living conditions/environment, Support services Order: To Provide: Long range planning, Community services I have seen patient Anthony Chowdhury on 09/11/17. My clinical findings support the need for the requested home health care services because: Ltd mobility - disease progression Deconditioned w/ increased weakness Med compliance is questionable Limited ability to care for self I certify that my clinical findings support that this patient is homebound because: Unsteady gait/balance [id number] bed/chair Unable to use public transportation Maty Cuevas Sep 11, 2017 14:49
--- NOTE | 2017-09-11 19:36 | HHI.PR ---
Addendum to Inpatient Note Additional Information Pt seen around 1700 chart reviewed dw HEPAS and RN will need PICC and IV abx full note to follow Miriam Vernon MD Sep 11, 2017 19:36
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
[2017-09-12] VITALS (7 sets, daily range): BP systolic 84–150; BP diastolic 42–73; PULSE 54–87; RESP 16–18; TEMP 97.6–98.5; O2SAT 92–100
[2017-09-12] MEDS: PIPERACIL-TAZO 4.5 GM PREMIX 100 ML IV SCH ×5 (00:38→21:09)
[2017-09-12] MEDS: LACTULOSE SYRUP 20 GM/30 ML CUP PO SCH (09:00)
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
[2017-09-12] MEDS: SODIUM CHLORIDE 0.9% FLUSH 10 ML FLUSH IV FLUSH SCH ×2 (10:13→21:00)
[2017-09-12] MEDS: MEGESTROL ACETATE SUSP 400 MG/10 ML CUP PO SCH (10:14)
[2017-09-12] MEDS: BACLOFEN 10 MG TAB PO SCH ×3 (10:14→16:22)
[2017-09-12] MEDS: SERTRALINE HCL 100 MG TAB PO SCH (10:15)
[2017-09-12] MEDS: TOPIRAMATE 25 MG TAB PO SCH (10:15)
[2017-09-12] MEDS: OXYBUTYNIN CHLORIDE 5 MG TAB PO SCH ×2 (10:16→21:08)
[2017-09-12] MEDS: MULTIVITAMINS/MINERALS THERAPEUTIC TAB PO SCH (10:24)
[2017-09-12] MEDS: ENOXAPARIN SODIUM 40 MG/0.4 ML SYRINGE SQ SCH (10:25)
[2017-09-12] MEDS: LACTOSE REDUCED FOOD PO SCH ×3 (10:28→16:22)
--- NOTE | 2017-09-12 10:59 | HHI.FF ---
Infusion Therapy Location of Infusion Therapy: Home Health Care IV Infusion Order Patient Information Patient Weight 55 kg Diagnosis: Diagnosis complicated UTI Coded Allergies: *MDRO Multi-Drug Resistant Organism (Verified Adverse Reaction, Unknown, ) MRSA finger wound 08/2015 Administer Medication Fortaz 2 gm IV q 12 hrs Start Treatment: Sep 12, 2017 Stop Treatment: Sep 22, 2017 Additional Information Venous access: Other (midline) Additional Instructions [x] Peripheral flush and dressing changes per protocol [x] Implanted port and central front line leader: * Implanted port: 10 ml Normal Saline followed by 5 ml Heparin 100 units/ml Heparin flush after each use and monthly to maintain. [] May leave port accessed during therapy. [] May leave peripheral site accessed for duration of therapy. [x] If patient has SOB or respiratory distress, check oxygen saturation. If less than 90% or clinical signs of respiratory distress, administer oxygen at 2 L/min. via nasal cannula and notify physician. [x] Anaphylaxis/Reaction orders: * Stop infusion. * Keep IV line open with saline flush. * Notify physician. * Monitor vital signs every 15 minutes until symptoms resolve. * Check Oxygen saturation; Oxygen at 2 L/min. via nasal cannula if less than 90% or clinical signs of respiratory distress. * Administer diphenhydramine (Benadryl) 25 mg IV STAT, (unless patient has received as pre-med). May repeat once, if necessary. * Solu-Cortef 250 mg IVP over 30-60 seconds, use 100 mg vials for each dissolution. * Epinephrine (1mg/1 ml) 0.3 mg subcutaneously or IVP now with any signs of respiratory distress. * Check with physician for new additional pre-med orders if patient is re- challenged or re-treated. [x] May remove PICC line when treatment complete, after confirming with Physician. [x] If the patient is admitted to the hospital, the ED, or transferred via [facility] , complete transfer form including medication reconciliation order sheet. Laboratory Tests Weekly Labs: CBC w/diff, Creatinine Miriam Vernon MD Sep 12, 2017 10:59
[2017-09-12] MEDS ORDERED: EPIN1INJ21 SQ (11:44)
[2017-09-12] MEDS ORDERED: CEFT1INJ IV (11:44)
[2017-09-12] MEDS ORDERED: SOLU250I IV PUSH (11:44)
[2017-09-12] MEDS ORDERED: EPIN1INJ21 IV PUSH (11:44)
[2017-09-13] VITALS (9 sets, daily range): BP systolic 98–116; BP diastolic 58–70; PULSE 70–101; RESP 17–18; TEMP 97.9–98.6; O2SAT 97–100
[2017-09-13] MEDS: PIPERACIL-TAZO 4.5 GM PREMIX 100 ML IV SCH (03:55)
[2017-09-13] MEDS: LACTOSE REDUCED FOOD PO SCH ×3 (09:00→18:00)
[2017-09-13] MEDS: MEGESTROL ACETATE SUSP 400 MG/10 ML CUP PO SCH (09:54)
[2017-09-13] MEDS: LACTULOSE SYRUP 20 GM/30 ML CUP PO SCH (09:54)
[2017-09-13] MEDS: OXYBUTYNIN CHLORIDE 5 MG TAB PO SCH ×2 (09:56→22:38)
[2017-09-13] MEDS: TOPIRAMATE 25 MG TAB PO SCH (09:56)
[2017-09-13] MEDS: BACLOFEN 10 MG TAB PO SCH ×3 (09:56→18:49)
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
[2017-09-13] MEDS: MULTIVITAMINS/MINERALS THERAPEUTIC TAB PO SCH (09:57)
[2017-09-13] MEDS: SERTRALINE HCL 100 MG TAB PO SCH (10:04)
[2017-09-13] MEDS: ENOXAPARIN SODIUM 40 MG/0.4 ML SYRINGE SQ SCH (10:05)
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
[2017-09-13] MEDS: cefTAZidime INJ 2,000 MG in SODIUM CHLORIDE 0.9% INJ 100 ML IV SCH ×2 (13:04→22:38)
[2017-09-13] MEDS: SODIUM CHLORIDE 0.9% FLUSH 10 ML FLUSH IV FLUSH SCH ×2 (14:49→22:38)
[2017-09-14] VITALS (10 sets, daily range): BP systolic 99–141; BP diastolic 53–83; PULSE 63–98; RESP 18–20; TEMP 97.5–98.9; O2SAT 98–100
[2017-09-14] MEDS: LACTULOSE SYRUP 20 GM/30 ML CUP PO SCH (09:00)
[2017-09-14] MEDS: LACTOSE REDUCED FOOD PO SCH ×3 (09:00→18:00)
[2017-09-14] MEDS: MULTIVITAMINS/MINERALS THERAPEUTIC TAB PO SCH (09:33)
[2017-09-14] MEDS: MEGESTROL ACETATE SUSP 400 MG/10 ML CUP PO SCH (09:33)
[2017-09-14] MEDS: BACLOFEN 10 MG TAB PO SCH ×3 (09:33→18:52)
[2017-09-14] MEDS: OXYBUTYNIN CHLORIDE 5 MG TAB PO SCH ×2 (09:33→21:35)
[2017-09-14] MEDS: SERTRALINE HCL 100 MG TAB PO SCH (09:33)
[2017-09-14] MEDS: TOPIRAMATE 25 MG TAB PO SCH (09:33)
--- NOTE | 2017-09-14 10:31 | PQ ---
Physician Query Response Document PATIENT: ALEKSANDAR TORRE : 1985 ADMIT DATE: 09/09/2017 1:07 PM DISCH DATE: RESPONDING PROVIDER #: Jarod QUERY TEXT: Cause and Effect Relationship Please clarify in documentation the relationship, if any, between and Such as: -- Conditions are due to or associated -- Unrelated to each other -- Other, please specify The patient's Clinical Indicators include: Per records, there is a supra pubic cath in place, also + PSEUDOMONAS AERUGINOSA in the urine cultu re report: is there a cause/effect Please document your reposne in the medical records Query created by: Darby Andrade on 09/13/2017 12:45 PM RESPONSE TEXT: PSAE UTI 2/2 chronic SPC Electronically signed by: Beka Vo MD 09/14/2017 10:27 AM
[2017-09-14] MEDS: cefTAZidime INJ 2,000 MG in SODIUM CHLORIDE 0.9% INJ 100 ML IV SCH ×2 (14:11→21:36)
[2017-09-14] MEDS: SODIUM CHLORIDE 0.9% FLUSH 10 ML FLUSH IV FLUSH SCH ×2 (14:25→21:35)
[2017-09-14] MEDS: ENOXAPARIN SODIUM 40 MG/0.4 ML SYRINGE SQ SCH (14:25)
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
[2017-09-15] VITALS (10 sets, daily range): BP systolic 100–114; BP diastolic 56–59; PULSE 62–95; RESP 18–20; TEMP 97.5–99.4; O2SAT 98–100
[2017-09-15] MEDS: LACTULOSE SYRUP 20 GM/30 ML CUP PO SCH (09:00)
[2017-09-15] MEDS: LACTOSE REDUCED FOOD PO SCH (09:00)
[2017-09-15] MEDS: OXYBUTYNIN CHLORIDE 5 MG TAB PO SCH (09:24)
[2017-09-15] MEDS: MEGESTROL ACETATE SUSP 400 MG/10 ML CUP PO SCH (09:24)
[2017-09-15] MEDS: SERTRALINE HCL 100 MG TAB PO SCH (09:24)
[2017-09-15] MEDS: MULTIVITAMINS/MINERALS THERAPEUTIC TAB PO SCH (09:25)
[2017-09-15] MEDS: BACLOFEN 10 MG TAB PO SCH ×3 (09:25→18:10)
[2017-09-15] MEDS: TOPIRAMATE 25 MG TAB PO SCH (09:25)
[2017-09-15] MEDS: SODIUM CHLORIDE 0.9% FLUSH 10 ML FLUSH IV FLUSH SCH (09:26)
[2017-09-15] MEDS: cefTAZidime INJ 2,000 MG in SODIUM CHLORIDE 0.9% INJ 100 ML IV SCH (11:34)
[2017-09-15] MEDS: ENOXAPARIN SODIUM 40 MG/0.4 ML SYRINGE SQ SCH (11:34)
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
== END 2017-09-15 19:07 | disposition home health service (06) | DRG 592 ==
LOC: NEPC 18:16 → NEDA 23:18 → NEDH 09-07 03:18 → NEPHCDU 09-07 16:09 → OBSVTOIN 09-09 13:07 → N05A 09-12 22:15
PROVIDERS: ADMIT Internal Medicine; ATTEND Internal Medicine
PROC: 2W05X6Z Change Pressure Dressing on Back (ICD-10-PCS; principal; 2017-09-10)
DX: L89.154 Pressure ulcer of sacral region, stage 4 (principal); G82.50 Quadriplegia, unspecified; R45.851 Suicidal ideations; F33.9 Major depressive disorder, recurrent, unspecified; N39.0 Urinary tract infection, site not specified; T76.01XA Adult neglect or abandonment, suspected, initial encounter; T83.511A Infection and inflammatory reaction due to indwelling urethral catheter, initial encounter; E86.0 Dehydration; R00.0 Tachycardia, unspecified; B96.5 Pseudomonas (aeruginosa) (mallei) (pseudomallei) as the cause of diseases classified elsewhere; R06.2 Wheezing; F12.90 Cannabis use, unspecified, uncomplicated; N31.9 Neuromuscular dysfunction of bladder, unspecified; F17.210 Nicotine dependence, cigarettes, uncomplicated; I95.1 Orthostatic hypotension; D47.3 Essential (hemorrhagic) thrombocythemia; Z16.29 Resistance to other single specified antibiotic; D72.829 Elevated white blood cell count, unspecified; F41.9 Anxiety disorder, unspecified; F19.10 Other psychoactive substance abuse, uncomplicated; R09.02 Hypoxemia; Z86.14 Personal history of Methicillin resistant Staphylococcus aureus infection; Z87.440 Personal history of urinary (tract) infections; Z68.35 Body mass index [BMI] 35.0-35.9, adult; Z79.899 Other long term (current) drug therapy
CPT/HCPCS: 36569; 71045; 76937; 80048; 80053; 80307; 81001; 83605; 85025; 85610; 85730; 87040; 87077; 87086; 87186; 93005; 94640; 94664; 96361; 96365; 96366; 96367; 96372; 96375; G0378; G8987-GP; G8988-GP; J0713; J1650; J2543; J2930; J3370; J7030; J7040

== ENCOUNTER 2017-11-05 19:17 | Emergency (ER) | payer MEDICAID ==
[~2017-11-05] VITALS: Ht 172.7 cm; Wt 55.0 kg
[~2017-11-05 19:17] MED LIST changes: +CEFT1INJ IV; +EPIN1INJ21 IV PUSH; +EPIN1INJ21 SQ; +Megestrol Liq PO; -OXYBXL5 PO; +SOLU250I IV PUSH; +THERM PO
[2017-11-05 19:30] VITALS: BP 115/70; PULSE 83; RESP 18; TEMP 98.3; O2SAT 99
[2017-11-05] MEDS ORDERED: ACETAMINOPHEN/HYDROcodone 325 MG/10 MG TAB PO ONE (19:30)
[2017-11-05] MEDS ORDERED: SODIUM CHLOR 0.9% 1000 ML INJ 1,000 ML IV ONE (19:30)
[2017-11-05] MEDS ORDERED: SODIUM CHLORIDE 0.9% FLUSH 10 ML FLUSH IVF PRN (19:30)
[2017-11-05] MEDS ORDERED: OXYBXL5 PO (19:39)
[2017-11-05] MEDS ORDERED: NITR1CAP24 PO (19:39)
[2017-11-05] MEDS ORDERED: ENSULIQ7 (19:39)
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
[2017-11-05 20:25] LABS: AUTOMATED NEUTROPHIL # 5.9 TH/MM3 (1.8-7.7); BASOPHIL # 0.1 TH/MM3 (0-0.2); BASOPHIL % 0.5 % (0.0-2.0); EOSINOPHIL # 0.2 TH/MM3 (0-0.4); EOSINOPHIL % 2.4 % (0.0-4.0); HEMATOCRIT 36.3 % (39.0-51.0); HEMOGLOBIN 12.1 GM/DL (13.0-17.0); LYMPHOCYTE # 2.8 TH/MM3 (1.0-4.8); MEAN CELL VOLUME 78.3 FL (80.0-100.0); MEAN CORPUSCULAR HEMOGLOBIN 26.1 PG (27.0-34.0); MEAN CORPUSCULAR HGB CONC 33.3 % (32.0-36.0); MEAN PLATELET VOLUME 7.9 FL (7.0-11.0); MONO % 7.4 % (0.0-8.0); MONOCYTE # 0.7 TH/MM3 (0-0.9); NEUT % 60.7 % (16.0-70.0); PLATELET COUNT 240 TH/MM3 (150-450); RED BLOOD COUNT 4.64 MIL/MM3 (4.50-5.90); RED CELL DISTRIBUTION WIDTH 19.3 % (11.6-17.2); WHITE BLOOD COUNT 9.6 TH/MM3 (4.0-11.0)
[2017-11-05 20:28] LABS: BACTERIA, URINE MANY /hpf; BILIRUBIN, URINE NEG (NEG); BLOOD, URINE MOD (NEG); GLUCOSE,URINE NEG (NEG); KETONE, URINE NEG (NEG); MUCUS URINE MANY /lpf (OCC); NITRITE,URINE POS (NEG); PH, URINE 7.5 (5.0-8.5); URINE COLOR YELLOW (YELLW/STRAW); URINE LEUKOCYTE ESTERASE LARGE (NEG); WHITE BLOOD CELL CLUMPS MANY
[2017-11-05] MEDS ORDERED: cefTRIAXone INJ 2,000 MG in SODIUM CHLORIDE 0.9% INJ 100 ML IV ONE (20:45)
[2017-11-05 20:56] LABS: ALBUMIN 3.3 GM/DL (3.4-5.0); AST (GOT) 14 U/L (15-37); BICARBONATE 23.1 MEQ/L (21.0-32.0); BLOOD UREA NITROGEN 12 MG/DL (7-18); CHLORIDE 110 MEQ/L (98-107); CREATININE 0.56 MG/DL (0.60-1.30); GLOMERULAR FILTRATION RATE 206 ML/MIN (>89); GLUCOSE,RANDOM 80 MG/DL (74-106); SODIUM (NA) 139 MEQ/L (136-145)
[2017-11-05 20:57] LABS: ALT (GPT) 21 U/L (12-78)
[2017-11-05 20:59] LABS: ALKALINE PHOSPHATASE 91 U/L (45-117); TOTAL BILIRUBIN ADULT 0.1 MG/DL (0.2-1.0); TOTAL PROTEIN 7.4 GM/DL (6.4-8.2)
[2017-11-05] MEDS ORDERED: CEPH-460 PO (21:16)
[2017-11-05] MEDS ORDERED: HYDR-3578 PO (21:16)
== END 2017-11-05 21:55 | disposition home or self-care (01) ==
LOC: NEPC 19:17
DX: N39.0 Urinary tract infection, site not specified (principal); R31.9 Hematuria, unspecified; L89.150 Pressure ulcer of sacral region, unstageable; F32.9 Major depressive disorder, single episode, unspecified; G82.20 Paraplegia, unspecified; B96.20 Unspecified Escherichia coli [E. coli] as the cause of diseases classified elsewhere; Z16.23 Resistance to quinolones and fluoroquinolones; Z16.29 Resistance to other single specified antibiotic; B96.5 Pseudomonas (aeruginosa) (mallei) (pseudomallei) as the cause of diseases classified elsewhere
CPT/HCPCS: 80053; 81001; 85025; 87077; 87086; 87186; 96361; 96365; 99284; J0696; J7030

== ENCOUNTER 2017-11-13 11:56 | Emergency (ER) | payer MEDICAID ==
[~2017-11-13] VITALS: Ht 162.6 cm; Wt 55.0 kg
[~2017-11-13 11:56] MED LIST changes: -CEFT1INJ IV; +CEPH-460 PO; -DULC10SU3 RECTAL; +ENSULIQ7; +HYDR-3578 PO; -Megestrol Liq PO; +NITR1CAP24 PO; -NUTR1LIQ PO; +OXYBXL5 PO; -SOLU250I IV PUSH; -TOPI50TA7 PO
[2017-11-13 12:07] VITALS: BP 94/53; PULSE 66; RESP 18; TEMP 97.9
[2017-11-13] MEDS ORDERED: SODIUM CHLORIDE 0.9% FLUSH 10 ML FLUSH IVF PRN (12:15)
--- NOTE | 2017-11-13 12:48 | PD ---
HPI Chief Complaint: Medical Clearance Time Seen by Provider: 12:04 Travel History International Travel<30 days: No Contact w/Intl Traveler<30days: No History of Present Illness HPI 32-year-old quadriplegic -Surinamese male presents emergency department with question obstruction of his suprapubic catheter. Patient states he was scheduled to have it changed last week, as he gets a change every 2 weeks by his urologist, but he was unable to make that appointment. Patient was seen here on the , and diagnosed with UTI placed on Keflex. Patient denies fever , chills, or significant abdominal pain. He notes no leakage around the catheter is in place. Patient has a wound VAC on his coccygeal pressure sore. He has no other acute medical complaints. He has history of MRSA. PFSH Past Medical History Depression: Yes Cardiovascular Problems: Yes (Low BP) Chemotherapy: No Cerebrovascular Accident: No Diabetes: No Neurologic: Yes (Paraplegic) Respiratory: No Integumentary: Yes (Chronic sacral decubitus) Seizures: Yes Past Surgical History Genitourinary Surgery: Yes (Suprapubic cystostomy) Neurologic Surgery: Yes Tonsillectomy: Yes Social History Alcohol Use: Yes (occasional ) Tobacco Use: Yes Substance Use: Yes (marijuana) Allergies-Medications (Allergen,Severity, Reaction): Coded Allergies: *MDRO Multi-Drug Resistant Organism (Verified Adverse Reaction, Unknown, ) MRSA finger wound 08/2015 Reported Meds & Prescriptions Reported Meds & Active Scripts Active Bactrim DS (Sulfamethoxazole-Trimethoprim) 800-160 Mg Tab 1 Tab PO BID Lorcet Hd 10-325 mg (Hydrocodone-Acetaminophen) 10 Mg-325 Mg Tab 1 Tab PO Q6H PRN Keflex (Cephalexin) 500 Mg Cap 500 Mg PO Q8H Epinephrine Inj 1 Mg/Ml (1 Ml) Inj 0.3 Mg SQ ONCE PRN Give with any signs of respiratory distress. Epinephrine Inj 1 Mg/Ml (1 Ml) Inj 0.3 Mg IV PUSH ONCE PRN Thera M Plus (Multivitamins/Minerals Therapeutic) 1 Tab 1 Tab PO DAILY Baclofen 10 Mg Tab 15 Mg PO TID [Low airloss mattress] % Lactulose Liq (Lactulose) 10 Gm/15 Ml Soln 30 Ml PO DAILY Reported Ditropan XL 24 HR (Oxybutynin Chloride) 5 Mg Tab 5 Mg PO DAILY Nitrofurantoin Macrocrystal 25 Mg Cap 25 Mg PO DAILY Ensure Liquid (Lactose-Reduced Food) 237 Ml Liquid Xanax (Alprazolam) 1 Mg Tab 1 Mg PO BID PRN [place] (Hydrocodone-Acetaminophen) 10-325 Mg Tab 1 Tab PO Q8HR PRN Zoloft (Sertraline HCl) 100 Mg Tab 100 Mg PO DAILY Vitamin D3 (Cholecalciferol) 50,000 Unit Cap 50,000 Units PO Q7D Ditropan (Oxybutynin Chloride) 5 Mg Tab 5 Mg PO Q12HR Review of Systems Except as stated in HPI: all other systems reviewed are Neg General / Constitutional: No: Fever Eyes: No: Visual changes HENT: No: Headaches Cardiovascular: No: Chest Pain or Discomfort Respiratory: No: Shortness of Breath Gastrointestinal: No: Abdominal Pain Genitourinary: No: Dysuria Musculoskeletal: No: Pain Skin: No Rash Neurologic: No: Weakness Psychiatric: No: Depression Endocrine: No: Polydipsia Hematologic/Lymphatic: No: Easy Bruising Physical Exam Narrative GENERAL: Patient appears in no acute distress. SKIN: Warm and dry. Normal color. Normal turgor. There is a wound VAC on his coccygeal region, but otherwise no acute findings noted. HEAD: Atraumatic. Normocephalic. EYES: Pupils equal and round. No scleral icterus. No injection or drainage. ENT: No nasal bleeding or discharge. Mucous membranes pink and moist. Pharynx is clear. Airways patent NECK: Trachea midline. Supple nontender per CARDIOVASCULAR: Regular rate and rhythm. RESPIRATORY: No accessory muscle use. Clear to auscultation. Breath sounds equal bilaterally. GASTROINTESTINAL: Abdomen soft, non-tender, nondistended. Hepatic and splenic margins not palpable. Suprapubic area appears well-healed without signs of breakdown or cellulitis. MUSCULOSKELETAL: Extremities without clubbing, cyanosis, or edema. No obvious deformities. NEUROLOGICAL: Awake and alert. No obvious cranial nerve deficits. Patient has decreased motion of both upper and lower extremities consistent with quadriplegia. Normal speech. PSYCHIATRIC: Appropriate mood and affect; insight and judgment normal. Data Data Last Documented VS Vital Signs Date Time Temp Pulse Resp B/P (MAP) Pulse Ox O2 Delivery O2 Flow Rate FiO2 11/13/17 12:07 97.9 66 18 94/53 (67) Orders Orders Complete Blood Count With Diff (11/13/17 12:10) Comprehensive Metabolic Panel (11/13/17 12:10) Urinalysis - C+S If Indicated (11/13/17 12:10) Iv Access Insert/Monitor (11/13/17 12:10) Sodium Chloride 0.9% Flush (Ns Flush) (11/13/17 12:15) Bladder/Catheter Irrigation (11/13/17 12:10) Continue Freeman/Suprapubic Cath (11/13/17 12:10) Urine Culture (11/13/17 12:56) Labs Laboratory Tests Test 11/13/17 12:25 11/13/17 12:56 White Blood Count 7.0 TH/MM3 Red Blood Count 4.85 MIL/MM3 Hemoglobin 13.0 GM/DL Hematocrit 39.1 % Mean Corpuscular Volume 80.7 FL Mean Corpuscular Hemoglobin 26.9 PG Mean Corpuscular Hemoglobin Concent 33.3 % Red Cell Distribution Width 18.7 % Platelet Count 250 TH/MM3 Mean Platelet Volume 7.6 FL Neutrophils (%) (Auto) 65.3 % Lymphocytes (%) (Auto) 26.8 % Monocytes (%) (Auto) 6.2 % Eosinophils (%) (Auto) 1.3 % Basophils (%) (Auto) 0.4 % Neutrophils # (Auto) 4.5 TH/MM3 Lymphocytes # (Auto) 1.9 TH/MM3 Monocytes # (Auto) 0.4 TH/MM3 Eosinophils # (Auto) 0.1 TH/MM3 Basophils # (Auto) 0.0 TH/MM3 CBC Comment DIFF FINAL Differential Comment Blood Urea Nitrogen 11 MG/DL Creatinine 0.57 MG/DL Random Glucose 96 MG/DL Total Protein 8.0 GM/DL Albumin 3.7 GM/DL Calcium Level 9.3 MG/DL Alkaline Phosphatase 84 U/L Aspartate Amino Transf (AST/SGOT) 18 U/L Alanine Aminotransferase (ALT/SGPT) 24 U/L Total Bilirubin 0.2 MG/DL Sodium Level 139 MEQ/L Potassium Level 4.4 MEQ/L Chloride Level 109 MEQ/L Carbon Dioxide Level 21.9 MEQ/L Anion Gap 8 MEQ/L Estimat Glomerular Filtration Rate 202 ML/MIN Urine Color YELLOW Urine Turbidity HAZY Urine pH 7.5 Urine Specific [place] 1.015 Urine Protein TRACE mg/dL Urine Glucose (UA) NEG mg/dL Urine Ketones NEG mg/dL Urine Occult Blood LARGE Urine Nitrite POS Urine Bilirubin NEG Urine Urobilinogen 2.0 MG/DL Urine Leukocyte Esterase LARGE Urine RBC /hpf Urine WBC 33 /hpf Urine Squamous Epithelial Cells 1 /hpf Urine Uric Acid Crystals /hpf Urine Bacteria MOD /hpf Urine Mucus MOD /lpf Microscopic Urinalysis Comment CULTURE INDICATED MDM Medical Decision Making Medical Screen Exam Complete: Yes Emergency Medical Condition: Yes Medical Record Reviewed: Yes Differential Diagnosis Quadriplegia. Neurogenic bladder. Suprapubic catheter. Possible UTI. Catheter obstruction. Narrative Course Labs ordered including CBC, CMP, and urinalysis. Urinary catheter was attempted to be flushed without success. Suprapubic catheter was replaced by myself without difficulty with good urinary flow noted post catheter replacement. Labs show normal CBC. Chemistries unremarkable except for chloride of 109, creatinine of 0.57 Urinalysis shows urine to be hazy with large occult blood and positive nitrites. Large leukocyte esterase with 33 white blood cells per high-power field. Patient has moderate bacteria and mucus. Urine is cultured. Previous urine culture showed Pseudomonas and E. coli. Pseudomonas was resistant to Cipro and Levaquin. We will treat with Bactrim DS twice daily 10 days. Patient is recommended to follow-up with his urologist next week. Patient can return with worsening symptoms as needed. Diagnosis Primary Impression: Freeman catheter problem Qualified Codes: T83.9XXA - Unspecified complication of genitourinary prosthetic device, implant and graft, initial encounter Additional Impressions: Quadriparesis Obstructive uropathy Referrals: Urologist 1 week Patient Instructions: General Instructions Additional Instructions: Suprapubic catheter was replaced by myself without difficulty with good urinary flow noted post catheter replacement. Labs show normal CBC. Chemistries unremarkable except for chloride of 109, creatinine of 0.57 Urinalysis shows urine to be hazy with large occult blood and positive nitrites. Large leukocyte esterase with 33 white blood cells per high-power field. Patient has moderate bacteria and mucus. Urine is cultured. Previous urine culture showed Pseudomonas and E. coli. Pseudomonas was resistant to Cipro and Levaquin. We will treat with Bactrim DS twice daily 10 days. Patient is recommended to follow-up with his urologist next week. Patient can return with worsening symptoms as needed. Scripts Sulfamethoxazole-Trimethoprim (Bactrim DS) 800-160 Mg Tab 1 TAB PO BID for Infection, #20 TAB 0 Refills Prov: Vikki Griffin MD 11/13/17 Disposition: 01 DISCHARGE HOME Condition: Stable Arik Jones Nov 13, 2017 12:48
[2017-11-13 12:55] LABS: AUTOMATED NEUTROPHIL # 4.5 TH/MM3 (1.8-7.7); BASOPHIL % 0.4 % (0.0-2.0); EOSINOPHIL # 0.1 TH/MM3 (0-0.4); EOSINOPHIL % 1.3 % (0.0-4.0); HEMATOCRIT 39.1 % (39.0-51.0); LYMPH % 26.8 % (9.0-44.0); LYMPHOCYTE # 1.9 TH/MM3 (1.0-4.8); MEAN CELL VOLUME 80.7 FL (80.0-100.0); MEAN CORPUSCULAR HEMOGLOBIN 26.9 PG (27.0-34.0); MEAN CORPUSCULAR HGB CONC 33.3 % (32.0-36.0); MEAN PLATELET VOLUME 7.6 FL (7.0-11.0); MONO % 6.2 % (0.0-8.0); MONOCYTE # 0.4 TH/MM3 (0-0.9); NEUT % 65.3 % (16.0-70.0); PLATELET COUNT 250 TH/MM3 (150-450); RED BLOOD COUNT 4.85 MIL/MM3 (4.50-5.90); RED CELL DISTRIBUTION WIDTH 18.7 % (11.6-17.2)
[2017-11-13 13:16] LABS: ALBUMIN 3.7 GM/DL (3.4-5.0); AST (GOT) 18 U/L (15-37); BICARBONATE 21.9 MEQ/L (21.0-32.0); BLOOD UREA NITROGEN 11 MG/DL (7-18); CALCIUM 9.3 MG/DL (8.5-10.1); CHLORIDE 109 MEQ/L (98-107); CREATININE 0.57 MG/DL (0.60-1.30); GLOMERULAR FILTRATION RATE 202 ML/MIN (>89); GLUCOSE,RANDOM 96 MG/DL (74-106); SODIUM (NA) 139 MEQ/L (136-145)
[2017-11-13 13:19] LABS: ALKALINE PHOSPHATASE 84 U/L (45-117); ALT (GPT) 24 U/L (12-78); TOTAL BILIRUBIN ADULT 0.2 MG/DL (0.2-1.0)
[2017-11-13 13:41] LABS: BACTERIA, URINE MOD /hpf; BILIRUBIN, URINE NEG (NEG); BLOOD, URINE LARGE (NEG); GLUCOSE,URINE NEG (NEG); KETONE, URINE NEG (NEG); MUCUS URINE MOD /lpf (OCC); NITRITE,URINE POS (NEG); PH, URINE 7.5 (5.0-8.5); SQUAMOUS EPITHELIAL CELL URINE 1 /hpf (0-5); URINE COLOR YELLOW (YELLW/STRAW); URINE LEUKOCYTE ESTERASE LARGE (NEG)
[2017-11-13] MEDS ORDERED: BACT800T5 PO (13:59)
== END 2017-11-13 14:45 | disposition home or self-care (01) ==
LOC: NEPD 11:56
DX: T83.098A Other mechanical complication of other urinary catheter, initial encounter (principal); B96.5 Pseudomonas (aeruginosa) (mallei) (pseudomallei) as the cause of diseases classified elsewhere; N13.9 Obstructive and reflux uropathy, unspecified; G82.50 Quadriplegia, unspecified; F32.9 Major depressive disorder, single episode, unspecified; Z72.0 Tobacco use; Z86.14 Personal history of Methicillin resistant Staphylococcus aureus infection; Z79.899 Other long term (current) drug therapy
CPT/HCPCS: 51700; 80053; 81001; 85025; 87077; 87086; 87186

== ENCOUNTER 2017-11-24 19:38 | Emergency (ER) | payer MEDICAID ==
[~2017-11-24 19:38] MED LIST changes: +BACT800T5 PO
[2017-11-24 19:46] VITALS: BP 119/89; PULSE 97; RESP 16; O2SAT 98
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
[2017-11-24] MEDS ORDERED: SODIUM CHLORID 0.9% 500 ML INJ 500 ML IV ONE (20:00)
[2017-11-24 20:36] LABS: BASOPHIL % 0.6 % (0.0-2.0); EOSINOPHIL # 0.3 TH/MM3 (0-0.4); EOSINOPHIL % 3.8 % (0.0-4.0); HEMATOCRIT 36.8 % (39.0-51.0); HEMOGLOBIN 12.3 GM/DL (13.0-17.0); LYMPH % 33.6 % (9.0-44.0); LYMPHOCYTE # 2.5 TH/MM3 (1.0-4.8); MEAN CORPUSCULAR HEMOGLOBIN 26.8 PG (27.0-34.0); MEAN CORPUSCULAR HGB CONC 33.5 % (32.0-36.0); MEAN PLATELET VOLUME 7.4 FL (7.0-11.0); MONOCYTE # 0.6 TH/MM3 (0-0.9); PLATELET COUNT 312 TH/MM3 (150-450); RED CELL DISTRIBUTION WIDTH 18.2 % (11.6-17.2); WHITE BLOOD COUNT 7.3 TH/MM3 (4.0-11.0)
[2017-11-24 20:41] LABS: BACTERIA, URINE FEW /hpf; BILIRUBIN, URINE NEG (NEG); BLOOD, URINE MOD (NEG); GLUCOSE,URINE NEG (NEG); KETONE, URINE NEG (NEG); NITRITE,URINE NEG (NEG); PH, URINE 6.5 (5.0-8.5); SQUAMOUS EPITHELIAL CELL URINE <1 /hpf (0-5); URINE COLOR YELLOW (YELLW/STRAW); URINE LEUKOCYTE ESTERASE LARGE (NEG)
[2017-11-24 20:48] LABS: ALBUMIN 3.6 GM/DL (3.4-5.0); AST (GOT) 16 U/L (15-37); BICARBONATE 24.5 MEQ/L (21.0-32.0); BLOOD UREA NITROGEN 16 MG/DL (7-18); CALCIUM 9.2 MG/DL (8.5-10.1); CHLORIDE 107 MEQ/L (98-107); CREATININE 0.76 MG/DL (0.60-1.30); GLOMERULAR FILTRATION RATE 145 ML/MIN (>89); GLUCOSE,RANDOM 78 MG/DL (74-106); SODIUM (NA) 139 MEQ/L (136-145)
[2017-11-24 20:50] LABS: ALT (GPT) 33 U/L (12-78)
[2017-11-24 20:51] LABS: ALKALINE PHOSPHATASE 84 U/L (45-117); TOTAL BILIRUBIN ADULT 0.7 MG/DL (0.2-1.0); TOTAL PROTEIN 7.8 GM/DL (6.4-8.2)
--- NOTE | 2017-11-24 20:57 | RADRPT ---
EXAM DATE/TIME: 11/24/2017 20:32 [facility] COMPARISON: No previous studies available for comparison. INDICATIONS : Hematuria. Evaluate for calculi. ORAL CONTRAST: No oral contrast ingested. RADIATION DOSE: 7.04 CTDIvol (mGy) MEDICAL HISTORY : Renal failure, acute. Parapeligic. SURGICAL HISTORY : Suprapubic cystostomy. ENCOUNTER: Initial ACUITY: 1 day PAIN SCALE: 3/10 LOCATION: Abdomen. TECHNIQUE: Volumetric scanning of the abdomen and pelvis was performed. Using automated exposure control and ad justment of the mA and/or kV according to patient size, radiation dose was kept as low as reasonably achievable to obtain optimal diagnostic quality images. DICOM format image data is available electro nically for review and comparison. FINDINGS: LOWER LUNGS: The visualized lower lungs are clear. LIVER: Homogeneous density without lesion. There is no dilation of the biliary tree. No calcified gallston es. SPLEEN: Normal size without lesion. PANCREAS: Within normal limits. KIDNEYS: Normal in size and shape. There is no mass, stone, or hydronephrosis. ADRENAL GLANDS: Within normal limits. VASCULAR: There is no aortic aneurysm. BOWEL/MESENTERY: The stomach, small bowel, and colon demonstrate no acute abnormality. There is no free intraperitone al air or fluid. ABDOMINAL WALL: Within normal limits. RETROPERITONEUM: There is no lymphadenopathy. BLADDER: Percutaneous bladder catheter. Numerous bladder calculi largest measuring approximately 1 cm. REPRODUCTIVE: Within normal limits. INGUINAL: There is no lymphadenopathy or hernia. MUSCULOSKELETAL: Within normal limits for patient age. CONCLUSION: 1. Numerous bladder calculi. 2. Percutaneous bladder catheter. Austin Kc MD on November 24, 2017 at 20:52 Board Certified Radiologist. This report was verified electronically.
== END 2017-11-24 23:47 | disposition home or self-care (01) ==
LOC: NEPE 19:38
DX: N21.0 Calculus in bladder (principal); F12.90 Cannabis use, unspecified, uncomplicated; Z72.0 Tobacco use
CPT/HCPCS: 74176; 80053; 81001; 85025; 87077; 87086; 87186; 99284; J7040

== ENCOUNTER 2017-12-08 11:39 | Emergency (ER) | payer MEDICAID ==
[~2017-12-08] VITALS: Ht 162.6 cm; Wt 54.0 kg
[2017-12-08 11:56] VITALS: BP 122/90; PULSE 101; RESP 18; TEMP 98.6; O2SAT 100
[2017-12-08 13:45] LABS: AUTOMATED NEUTROPHIL # 4.3 TH/MM3 (1.8-7.7); BASOPHIL % 0.3 % (0.0-2.0); EOSINOPHIL # 0.1 TH/MM3 (0-0.4); HEMATOCRIT 39.1 % (39.0-51.0); HEMOGLOBIN 12.9 GM/DL (13.0-17.0); LYMPH % 24.7 % (9.0-44.0); LYMPHOCYTE # 1.6 TH/MM3 (1.0-4.8); MEAN CELL VOLUME 81.3 FL (80.0-100.0); MEAN CORPUSCULAR HGB CONC 33.1 % (32.0-36.0); MEAN PLATELET VOLUME 7.3 FL (7.0-11.0); MONO % 6.4 % (0.0-8.0); MONOCYTE # 0.4 TH/MM3 (0-0.9); NEUT % 66.6 % (16.0-70.0); PLATELET COUNT 264 TH/MM3 (150-450); RED CELL DISTRIBUTION WIDTH 16.9 % (11.6-17.2); WHITE BLOOD COUNT 6.4 TH/MM3 (4.0-11.0)
[2017-12-08 14:17] LABS: ALBUMIN 3.5 GM/DL (3.4-5.0); AST (GOT) 28 U/L (15-37); BICARBONATE 25.8 MEQ/L (21.0-32.0); BLOOD UREA NITROGEN 13 MG/DL (7-18); CALCIUM 9.3 MG/DL (8.5-10.1); CHLORIDE 106 MEQ/L (98-107); CREATININE 0.67 MG/DL (0.60-1.30); GLOMERULAR FILTRATION RATE 168 ML/MIN (>89); GLUCOSE,RANDOM 82 MG/DL (74-106); SODIUM (NA) 141 MEQ/L (136-145)
[2017-12-08 14:18] LABS: ALT (GPT) 27 U/L (12-78)
[2017-12-08 14:20] LABS: ALKALINE PHOSPHATASE 101 U/L (45-117); TOTAL BILIRUBIN ADULT 0.5 MG/DL (0.2-1.0)
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
[2017-12-08 19:00] VITALS: BP 109/75
== END 2017-12-08 19:01 | disposition home or self-care (01) ==
LOC: NEPD 11:39
DX: F43.20 Adjustment disorder, unspecified (principal); G82.20 Paraplegia, unspecified; F32.9 Major depressive disorder, single episode, unspecified; N19 Unspecified kidney failure; Z72.0 Tobacco use; Z79.899 Other long term (current) drug therapy
CPT/HCPCS: 80053; 80307; 85025; 99283

== ENCOUNTER 2017-12-27 20:28 | Emergency (ER) | payer MEDICAID ==
[~2017-12-27] VITALS: Ht 172.7 cm; Wt 65.0 kg
[2017-12-27 21:16] VITALS: BP 110/66; PULSE 91; RESP 16; TEMP 98.9; O2SAT 98
[2017-12-27] MEDS ORDERED: LEVOFLOXACIN 750 MG TAB PO ONE (21:45)
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
[2017-12-27 22:51] LABS: AMORPHOUS SEDIMENT, URINE RARE; BACTERIA, URINE OCC /hpf; BILIRUBIN, URINE NEG (NEG); BLOOD, URINE SMALL (NEG); GLUCOSE,URINE NEG (NEG); KETONE, URINE NEG (NEG); MUCUS URINE FEW /lpf (OCC); NITRITE,URINE POS (NEG); SQUAMOUS EPITHELIAL CELL URINE 1 /hpf (0-5); URINE COLOR YELLOW (YELLW/STRAW); URINE LEUKOCYTE ESTERASE LARGE (NEG)
[2017-12-27 23:00] LABS: BASOPHIL % 0.7 % (0.0-2.0); EOSINOPHIL # 0.1 TH/MM3 (0-0.4); EOSINOPHIL % 2.2 % (0.0-4.0); HEMATOCRIT 37.8 % (39.0-51.0); HEMOGLOBIN 12.8 GM/DL (13.0-17.0); LYMPHOCYTE # 3.2 TH/MM3 (1.0-4.8); MEAN CELL VOLUME 82.2 FL (80.0-100.0); MEAN CORPUSCULAR HEMOGLOBIN 27.9 PG (27.0-34.0); MEAN PLATELET VOLUME 7.5 FL (7.0-11.0); MONO % 5.1 % (0.0-8.0); MONOCYTE # 0.3 TH/MM3 (0-0.9); PLATELET COUNT 254 TH/MM3 (150-450); WHITE BLOOD COUNT 6.8 TH/MM3 (4.0-11.0)
[2017-12-27 23:30] LABS: BICARBONATE 23.7 MEQ/L (21.0-32.0); CALCIUM 9.1 MG/DL (8.5-10.1); CREATININE 0.79 MG/DL (0.60-1.30)
[2017-12-28] MEDS ORDERED: BACT800T5 PO (01:54)
--- NOTE | 2017-12-28 01:56 | PD ---
Data Data Last Documented VS Vital Signs Date Time Temp Pulse Resp B/P (MAP) Pulse Ox O2 Delivery O2 Flow Rate FiO2 12/27/17 21:16 98.9 91 16 110/66 (81) 98 Orders Orders Levofloxacin (Levaquin) (12/27/17 21:45) Urinalysis - C+S If Indicated (12/27/17 21:38) Iv Access Insert/Monitor (12/27/17 22:30) Complete Blood Count With Diff (12/27/17 22:30) Basic Metabolic Panel (Bmp) (12/27/17 22:30) Creatine Kinase (Cpk) (12/27/17 22:30) Urine Culture (12/27/17 22:10) CKMB (12/27/17 22:50) CKMB% (12/27/17 22:50) Piperacil-Tazo 3.375 Gm Premix (Zosyn 3. (12/28/17 02:00) Ed Discharge Order (12/28/17 01:53) Labs Laboratory Tests Test 12/27/17 22:10 12/27/17 22:50 Urine Color YELLOW Urine Turbidity CLOUDY Urine pH 7.0 Urine Specific [place] 1.018 Urine Protein 30 mg/dL Urine Glucose (UA) NEG mg/dL Urine Ketones NEG mg/dL Urine Occult Blood SMALL Urine Nitrite POS Urine Bilirubin NEG Urine Urobilinogen LESS THAN 2.0 MG/DL Urine Leukocyte Esterase LARGE Urine RBC 8 /hpf Urine WBC 182 /hpf Urine Squamous Epithelial Cells 1 /hpf Urine Amorphous Sediment RARE Urine Bacteria OCC /hpf Urine Mucus FEW /lpf Microscopic Urinalysis Comment CATH-CULTURE IND White Blood Count 6.8 TH/MM3 Red Blood Count 4.60 MIL/MM3 Hemoglobin 12.8 GM/DL Hematocrit 37.8 % Mean Corpuscular Volume 82.2 FL Mean Corpuscular Hemoglobin 27.9 PG Mean Corpuscular Hemoglobin Concent 34.0 % Red Cell Distribution Width 15.0 % Platelet Count 254 TH/MM3 Mean Platelet Volume 7.5 FL Neutrophils (%) (Auto) 44.0 % Lymphocytes (%) (Auto) 48.0 % Monocytes (%) (Auto) 5.1 % Eosinophils (%) (Auto) 2.2 % Basophils (%) (Auto) 0.7 % Neutrophils # (Auto) 3.0 TH/MM3 Lymphocytes # (Auto) 3.2 TH/MM3 Monocytes # (Auto) 0.3 TH/MM3 Eosinophils # (Auto) 0.1 TH/MM3 Basophils # (Auto) 0.0 TH/MM3 CBC Comment DIFF FINAL Differential Comment Blood Urea Nitrogen 7 MG/DL Creatinine 0.79 MG/DL Random Glucose 78 MG/DL Calcium Level 9.1 MG/DL Sodium Level 141 MEQ/L Potassium Level 3.6 MEQ/L Chloride Level 108 MEQ/L Carbon Dioxide Level 23.7 MEQ/L Anion Gap 9 MEQ/L Estimat Glomerular Filtration Rate 139 ML/MIN Total Creatine Kinase 320 U/L Creatine Kinase MB 7.2 NG/ML Creatine Kinase MB % 2.3 % MDM Medical Record Reviewed: Yes Supervised Visit with DELL: No Narrative Course See previous providers notes for complete history of present illness. This is a paraplegic patient with suprapubic catheter placed who presents with dark colored urine over the past few days. His urinalysis is suggestive of UTI. His lab work is otherwise reassuring. The patient will be given a dose of IV Zosyn here. Pending culture results she will be discharged with Bactrim. Diagnosis Primary Impression: UTI (urinary tract infection) Additional Instruction: Medication as prescribed. Follow-up with primary care physician. Stay well hydrated. Return for any emergent medical conditions. Med/Other Pt SpecificInfo: Prescription(s) given Scripts Sulfamethoxazole-Trimethoprim (Bactrim DS) 800-160 Mg Tab 1 TAB PO BID for Infection, #14 TAB 0 Refills Prov: Suha Dorsey MD 12/28/17 Disposition: 01 DISCHARGE HOME Condition: Stable Nicanor Amaro Dec 28, 2017 01:56
[2017-12-28] MEDS ORDERED: PIPERACIL-TAZO 3.375 GM PREMIX 50 ML IV ONE (02:00)
[2017-12-28] MEDS ORDERED: ACETAMINOPHEN 325 MG TAB PO ONE (03:45)
== END 2017-12-28 07:36 | disposition home or self-care (01) ==
LOC: NEPD 20:28
DX: N39.0 Urinary tract infection, site not specified (principal); Z72.0 Tobacco use
CPT/HCPCS: 80048; 81001; 82550; 82552; 85025; 87077; 87086; 87186; 96365; 99284; J2543

== ENCOUNTER 2018-02-16 20:44 | Inpatient (IN) ==
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
[2018-02-16] MEDS ORDERED: Sod Chloride 0.9% Inj 1,000 ML IV.SIG ONE (21:29)
[2018-02-16 21:44] LABS: Baso % (Auto) 0.7 % (0.0-2.0); Eos # (Auto) 0.1 th/mm3 (0.0-0.4); Eos % (Auto) 3.1 % (0.0-4.0); Hematocrit 41.7 % (39.0-51.0); Hemoglobin 13.7 gm/dL (13.0-17.0); Lymph # (Auto) 2.6 th/mm3 (1.0-4.8); Lymph % (Auto) 55.6 % (9.0-44.0); Mean Corpuscular HGB Conc 32.8 % (32.0-36.0); Mean Corpuscular Hemoglobin 27.3 pg (27.0-34.0); Mean Corpuscular Volume 83.3 fL (80.0-100.0); Mean Platelet Volume 7.8 fL (7.0-11.0); Mono # (Auto) 0.3 th/mm3 (0.0-0.9); Mono % (Auto) 6.4 % (0.0-8.0); Neut # (Auto) 1.6 th/mm3 (1.8-7.7); Neut % (Auto) 34.2 % (16.0-70.0); Platelet Count 212 th/mm3 (150-450); Red Blood Count 5.01 mil/mm3 (4.50-5.90); Red Cell Distribution Width 14.2 % (11.6-17.2); White Blood Count 4.6 th/mm3 (4.0-11.0)
[2018-02-16 21:57] LABS: Alanine Aminotransferase 16 U/L (12-78); Albumin 3.5 g/dL (3.4-5.0); Anion Gap 7 meq/L (5-15); Aspartate Aminotransferase 10 U/L (15-37); Blood Urea Nitrogen 13 mg/dL (7-18); Carbon Dioxide 25.4 meq/L (21.0-32.0); Chloride 107 meq/L (98-107); Glomerular Filtration Rate Greater Than 89 mL/min (>89); Glucose,Random 69 mg/dL (74-106); Potassium 3.8 meq/L (3.5-5.1); Sodium 139 meq/L (136-145)
[2018-02-16 21:59] LABS: Bacteria,Urine Many /hpf; Bilirubin,Urine Negative (Negative); Clarity,Urine Turbid (Clear); Color,Urine Yellow (Yellw/Straw); Glucose,Urine (UA) Negative (Negative); Leukocyte Esterase,Urine Large (Negative); Mucus,Urine Many /lpf (Occasional); Nitrite,Urine Negative (Negative); Specific Gravity,Urine 1.016 (1.002-1.035)
[2018-02-16 22:00] LABS: Alkaline Phosphatase 74 U/L (45-117); Total Protein 7.1 g/dL (6.4-8.2)
--- NOTE | 2018-02-16 22:07 | XR ---
EXAM DATE: 02/16/2018 9:28 PM EDT AGE/SEX: 32 years / Male INDICATIONS: Cough. CLINICAL DATA: This is the patient's initial encounter. Patient reports that signs and symptoms have been present for 1 day and indicates a pain score of 0/10. MEDICAL/SURGICAL HISTORY: . Quadraparesis. Spinal cord injury . Spinal surgeries COMPARISON: [facility] [place], CHEST SINGLE AP, 09/07/2017. . FINDINGS: A single AP view of the chest demonstrates the lungs to be symmetrically aerated without evidence of mass, infiltrate or effusion. The cardiomediastinal contours are unremarkable. Surgical hardware is seen in the cervical spine.. CONCLUSION: No acute cardiopulmonary process. Electronically signed by: Lawrence Alamo MD 02/16/2018 10:06 PM EDT
[2018-02-17] MEDS ORDERED: Acetaminophen 325 MG Tablet PO PRN (00:38)
[2018-02-17] MEDS ORDERED: Temazepam 15 MG Capsule PO PRN (00:38)
[2018-02-17] MEDS ORDERED: Bisacodyl 10 MG Supp RECTAL PRN (00:38)
--- NOTE | 2018-02-17 00:47 | P.HP ---
History of Present Illness Service: [facility] Primary Care Physician: Michael Young History of Present Illness: 32-year-old male with quadriplegia secondary to a cervical spine fracture presents to the emergency department for the evaluation of a positive urine culture. The patient has a suprapubic catheter and he was seen in the emergency department on 02/01/18 where a urine culture was submitted. The patient was called on Wednesday and told he had Pseudomonas in his urine and to come to the hospital. He reports that the hospital today for these results. Urine culture from 02/01/18 is positive for MRSA and Pseudomonas. The patient denies any fever/chills. No chest pain or shortness of breath. No abdominal pain. No nausea/vomiting/diarrhea. Review of Systems All other systems reviewed negative except as stated in HPI PMFSH - History History Provided By: Patient - Medical History Medical History: Medical History (Last Reviewed 02/01/18 @ 14:19 by Naz Hale MD) Cervical spine fracture Quadriplegia - Surgical History Surgical History: Surgical History (Last Reviewed 02/01/18 @ 14:19 by Naz Hale MD) H/O cervical spine surgery - Tobacco History Second Hand Smoke Exposure: Yes Tobacco Use In Past 30 Days: Yes Smoking Status: Current every day smoker Tobacco Type: Cigarettes - Alcohol History How Often Do You Have a Drink Containing Alcohol: Never - Substance Use History Substance History: No History of Abuse - Travel History Recent Travel in the [place] Within the Last 8 Weeks: No Recent Travel Out of the Country Within the Last 8 Weeks: No - Immunization History Tetanus Immunization: <5 Years Hx Influenza Vaccine This Season: Yes Medications and Allergies Active Medications: Active Medications Acetaminophen (Tylenol) 650 mg PO Q4H PRN PRN Reason: Temp > 100.4 Al Hydroxide/Mg Hydroxide (Milk Of Magnesia Liq) 30 ml PO Q12H PRN PRN Reason: Mild Constipation Alprazolam (Xanax) 1 mg PO BID PRN PRN Reason: Anxiety Bisacodyl (Dulcolax Supp) 10 mg RECTAL DAILY PRN PRN Reason: SEVERE CONSITIPATION Ceftazidime 1,000 mg/ Sodium (Chloride) 100 mls @ 200 mls/hr IV.SIG Q8H [facility] Sodium Chloride (Ns Inj) 1,000 mls @ 70 mls/hr IV.CONT .[id number] [facility] Pharmacy Profile Note (Vancomycin Consult Pharmacy) 0 mls @ 0 mls/hr OTHER UNSCH [facility] Vancomycin HCl 1,000 mg/ (Sodium Chloride) 250 mls @ 250 mls/hr IV.SIG Q12H [facility] Lactulose (Lactulose Liq) 30 ml PO DAILY PRN PRN Reason: SEVERE CONSITIPATION Non-Formulary Medication (Baclofen [Baclofen]) 10 mg PO TID [facility] Non-Formulary Medication (Hydrocodone-Acetaminophen) 10 - 325 mg PO BID [facility] Non-Formulary Medication (Oxybutynin) 10 mg PO TID [facility] Non-Formulary Medication (Sertraline) 25 mg PO DAILY [facility] Ondansetron HCl (Zofran Inj) 4 mg IV.PUSH Q6H PRN PRN Reason: NAUSEA OR VOMITING Senna/Docusate Sodium (Valerie-Colace) 1 tab PO BID [facility] Sennosides (Senokot) 17.2 mg PO Q12H PRN PRN Reason: Moderate Constipation Sodium Chloride (Ns Flush) 2 ml IV.FLUSH PRN PRN PRN Reason: FLUSH AFTER USING IV ACCESS Temazepam (Restoril) 15 mg PO HS PRN PRN Reason: INSOMNIA Allergies Allergy/AdvReac Type Severity Reaction Status Date / Time *MDRO Multi-Drug Resistant AdvReac Unknown NONE Uncoded 02/16/18 21:03 Organism Home Medications Medication Instructions Recorded Confirmed Type alprazolam [Xanax] 1 mg PO BID PRN 02/01/18 02/16/18 History baclofen 10 mg PO TID 02/01/18 02/16/18 History hydrocodone-acetaminophen 10 - 325 mg PO BID 02/01/18 02/16/18 History oxybutynin 10 mg PO TID 02/01/18 02/16/18 History sertraline 25 mg PO DAILY 02/01/18 02/16/18 History Exam Vital signs: Vital Signs 02/16/18 20:52 02/16/18 20:57 Temperature 97.8 F Pulse Rate 72 66 Respiratory Rate 18 Blood Pressure 104/62 Pulse Oximetry 98 Intake & Output 02/16/18 02/16/18 02/17/18 06:59 18:59 06:59 Weight 54.431 kg Narrative: Gen.: No acute distress Head: Normocephalic. Atraumatic. EENT: Pupils equal round and reactive to light. Nose without drainage. Airway intact. Throat without injection. Cardiovascular: Regular rate and rhythm. No murmurs, rubs or gallops. Respiratory: Lungs clear to auscultation bilaterally. No wheezes or rhonchi. Abdomen: Soft, nontender, nondistended. No peritoneal signs. Musculoskeletal: No gross deformities. No edema. Skin: No obvious rashes or erythema. Neuro: Cranial nerves II through XII grossly intact. Quadriplegia. Psych: Appropriate mood and affect Results - Labs CBC & Chem 7: 02/16/18 21:14 02/16/18 21:14 Labs: Laboratory Results - last 24 hr 02/16/18 02/16/18 02/16/18 21:14 21:14 21:20 WBC 4.6 RBC 5.01 Hgb 13.7 Hct 41.7 MCV 83.3 MCH 27.3 MCHC 32.8 RDW 14.2 Plt Count 212 MPV 7.8 Neut % (Auto) 34.2 Lymph % (Auto) 55.6 H [place] % (Auto) 6.4 Eos % (Auto) 3.1 Baso % (Auto) 0.7 Neut # (Auto) 1.6 L Lymph # (Auto) 2.6 [place] # (Auto) 0.3 Eos # (Auto) 0.1 Baso # (Auto) 0.0 WBC Differential . Differential Comment Auto diff final Sodium 139 Potassium 3.8 Chloride 107 Carbon Dioxide 25.4 Anion Gap 7 BUN 13 Creatinine 0.87 Estimated GFR Greater than 89 Random Glucose 69 L Calcium 9.0 Total Bilirubin 0.5 AST 10 L ALT 16 Alkaline Phosphatase 74 Total Protein 7.1 Albumin 3.5 Urine Color Yellow Urine Clarity Turbid H Urine pH 7.0 Ur Specific [place] 1.016 Urine Protein 100 H Urine Glucose (UA) Negative Urine Ketones Negative Urine Occult Blood Moderate H Urine Nitrate Negative Urine Bilirubin Negative Urine Urobilinogen Less than 2 Ur Leukocyte Esterase Large H Urine RBC 37 H Urine WBC Urine WBC Clumps Occasional H Urine Bacteria Many H Urine Mucus Many H Micro UA Comment Culture indicated Urine Culture Comments Culture indicated - Imaging Impressions Chest X-Ray 02/16/18 21:11 CONCLUSION: Caprini VTE Risk Assessment Caprini VTE Risk Assessment: No/Low Risk (score <= 1) Caprini Risk Assessment Model: Point Value = 1 Point Value = 2 Point Value = 3 Point Value = 5 Age 41-60 Minor surgery BMI > 25 kg/m2 Swollen legs Varicose veins or History of unexplained or recurrent spontaneous Oral contraceptives or hormone replacement Sepsis (< 1 month) Serious lung disease, including pneumonia (< 1 month) Abnormal pulmonary function Acute myocardial infarction Congestive heart failure (< 1 month) History of inflammatory bowel disease Medical patient at bed rest Age 61-74 Arthroscopic surgery Major open surgery (> 45 min) Laparoscopic surgery (> 45 min) Malignancy Confined to bed (> 72 hours) Immobilizing plaster cast Central venous access Age >= 75 History of VTE Family history of VTE Factor V Leiden Prothrombin [id number] Lupus anticoagulant Anticardiolipin antibodies Elevated serum homocysteine Heparin-induced thrombocytopenia Other congenital or acquired thrombophilia Stroke (< 1 month) Elective arthroplasty Hip, pelvis, or leg fracture Acute spinal cord injury (< 1 month) Prophylaxis Regimen: Total Risk Factor Score Risk Level Prophylaxis Regimen 0-1 Low Early ambulation 2 Moderate Order ONE of the following: *Sequential Compression Device (SCD) *Heparin 5000 units SQ BID 3-4 Higher Order ONE of the following medications: *Heparin 5000 units SQ TID *Enoxaparin/Lovenox 40 mg SQ daily (WT < 150 kg, CrCl > 30 mL/min) *Enoxaparin/Lovenox 30 mg SQ daily (WT < 150 kg, CrCl > 10-29 mL/min) *Enoxaparin/Lovenox 30 mg SQ BID (WT < 150 kg, CrCl > 30 mL/min) AND/OR *Sequential Compression Device (SCD) 5 or more Highest Order ONE of the following medications: *Heparin 5000 units SQ TID (Preferred with Epidurals) *Enoxaparin/Lovenox 40 mg SQ daily (WT < 150 kg, CrCl > 30 mL/min) *Enoxaparin/Lovenox 30 mg SQ daily (WT < 150 kg, CrCl > 10-29 mL/min) *Enoxaparin/Lovenox 30 mg SQ BID (WT < 150 kg, CrCl > 30 mL/min) AND *Sequential Compression Device (SCD) Assessment and Plan - Plan Assessment/plan: 1. Urinary tract infection Culture from 02/01/18 positive for MRSA and Pseudomonas Vancomycin and ceftazidime based on sensitivities of culture Infectious disease consulted, appreciate recommendations Neurology consulted as patient will likely need suprapubic catheter changed 2. Quadriplegia Continue home medications Physical therapy FEN Regular diet Electrolytes: Monitor and replete as needed NS at 70 cc/hour
[2018-02-17] MEDS ORDERED: Vancomycin Consult Pharmacy 1 EACH OTHER SCH (01:00)
[2018-02-17] MEDS: Sod Chloride 0.9% Inj 1,000 ML IV.CONT SCH ×2 (01:02→16:32)
[2018-02-17] MEDS ORDERED: Vancomycin Inj 1,000 MG in Sodium Chlor 0.9% Inj 250 ML IV.SIG ONE (02:00)
[2018-02-17] MEDS: Senna/Docusate Sodium 8.6/50 MG Tablet PO SCH ×2 (08:27→21:21)
[2018-02-17] MEDS: Baclofen 10 MG Tablet PO SCH ×3 (08:27→18:20)
[2018-02-17] MEDS: Sertraline 50 MG Tablet PO SCH (08:28)
--- NOTE | 2018-02-17 09:57 | P.PN ---
Subjective Interval history: Follow-up visit urinary tract infection, chronic suprapubic catheter, Pseudomonas and MRSA UTI prior. Patient seen and examined today. Reports he is doing okay. Denies pain and discomfort. Denies SOB/ dyspnea. Denies chest pain, palpitations, headaches, dizziness. Denies fevers, chills, n/v/d. Physical Exam Vital signs: Vital Signs 02/16/18 20:52 02/16/18 20:57 02/17/18 04:00 Temperature 97.8 F 97.5 F L Pulse Rate 72 66 52 L Respiratory Rate 18 18 Blood Pressure 104/62 105/65 Pulse Oximetry 98 100 02/17/18 07:27 Temperature 98.1 F Pulse Rate 56 L Respiratory Rate 14 Blood Pressure 109/55 L Pulse Oximetry 96 Intake & Output 02/16/18 02/17/18 02/17/18 18:59 06:59 18:59 Intake Total 1450 / 1450 Balance 1450 / 1450 Weight 54.683 kg Intake: IV 1450 / 1450 Maxipime Inj 2,000 MG In NS Inj 100 / 100 100 ML @ 200 mls/hr IV.SIG ONCE ONE Rx#:[id number] NS Inj 1,000 ML @ Wide Open IV. 1000 / 1000 SIG BOLUS ONE Rx#:[id number] Vancomycin Inj 1,000 MG In NS 250 / 250 Inj 250 ML @ 250 mls/hr IV.SIG ONCE ONE Rx#:[id number] Tazicef Inj 1,000 MG In NS Inj 100 / 100 100 ML @ 200 mls/hr IV.SIG Q8H [facility] Rx#:[id number] Other: Weight On Admission 54.683 kg Narrative: GENERAL: This is a well-nourished, well-developed patient, in no apparent distress. SKIN: Warm and dry. Sacral PU with dsg. HEENT: Normocephalic. Pupils equal round and reactive. Nose without bleeding. Airway patent. NECK: Trachea midline. No JVD. Supple. CARDIOVASCULAR: Regular rate and rhythm without murmurs, gallops, or rubs. RESPIRATORY: Clear to auscultation. Breath sounds equal bilaterally. No wheezes , rales, or rhonchi. GASTROINTESTINAL: Abdomen soft, non-tender, nondistended. Bowel Sounds normoactive x4. Suprapubic cath in place. MUSCULOSKELETAL: Extremities without clubbing, cyanosis, or edema. NEUROLOGICAL: Awake and alert. Normal speech. Quadriplegia. Results - Labs CBC & Chem 7: 02/16/18 21:14 02/16/18 21:14 Laboratory Results - last 24 hr 02/16/18 02/16/18 02/16/18 21:14 21:14 21:20 WBC 4.6 RBC 5.01 Hgb 13.7 Hct 41.7 MCV 83.3 MCH 27.3 MCHC 32.8 RDW 14.2 Plt Count 212 MPV 7.8 Neut % (Auto) 34.2 Lymph % (Auto) 55.6 H [place] % (Auto) 6.4 Eos % (Auto) 3.1 Baso % (Auto) 0.7 Neut # (Auto) 1.6 L Lymph # (Auto) 2.6 [place] # (Auto) 0.3 Eos # (Auto) 0.1 Baso # (Auto) 0.0 WBC Differential . Differential Comment Auto diff final Sodium 139 Potassium 3.8 Chloride 107 Carbon Dioxide 25.4 Anion Gap 7 BUN 13 Creatinine 0.87 Estimated GFR Greater than 89 Random Glucose 69 L Calcium 9.0 Total Bilirubin 0.5 AST 10 L ALT 16 Alkaline Phosphatase 74 Total Protein 7.1 Albumin 3.5 Urine Color Yellow Urine Clarity Turbid H Urine pH 7.0 Ur Specific [place] 1.016 Urine Protein 100 H Urine Glucose (UA) Negative Urine Ketones Negative Urine Occult Blood Moderate H Urine Nitrate Negative Urine Bilirubin Negative Urine Urobilinogen Less than 2 Ur Leukocyte Esterase Large H Urine RBC 37 H Urine WBC Urine WBC Clumps Occasional H Urine Bacteria Many H Urine Mucus Many H Micro UA Comment Culture indicated Urine Culture Comments Culture indicated - Imaging Impressions Chest X-Ray 02/16/18 21:11 CONCLUSION: Assessment and Plan - Assessment (1) Pseudomonas urinary tract infection Code(s): N39.0 - Urinary tract infection, site not specified; B96.5 - Pseudomonas (aeruginosa) (mallei) (pseudomallei) as the cause of diseases classified elsewhere Status: Acute (2) Chronic indwelling Freeman catheter Code(s): Z92.89 - Personal history of other medical treatment Status: Chronic - Plan 32-year-old male with quadriplegia secondary to a cervical spine fracture presents to the emergency department for the evaluation of a positive urine culture. Patient was called to go to the emergency department for positive urine culture MRSA and Pseudomonas 02/01/18 Urinary tract infection, acute History of neurogenic bladder -Culture from 02/01/18 positive for MRSA and Pseudomonas -Vancomycin and ceftazidime based on sensitivities of culture -Infectious disease consulted, appreciate recommendations. Continue IV Abx. Follow cultures -Repeat UA, follow culture sensitivities. Blood cultures. -Urology consulted for suprapubic catheter changed. -Current culture showed gram-negative rods greater than 100,000. Quadriplegia -Continue home medications baclofen, alprazolam, [place] -Physical therapy -Pressure relief, sacral wound being followed and outpatient dressing intact DVT prop Lovenox Code Status: Full Code Discussed Condition With: Patient, nursing, Dr. Berry Discharge Planning: Plan to DC home when cultures are back, cleared by infectious disease
--- NOTE | 2018-02-17 13:30 | P.CONID ---
History of Present Illness Service: ID Consult date: 02/17/18 Requesting Physician: Davida Middleton Reason for Consult: UTI PSAE Primary Care Provider: Michael Young History of Present Illness: 32 yo male with incomplete tetraplegia, neurogenic bladder and chronic SP cath presented on February 01 with leaking lauren and it was changed No fever, chills His urine clx is positive for PSAE and MRSA he does have subjective fevers now He is afebrile ANC is low 1600 Review of Systems All other systems reviewed negative except as stated in HPI PMFSH - History History Provided By: Patient - Medical History Medical History: Medical History (Last Reviewed 04/15/18 @ 09:10 by Miriam Vernon MD) Cervical spine fracture Quadriplegia - Surgical History Surgical History: Surgical History (Last Reviewed 04/15/18 @ 09:10 by Miriam Vernon MD) H/O cervical spine surgery - Family History Family History: Family History (Last Updated 04/15/18 @ 09:11 by Miriam Vernon MD) Other No pertinent family history - Social History I have reviewed the patient's Social History: Yes - Tobacco History Second Hand Smoke Exposure: Yes Tobacco Use In Past 30 Days: Yes Smoking Status: Current every day smoker Tobacco Type: Cigarettes - Alcohol History How Often Do You Have a Drink Containing Alcohol: Never - Substance Use History Substance History: No History of Abuse - Travel History Recent Travel in the [place] Within the Last 8 Weeks: No Recent Travel Out of the Country Within the Last 8 Weeks: No - Immunization History Tetanus Immunization: <5 Years Hx Influenza Vaccine This Season: Yes Medications and Allergies Active Medications: Active Medications Acetaminophen (Tylenol) 650 mg PO Q4H PRN PRN Reason: Temp > 100.4 Hydrocodone Bitart/Acetaminophen ([place] 10/325) 1 tab PO BID GWENDOLYN Al Hydroxide/Mg Hydroxide (Milk Of Magnesia Liq) 30 ml PO Q12H PRN PRN Reason: Mild Constipation Alprazolam (Xanax) 1 mg PO BID PRN PRN Reason: Anxiety Baclofen (Lioresal) 10 mg PO TID PENDING SALE TO [facility] Last Admin: 02/17/18 08:27 Dose: 10 mg Bisacodyl (Dulcolax Supp) 10 mg RECTAL DAILY PRN PRN Reason: SEVERE CONSITIPATION Ceftazidime 1,000 mg/ Sodium (Chloride) 100 mls @ 200 mls/hr IV.SIG Q8H PENDING SALE TO [facility] Last Infusion: 02/17/18 03:39 Dose: Infused Sodium Chloride (Ns Inj) 1,000 mls @ 70 mls/hr IV.CONT .[id number] PENDING SALE TO [facility] Last Admin: 02/17/18 01:02 Dose: 70 mls/hr Pharmacy Profile Note (Vancomycin Consult Pharmacy) 0 mls @ 0 mls/hr OTHER UNSCH PENDING SALE TO [facility] Vancomycin HCl 1,000 mg/ (Sodium Chloride) 250 mls @ 250 mls/hr IV.SIG Q12H PENDING SALE TO [facility] Lactulose (Lactulose Liq) 30 ml PO DAILY PRN PRN Reason: SEVERE CONSITIPATION Miscellaneous Information ([facility] Ordered Lab Info) 0 each OTHER ONCE ONE Stop: 02/18/18 14:46 Ondansetron HCl (Zofran Inj) 4 mg IV.PUSH Q6H PRN PRN Reason: NAUSEA OR VOMITING Oxybutynin Chloride (Ditropan) 10 mg PO TID PENDING SALE TO [facility] Last Admin: 02/17/18 08:27 Dose: 10 mg Senna/Docusate Sodium (Valerie-Colace) 1 tab PO BID PENDING SALE TO [facility] Last Admin: 02/17/18 08:27 Dose: 1 tab Sennosides (Senokot) 17.2 mg PO Q12H PRN PRN Reason: Moderate Constipation Sertraline HCl (Zoloft) 25 mg PO DAILY PENDING SALE TO [facility] Last Admin: 02/17/18 08:28 Dose: 25 mg Sodium Chloride (Ns Flush) 2 ml IV.FLUSH PRN PRN PRN Reason: FLUSH AFTER USING IV ACCESS Temazepam (Restoril) 15 mg PO HS PRN PRN Reason: INSOMNIA Allergies Allergy/AdvReac Type Severity Reaction Status Date / Time No Known Drug Allergies AdvReac Unknown none Verified 02/17/18 18:24 *MDRO Multi-Drug Resistant AdvReac Unknown NONE Uncoded 02/16/18 21:03 Organism Home Medications Medication Instructions Recorded Confirmed Type alprazolam [Xanax] 1 mg PO BID PRN 02/01/18 02/16/18 History baclofen 10 mg PO TID 02/01/18 02/16/18 History hydrocodone-acetaminophen 10 - 325 mg PO BID 02/01/18 02/16/18 History oxybutynin 10 mg PO TID 02/01/18 02/16/18 History sertraline 25 mg PO DAILY 02/01/18 02/16/18 History Exam Vital signs: Vital Signs 02/16/18 20:52 02/16/18 20:57 02/17/18 04:00 Temperature 97.8 F 97.5 F L Pulse Rate 72 66 52 L Respiratory Rate 18 18 Blood Pressure 104/62 105/65 Pulse Oximetry 98 100 02/17/18 07:27 02/17/18 12:00 Temperature 98.1 F 97.5 F L Pulse Rate 56 L 60 Respiratory Rate 14 14 Blood Pressure 109/55 L 94/57 L Pulse Oximetry 96 100 Intake & Output 02/16/18 02/17/18 02/17/18 18:59 06:59 18:59 Intake Total 1450 / 1450 Balance 1450 / 1450 Weight 54.683 kg Intake: IV 1450 / 1450 Maxipime Inj 2,000 MG In NS Inj 100 / 100 100 ML @ 200 mls/hr IV.SIG ONCE ONE Rx#:[id number] NS Inj 1,000 ML @ Wide Open IV. 1000 / 1000 SIG BOLUS ONE Rx#:[id number] Vancomycin Inj 1,000 MG In NS 250 / 250 Inj 250 ML @ 250 mls/hr IV.SIG ONCE ONE Rx#:[id number] Tazicef Inj 1,000 MG In NS Inj 100 / 100 100 ML @ 200 mls/hr IV.SIG Q8H GWENDOLYN Rx#:[id number] Other: Weight On Admission 54.683 kg - Constitutional no acute distress, thin - Routine HEENT Exam Head: Present: normocephalic, atraumatic Eye: Present: EOMI, PERRL ENT: Present: mucous membranes moist, oropharynx clear - Routine Neck Exam Present: supple, full ROM - Routine Respiratory Exam Present: CTA bilaterally Comments: no chest deformities, good effort - Routine Cardiovascular Exam Present: RRR, S1, S2 Comments: well prfused perfery - Routine Abdominal Exam Present: soft, normoactive bowel sounds Comments: not tender not distended no organomegaly, masses - Routine Extremities Exam Comments: no cyanosis, clubbing or edema - Routine Skin Exam Comments: no rash Very small and clean stage II sacral decub covered with dressing - Routine Neurological Exam Present: alert, oriented X3 incomplete tetraplegia with 0/5 movements in BLE 3/5 proximal BUE and o/5 fine motor movements - Routine Psychiatric Exam Present: normal affect, cooperative Results - Labs CBC & Chem 7: 02/23/18 11:15 02/23/18 11:15 Labs: Laboratory Results - last 24 hr 02/16/18 02/16/18 02/16/18 21:14 21:14 21:20 WBC 4.6 RBC 5.01 Hgb 13.7 Hct 41.7 MCV 83.3 MCH 27.3 MCHC 32.8 RDW 14.2 Plt Count 212 MPV 7.8 Neut % (Auto) 34.2 Lymph % (Auto) 55.6 H [place] % (Auto) 6.4 Eos % (Auto) 3.1 Baso % (Auto) 0.7 Neut # (Auto) 1.6 L Lymph # (Auto) 2.6 [place] # (Auto) 0.3 Eos # (Auto) 0.1 Baso # (Auto) 0.0 WBC Differential . Differential Comment Auto diff final Sodium 139 Potassium 3.8 Chloride 107 Carbon Dioxide 25.4 Anion Gap 7 BUN 13 Creatinine 0.87 Estimated GFR Greater than 89 Random Glucose 69 L Calcium 9.0 Total Bilirubin 0.5 AST 10 L ALT 16 Alkaline Phosphatase 74 Total Protein 7.1 Albumin 3.5 Urine Color Yellow Urine Clarity Turbid H Urine pH 7.0 Ur Specific [place] 1.016 Urine Protein 100 H Urine Glucose (UA) Negative Urine Ketones Negative Urine Occult Blood Moderate H Urine Nitrate Negative Urine Bilirubin Negative Urine Urobilinogen Less than 2 Ur Leukocyte Esterase Large H Urine RBC 37 H Urine WBC Urine WBC Clumps Occasional H Urine Bacteria Many H Urine Mucus Many H Micro UA Comment Culture indicated Urine Culture Comments Culture indicated - Imaging Impressions CXR NAD Chest X-Ray 02/16/18 21:11 CONCLUSION: Assessment and Plan (1) Paraplegia Status: Chronic Code(s): G82.20 - Paraplegia, unspecified (2) Chronic indwelling Lauren catheter Status: Chronic Code(s): Z92.89 - Personal history of other medical treatment (3) Pseudomonas urinary tract infection Status: Acute Code(s): N39.0 - Urinary tract infection, site not specified; B96.5 - Pseudomonas (aeruginosa) (mallei) (pseudomallei) as the cause of diseases classified elsewhere - Plan Tetrapalegia with neurogenic bladder PSAE UTI MRSA bacteriuria vs contamination Bladder stones Neutropenia ? med effects repeat CBC, if remains neutropenic will need hem/onc consult cont cefepime repeat UA, urine clx If still positive for MRSA will add vancomycin
--- NOTE | 2018-02-17 14:21 | P.CONURO ---
History of Present Illness Service: Urology Consult date: 02/17/18 Reason for Consult: UTI, SPT change Primary Care Provider: Michael Young History of Present Illness: 32-year-old male with quadriplegia secondary to a cervical spine fracture presents to the emergency department for the evaluation of a positive urine culture. The patient has a chronic suprapubic catheter and he was seen in the emergency department on 02/01/18 where a urine culture was submitted. The patient was called on Wednesday and told he had Pseudomonas in his urine and to come to the hospital. He reports that the hospital today for these results. Urine culture from 02/01/18 is positive for MRSA and Pseudomonas. The patient denies any fever/chills. No chest pain or shortness of breath. No abdominal pain. No nausea/vomiting/diarrhea. ID was consulted as well. Urology asked to help with changing SPT. Otherwise pt has no c/o Review of Systems All other systems reviewed negative except as stated in HPI PMFSH - History History Provided By: Patient - Medical History Medical History: Medical History (Last Reviewed 02/17/18 @ 07:44 by Samson Walker) Cervical spine fracture Quadriplegia - Surgical History Surgical History: Surgical History (Last Reviewed 02/17/18 @ 07:45 by Samson Walker) H/O cervical spine surgery - Tobacco History Second Hand Smoke Exposure: Yes Tobacco Use In Past 30 Days: Yes Smoking Status: Current every day smoker Tobacco Type: Cigarettes - Alcohol History How Often Do You Have a Drink Containing Alcohol: Never - Substance Use History Substance History: No History of Abuse - Travel History Recent Travel in the [place] Within the Last 8 Weeks: No Recent Travel Out of the Country Within the Last 8 Weeks: No - Immunization History Tetanus Immunization: <5 Years Hx Influenza Vaccine This Season: Yes Medications and Allergies Active Medications: Active Medications Acetaminophen (Tylenol) 650 mg PO Q4H PRN PRN Reason: Temp > 100.4 Hydrocodone Bitart/Acetaminophen ([place] 10/325) 1 tab PO BID [facility] Last Admin: 02/17/18 08:50 Dose: 1 tab Al Hydroxide/Mg Hydroxide (Milk Of Magnnupur Liq) 30 ml PO Q12H PRN PRN Reason: Mild Constipation Alprazolam (Xanax) 1 mg PO BID PRN PRN Reason: Anxiety Baclofen (Lioresal) 10 mg PO TID [facility] Last Admin: 02/17/18 08:27 Dose: 10 mg Bisacodyl (Dulcolax Supp) 10 mg RECTAL DAILY PRN PRN Reason: SEVERE CONSITIPATION Ceftazidime 1,000 mg/ Sodium (Chloride) 100 mls @ 200 mls/hr IV.SIG Q8H [facility] Last Infusion: 02/17/18 03:39 Dose: Infused Sodium Chloride (Ns Inj) 1,000 mls @ 70 mls/hr IV.CONT .[id number] [facility] Last Admin: 02/17/18 01:02 Dose: 70 mls/hr Pharmacy Profile Note (Vancomycin Consult Pharmacy) 0 mls @ 0 mls/hr OTHER UNSCH [facility] Vancomycin HCl 1,000 mg/ (Sodium Chloride) 250 mls @ 250 mls/hr IV.SIG Q12H [facility] Lactulose (Lactulose Liq) 30 ml PO DAILY PRN PRN Reason: SEVERE CONSITIPATION Miscellaneous Information ([facility] Ordered Lab Info) 0 each OTHER ONCE ONE Stop: 02/18/18 14:46 Ondansetron HCl (Zofran Inj) 4 mg IV.PUSH Q6H PRN PRN Reason: NAUSEA OR VOMITING Oxybutynin Chloride (Ditropan) 10 mg PO TID [facility] Last Admin: 02/17/18 08:27 Dose: 10 mg Senna/Docusate Sodium (Valerie-Colace) 1 tab PO BID [facility] Last Admin: 02/17/18 08:27 Dose: 1 tab Sennosides (Senokot) 17.2 mg PO Q12H PRN PRN Reason: Moderate Constipation Sertraline HCl (Zoloft) 25 mg PO DAILY [facility] Last Admin: 02/17/18 08:28 Dose: 25 mg Sodium Chloride (Ns Flush) 2 ml IV.FLUSH PRN PRN PRN Reason: FLUSH AFTER USING IV ACCESS Temazepam (Restoril) 15 mg PO HS PRN PRN Reason: INSOMNIA Allergies Allergy/AdvReac Type Severity Reaction Status Date / Time *MDRO Multi-Drug Resistant AdvReac Unknown NONE Uncoded 02/16/18 21:03 Organism Home Medications Medication Instructions Recorded Confirmed Type alprazolam [Xanax] 1 mg PO BID PRN 02/01/18 02/16/18 History baclofen 10 mg PO TID 02/01/18 02/16/18 History hydrocodone-acetaminophen 10 - 325 mg PO BID 02/01/18 02/16/18 History oxybutynin 10 mg PO TID 02/01/18 02/16/18 History sertraline 25 mg PO DAILY 02/01/18 02/16/18 History Physical Exam Vital Signs - 24 hr 02/16/18 20:52 02/16/18 20:57 02/17/18 04:00 Temperature 97.8 F 97.5 F L Pulse Rate 72 66 52 L Respiratory Rate 18 18 Blood Pressure 104/62 105/65 Pulse Oximetry 98 100 02/17/18 07:27 02/17/18 08:50 02/17/18 12:00 Temperature 98.1 F 97.5 F L Pulse Rate 56 L 60 Respiratory Rate 14 16 14 Blood Pressure 109/55 L 94/57 L Pulse Oximetry 96 100 Physical Exam: GENERAL: This is a well-nourished, well-developed patient, in no apparent distress. SKIN: No rashes, ecchymoses or lesions. Cool and dry. HEAD: Atraumatic. Normocephalic. CARDIOVASCULAR: Regular rate and rhythm without murmurs, gallops, or rubs. RESPIRATORY: Clear to auscultation. Breath sounds equal bilaterally. No wheezes , rales, or rhonchi. GASTROINTESTINAL: Abdomen soft, non-tender, nondistended. GENITOURINARY: SPT in place. No CVAT MUSCULOSKELETAL: Extremities without clubbing, cyanosis, or edema. N NEUROLOGICAL: Awake and alert. Laboratory Results - last 24 hr 02/16/18 02/16/18 02/16/18 21:14 21:14 21:20 WBC 4.6 RBC 5.01 Hgb 13.7 Hct 41.7 MCV 83.3 MCH 27.3 MCHC 32.8 RDW 14.2 Plt Count 212 MPV 7.8 Neut % (Auto) 34.2 Lymph % (Auto) 55.6 H [place] % (Auto) 6.4 Eos % (Auto) 3.1 Baso % (Auto) 0.7 Neut # (Auto) 1.6 L Lymph # (Auto) 2.6 [place] # (Auto) 0.3 Eos # (Auto) 0.1 Baso # (Auto) 0.0 WBC Differential . Differential Comment Auto diff final Sodium 139 Potassium 3.8 Chloride 107 Carbon Dioxide 25.4 Anion Gap 7 BUN 13 Creatinine 0.87 Estimated GFR Greater than 89 Random Glucose 69 L Calcium 9.0 Total Bilirubin 0.5 AST 10 L ALT 16 Alkaline Phosphatase 74 Total Protein 7.1 Albumin 3.5 Urine Color Yellow Urine Clarity Turbid H Urine pH 7.0 Ur Specific [place] 1.016 Urine Protein 100 H Urine Glucose (UA) Negative Urine Ketones Negative Urine Occult Blood Moderate H Urine Nitrate Negative Urine Bilirubin Negative Urine Urobilinogen Less than 2 Ur Leukocyte Esterase Large H Urine RBC 37 H Urine WBC Urine WBC Clumps Occasional H Urine Bacteria Many H Urine Mucus Many H Micro UA Comment Culture indicated Urine Culture Comments Culture indicated Microbiology 02/16/18 21:20 Urine Culture - Preliminary Clean Catch Urine gram negative rods 02/16/18 21:09 Aerobic Blood Culture - Preliminary Blood - Peripheral No growth in 1 day Anaerobic Blood Culture - Preliminary No growth in 1 day 02/16/18 21:14 Aerobic Blood Culture - Preliminary Blood - Peripheral No growth in 1 day Anaerobic Blood Culture - Preliminary No growth in 1 day Result Diagrams: 02/16/18 21:14 02/16/18 21:14 Imaging: ITS Impressions Chest X-Ray 02/16/18 21:11 CONCLUSION: Assessment and Plan - Plan 32y.o M quadriplegic. SCI. NGB pt Admitted for Positive UC, started on IV antbx already ID is managing Urology consulted to chnage a SPT - Continue care as per ID recommendations - SPT was changed w/out complications - Pt to continue management of SPT as before PROCEDURE: Pt's old SPT was removed. He was prepped sterile way and a new 20Fr Silicone str cath was inserted. Urinary bag was attached and placed to the ground Discussed Condition With: DR Venus MORTON attending
[2018-02-17] MEDS: Vancomycin Inj 1,000 MG in Sodium Chlor 0.9% Inj 250 ML IV.SIG SCH (16:31)
[2018-02-18] MEDS: Vancomycin Inj 1,000 MG in Sodium Chlor 0.9% Inj 250 ML IV.SIG SCH ×2 (03:36→16:30)
[2018-02-18 08:45] LABS: Baso % (Auto) 0.3 % (0.0-2.0); Eos # (Auto) 0.1 th/mm3 (0.0-0.4); Eos % (Auto) 3.6 % (0.0-4.0); Hematocrit 40.9 % (39.0-51.0); Hemoglobin 13.4 gm/dL (13.0-17.0); Lymph # (Auto) 1.7 th/mm3 (1.0-4.8); Lymph % (Auto) 49.9 % (9.0-44.0); Mean Corpuscular HGB Conc 32.8 % (32.0-36.0); Mean Corpuscular Hemoglobin 27.6 pg (27.0-34.0); Mono # (Auto) 0.3 th/mm3 (0.0-0.9); Mono % (Auto) 8.3 % (0.0-8.0); Neut # (Auto) 1.3 th/mm3 (1.8-7.7); Neut % (Auto) 37.9 % (16.0-70.0); Platelet Count 195 th/mm3 (150-450); Red Blood Count 4.87 mil/mm3 (4.50-5.90); Red Cell Distribution Width 14.2 % (11.6-17.2); White Blood Count 3.3 th/mm3 (4.0-11.0)
[2018-02-18 09:05] LABS: Anion Gap 7 meq/L (5-15); Blood Urea Nitrogen 8 mg/dL (7-18); Calcium 8.7 mg/dL (8.5-10.1); Carbon Dioxide 25.3 meq/L (21.0-32.0); Chloride 111 meq/L (98-107); Glomerular Filtration Rate Greater Than 89 mL/min (>89); Glucose,Random 69 mg/dL (74-106); Potassium 3.9 meq/L (3.5-5.1); Sodium 143 meq/L (136-145)
--- NOTE | 2018-02-18 10:16 | P.PNIM ---
Subjective Interval history: Patient tolerating treatments thus far. No complaints. Quadriplegia is a predisposition for urinary tract infections in this patient. Physical Exam Vital signs: Vital Signs 02/17/18 12:00 02/17/18 16:00 02/17/18 17:53 Temperature 97.5 F L 97.5 F L 98.2 F Pulse Rate 60 69 58 L Respiratory Rate 14 16 20 Blood Pressure 94/57 L 129/81 121/59 L Pulse Oximetry 100 100 100 02/17/18 20:00 02/18/18 00:00 02/18/18 04:00 Temperature 97.5 F L 97.6 F 98.3 F Pulse Rate 60 59 L 60 Respiratory Rate 18 18 18 Blood Pressure 112/72 117/70 118/59 L Pulse Oximetry 99 100 100 Intake & Output 02/17/18 02/18/18 02/18/18 18:59 06:59 18:59 Intake Total 1350 / 1350 Output Total 350 / 350 1400 / 1400 Balance 1000 / 1000 -1400 / -1400 Weight 52.9 kg Intake: IV 1350 / 1350 NS Inj 1,000 ML @ 70 mls/hr IV. 1000 / 1000 CONT .[id number] GWENDOLYN Rx#:[id number] Maxipime Inj 2,000 MG In NS Inj 100 / 100 100 ML @ 200 mls/hr IV.SIG Q12H [facility] Rx#:[id number] Vancomycin Inj 1,000 MG In NS 250 / 250 Inj 250 ML @ 250 mls/hr IV.SIG Q12H GWEND[facility] Rx#:[id number] Output: Urine 350 / 350 1400 / 1400 Narrative: GENERAL: NAD, A&Ox3 HEAD: Normocephalic. NECK: Supple, trachea midline. No lymphadenopathy. EYES: No scleral icterus. No injection or drainage. CARDIOVASCULAR: Regular rate and rhythm without murmurs, gallops, or rubs. RESPIRATORY: Breath sounds equal bilaterally. No accessory muscle use. GASTROINTESTINAL: Abdomen soft, non-tender, nondistended. MUSCULOSKELETAL: No cyanosis, or edema. SKIN: Warm and dry. NEURO: Quadriplegia. - Urinary Catheter Management Suprapubic Cath placed during this visit: yes Reason for continuing: Severe pressure ulcer/wound Insertion date: 02/17/18 Results - Labs CBC & Chem 7: 02/18/18 07:28 02/18/18 07:28 Laboratory Results - last 24 hr 02/16/18 02/18/18 02/18/18 21:20 07:28 07:28 WBC 3.3 L RBC 4.87 Hgb 13.4 Hct 40.9 MCV 84.0 MCH 27.6 MCHC 32.8 RDW 14.2 Plt Count 195 MPV 8.0 Neut % (Auto) 37.9 Lymph % (Auto) 49.9 H [place] % (Auto) 8.3 H Eos % (Auto) 3.6 Baso % (Auto) 0.3 Neut # (Auto) 1.3 L Lymph # (Auto) 1.7 [place] # (Auto) 0.3 Eos # (Auto) 0.1 Baso # (Auto) 0.0 WBC Differential . Differential Comment Auto diff final Sodium 143 Potassium 3.9 Chloride 111 H Carbon Dioxide 25.3 Anion Gap 7 BUN 8 Creatinine 0.82 Estimated GFR Greater than 89 Random Glucose 69 L Calcium 8.7 Urine Color Yellow Urine Clarity Turbid H Urine pH 7.0 Ur Specific [place] 1.016 Urine Protein 100 H Urine Glucose (UA) Negative Urine Ketones Negative Urine Occult Blood Moderate H Urine Nitrate Negative Urine Bilirubin Negative Urine Urobilinogen Less than 2 Ur Leukocyte Esterase Large H Urine RBC 37 H Urine WBC Urine WBC Clumps Occasional H Urine Bacteria Many H Urine Mucus Many H Micro UA Comment Culture indicated Urine Culture Comments Culture indicated Microbiology 02/16/18 21:20 Clean Catch Urine Urine Culture - Preliminary gram negative rods 02/16/18 21:09 Blood - Peripheral Aerobic Blood Culture - Preliminary No growth in 1 day 02/16/18 21:09 Blood - Peripheral Anaerobic Blood Culture - Preliminary No growth in 1 day 02/16/18 21:14 Blood - Peripheral Aerobic Blood Culture - Preliminary No growth in 1 day 02/16/18 21:14 Blood - Peripheral Anaerobic Blood Culture - Preliminary No growth in 1 day Assessment and Plan - Assessment (1) Pseudomonas urinary tract infection Code(s): N39.0 - Urinary tract infection, site not specified; B96.5 - Pseudomonas (aeruginosa) (mallei) (pseudomallei) as the cause of diseases classified elsewhere Status: Acute (2) Chronic indwelling Freeman catheter Code(s): Z92.89 - Personal history of other medical treatment Status: Chronic - Plan 32-year-old male with quadriplegia and chronic suprapubic catheter admitted secondary to recurrence of urinary tract infection Urinary tract infection Culture from 02/01/18 positive for MRSA and Pseudomonas Continue vancomycin and ceftazidime Infectious disease following Urology following Plan for suprapubic catheter change prior to discharge Follow urine cultures Quadriplegia Continue home medications Supportive care Physical therapy DVT prophylaxis SCDs
[2018-02-18] MEDS: Sod Chloride 0.9% Inj 1,000 ML IV.CONT SCH ×2 (10:20→20:41)
[2018-02-18] MEDS: Enoxaparin Inj 40 MG/0.4 ML Syringe SQ SCH (10:21)
[2018-02-18] MEDS: Senna/Docusate Sodium 8.6/50 MG Tablet PO SCH ×2 (10:22→20:41)
[2018-02-18] MEDS: Baclofen 10 MG Tablet PO SCH ×3 (10:22→18:32)
[2018-02-18] MEDS: Sertraline 50 MG Tablet PO SCH (10:22)
[2018-02-18] MEDS ORDERED: Pharmacy Ordered Lab Info OTHER ONE (14:45)
--- NOTE | 2018-02-18 14:49 | P.PNWCN ---
Wound Care Nurse Consult Description: Consult placed for specialty bed need per Dr Solares Communicated with: Dane from [facility] Recommendation: Place patient on WAVE alternating pressure reducing mattress and frame ordered. Continue to reposition patient Q2H and PRN for comfort. Additional information: Patient known to commercial insurance underwriter from previous admissions.
[2018-02-19] MEDS: Vancomycin Inj 1,000 MG in Sodium Chlor 0.9% Inj 250 ML IV.SIG SCH ×3 (00:40→17:45)
[2018-02-19] MEDS: Enoxaparin Inj 40 MG/0.4 ML Syringe SQ SCH (08:27)
[2018-02-19] MEDS: Baclofen 10 MG Tablet PO SCH ×3 (08:27→17:45)
[2018-02-19] MEDS: Sertraline 50 MG Tablet PO SCH (08:28)
[2018-02-19] MEDS: Senna/Docusate Sodium 8.6/50 MG Tablet PO SCH ×2 (08:28→20:49)
[2018-02-19 09:14] LABS: Baso # (Auto) 0.2 th/mm3 (0.0-0.2); Baso % (Auto) 4.8 % (0.0-2.0); Eos # (Auto) 0.1 th/mm3 (0.0-0.4); Eos % (Auto) 2.2 % (0.0-4.0); Hematocrit 41.1 % (39.0-51.0); Hemoglobin 13.9 gm/dL (13.0-17.0); Lymph # (Auto) 0.8 th/mm3 (1.0-4.8); Lymph % (Auto) 19.7 % (9.0-44.0); Mean Corpuscular HGB Conc 33.8 % (32.0-36.0); Mean Corpuscular Hemoglobin 27.8 pg (27.0-34.0); Mean Corpuscular Volume 82.4 fL (80.0-100.0); Mono # (Auto) 0.2 th/mm3 (0.0-0.9); Mono % (Auto) 4.2 % (0.0-8.0); Neut # (Auto) 2.7 th/mm3 (1.8-7.7); Neut % (Auto) 69.1 % (16.0-70.0); Platelet Count 204 th/mm3 (150-450); Red Blood Count 4.98 mil/mm3 (4.50-5.90); Red Cell Distribution Width 13.9 % (11.6-17.2); White Blood Count 3.9 th/mm3 (4.0-11.0)
[2018-02-19 09:34] LABS: Albumin 3.5 g/dL (3.4-5.0); Anion Gap 7 meq/L (5-15); Aspartate Aminotransferase 13 U/L (15-37); Blood Urea Nitrogen 6 mg/dL (7-18); Calcium 8.6 mg/dL (8.5-10.1); Chloride 110 meq/L (98-107); Glomerular Filtration Rate Greater Than 89 mL/min (>89); Glucose,Random 68 mg/dL (74-106); Potassium 3.5 meq/L (3.5-5.1); Sodium 142 meq/L (136-145)
[2018-02-19 09:39] LABS: Alanine Aminotransferase 18 U/L (12-78); Alkaline Phosphatase 73 U/L (45-117)
--- NOTE | 2018-02-19 11:44 | P.PNIM ---
Subjective Interval history: 32-year-old male with quadriplegia secondary to a cervical spine fracture presents to the emergency department for the evaluation of a positive urine culture. The patient has a suprapubic catheter and he was seen in the emergency department on 02/01/18 where a urine culture was submitted. The patient was called on Wednesday and told he had Pseudomonas in his urine and to come to the hospital. He reports that the hospital today for these results. Urine culture from 02/01/18 is positive for MRSA and Pseudomonas. The patient denies any fever/chills. No chest pain or shortness of breath. No abdominal pain. No nausea/vomiting/diarrhea. 7 Follow-up visit urinary tract infection, chronic suprapubic catheter, Pseudomonas and MRSA UTI prior. Patient seen and examined today. Reports he is doing okay. Denies pain and discomfort. Denies SOB/ dyspnea. Denies chest pain, palpitations, headaches, dizziness. Denies fevers, chills, n/v/d. 02-18 Patient tolerating treatments thus far. No complaints. Quadriplegia is a predisposition for urinary tract infections in this patient. 02-19 CONTINUE ON ANTIBIOTICS PER ID HAS HAD SUPRAPUBIC CATHETER CHANGED OUT YESTERDAY DW RN AND PT AND FAMILY AND CM AM LABS Physical Exam Vital signs: Vital Signs 02/18/18 13:45 02/18/18 16:35 02/18/18 20:00 Temperature 97.3 F L 97.5 F L 97.6 F Pulse Rate 63 48 L 75 Respiratory Rate 18 18 18 Blood Pressure 139/69 147/73 H 130/74 Pulse Oximetry 100 100 100 02/19/18 00:00 02/19/18 04:00 02/19/18 09:32 Temperature 97.6 F 97.6 F 97.9 F Pulse Rate 52 L 53 L 62 Respiratory Rate 18 18 16 Blood Pressure 113/67 127/69 136/70 Pulse Oximetry 97 100 100 Intake & Output 02/18/18 02/19/18 02/19/18 18:59 06:59 18:59 Intake Total 100 / 100 1250 / 1250 Output Total 1850 / 1850 1650 / 1650 Balance -1750 / -1750 -400 / -400 Weight 52.9 kg Intake: IV 100 / 100 1250 / 1250 NS Inj 1,000 ML @ 70 mls/hr IV. 1000 / 1000 CONT .[id number] [facility] Rx#:[id number] Maxipime Inj 2,000 MG In NS Inj 100 / 100 100 ML @ 200 mls/hr IV.SIG Q12H [facility] Rx#:[id number] Vancomycin Inj 1,000 MG In NS 250 / 250 Inj 250 ML @ 250 mls/hr IV.SIG Q8H [facility] Rx#:[id number] Output: Urine 1850 / 1850 1650 / 1650 Narrative: GENERAL: NAD, A&Ox3 HEAD: Normocephalic. NECK: Supple, trachea midline. No lymphadenopathy. EYES: No scleral icterus. No injection or drainage. CARDIOVASCULAR: Regular rate and rhythm without murmurs, gallops, or rubs. S1, S2 NO S3 OR S4 RESPIRATORY: Breath sounds equal bilaterally. No accessory muscle use. GASTROINTESTINAL: Abdomen soft, non-tender, nondistended. SOFT NONTENDER MUSCULOSKELETAL: No cyanosis, or edema. SKIN: Warm and dry. NEURO: Quadriplegia.MOVES UE AND BL LE ARE FLACCID EXCEPT FOR SPASMS - Urinary Catheter Management Suprapubic Cath placed during this visit: yes Reason for continuing: Other continuation reason Insertion date: 02/17/18 Results - Labs CBC & Chem 7: 02/19/18 08:10 02/19/18 08:10 Laboratory Results - last 24 hr 02/18/18 02/19/18 02/19/18 15:18 08:10 08:10 WBC 3.9 L RBC 4.98 Hgb 13.9 Hct 41.1 MCV 82.4 MCH 27.8 MCHC 33.8 RDW 13.9 Plt Count 204 MPV 8.0 Prelim Diff (Auto) Slide review pending Neut % (Auto) 69.1 Lymph % (Auto) 19.7 [place] % (Auto) 4.2 Eos % (Auto) 2.2 Baso % (Auto) 4.8 H Neut # (Auto) 2.7 Lymph # (Auto) 0.8 L [place] # (Auto) 0.2 Eos # (Auto) 0.1 Baso # (Auto) 0.2 WBC Differential . Diff Scan Auto diff confirmed Differential Comment . Sodium 142 Potassium 3.5 Chloride 110 H Carbon Dioxide 25.0 Anion Gap 7 BUN 6 L Creatinine 0.78 Estimated GFR Greater than 89 Random Glucose 68 L Calcium 8.6 Total Bilirubin 0.4 AST 13 L ALT 18 Alkaline Phosphatase 73 Total Protein 7.0 Albumin 3.5 Vancomycin Trough 9.8 Microbiology 02/16/18 21:09 Blood - Peripheral Aerobic Blood Culture - Preliminary No growth in 3 days 02/16/18 21:09 Blood - Peripheral Anaerobic Blood Culture - Preliminary No growth in 3 days 02/16/18 21:14 Blood - Peripheral Aerobic Blood Culture - Preliminary No growth in 3 days 02/16/18 21:14 Blood - Peripheral Anaerobic Blood Culture - Preliminary No growth in 3 days 02/16/18 21:20 Clean Catch Urine Urine Culture - Preliminary gram negative rods - Imaging Chest X-Ray 02/16/18 21:11 CONCLUSION: No acute cardiopulmonary process. - Procedures CHANGE OUT OF SUPRAPUBIC BY UROLOGY ON 02-17 Assessment and Plan - Assessment (1) Pseudomonas urinary tract infection Code(s): N39.0 - Urinary tract infection, site not specified; B96.5 - Pseudomonas (aeruginosa) (mallei) (pseudomallei) as the cause of diseases classified elsewhere Status: Acute (2) Chronic indwelling Freeman catheter Code(s): Z92.89 - Personal history of other medical treatment Status: Chronic - Plan 32-year-old male with quadriplegia and chronic suprapubic catheter admitted secondary to recurrence of urinary tract infection Urinary tract infection Culture from 02/01/18 positive for MRSA and Pseudomonas Continue vancomycin and ceftazidime Infectious disease following Urology following Plan for suprapubic catheter change prior to discharge Follow urine cultures Quadriplegia Continue home medications Supportive care Physical therapy DVT prophylaxis SCDs Code Status: FULL CODE Discussed Condition With: RN AND PT AND CM Discharge Planning: ONCE CLEARED BY ID
[2018-02-19] MEDS: Sod Chloride 0.9% Inj 1,000 ML IV.CONT SCH (15:45)
[2018-02-19] MEDS ORDERED: Pharmacy Ordered Lab Info OTHER SCH (15:45)
[2018-02-20] MEDS: Vancomycin Inj 1,000 MG in Sodium Chlor 0.9% Inj 250 ML IV.SIG SCH ×3 (00:18→18:30)
[2018-02-20] MEDS: Sod Chloride 0.9% Inj 1,000 ML IV.CONT SCH ×2 (00:18→19:08)
[2018-02-20 09:39] LABS: Baso % (Auto) 0.5 % (0.0-2.0); Eos # (Auto) 0.1 th/mm3 (0.0-0.4); Eos % (Auto) 2.1 % (0.0-4.0); Hematocrit 40.9 % (39.0-51.0); Hemoglobin 13.4 gm/dL (13.0-17.0); Lymph # (Auto) 1.7 th/mm3 (1.0-4.8); Mean Corpuscular HGB Conc 32.8 % (32.0-36.0); Mean Corpuscular Hemoglobin 27.2 pg (27.0-34.0); Mean Corpuscular Volume 82.9 fL (80.0-100.0); Mean Platelet Volume 8.3 fL (7.0-11.0); Mono # (Auto) 0.2 th/mm3 (0.0-0.9); Mono % (Auto) 6.8 % (0.0-8.0); Neut # (Auto) 1.4 th/mm3 (1.8-7.7); Neut % (Auto) 40.6 % (16.0-70.0); Platelet Count 201 th/mm3 (150-450); Red Blood Count 4.93 mil/mm3 (4.50-5.90); Red Cell Distribution Width 13.9 % (11.6-17.2); White Blood Count 3.4 th/mm3 (4.0-11.0)
[2018-02-20 09:56] LABS: Albumin 3.3 g/dL (3.4-5.0); Anion Gap 7 meq/L (5-15); Aspartate Aminotransferase 12 U/L (15-37); Blood Urea Nitrogen 6 mg/dL (7-18); Calcium 8.6 mg/dL (8.5-10.1); Carbon Dioxide 25.9 meq/L (21.0-32.0); Chloride 111 meq/L (98-107); Glomerular Filtration Rate Greater Than 89 mL/min (>89); Glucose,Random 66 mg/dL (74-106); Potassium 3.6 meq/L (3.5-5.1); Sodium 144 meq/L (136-145)
[2018-02-20 09:58] LABS: Alanine Aminotransferase 18 U/L (12-78)
[2018-02-20 10:07] LABS: Alkaline Phosphatase 71 U/L (45-117); Free T4 (Free Thyroxine) 1.22 ng/dL (0.76-1.46); Phosphorus 2.3 mg/dL (2.5-4.9); Thyroid Stimulating Hormone 0.825 uIU/mL (0.358-3.740); Total Protein 6.6 g/dL (6.4-8.2)
[2018-02-20] MEDS: Enoxaparin Inj 40 MG/0.4 ML Syringe SQ SCH (10:47)
[2018-02-20] MEDS: Sertraline 50 MG Tablet PO SCH (10:48)
[2018-02-20] MEDS: Senna/Docusate Sodium 8.6/50 MG Tablet PO SCH ×2 (10:49→21:48)
[2018-02-20] MEDS: Baclofen 10 MG Tablet PO SCH ×3 (10:49→18:29)
[2018-02-20 10:54] LABS: Hemoglobin A1c 4.6 % (4.3-6.0)
--- NOTE | 2018-02-20 14:15 | P.PN ---
Subjective Interval history: Follow-up on patient with urinary tract infection. Patient seen and examined. Patient denies any acute medical complaints. States he feels well. Denies any fever chills. Denies any chest pain or shortness of breath. Denies any nausea , vomiting or abdominal pain. Physical Exam Vital signs: Vital Signs 02/19/18 20:00 02/19/18 20:49 02/20/18 00:00 Temperature 97.5 F L 97.8 F Pulse Rate 61 59 L Respiratory Rate 16 20 18 Blood Pressure 113/66 110/58 L Pulse Oximetry 100 96 02/20/18 04:00 02/20/18 09:52 Temperature 98.1 F 98.3 F Pulse Rate 73 57 L Respiratory Rate 18 16 Blood Pressure 164/97 H 150/81 H Pulse Oximetry 98 100 Intake & Output 02/19/18 02/20/18 02/20/18 18:59 06:59 18:59 Intake Total 2540 / 2540 1979 / 1979 250 / 250 Output Total 1000 / 1000 1000 / 1000 Balance 1540 / 1540 980 / 980 250 / 250 Weight 68.6 kg Intake: IV 1350 / 1350 1500 / 1500 250 / 250 NS Inj 1,000 ML @ 70 mls/hr IV. 1000 / 1000 1000 / 1000 CONT .[id number] [facility] Rx#:[id number] Maxipime Inj 2,000 MG In NS Inj 100 / 100 100 ML @ 200 mls/hr IV.SIG Q12H [facility] Rx#:[id number] Vancomycin Inj 1,000 MG In NS 250 / 250 500 / 500 250 / 250 Inj 250 ML @ 250 mls/hr IV.SIG Q8H [facility] Rx#:[id number] Oral 480 / 480 Other 1190 / 1190 Output: Urine 1000 / 1000 1000 / 1000 Other: Other Intake Source Saline Solution Date of Last Bowel Movement 02/17/18 02/17/18 Narrative: GENERAL: 32-year-old -[place] male patient, INAD, A&Ox3 SKIN: Warm and dry. No generalized rash. HEENT: Atraumatic. Normocephalic. EOMI. No sclera icterus noted. No nasal drainage. Moist mucous membranes. Airway patent. NECK: Supple, trachea midline. No lymphadenopathy. CARDIOVASCULAR: Regular rate and rhythm without murmurs, gallops, or rubs. S1, S2 NO S3 OR S4 RESPIRATORY: Breath sounds equal bilaterally. No accessory muscle use. Clear to auscultation. GASTROINTESTINAL: Abdomen soft, non-tender, nondistended. Suprapubic catheter in place. MUSCULOSKELETAL: No cyanosis or edema. NEURO: Awake and alert. Quadriplegia. Able to move bilateral upper extremities. Bilateral lower extremities flaccid. PSYCHIATRIC: Calm and cooperative. - Urinary Catheter Management Suprapubic Cath placed during this visit: yes Reason for continuing: Other continuation reason Insertion date: 02/17/18 Results - Labs CBC & Chem 7: 02/20/18 07:34 02/20/18 07:34 Laboratory Results - last 24 hr 02/19/18 02/20/18 02/20/18 14:00 07:34 07:34 WBC 3.4 L RBC 4.93 Hgb 13.4 Hct 40.9 MCV 82.9 MCH 27.2 MCHC 32.8 RDW 13.9 Plt Count 201 MPV 8.3 Neut % (Auto) 40.6 Lymph % (Auto) 50.0 H [place] % (Auto) 6.8 Eos % (Auto) 2.1 Baso % (Auto) 0.5 Neut # (Auto) 1.4 L Lymph # (Auto) 1.7 [place] # (Auto) 0.2 Eos # (Auto) 0.1 Baso # (Auto) 0.0 WBC Differential . Differential Comment Auto diff final Sodium Potassium Chloride Carbon Dioxide Anion Gap BUN Creatinine Estimated GFR Random Glucose Hemoglobin A1c 4.6 Calcium Phosphorus Magnesium Total Bilirubin AST ALT Alkaline Phosphatase Total Protein Albumin TSH Free T4 Vancomycin Trough 18.1 H 02/20/18 07:34 WBC RBC Hgb Hct MCV MCH MCHC RDW Plt Count MPV Neut % (Auto) Lymph % (Auto) [place] % (Auto) Eos % (Auto) Baso % (Auto) Neut # (Auto) Lymph # (Auto) [place] # (Auto) Eos # (Auto) Baso # (Auto) WBC Differential Differential Comment Sodium 144 Potassium 3.6 Chloride 111 H Carbon Dioxide 25.9 Anion Gap 7 BUN 6 L Creatinine 0.75 Estimated GFR Greater than 89 Random Glucose 66 L Hemoglobin A1c Calcium 8.6 Phosphorus 2.3 L Magnesium 2.0 Total Bilirubin 0.2 AST 12 L ALT 18 Alkaline Phosphatase 71 Total Protein 6.6 Albumin 3.3 L TSH 0.825 Free T4 1.22 Vancomycin Trough Microbiology 07/25/18 21:09 Blood - Peripheral Aerobic Blood Culture - Preliminary No growth in 4 days 02/16/18 21:09 Blood - Peripheral Anaerobic Blood Culture - Preliminary No growth in 4 days 02/16/18 21:14 Blood - Peripheral Aerobic Blood Culture - Preliminary No growth in 4 days 02/16/18 21:14 Blood - Peripheral Anaerobic Blood Culture - Preliminary No growth in 4 days 02/16/18 21:20 Clean Catch Urine Urine Culture - Final Pseudomonas aeruginosa S. aureus MRSA - Imaging Chest X-Ray 02/16/18 21:11 CONCLUSION: No acute cardiopulmonary process. - Procedures CHANGE OUT OF SUPRAPUBIC BY UROLOGY ON 02-17 Assessment and Plan - Assessment (1) Pseudomonas urinary tract infection Code(s): N39.0 - Urinary tract infection, site not specified; B96.5 - Pseudomonas (aeruginosa) (mallei) (pseudomallei) as the cause of diseases classified elsewhere Status: Acute (2) Chronic indwelling Freeman catheter Code(s): Z92.89 - Personal history of other medical treatment Status: Chronic - Plan 32-year-old male with quadriplegia and chronic suprapubic catheter admitted secondary to recurrence of urinary tract infection Urinary tract infection Culture from 02/01/18 positive for MRSA and Pseudomonas Infectious disease following. Continue on cefepime and vancomycin per ID. Urology following, status post suprapubic catheter change 02/17/18 Repeat UA ordered Quadriplegia Continue home medications Supportive care Physical therapy Hypoglycemia BS running in 60s Change IVF to D5 accucheks DVT prophylaxis Lovenox sq Discussed Condition With: Patient, nursing staff, case management Discharge Planning: Not ready for discharge. Discharge pending ID clearance, results of repeat UA
[2018-02-20] MEDS: Dextrose 5% in Water Inj 1,000 ML IV.CONT SCH (18:00)
[2018-02-20] MEDS ORDERED: Dextrose 50% in Water 50 ML Vial IV.PUSH PRN (18:20)
[2018-02-20 22:03] LABS: Bacteria,Urine Rare /hpf; Bilirubin,Urine Negative (Negative); Clarity,Urine Clear (Clear); Color,Urine Straw (Yellw/Straw); Glucose,Urine (UA) Negative (Negative); Leukocyte Esterase,Urine Trace (Negative); Nitrite,Urine Negative (Negative); Specific Gravity,Urine 1.008 (1.002-1.035)
[2018-02-21] MEDS: Vancomycin Inj 1,000 MG in Sodium Chlor 0.9% Inj 250 ML IV.SIG SCH ×2 (00:44→08:46)
[2018-02-21] MEDS ORDERED: Pharmacy Ordered Lab Info OTHER ONE (07:45)
[2018-02-21] MEDS: Baclofen 10 MG Tablet PO SCH ×3 (08:44→17:07)
[2018-02-21] MEDS: Senna/Docusate Sodium 8.6/50 MG Tablet PO SCH ×2 (08:45→23:00)
[2018-02-21] MEDS: Sertraline 50 MG Tablet PO SCH (08:45)
[2018-02-21] MEDS: Enoxaparin Inj 40 MG/0.4 ML Syringe SQ SCH (08:46)
[2018-02-21 09:41] LABS: Hemoglobin 14.3 gm/dL (13.0-17.0); Mean Corpuscular HGB Conc 32.6 % (32.0-36.0); Mean Corpuscular Hemoglobin 27.1 pg (27.0-34.0); Mean Corpuscular Volume 83.3 fL (80.0-100.0); Mean Platelet Volume 8.2 fL (7.0-11.0); Platelet Count 204 th/mm3 (150-450); Red Blood Count 5.29 mil/mm3 (4.50-5.90); Red Cell Distribution Width 14.2 % (11.6-17.2); White Blood Count 3.5 th/mm3 (4.0-11.0)
[2018-02-21 10:06] LABS: Anion Gap 6 meq/L (5-15); Blood Urea Nitrogen 6 mg/dL (7-18); Carbon Dioxide 26.6 meq/L (21.0-32.0); Chloride 108 meq/L (98-107); Glomerular Filtration Rate Greater Than 89 mL/min (>89); Glucose,Random 78 mg/dL (74-106); Potassium 3.6 meq/L (3.5-5.1); Sodium 141 meq/L (136-145)
[2018-02-21 10:07] LABS: Calcium 9.3 mg/dL (8.5-10.1)
--- NOTE | 2018-02-21 10:57 | P.PN ---
Subjective Interval history: Follow-up on patient with urinary tract infection. Patient seen and examined. Patient reports some insomnia last night otherwise denies any denies any fever or chills. States he feels well. Denies any nausea, vomiting or abdominal pain. He is afebrile. VSS. Physical Exam Vital signs: Vital Signs 02/20/18 20:00 02/21/18 00:00 02/21/18 04:00 Temperature 99.3 F 97.2 F L 97 F L Pulse Rate 70 61 58 L Respiratory Rate 18 18 Blood Pressure 108/77 142/95 H 115/74 Pulse Oximetry 99 98 99 02/21/18 08:00 Temperature 97.5 F L Pulse Rate 62 Respiratory Rate 20 Blood Pressure 116/70 Pulse Oximetry 97 Intake & Output 02/20/18 02/21/18 02/21/18 18:59 06:59 18:59 Intake Total 2170 / 2170 870 / 870 600 / 600 Output Total 1400 / 1400 1600 / 1600 Balance 770 / 770 -730 / -730 600 / 600 Intake: IV 350 / 350 250 / 250 600 / 600 Maxipime Inj 2,000 MG In NS Inj 100 / 100 100 / 100 100 ML @ 200 mls/hr IV.SIG Q12H [facility] Rx#:[id number] Vancomycin Inj 1,000 MG In NS 250 / 250 250 / 250 500 / 500 Inj 250 ML @ 250 mls/hr IV.SIG Q8H [facility] Rx#:[id number] Oral 720 / 720 620 / 620 Other 1100 / 1100 Output: Urine 1400 / 1400 1600 / 1600 Other: Other Intake Source Saline Solution Date of Last Bowel Movement 02/17/18 Narrative: GENERAL: 32-year-old -[place] male patient, INAD, A&Ox3. Appears comfortable. Significant other is at the bedside. SKIN: Warm and dry. No generalized rash. HEENT: Atraumatic. Normocephalic. EOMI. No sclera icterus noted. No nasal drainage. Moist mucous membranes. Airway patent. NECK: Supple, trachea midline. No lymphadenopathy. CARDIOVASCULAR: Regular rate and rhythm without murmurs, gallops, or rubs. S1, S2 NO S3 OR S4 RESPIRATORY: Breath sounds equal bilaterally. No accessory muscle use. Clear to auscultation. GASTROINTESTINAL: Abdomen soft, non-tender, nondistended. Suprapubic catheter in place. MUSCULOSKELETAL: No cyanosis or edema. NEURO: Awake and alert. Quadriplegia. Able to move bilateral upper extremities. Bilateral lower extremities flaccid. PSYCHIATRIC: Calm and cooperative. Appropriate mood and affect. Normal judgment and insight. - Urinary Catheter Management Suprapubic Cath placed during this visit: yes Reason for continuing: Other continuation reason Insertion date: 02/17/18 Results - Labs CBC & Chem 7: 02/21/18 08:02 02/21/18 08:02 Laboratory Results - last 24 hr 02/20/18 02/20/18 02/21/18 07:34 14:00 06:44 WBC RBC Hgb Hct MCV MCH MCHC RDW Plt Count MPV Sodium Potassium Chloride Carbon Dioxide Anion Gap BUN Creatinine Estimated GFR POC Glucose 96 Random Glucose Hemoglobin A1c 4.6 Calcium Urine Color Straw Urine Clarity Clear Urine pH 7.0 Ur Specific [place] 1.008 Urine Protein Negative Urine Glucose (UA) Negative Urine Ketones Negative Urine Occult Blood Small H Urine Nitrate Negative Urine Bilirubin Negative Urine Urobilinogen Less than 2 Ur Leukocyte Esterase Trace H Urine RBC 2 Urine WBC 4 Urine Bacteria Rare H Micro UA Comment Culture indicated Urine Culture Comments Culture indicated 02/21/18 02/21/18 08:02 08:02 WBC 3.5 L RBC 5.29 Hgb 14.3 Hct 44.0 MCV 83.3 MCH 27.1 MCHC 32.6 RDW 14.2 Plt Count 204 MPV 8.2 Sodium 141 Potassium 3.6 Chloride 108 H Carbon Dioxide 26.6 Anion Gap 6 BUN 6 L Creatinine 0.77 Estimated GFR Greater than 89 POC Glucose Random Glucose 78 Hemoglobin A1c Calcium 9.3 Urine Color Urine Clarity Urine pH Ur Specific [place] Urine Protein Urine Glucose (UA) Urine Ketones Urine Occult Blood Urine Nitrate Urine Bilirubin Urine Urobilinogen Ur Leukocyte Esterase Urine RBC Urine WBC Urine Bacteria Micro UA Comment Urine Culture Comments Microbiology 02/20/18 14:00 Suprapubic Urine Urine Culture - Preliminary No growth in 24 hours 02/16/18 21:09 Blood - Peripheral Aerobic Blood Culture - Preliminary No growth in 4 days 02/16/18 21:09 Blood - Peripheral Anaerobic Blood Culture - Preliminary No growth in 4 days 02/16/18 21:14 Blood - Peripheral Aerobic Blood Culture - Preliminary No growth in 4 days 02/16/18 21:14 Blood - Peripheral Anaerobic Blood Culture - Preliminary No growth in 4 days 02/16/18 21:20 Clean Catch Urine Urine Culture - Final Pseudomonas aeruginosa S. aureus MRSA - Imaging Chest X-Ray 02/16/18 21:11 CONCLUSION: No acute cardiopulmonary process. - Procedures CHANGE OUT OF SUPRAPUBIC BY UROLOGY ON 02-17 Assessment and Plan - Assessment (1) Pseudomonas urinary tract infection Code(s): N39.0 - Urinary tract infection, site not specified; B96.5 - Pseudomonas (aeruginosa) (mallei) (pseudomallei) as the cause of diseases classified elsewhere Status: Acute (2) Chronic indwelling Freeman catheter Code(s): Z92.89 - Personal history of other medical treatment Status: Chronic - Plan 32-year-old male with quadriplegia and chronic suprapubic catheter admitted secondary to recurrence of urinary tract infection Urinary tract infection Culture from 02/01/18 positive for MRSA and Pseudomonas Infectious disease following. Continue on cefepime and vancomycin per ID. Urology following, status post suprapubic catheter change 02/17/18 Repeat UA ordered - looks improved but cx indicated/pending Quadriplegia Continue home medications Supportive care Physical therapy Hypoglycemia BS running in 60s Changed IVF to D5 accucheks 02/21 BS improved, 96 this am Neutropenia, new Consult Hematology, appreciate assistance DVT prophylaxis Lovenox sq Discussed Condition With: Patient, girlfriend at bedside Discharge Planning: Discharge pending ID and hematology clearance.
[2018-02-21] MEDS: Dextrose 5% in Water Inj 1,000 ML IV.CONT SCH (19:30)
--- NOTE | 2018-02-21 20:53 | MB ---
cc: Patricia Manuel MD DATE: 02/21/2018 CHIEF COMPLAINT: Neutropenia. HISTORY OF PRESENT ILLNESS: Mr. Chowdhury is a 32-year-old gentleman with a history of quadriplegia secondary to cervical spine fracture, who presented to the emergency department on 02/17/2018 for admission for positive urine culture. He was previously seen in the emergency department on 02/01/2018 where urine culture was submitted. He was called on Wednesday and told that he had pseudomonas in his urine and advised to come to the hospital. Urine culture from 02/01/2018 is positive for MRSA and pseudomonas. He was placed on antibiotics to include vancomycin and cefepime. Repeat urine culture was submitted as well as repeat blood cultures. Infectious disease team was consulted. He continues to follow. Urology team was also consulted, and he is status post changing of suprapubic catheter. Hematology service consulted for further evaluation and management of neutropenia. LABORATORY DATA: CBC from today show white blood cell count 3.5, hemoglobin 14.3, and platelet count of 204,000. Past differential with neutropenia with absolute neutrophil count on admission 1.6, absolute neutrophil count from the 27th 1.3, absolute neutrophil count from the 28th 2.7 and absolute neutrophil count from the 29th 1.4. Chemistry studies with total bilirubin 0.2, AST 12, ALT 18, alkaline phosphatase 71. Albumin is low at 3.3. He has normal TSH and free T4, and creatinine level of 0.75. PAST MEDICAL HISTORY: 1. Quadriplegia. 2. Cervical spine fracture. 3. Neurogenic bladder. PAST SURGICAL HISTORY: History of cervical spine surgery, placement of suprapubic catheter. SOCIAL HISTORY: Tobacco history: The patient reports that he is an everyday smoker. He reports rare use of ethyl alcohol. He has a good support system with his significant other. HOSPITAL MEDICATIONS: 1. Xanax. 2. Baclofen. 3. Cefepime. 4. Lovenox. 5. Lactulose. 6. Senna. 7. Docusate. 8. Sertraline. 9. Restoril. 10. Vancomycin. FAMILY HISTORY: No known family history of blood count abnormalities. REVIEW OF SYSTEMS: As above in HPI, all others negative. PHYSICAL EXAMINATION: VITAL SIGNS: Temperature 97.9, pulse 74, respiratory rate 20, blood pressure 96/54. GENERAL: Thin, chronically ill-appearing man, in no distress, resting comfortably in bed. HEAD: Normocephalic, atraumatic. EYES: PERRLA, EOMI. No scleral icterus. NECK: Supple. No palpable adenopathy. CARDIOVASCULAR: Regular rate and rhythm. No murmurs, rubs. LUNGS: Clear bilaterally. ABDOMEN: Soft and nontender. Bowel sounds present. EXTREMITIES: Thin extremities, decreased muscle tone. NEUROLOGIC: Decreased sensation and strength in his bilateral upper and lower extremities. ASSESSMENT AND PLAN: 1. Pseudomonas and MRSA urinary tract infection, currently being treated with vancomycin and cefepime. Infectious disease team is following and urology team has changed his suprapubic catheter. 2. Neutropenia, mild, with ANC between 1000 and 1500. Peripheral smear evaluation by pathology is currently pending. On trending his CBC, past white blood cell count has been within normal limits, and at times has been elevated when he has previously been admitted. Neutropenia can be seen with infection, including bacterial infections. Hepatitis and HIV can also cause neutropenia. We will check for HIV, hepatitis C. We will also check nutritional studies including iron profile, vitamin B12 and folate. If counts do not resolve after resolution of infection and discontinuation of antibiotics, would perform further workup including workup for underlying bone marrow dyscrasia. Vancomycin and the cephalosporins have also been known to have neutropenia. Inpatient oncology service will continue to follow. MD KOFFI Newman/anival , 07:52 PM , 08:02 PM
[2018-02-21 22:46] LABS: % Iron Saturation 32.5 % (20-50)
[2018-02-21] MEDS: Vancomycin Inj 1,250 MG in Sodium Chlor 0.9% Inj 250 ML IV.SIG SCH (22:58)
[2018-02-21 23:11] LABS: Folate 7.1 ng/mL (3.1-17.5)
[2018-02-22] MEDS: Vancomycin Inj 1,250 MG in Sodium Chlor 0.9% Inj 250 ML IV.SIG SCH (08:24)
[2018-02-22] MEDS: Sertraline 50 MG Tablet PO SCH (08:27)
[2018-02-22] MEDS: Baclofen 10 MG Tablet PO SCH ×3 (08:28→17:22)
[2018-02-22] MEDS: Enoxaparin Inj 40 MG/0.4 ML Syringe SQ SCH (08:28)
[2018-02-22] MEDS: Senna/Docusate Sodium 8.6/50 MG Tablet PO SCH ×2 (08:28→21:41)
--- NOTE | 2018-02-22 09:30 | P.PN ---
Subjective Interval history: Follow-up on patient with urinary tract infection. Patient seen and examined. Patient denies any new medical complaints. Significant other expresses concern for low po intake. Patient states his appetite has been fair but he is trying to eat more. Discussed Megace which patient has been on in the past and does not want to resume at this time. Discussed with patient need for appropriate caloric intake in order to heal sacral decub. Patient denies any fever chills. Denies any cough, chest pain or shortness of breath. He denies any nausea, vomiting or abdominal pain. Physical Exam Vital signs: Vital Signs 02/21/18 12:00 02/21/18 16:00 02/21/18 20:00 Temperature 97.9 F 97.8 F Pulse Rate 59 L 74 67 Respiratory Rate 20 20 18 Blood Pressure 102/58 L 96/54 L 114/71 Pulse Oximetry 97 99 99 02/21/18 23:00 02/22/18 00:00 02/22/18 04:00 Temperature 98 F 97.7 F Pulse Rate 62 65 Respiratory Rate 19 20 20 Blood Pressure 111/58 L 101/55 L Pulse Oximetry 99 02/22/18 08:00 Temperature 97.5 F L Pulse Rate 60 Respiratory Rate 12 Blood Pressure 112/55 L Pulse Oximetry 98 Intake & Output 02/21/18 02/22/18 02/22/18 18:59 06:59 18:59 Intake Total 1285 / 1285 625.0 / 625.0 Output Total 1150 / 1150 900 / 900 Balance 135 / 135 -900 / -900 625.0 / 625.0 Weight 69 kg Intake: IV 1285 / 1285 625.0 / 625.0 D5W Inj 1,000 ML @ 42 mls/hr IV 585 / 585 .CONT .[id number] [facility] Rx#:[id number] Maxipime Inj 2,000 MG In NS Inj 200 / 200 100 / 100 100 ML @ 200 mls/hr IV.SIG Q12H [facility] Rx#:[id number] Vancomycin Inj 1,000 MG In NS 500 / 500 Inj 250 ML @ 250 mls/hr IV.SIG Q8H [facility] Rx#:[id number] Vancomycin Inj 1,250 MG In NS 525.0 / 525.0 Inj 250 ML @ 250 mls/hr IV.SIG Q12H [facility] Rx#:[id number] Output: Urine 1150 / 1150 900 / 900 Other: Date of Last Bowel Movement 02/17/18 Narrative: GENERAL: 32-year-old -Finnish male patient, INAD. Significant other is at the bedside. Sitting up in bed. Awake and alert. SKIN: Warm and dry. No generalized rash. HEENT: Atraumatic. Normocephalic. EOMI. No sclera icterus noted. No nasal drainage. Moist mucous membranes. Airway patent. NECK: Supple, trachea midline. No lymphadenopathy. CARDIOVASCULAR: Regular rate and rhythm without murmurs, gallops, or rubs. RESPIRATORY: Breath sounds equal bilaterally. No accessory muscle use. Clear to auscultation anteriorly. GASTROINTESTINAL: Abdomen soft, non-tender, nondistended. Suprapubic catheter in place. MUSCULOSKELETAL: No cyanosis or edema. NEURO: Awake and alert. Quadriplegia. Able to move bilateral upper extremities. Bilateral lower extremities flaccid. PSYCHIATRIC: Calm and cooperative. Appropriate mood and affect. Normal judgment and insight. - Urinary Catheter Management Suprapubic Cath placed during this visit: yes Reason for continuing: Other continuation reason Insertion date: 02/17/18 Results - Labs CBC & Chem 7: 02/22/18 09:15 02/21/18 08:02 Laboratory Results - last 24 hr 02/21/18 02/21/18 02/21/18 08:02 08:02 08:02 WBC 3.5 L RBC 5.29 Hgb 14.3 Hct 44.0 MCV 83.3 MCH 27.1 MCHC 32.6 RDW 14.2 Plt Count 204 MPV 8.2 Sodium 141 Potassium 3.6 Chloride 108 H Carbon Dioxide 26.6 Anion Gap 6 BUN 6 L Creatinine 0.77 Estimated GFR Greater than 89 POC Glucose Random Glucose 78 Calcium 9.3 Iron TIBC % Saturation Ferritin Vitamin B12 Folate Vancomycin Trough 23.6 H 02/21/18 02/21/18 02/21/18 08:02 11:21 17:06 WBC RBC Hgb Hct MCV MCH MCHC RDW Plt Count MPV Sodium Potassium Chloride Carbon Dioxide Anion Gap BUN Creatinine Estimated GFR POC Glucose 77 87 Random Glucose Calcium Iron 108 TIBC 332 % Saturation 32.5 Ferritin 37 Vitamin B12 826 Folate 7.1 Vancomycin Trough 02/22/18 02/22/18 00:56 06:26 WBC RBC Hgb Hct MCV MCH MCHC RDW Plt Count MPV Sodium Potassium Chloride Carbon Dioxide Anion Gap BUN Creatinine Estimated GFR POC Glucose 117 H 100 Random Glucose Calcium Iron TIBC % Saturation Ferritin Vitamin B12 Folate Vancomycin Trough Microbiology 02/20/18 14:00 Suprapubic Urine Urine Culture - Final No growth in 48 hours 02/16/18 21:09 Blood - Peripheral Aerobic Blood Culture - Final No growth in 5 days 02/16/18 21:09 Blood - Peripheral Anaerobic Blood Culture - Final No growth in 5 days 02/16/18 21:14 Blood - Peripheral Aerobic Blood Culture - Final No growth in 5 days 02/16/18 21:14 Blood - Peripheral Anaerobic Blood Culture - Final No growth in 5 days - Imaging ITS Impressions Chest X-Ray 02/16/18 21:11 CONCLUSION: No acute cardiopulmonary process. - Procedures CHANGE OUT OF SUPRAPUBIC BY UROLOGY ON 02-17 Assessment and Plan - Assessment (1) Pseudomonas urinary tract infection Code(s): N39.0 - Urinary tract infection, site not specified; B96.5 - Pseudomonas (aeruginosa) (mallei) (pseudomallei) as the cause of diseases classified elsewhere Status: Acute (2) Chronic indwelling Freeman catheter Code(s): Z92.89 - Personal history of other medical treatment Status: Chronic (3) Neutropenia Code(s): D70.9 - Neutropenia, unspecified Status: Acute - Plan 32-year-old male with quadriplegia and chronic suprapubic catheter admitted secondary to recurrence of urinary tract infection Urinary tract infection Culture from 02/01/18 positive for MRSA and Pseudomonas Infectious disease following. Continue on cefepime and vancomycin per ID. Urology following, status post suprapubic catheter change 02/17/18 Repeat UA with no growth. Discussed with Dr. Vernon - d/c IV antibiotics Neutropenia, acute, worsening Possibly drug induced Hematology following, appreciate assistance. May need bone marrow bx. White count continues to trend down Peripheral smear pending HIV and Hep C negative continue to monitor white count Quadriplegia Continue home medications Supportive care Physical therapy Hypoglycemia BS much improved Hold D5 accucheks Poor po intake Sacral decubitus Consult distance learning program coordinator for calorie count Consult wound care, appreciate assistance DVT prophylaxis Lovenox sq Discussed Condition With: patient, nursing staff, Dr. Foote, Dr. Vernon Discharge Planning: Discharge pending ID and hematology clearance.
[2018-02-22 10:19] LABS: Hematocrit 42.4 % (39.0-51.0); Hemoglobin 13.9 gm/dL (13.0-17.0); Mean Corpuscular HGB Conc 32.7 % (32.0-36.0); Mean Corpuscular Hemoglobin 27.4 pg (27.0-34.0); Mean Corpuscular Volume 83.8 fL (80.0-100.0); Mean Platelet Volume 8.1 fL (7.0-11.0); Platelet Count 196 th/mm3 (150-450); Red Blood Count 5.06 mil/mm3 (4.50-5.90); White Blood Count 3.1 th/mm3 (4.0-11.0)
[2018-02-22 12:46] LABS: Hepatitis A IgM Antibody Nonreactive (Nonreactive); Hepatitits B Surface Antigen Nonreactive (Nonreactive)
[2018-02-23] MEDS ORDERED: Pharmacy Ordered Lab Info OTHER ONE (07:45)
--- NOTE | 2018-02-23 07:50 | P.PN ---
Subjective Interval history: Follow-up on patient with urinary tract infection. Patient seen and examined. Patient reports he feels well. He denies any new medical complaints. He denies any fever or chills. He denies any chest pain or shortness of breath. He denies any nausea, vomiting or abdominal pain. States his appetite has increased. Discussed with nursing staff, no acute issues noted. Physical Exam Vital signs: Vital Signs 02/22/18 08:00 02/22/18 12:00 02/22/18 16:00 Temperature 97.5 F L 97.4 F L 97.3 F L Pulse Rate 60 59 L 59 L Respiratory Rate 12 20 20 Blood Pressure 112/55 L 103/52 L 107/57 L Pulse Oximetry 98 98 100 02/22/18 20:00 02/22/18 21:41 02/23/18 00:00 Temperature 97.9 F 97.5 F L Pulse Rate 69 50 L Respiratory Rate 18 17 18 Blood Pressure 97/59 L 119/68 Pulse Oximetry 100 99 02/23/18 04:00 Temperature 97.8 F Pulse Rate 49 L Respiratory Rate 18 Blood Pressure 105/55 L Pulse Oximetry 100 Intake & Output 02/22/18 02/23/18 02/23/18 18:59 06:59 18:59 Intake Total 625.0 / 625.0 Output Total 1300 / 1300 800 / 800 Balance -675.0 / -675.0 -800 / -800 Weight 68.4 kg Intake: IV 625.0 / 625.0 Maxipime Inj 2,000 MG In NS Inj 100 / 100 100 ML @ 200 mls/hr IV.SIG Q12H [facility] Rx#:[id number] Vancomycin Inj 1,250 MG In NS 525.0 / 525.0 Inj 250 ML @ 250 mls/hr IV.SIG Q12H [facility] Rx#:[id number] Output: Urine 1300 / 1300 800 / 800 Other: Date of Last Bowel Movement 02/17/18 Narrative: GENERAL: 32-year-old -Aust[place] male patient, INAD. Significant other is at the bedside. Sitting up in bed. Awake and alert. Oriented x 3. Appears comfortable. SKIN: Warm and dry. No generalized rash. HEENT: Atraumatic. Normocephalic. EOMI. No sclera icterus noted. No nasal drainage. Moist mucous membranes. Airway patent. NECK: Supple, trachea midline. No lymphadenopathy. CARDIOVASCULAR: Regular rate and rhythm without murmurs, gallops, or rubs. RESPIRATORY: Breath sounds equal bilaterally. No accessory muscle use. Clear to auscultation anteriorly. GASTROINTESTINAL: Abdomen soft, non-tender, nondistended. Suprapubic catheter in place. MUSCULOSKELETAL: No cyanosis or edema. NEURO: Awake and alert. Quadriplegia. Able to move bilateral upper extremities. Bilateral lower extremities flaccid. PSYCHIATRIC: Calm and cooperative. Appropriate mood and affect. Normal judgment and insight. - Urinary Catheter Management Suprapubic Cath placed during this visit: yes Reason for continuing: Other continuation reason Insertion date: 02/17/18 Results - Labs CBC & Chem 7: 02/23/18 11:15 02/23/18 11:15 Laboratory Results - last 24 hr 02/22/18 02/22/18 02/22/18 09:15 09:15 09:15 WBC 3.1 L RBC 5.06 Hgb 13.9 Hct 42.4 MCV 83.8 MCH 27.4 MCHC 32.7 RDW 14.0 Plt Count 196 MPV 8.1 POC Glucose Hepatitis A IgM Ab Nonreactive Hep Bs Antigen Nonreactive Hep B Core IgM Ab Nonreactive Hep C IgG Ab Nonreactive HIV 1&2 Ab/P24 Ag 4thGn Nonreactive 02/22/18 02/22/18 02/23/18 12:20 17:20 00:10 WBC RBC Hgb Hct MCV MCH MCHC RDW Plt Count MPV POC Glucose 135 H 81 107 Hepatitis A IgM Ab Hep Bs Antigen Hep B Core IgM Ab Hep C IgG Ab HIV 1&2 Ab/P24 Ag 4thGn 02/23/18 05:45 WBC RBC Hgb Hct MCV MCH MCHC RDW Plt Count MPV POC Glucose 90 Hepatitis A IgM Ab Hep Bs Antigen Hep B Core IgM Ab Hep C IgG Ab HIV 1&2 Ab/P24 Ag 4thGn Microbiology 02/20/18 14:00 Suprapubic Urine Urine Culture - Final No growth in 48 hours - Imaging Chest X-Ray 02/16/18 21:11 CONCLUSION: No acute cardiopulmonary process. - Procedures CHANGE OUT OF SUPRAPUBIC BY UROLOGY ON 02-17 Assessment and Plan - Assessment (1) Pseudomonas urinary tract infection Code(s): N39.0 - Urinary tract infection, site not specified; B96.5 - Pseudomonas (aeruginosa) (mallei) (pseudomallei) as the cause of diseases classified elsewhere Status: Acute (2) Chronic indwelling Freeman catheter Code(s): Z92.89 - Personal history of other medical treatment Status: Chronic (3) Neutropenia Code(s): D70.9 - Neutropenia, unspecified Status: Acute - Plan 32-year-old male with quadriplegia and chronic suprapubic catheter admitted secondary to recurrence of urinary tract infection Urinary tract infection Culture from 02/01/18 positive for MRSA and Pseudomonas Infectious disease following. Continue on cefepime and vancomycin per ID. Urology following, status post suprapubic catheter change 02/17/18 Repeat UA with no growth. Discussed with Dr. Vernon - d/c IV antibiotics Neutropenia, acute, improving Possibly drug induced Hematology following, appreciate assistance. May need bone marrow bx. White count now trending up from 3.1 to 3.8. Peripheral smear pending HIV and Hep C negative continue to monitor white count as indicated Quadriplegia Continue home medications Supportive care Physical therapy Hypoglycemia BS improved Hold D5 accucheks Poor po intake Sacral decubitus Orthopedic Dentist following, appreciate recommendations Consult wound care, appreciate assistance DVT prophylaxis Lovenox sq Discussed Condition With: patient, nursing staff, Dr. Foote Discharge Planning: Discharge pending ID and hematology clearance.
[2018-02-23] MEDS: Sertraline 50 MG Tablet PO SCH (08:42)
[2018-02-23] MEDS: Enoxaparin Inj 40 MG/0.4 ML Syringe SQ SCH (08:42)
[2018-02-23] MEDS: Senna/Docusate Sodium 8.6/50 MG Tablet PO SCH (08:42)
[2018-02-23] MEDS: Baclofen 10 MG Tablet PO SCH ×3 (08:42→18:17)
--- NOTE | 2018-02-23 11:43 | P.DIET ---
Nutritional Evaluation Type of nutrition evaluation: initial Nutrition screening: MDC (Calorie Counting) Subjective Subjective Comments: Ate 50% of his dinner last night. Objective - Diagnosis Pseudomonas Cystitis, paraplegia, subjective fever - Objective Spinal Cord Impairment: Quadriplegia (10-15 lbs) Weight Subtracted: 10 lbs % IBW: 100 (IBW = 120#) Body Weight Used for Calculations: Actual (admission wt: 54.7 kg) Energy Needs - Lower Range (kCal/kg): 28 Energy Needs - Upper Range (kCal/kg): 32 Lower Limit kCal/kg (kCals): 1,532 Upper Limit kCal/kg (kCals): 1,750 Lower Limit Protein Factor (Grams per Kg): 1.2 Upper Limit Protein Factor (Grams per Kg): 1.6 Lower Protein Needs (Protein): 66 Upper Protein Needs (Protein): 88 Fluid Factor (ml/kg): 32 Estimated Fluid Needs (ml): 1,750 Dietitian Reviewed in Medical Record: Current diet, Curent medications, Intake & Output, Labs, Medical history, Wound/DTI Objective Comments: Hx includes cervical spine fx and quadriplegia Assessment Assessment: MDC for calorie counting acknowledged. Collection envelope hung on pt's door. Calorie count will run from 02/23 lunch through 02/[address] recommendations to follow. Of note: MD notes sacral decubitus, however, no staging is available. Inconsistent wts also noted. (02/19 -52.9 kg, 02/20 68.6 kg). Recommendations: Continue regular diet RD recommendation to follow on 02/25.
[2018-02-23 12:34] LABS: Baso % (Auto) 0.8 % (0.0-2.0); Eos # (Auto) 0.1 th/mm3 (0.0-0.4); Eos % (Auto) 2.8 % (0.0-4.0); Hematocrit 41.9 % (39.0-51.0); Hemoglobin 13.8 gm/dL (13.0-17.0); Mean Corpuscular HGB Conc 32.8 % (32.0-36.0); Mean Corpuscular Hemoglobin 27.5 pg (27.0-34.0); Mean Corpuscular Volume 83.8 fL (80.0-100.0); Mean Platelet Volume 8.6 fL (7.0-11.0); Mono # (Auto) 0.2 th/mm3 (0.0-0.9); Mono % (Auto) 5.9 % (0.0-8.0); Neut # (Auto) 1.4 th/mm3 (1.8-7.7); Neut % (Auto) 37.5 % (16.0-70.0); Platelet Count 190 th/mm3 (150-450); Red Blood Count 5.01 mil/mm3 (4.50-5.90); Red Cell Distribution Width 14.1 % (11.6-17.2); White Blood Count 3.8 th/mm3 (4.0-11.0)
[2018-02-23 12:42] VITALS: RESP 16; O2SAT 100
[2018-02-23 12:47] LABS: Anion Gap 6 meq/L (5-15); Blood Urea Nitrogen 9 mg/dL (7-18); Carbon Dioxide 28.3 meq/L (21.0-32.0); Chloride 107 meq/L (98-107); Glomerular Filtration Rate Greater Than 89 mL/min (>89); Glucose,Random 69 mg/dL (74-106); Potassium 3.8 meq/L (3.5-5.1); Sodium 141 meq/L (136-145)
--- NOTE | 2018-02-23 15:48 | P.DCO ---
- Physical Therapy Order: Evaluate and treat, Strength and gait training - Occupational Therapy Order: Evaluate and treat, Improve ADL, Gross motor coordination, Fine motor coordination - Certification I have seen patient Anthony Chowdhury on 02/23/18. My clinical findings support the need for the requested home health care services because: Deconditioned with increased weakness, Limited ability to care for self, High risk of falls I certify that my clinical findings support that this patient is homebound because: Unsafe to leave home unassisted, Non-ambulatory: confined to bed or chair, Unable to use public transportation
--- NOTE | 2018-02-23 15:55 | P.DS ---
Date of admission: 02/17/18 00:38 Primary care physician: Michael Young Anticipated date of discharge: 02/23/18 Brief History from admission: 32-year-old male with quadriplegia secondary to a cervical spine fracture presents to the emergency department for the evaluation of a positive urine culture. The patient has a suprapubic catheter and he was seen in the emergency department on 02/01/18 where a urine culture was submitted. The patient was called on Wednesday and told he had Pseudomonas in his urine and to come to the hospital. He reports that the hospital today for these results. Urine culture from 02/01/18 is positive for MRSA and Pseudomonas. The patient denies any fever/chills. No chest pain or shortness of breath. No abdominal pain. No nausea/vomiting/diarrhea. DS: Diagnosis - Discharge Diagnosis (1) Pseudomonas urinary tract infection Status: Acute (2) Chronic indwelling Freeman catheter Status: Chronic (3) Neutropenia Status: Acute DS: Summary Hospital Course: Patient with urinary tract infection. Patient with positive cultures from 2017 for MRSA and Pseudomonas. Patient was seen in consultation by infectious disease and urology. Patient was treated with IV antibiotic therapy and his suprapubic catheter was changed. Patient developed neutropenia and was seen in consultation by hematology. Patient's white count improved. Patient was cleared for discharge from all services. - Time Spent with Patient Total time spent providing and/or coordinating discharge services: Greater than 30 minutes - Quality: VTE Deep Vein Thrombosis/Pulmonary Embolism Present on Admission: No Exam Vital signs: Vital Signs 02/22/18 16:00 02/22/18 20:00 02/22/18 21:41 Temperature 97.3 F L 97.9 F Pulse Rate 59 L 69 Respiratory Rate 20 18 17 Blood Pressure 107/57 L 97/59 L Pulse Oximetry 100 100 02/23/18 00:00 02/23/18 04:00 02/23/18 08:00 Temperature 97.5 F L 97.8 F 97.6 F Pulse Rate 50 L 49 L 51 L Respiratory Rate 18 18 18 Blood Pressure 119/68 105/55 L 116/60 Pulse Oximetry 99 100 99 02/23/18 08:42 02/23/18 12:00 Temperature 96.3 F L Pulse Rate 52 L Respiratory Rate 18 16 Blood Pressure 112/70 Pulse Oximetry 100 Intake & Output 02/22/18 02/23/18 02/23/18 18:59 06:59 18:59 Intake Total 625.0 / 625.0 Output Total 1300 / 1300 800 / 800 Balance -675.0 / -675.0 -800 / -800 Weight 68.4 kg Intake: IV 625.0 / 625.0 Maxipime Inj 2,000 MG In NS Inj 100 / 100 100 ML @ 200 mls/hr IV.SIG Q12H [facility] Rx#:[id number] Vancomycin Inj 1,250 MG In NS 525.0 / 525.0 Inj 250 ML @ 250 mls/hr IV.SIG Q12H [facility] Rx#:[id number] Output: Urine 1300 / 1300 800 / 800 Other: Date of Last Bowel Movement 02/17/18 02/17/18 Narrative: GENERAL: 32-year-old -[place] male patient, INAD. Significant other is at the bedside. Sitting up in bed. Awake and alert. Oriented x 3. Appears comfortable. SKIN: Warm and dry. No generalized rash. HEENT: Atraumatic. Normocephalic. EOMI. No sclera icterus noted. No nasal drainage. Moist mucous membranes. Airway patent. NECK: Supple, trachea midline. No lymphadenopathy. CARDIOVASCULAR: Regular rate and rhythm without murmurs, gallops, or rubs. RESPIRATORY: Breath sounds equal bilaterally. No accessory muscle use. Clear to auscultation anteriorly. GASTROINTESTINAL: Abdomen soft, non-tender, nondistended. Suprapubic catheter in place. MUSCULOSKELETAL: No cyanosis or edema. NEURO: Awake and alert. Quadriplegia. Able to move bilateral upper extremities. Bilateral lower extremities flaccid. PSYCHIATRIC: Calm and cooperative. Appropriate mood and affect. Normal judgment and insight. Results Procedures completed during hospitalization: CHANGE OUT OF SUPRAPUBIC BY UROLOGY ON 02-17 Labs on day of discharge: Labs from last 24 hours 02/23/18 02/23/18 02/23/18 13:07 11:15 11:15 WBC 3.8 L RBC 5.01 Hgb 13.8 Hct 41.9 MCV 83.8 MCH 27.5 MCHC 32.8 RDW 14.1 Plt Count 190 MPV 8.6 Neut % (Auto) 37.5 Lymph % (Auto) 53.0 H Custer % (Auto) 5.9 Eos % (Auto) 2.8 Baso % (Auto) 0.8 Neut # (Auto) 1.4 L Lymph # (Auto) 2.0 Custer # (Auto) 0.2 Eos # (Auto) 0.1 Baso # (Auto) 0.0 WBC Differential . Differential Comment Auto diff final Sodium 141 Potassium 3.8 Chloride 107 Carbon Dioxide 28.3 Anion Gap 6 BUN 9 Creatinine 0.71 Estimated GFR Greater than 89 POC Glucose 78 Random Glucose 69 L Calcium 9.0 Vancomycin Trough 02/23/18 02/23/18 02/23/18 07:45 05:45 00:10 WBC RBC Hgb Hct MCV MCH MCHC RDW Plt Count MPV Neut % (Auto) Lymph % (Auto) Custer % (Auto) Eos % (Auto) Baso % (Auto) Neut # (Auto) Lymph # (Auto) Custer # (Auto) Eos # (Auto) Baso # (Auto) WBC Differential Differential Comment Sodium Potassium Chloride Carbon Dioxide Anion Gap BUN Creatinine Estimated GFR POC Glucose 90 107 Random Glucose Calcium Vancomycin Trough 6.1 02/22/18 17:20 WBC RBC Hgb Hct MCV MCH MCHC RDW Plt Count MPV Neut % (Auto) Lymph % (Auto) Custer % (Auto) Eos % (Auto) Baso % (Auto) Neut # (Auto) Lymph # (Auto) Custer # (Auto) Eos # (Auto) Baso # (Auto) WBC Differential Differential Comment Sodium Potassium Chloride Carbon Dioxide Anion Gap BUN Creatinine Estimated GFR POC Glucose 81 Random Glucose Calcium Vancomycin Trough - Impressions ITS Impressions Chest X-Ray 02/16/18 21:11 CONCLUSION: No acute cardiopulmonary process. Discharge Plan - Discharge Disposition Patient Disposition: /[facility] - Discharge Condition Condition: Stable - Discharge Order Discharge Orders: Discharge Order (Routine); Ordered 02/23/18 Ordered By: Maty Cuevas - Discharge Details Anticipated Discharge Date: 02/23/18 - Physicians Team Primary Care Provider: Michael Young Attending Provider: Yara Foote Other Providers: Emeterio Hutchinson MD ; Jimmy Donovan MD ; Miriam Vernon MD ; Patricia Manuel
--- NOTE | 2018-02-23 17:37 | P.PNWCN ---
Wound Care Nurse Consult Description: Consult placed for wound management per Communicated with: Gustavo Eduardo RN Recommendation: Patient to follow up with out patient wound center 02/24 @ 1pm Additional information: Patient is establish with and has a currently [address] and will follow up with out patient wound center tomorrow. Wound/Pressure Injury - Wound Right Buttocks Wound Assessment: Admission Wound Type: Pressure Injury Is This a Chronic Wound: Yes Requested from Provider a Wound Care Consult: No (Rex SZYMANSKI,[facility] seen 02/23) Dressing Status: Dry & Intact Midline Coccyx Wound Assessment: Ongoing Wound Type: Pressure Injury Is This a Chronic Wound: No Requested from Provider a Wound Care Consult: (consulted) Drainage Description: Serosanguinous Drainage Amount: None Drainage Odor: No Odor Dressing Status: Dry & Intact Primary Dressing: Film Dressing Cover Dressing: Adhesive Dressing
[2018-02-23 17:55] VITALS: BP 107/58; PULSE 56; TEMP 97.9
== END 2018-02-23 20:09 | disposition home health service (06) ==
LOC: NEPE 20:44 → NEDA 20:44 → NEPHCDU 02-17 01:49 → N05 02-17 17:15
PROVIDERS: ADMIT Hospitalist; ATTEND Hospitalist